=== PATIENT | female | born 1950 | race Caucasian/White ===

== ENCOUNTER 2018-07-10 16:07 | Inpatient (IN) | payer MEDICARE, OTHER ==
--- NOTE | 2018-07-10 16:41 | PDOC ---
History of Present Illness - General Chief Complaint: Respiratory Stated Complaint: SENT BY PCP // ADMIT UNDER DR. MCMULLEN Time Seen by Provider: 07/10/18 16:08 History Source: Patient - History of Present Illness Initial Comments: 07/10/18 16:36 67 year old female send by Dr. rollins for admission for symptomatic anemia , CHF, with recent stent placement at [facility]. patient reports worsening shortness of breath since the stent placement on 06/26/2018/ PE: patient alert ox3 b/l lower extremity edema, SOB A; CHF exacerbation? P: labs xray ekg Past History - Past Medical History Allergies/Adverse Reactions: Allergies Allergy/AdvReac Type Severity Reaction Status Date / Time azithromycin [From Zithromax] Allergy Verified 01/12/16 21:56 Home Medications: Ambulatory Orders Insulin (Novolog 70/30) [Novolog Mix 70/30 Flexpen -] 24 units SQ HS 12/31/14 Insulin (Novolog 70/30) [Novolog Mix 70/30 Flexpen -] 51 units SQ AM 12/31/14 Losartan Potassium 100 mg PO DAILY 12/31/14 Meclizine HCl 25 mg PO DAILY 01/12/16 Ondansetron [Zofran *Odt*] 8 mg SL BID 01/12/16 Diabetes: Yes HTN: Yes - Immunization History Immunization Up to Date: Yes - Suicide/Smoking/Psychosocial Hx Smoking History: Never smoked Have you smoked in the past 12 months: No Hx Alcohol Use: No Drug/Substance Use Hx: No Substance Use Type: None
--- NOTE | 2018-07-10 16:43 | PDOC ---
Rapid Medical Evaluation Chief Complaint: Respiratory Time Seen by Provider: 07/10/18 16:08 Medical Evaluation: Allergies Allergy/AdvReac Type Severity Reaction Status Date / Time azithromycin [From Zithromax] Allergy Verified 01/12/16 21:56 07/10/18 16:42 67 year old female send by Dr. rollins for admission for symptomatic anemia , CHF, with recent stent placement at [facility]. patient reports worsening shortness of breath since the stent placement on 06/26/2018/ PE: patient alert ox3 b/l lower extremity edema, SOB A; CHF exacerbation? P: labs xray ekg 07/10/18 16:42 Discharge Disposition - Diagnosis Shortness of breath at rest - Referrals - Patient Instructions - Post Discharge Activity
--- NOTE | 2018-07-10 17:12 | PDOC ---
History of Present Illness - General Chief Complaint: Respiratory Stated Complaint: SENT BY PCP // ADMIT UNDER DR. MCMULLEN Time Seen by Provider: 07/10/18 16:08 History Source: Patient Exam Limitations: No Limitations - History of Present Illness Initial Comments: Pt is a 67 yo F, with PMH of anemia, CHF, CAD (stent x1), IDDM, and HTN, who is presenting with complaints of worsening dyspnea and b/l LE swelling x2 weeks. Pt was sent from Dr. Owen's office (cardiology), when he discovered worsening anemia and dyspnea. Pt states she has also had some productive frothy sputum, which is unusual for her. Pt had a cardiac stent placed at [facility] (06/26/2018) and has had worsening SOB since that time. She can normally ambulate around her house, but has had difficulty even getting around in her room. She has also had intermittent loose stools about once per week, and has seen "drops of blood in the toilet". Pt denies any recent fevers/chills , headache, vision changes, syncope, chest pain, palpitations, nausea/vomiting, abdominal pain, urinary symptoms, or constipation. Social: Pt denies any cigarette, alcohol, or drug use. Pt denies any recent travel or sick contacts. Surgical: stent placement. Family: no relevant history. 07/10/18 20:33 Past History - Travel Traveled outside of the country in the last 30 days: No Close contact w/someone who was outside of country & ill: No - Past Medical History Allergies/Adverse Reactions: Allergies Allergy/AdvReac Type Severity Reaction Status Date / Time azithromycin [From Zithromax] Allergy Verified 07/10/18 16:45 Home Medications: Ambulatory Orders Atorvastatin Ca [Lipitor] 80 mg PO HS 07/10/18 Clopidogrel Bisulfate [Plavix] 75 mg PO DAILY 07/10/18 Insulin Glargine,Hum.rec.anlog [Lantus] 30 unit SQ HS 07/10/18 Losartan Potassium [Cozaar] 100 mg PO HS 07/10/18 Diabetes: Yes HTN: Yes - Immunization History Immunization Up to Date: Yes - Suicide/Smoking/Psychosocial Hx Smoking History: Never smoked Have you smoked in the past 12 months: No Hx Alcohol Use: No Drug/Substance Use Hx: No Substance Use Type: None Review of Systems - Review of Systems Able to Perform ROS?: Yes Is the patient limited Uzbek proficient: No Constitutional: Yes: Weight Stable. No: Chills, Diaphoresis, Fever, Loss of Appetite, Malaise, Weakness HEENTM: No: Recent change in vision, Nose Congestion, Throat Pain, Throat Swelling Respiratory: Yes: Shortness of Breath, SOB with Exertion, SOB at Rest, Productive cough (productive sputum, no consistent coughing). No: Cough, Orthopnea, Wheezing, Hemoptysis Cardiac (ROS): Yes: See HPI, Edema. No: Chest Pain, Irregular Heart Rate, Lightheadedness, Palpitations, Syncope, Chest Tightness ABD/GI: Yes: Diarrhea. No: Constipated, Nausea, Poor Appetite, Poor Fluid Intake, Vomiting, Abdominal cramping, Tarry Stools : No: Burning, Dysuria, Pain, Urgency Musculoskeletal: No: Back Pain, Joint Pain, Muscle Pain Integumentary: No: Rash Neurological: No: Headache, Numbness, Paresthesia, Dizziness Psychiatric: No: Sleep Pattern Change, Change in Appetite Endocrine: No: Increased Urine, Change in Weight Hematologic/Lymphatic: Yes: Anemia, Blood Clots (CAD, s/p stent). No: Easy Bleeding, Easy Bruising *Physical Exam - Vital Signs Last Vital Signs Temp Pulse Resp BP Pulse Ox 97.9 F 77 24 H 145/66 96 07/10/18 16:36 07/10/18 16:36 07/10/18 16:36 07/10/18 16:36 07/10/18 16:36 - Physical Exam Comments: RR 24, O2 96% on RA (improved to 100% on O2), pt afebrile. Obese body habitus. PE showed pt alert and oriented. pre press proofer generally intact, muscular strength and sensation intact. Eyes PERRLA, EOMI. Oropharynx without erythema or exudates, no LAD b/l. No nasal congestion, hearing intact. Clear heart sounds, S1/S2, no JVD, no heart murmur. B/l pedal edema with pitting to mid shins. Coarse breath sounds b/l, crackles worse at the bases, accessory muscle use in abdomen. No abdominal or CVA tenderness to palpation, no rebound, no guarding. Abdomen soft , non-distended, and with normoactive bowel sounds. Skin without jaundice or rash. 07/10/18 20:41 Moderate Sedation - Procedure Monitoring Vital Signs: Procedure Monitoring Vital Signs Temperature 97.9 F 07/10/18 16:36 Pulse Rate 77 07/10/18 16:36 Respiratory Rate 24 H 07/10/18 16:36 Blood Pressure 145/66 07/10/18 16:36 O2 Sat by Pulse Oximetry (%) 96 07/10/18 16:36 ED Treatment Course - LABORATORY CBC & Chemistry Diagram: 07/10/18 17:35 07/10/18 17:35 Medical Decision Making - Medical Decision Making Pt was seen at bedside, also will be seen by attending Dr. Bonilla. Pt presenting with complaints of worsening dyspnea and b/l LE swelling x2 weeks. Pt was sent from Dr. Owen's office (cardiology), when he discovered worsening anemia and dyspnea. Pt states she has also had some productive frothy sputum, which is unusual for her. Pt had a cardiac stent placed at [facility] (06/26/2018) and has had worsening SOB since that time. She can normally ambulate around her house, but has had difficulty even getting around in her room. She has also had intermittent loose stools about once per week, and has seen "drops of blood in the toilet". Pt denies any recent fevers/chills , headache, vision changes, syncope, chest pain, palpitations, nausea/vomiting, abdominal pain, urinary symptoms, or constipation. RR 24, O2 96% on RA (improved to 100% on O2), pt afebrile. Obese body habitus. PE showed pt alert and oriented. pre press proofer generally intact, muscular strength and sensation intact. Eyes PERRLA, EOMI. Oropharynx without erythema or exudates, no LAD b/l. No nasal congestion, hearing intact. Clear heart sounds, S1/S2, no JVD, no heart murmur. B/l pedal edema with pitting to mid shins. Coarse breath sounds b/l, crackles worse at the bases, accessory muscle use in abdomen. No abdominal or CVA tenderness to palpation, no rebound, no guarding. Abdomen soft , non-distended, and with normoactive bowel sounds. Skin without jaundice or rash. Considering worsening anemia vs CHF exacerbation vs pulm edema/effusion vs ACS vs URI/pneumonia. Ordered work-up including CBC, CMP, BNP, Mg, Phos, coags, cardiac profile, ECG. chest x-ray. Provided 0.4 mg SL NG and 20 mg IV lasix for improvement of edema and SOB. Will continue to reassess pt and monitor for symptomatic improvement. ECG: NSR, TN 162, incomplete RBBB, LAD. Slightly peaked T waves, only greater 1/ 2 R wave in V3. 07/10/18 17:14 CBC: WBC WNL, H/H 8.2/24.3 -- pt currently fluid overloaded. Will provide diuresis before any transfusion. Sent stool for occult blood. Pending CMP and chest x-ray. Pt states she is starting to feel better after medications. Pt saturating 99% on 2L O2 NC, will reduce as tolerated. 07/10/18 18:06 CMP: K 6.3, BUN/Cr 41/1.8, glucose 188 Ca 7.7, Mg 2.8 Coags WNL Trop .03, BNP 1554 Providing 30 mg PO kayexalate, bicarb, calcium gluc. [id number] RAD/CHEST X-RAY PORTABLE* Shortness of breath Portable chest x-ray, AP semiupright Compared to prior chest x-ray dated 06/29/2009 The cardiac silhouette is borderline in size. There are increased interstitial markings, bilaterally suggestive of pulmonary venous congestion plus or minus pneumonic infiltrates. Mediastinum and visualized osseous structures appear intact Impression: Borderline cardiomegaly and mild pulmonary venous congestion versus interstitial infiltrates. Correlate clinically and follow-up is needed. Spoke with Dr. Luciano who accepted pt for admission. Placed consult order for Dr. Owen (cardiology). Pt stable and pending bed upstairs. Feels less SOB after interventions, still dyspneic with exertion. 07/10/18 19:56 07/10/18 20:18 *DC/Admit/Observation/Transfer Diagnosis at time of Disposition: Shortness of breath at rest, IDDM (insulin dependent diabetes mellitus), H/O heart artery stent CHF exacerbation Qualifiers: Heart failure type: unspecified Qualified Code(s): I50.9 - Heart failure, unspecified - Discharge Dispostion Condition at time of disposition: Stable Decision to Admit order: Yes - Referrals - Patient Instructions - Post Discharge Activity
[2018-07-10] MEDS ORDERED: FUROSEMIDE 40 MG/4 ML INJECTABLE VIAL IVPUSH ONE (17:15)
[2018-07-10] MEDS ORDERED: NITROGLYCERIN SUBLINGUAL 1/150 0.4 MG TAB SL ONE (17:15)
[2018-07-10] MEDS ORDERED: FUROSEMIDE 40 MG/4 ML INJECTABLE VIAL ONE (17:32)
--- NOTE | 2018-07-10 17:43 | PDOC ---
Documentation entered by Andressa Banda SCRIBE, acting as scribe for Denise Bonilla MD. Attending Attestation - Resident Resident Name: Merry Up - ED Attending Attestation I have performed the following: I have examined & evaluated the patient, The case was reviewed & discussed with the resident, I agree w/resident's findings & plan, Exceptions are as noted - HPI HPI: 07/10/18 18:42 67 yo F h/o recent CAD HTN recent stent here from [employer] office with exertional dyspnea, edema for few weeks. and was found to be anemic today in office. no h/o dark stool no prior anemia. no f/c no cough. sob worse with exertion and lying flat. no current chest pain. no ho pe or dvt. pt follows with dr rollins. - Physicial Exam PE: 07/10/18 17:35 awake alert NAD. lungs with crackles at bases, mild tachypnea, decreased at bases. mild increased effort. heart rrr no mrg abd soft nt nd. ext bilat pitting edema. no calf tenderness. nuero alert oriented x 3. - Medical Decision Making 07/10/18 17:36 67 yo F with h/o recent stent, CAD, htn anemia here with exertional sob and leg edema. worsening anemia. differential angina, chf, anemia. plan labs ekg trop cxr eric require lasix. prior to transfusion for anemia. paged dr rollins for admission. told to admit to [facility]. 07/10/18 18:40 pt with elevatd potassium 6.3 given lasix and kaexylate. will give calcium chloride and bicarb also . note elevaeted magnesium in addition. ekg with no acute changes or peaked t waved. Heart Score/ECG Review #1 General ECG Interpretation: Sinus Rhythm, Normal Rate (66), Normal Intervals, No acute ischemic changes (TWI I, AVL) - [place] Saint David: Left [place] Deviation Denise Bonilla MD: This documentation has been prepared by the joséibeVeronika Amanda, SCRIBE, under my direction and personally reviewed by me in its entirety. I confirm that the documentation accurately reflects all work, treatment, procedures, and medical decision making performed by me.
[2018-07-10 17:48] LABS: BASO % 0.7 % (0-2.0); EOS % 4.9 % (0-4.5); HEMATOCRIT 24.3 % (32.4-45.2); HEMOGLOBIN 8.2 GM/dL (10.7-15.3); LYMPH % 17.6 % (8-40); MCH 28.6 pg (25.7-33.7); MCHC 33.9 g/dl (32.0-36.0); MEAN CELL VOLUME 84.4 fl (80-96); MEAN PLT VOLUME 7.8 fl (7.5-11.1); MONO % 5.8 % (3.8-10.2); PLATELET COUNT 268 K/MM3 (134-434); RBC 2.88 M/mm3 (3.60-5.2); RDW 16.4 % (11.6-15.6); WHITE BLOOD COUNT 8.3 K/mm3 (4.0-10.0)
[2018-07-10 18:13] LABS: ALBUMIN 2.1 g/dl (3.4-5.0); ALK PHOS 132 U/L (45-117); ANION GAP 7 MMOL/L (8-16); BILIRUBIN,TOTAL 0.2 mg/dL (0.2-1); BLOOD UREA NITROGEN 41 mg/dL (7-18); CALCIUM 7.7 mg/dL (8.5-10.1); CHLORIDE 107 mmol/L (98-107); CO2 21 mmol/L (21-32); CREATININE 1.8 mg/dL (0.55-1.3); GLUCOSE,RANDOM 188 mg/dL (74-106); MAGNESIUM 2.8 mg/dL (1.8-2.4); N-TERMINAL BNP 1554.2 pg/ml (5-125); SGOT/AST 21 U/L (15-37); SGPT/ALT 23 U/L (13-61); SODIUM 135 mmol/L (136-145); TOT PROT 5.6 g/dl (6.4-8.2)
[2018-07-10 18:20] LABS: POTASSIUM 6.3 mmol/L (3.5-5.1)
[2018-07-10] MEDS ORDERED: SODIUM POLYSTYRENE SULFONATE 15 GM/60 ML BOTTLE PO ONE (18:28)
[2018-07-10] MEDS ORDERED: SODIUM POLYSTYRENE SULFONATE 15 GM/60 ML BOTTLE ONE (18:31)
[2018-07-10 18:38] LABS: INR 0.92 (0.83-1.09); PROTHROMBIN TIME (PATIENT) 10.9 SEC (9.7-13.0)
[2018-07-10] MEDS ORDERED: CALCIUM GLUCONATE 10% - 1,000 MG/10 ML VIAL IVPUSH ONE (18:54)
[2018-07-10] MEDS ORDERED: SODIUM BICARBONATE 4.2% 5 MEQ/10 ML DISP.SYRIN IVPUSH ONE ×2 (18:55→19:10)
--- NOTE | 2018-07-10 18:57 | CON.CARD ---
Cardiology Consult (text) - Consultation Consultation Note: Ms. Mckeon was sent to ER for further evaluation of dyspnea on exertion, congestive heart failure and worsened anemia. She was seen in the office this afternoon. She has a pertinent PMH of CKD and CAD with recent RAQUEL to LAD several weeks ago (radial approach). Her baseline Hb of near 10 has now dropped to 8, she has b/l LE edema, rales and CXR c/w CHF. In ER, she was also found to be hyperkalemic and was given Kayexalate. IMP: 1. CAD s/p recent RAQUEL LAD (radial approach) 2. Chronic anemia, progressive 3. Acute on chronic diastolic CHF 4. CKD 5. Hyperk+ REC: 1. Admit for IV diuresis. 2. Daily weight and monitoring renal function, potassium 3.Echo 4. Renal evaluation 5. Stool guaiac and anemia w/u as per PMD
[2018-07-10] MEDS ORDERED: CALCIUM GLUCONATE 10% - 1,000 MG/10 ML VIAL ONE (19:01)
[2018-07-10] MEDS ORDERED: SODIUM BICARBONATE 8.4% 50 MEQ/50 ML VIAL ONE (19:02)
[2018-07-10] MEDS ORDERED: SODIUM BICARBONATE 8.4% 50 MEQ/50 ML DISP.SYRIN IVPUSH ONE (19:12)
[2018-07-10 21:26] LABS: URINE APPEARANCE SLCLOUDY; URINE BILIRUBIN NEGATIVE (<2.0 mg/dL); URINE COLOR YELLOW; URINE GLUCOSE (UA) 2+ (NEGATIVE); URINE KETONE NEGATIVE (NEGATIVE); URINE LEUK ESTERASE NEGATIVE (NEGATIVE); URINE NITRITE NEGATIVE (NEGATIVE); URINE PROTEIN 2+ (NEGATIVE); URINE UROBILINOGEN NEGATIVE mg/dL (0.2-1.0)
[2018-07-10 21:57] LABS: URINE HYALINE CAST 7 /lpf; URINE MUCUS RARE
[2018-07-10 22:05] VITALS: BMI 38.9
[2018-07-10] MEDS ORDERED: ASPIRIN 81 MG CHEWABLE TABLETS PO SCH (22:45)
[2018-07-10] MEDS ORDERED: CLOPIDOGREL BISULFATE 75 MG TABLET (FP) PO SCH (22:45)
[2018-07-10] MEDS ORDERED: CLOPIDOGREL BISULFATE 75 MG TABLET (FP) PO ONE (23:00)
[2018-07-10] MEDS ORDERED: ASPIRIN 81 MG CHEWABLE TABLETS PO ONE (23:00)
--- NOTE | 2018-07-10 23:08 | HP ---
Admitting History and Physical - Past Medical History ...: No - Smoking History Smoking history: Never smoked Have you smoked in the past 12 months: No - Alcohol/Substance Use Hx Alcohol Use: No Home Medications - Allergies Allergies/Adverse Reactions: Allergies Allergy/AdvReac Type Severity Reaction Status Date / Time azithromycin [From Zithromax] Allergy Verified 07/10/18 16:45 - Home Medications Home Medications: Ambulatory Orders Aspirin [ASA -] 81 mg PO HS 07/10/18 Atorvastatin Ca [Lipitor] 80 mg PO HS 07/10/18 Clopidogrel Bisulfate [Plavix] 75 mg PO HS 07/10/18 Doxazosin Mesylate 4 mg PO DAILY 07/10/18 Ezetimibe [Zetia] 10 mg PO HS 07/10/18 Ferrous Sulfate [Feosol] 325 mg PO DAILY 07/10/18 Insulin Glargine,Hum.rec.anlog [Lantus] 30 unit SQ HS 07/10/18 Losartan Potassium [Cozaar] 100 mg PO HS 07/10/18 Meclizine HCl 12.5 mg PO BID 07/10/18 Metoprolol Succinate 25 mg PO HS 07/10/18 Physical Examination Vital Signs: Vital Signs Temperature 97.9 F 07/10/18 16:36 Pulse Rate 57 L 07/10/18 18:16 Respiratory Rate 22 H 07/10/18 18:16 Blood Pressure 137/56 L 07/10/18 18:16 O2 Sat by Pulse Oximetry (%) 100 07/10/18 18:16 Labs: CBC, BMP 07/10/18 17:35 07/10/18 17:35
[2018-07-10] MEDS: ASPIRIN COATED 81 MG TABLET.EC PO SCH (23:53)
[2018-07-10] MEDS: CLOPIDOGREL BISULFATE 75 MG TABLET (FP) PO SCH (23:53)
[2018-07-10] MEDS: INSULIN (LEVEMIR) 100 UNITS/ML UNITS SQ SCH (23:53)
[2018-07-10] MEDS: metoPROLOL SUCCINATE 25 MG TAB.SR.24H (FP) PO SCH (23:53)
[2018-07-10] MEDS: EZETIMIBE 10 MG TABLET (FP) PO SCH (23:54)
[2018-07-11] MEDS: INSULIN SLIDING SCALE (NOVOLOG) 1 VIAL SQ SCH ×4 (06:27→21:55)
[2018-07-11 07:08] LABS: BASO % 0.5 % (0-2.0); EOS % 5.8 % (0-4.5); LYMPH % 21.5 % (8-40); MCH 27.6 pg (25.7-33.7); MCHC 33.2 g/dl (32.0-36.0); MEAN CELL VOLUME 83.1 fl (80-96); MEAN PLT VOLUME 7.7 fl (7.5-11.1); NEUT % 64.2 % (42.8-82.8); PLATELET COUNT 222 K/MM3 (134-434); RBC 2.53 M/mm3 (3.60-5.2); WHITE BLOOD COUNT 6.8 K/mm3 (4.0-10.0)
[2018-07-11 07:39] LABS: ALBUMIN 1.9 g/dl (3.4-5.0); ALK PHOS 123 U/L (45-117); ANION GAP 4 MMOL/L (8-16); BILIRUBIN,TOTAL 0.6 mg/dL (0.2-1); BLOOD UREA NITROGEN 41 mg/dL (7-18); CALCIUM 7.7 mg/dL (8.5-10.1); CHLORIDE 110 mmol/L (98-107); CO2 26 mmol/L (21-32); CREATININE 1.6 mg/dL (0.55-1.3); GLUCOSE,RANDOM 186 mg/dL (74-106); POTASSIUM 5.5 mmol/L (3.5-5.1); SGOT/AST 13 U/L (15-37); SGPT/ALT 17 U/L (13-61); SODIUM 141 mmol/L (136-145); TOT PROT 5.2 g/dl (6.4-8.2)
--- NOTE | 2018-07-11 09:04 | PN ---
Progress Note, Physician Chief Complaint: Seen and examined on telemetry TELE: NSR She denies CP. Chronic SOB History of Present Illness: has not diuresed much - Current Medication List Current Medications: Active Medications Aspirin (Ecotrin -) 81 mg PO HS [facility] Last Admin: 07/10/18 23:53 Dose: Not Given Atorvastatin Calcium (Lipitor -) 80 mg PO HS [facility] Clopidogrel Bisulfate (Plavix -) 75 mg PO HS [facility] Last Admin: 07/10/18 23:53 Dose: Not Given Doxazosin Mesylate (Cardura -) 4 mg PO DAILY [facility] Ezetimibe (Zetia -) 10 mg PO HS [facility] Last Admin: 07/10/18 23:54 Dose: 10 mg Ferrous Sulfate (Feosol -) 325 mg PO DAILY [facility] Furosemide (Lasix Injection -) 40 mg IVPUSH DAILY [facility] Heparin Sodium (Porcine) (Heparin -) 5,000 unit SQ BID [facility] Insulin Aspart (Novolog Vial Sliding Scale -) 1 vial SQ [facility]; Protocol Last Admin: 07/11/18 06:27 Dose: 2 units Insulin Detemir (Levemir Vial) 30 units SQ [facility] Last Admin: 07/10/18 23:53 Dose: Not Given Losartan Potassium (Cozaar -) 100 mg PO HS [facility] Meclizine HCl (Antivert -) 12.5 mg PO BID [facility] Metoprolol Succinate (Toprol Xl -) 25 mg PO [facility] Last Admin: 07/10/18 23:53 Dose: 25 mg - Objective Vital Signs: Vital Signs Temperature 99.1 F 07/11/18 08:58 Pulse Rate 52 L 07/11/18 08:58 Respiratory Rate 18 07/11/18 08:58 Blood Pressure 148/68 07/11/18 08:58 O2 Sat by Pulse Oximetry (%) 100 07/11/18 00:16 Constitutional: Yes: No Distress Cardiovascular: Yes: Regular Rate and Rhythm Respiratory: Yes: Other (decreased breath sounds at bases. No wheezing.) Gastrointestinal: Yes: Soft (NT) Edema: Yes Edema: LLE: 2+, RLE: 2+ Neurological: Yes: Alert, Oriented ...Motor Strength: WNL Labs: CBC, BMP 07/11/18 05:30 07/11/18 05:30 INR, PTT INR 0.92 (0.83-1.09) 07/10/18 17:35 Selected Entries 07/11/18 06:00 Weight 184 lb 3.2 oz Laboratory Tests 07/11/18 07/11/18 07/11/18 01:30 05:30 05:30 WBC 6.8 Hgb 7.0 L Hct 21.0 L Plt Count 222 Sodium 141 Potassium 5.5 H BUN 41 H Creatinine 1.6 H Calcium 7.7 L Alkaline Phosphatase 123 H Creatine Kinase 133 Troponin I 0.03 - ....Imaging EKG: Image Reviewed Assessment/Plan IMP: 1. CAD s/p recent RAQUEL LAD (radial approach) 2. Chronic anemia, progressive 3. Acute on chronic diastolic CHF 4. CKD 5. Hyperk+ REC: 1. To continue ASA/Plavix; statin therapy for LDL goal 70mg/dl 2. IV Lasix with daily weights and daily BMP 3. Repeat CBC and transfuse if Hb < 8 4. Echo 5. Renal consult
[2018-07-11] MEDS ORDERED: PT OWN MED DRAWER 7, Y5N ONE (09:22)
[2018-07-11] MEDS: MECLIZINE HCL 12.5 MG TABLET PO SCH ×2 (09:52→21:50)
[2018-07-11] MEDS: DOXAZOSIN MESYLATE 4 MG TABLET PO SCH (09:52)
[2018-07-11] MEDS: FERROUS SO4 325 MG TABLET (FP) PO SCH (09:53)
[2018-07-11] MEDS: HEPARIN NA (PORCINE) 5,000 UNITS/ML 1ML VIAL SQ SCH ×2 (09:54→21:50)
[2018-07-11 09:57] LABS: BASO % 0.5 % (0-2.0); EOS % 5.6 % (0-4.5); HEMATOCRIT 23.1 % (32.4-45.2); HEMOGLOBIN 7.6 GM/dL (10.7-15.3); LYMPH % 23.1 % (8-40); MCH 27.5 pg (25.7-33.7); MCHC 32.8 g/dl (32.0-36.0); MEAN CELL VOLUME 83.8 fl (80-96); MEAN PLT VOLUME 7.4 fl (7.5-11.1); MONO % 7.4 % (3.8-10.2); NEUT % 63.4 % (42.8-82.8); PLATELET COUNT 242 K/MM3 (134-434); RBC 2.75 M/mm3 (3.60-5.2); RDW 16.4 % (11.6-15.6); WHITE BLOOD COUNT 7.5 K/mm3 (4.0-10.0)
[2018-07-11] MEDS ORDERED: ASPIRIN 81 MG CHEWABLE TABLETS PO SCH (10:00)
[2018-07-11] MEDS ORDERED: FUROSEMIDE 40 MG/4 ML INJECTABLE VIAL IVPUSH SCH (10:00)
[2018-07-11] MEDS ORDERED: CLOPIDOGREL BISULFATE 75 MG TABLET (FP) PO SCH (10:00)
--- NOTE | 2018-07-11 12:45 | ECHO ---
Name: MACK MORENO Exam:Adult Echocardiogram Study Date: 07/11/2018 08:26 AM Age: 67 yrs Reason For Study: chf Height: 60 in Weight: 179 lb BSA: 1.8 m2 MMode/2D Measurements & Calculations IVSd: 1.1 cm Ao root diam: 3.1 cm LVIDd: 5.0 cm LA dimension: 4.0 cm LVIDs: 3.4 cm ACS: 1.7 cm LVPWd: 0.97 cm IVSs: 1.5 cm LVPWs: 1.3 cm EDV(Teich): 118.5 ml ESV(Teich): 47.9 ml Doppler Measurements & Calculations MV E max costa: 113.8 cm/sec Ao V2 max: 141.2 cm/sec MV A max costa: 81.7 cm/sec Ao max P.0 mmHg MV E/A: 1.4 MR max costa: 396.4 cm/sec TR max costa: 243.0 cm/sec MR max P.8 mmHg TR max P.6 mmHg Med Peak E' Costa: 5.8 cm/sec Med E/e': 19.5 Lat Peak E' Costa: 5.8 cm/sec Lat E/e': 19.8 Procedure A complete two-dimensional transthoracic echocardiogram was performed (2D, M-mode, Doppler and color flow Doppler). Left Ventricle The left ventricular size, thickness and function are normal. The left ventricular ejection fraction is normal. Ejection Fraction = 60-65%. The left ventricular wall motion is normal. Right Ventricle The right ventricle is normal in size and function. Atria Normal left and right atrial size and function. Mitral Valve There is trace mitral regurgitation. Tricuspid Valve No tricuspid regurgitation. There was insufficient TR detected to calculate RV systolic pressure. Aortic Valve The aortic valve is trileaflet. No hemodynamically significant valvular aortic stenosis. No aortic regurgitation is present. Pulmonic Valve There is no pulmonic valvular regurgitation. Great Vessels The aortic root is normal size. Pericardium/Pleura There is no pericardial effusion. Interpretation Summary The left ventricular size, thickness and function are normal The right ventricle is normal in size and function. There is trace mitral regurgitation. MD Teddy Hernadez 07/11/2018 12:45 PM
[2018-07-11] MEDS: FUROSEMIDE 40 MG/4 ML INJECTABLE VIAL IVPUSH SCH ×2 (14:00→20:32)
--- NOTE | 2018-07-11 14:03 | EKG ---
Test Reason : Blood Pressure : / mmHG Vent. Rate : 066 BPM Atrial Rate : 066 BPM P-R Int : 162 ms QRS Dur : 104 ms QT Int : 436 ms P-R-T Axes : 028 -26 085 degrees QTc Int : 457 ms NORMAL SINUS RHYTHM INCOMPLETE RIGHT BUNDLE BRANCH BLOCK MODERATE VOLTAGE CRITERIA FOR LVH, MAY BE NORMAL VARIANT BORDERLINE ECG WHEN COMPARED WITH ECG OF 14-JAN-2008 12:55, INCOMPLETE RIGHT BUNDLE BRANCH BLOCK IS NOW PRESENT NONSPECIFIC T WAVE ABNORMALITY NO LONGER EVIDENT IN ANTERIOR LEADS T WAVE INVERSION NOW EVIDENT IN LATERAL LEADS Confirmed by JAVON LOMBARDI MD ([id number]) on 07/11/2018 2:03:13 PM Referred By: Confirmed By:JAVON LOMBARDI MD
--- NOTE | 2018-07-11 15:13 | CONSULT ---
Consult - text type - Consultation Consultation Note: Renal Consult for ANG and fluid overload This is a 67 year old woman with history of CKD (baseline Cr 0.9-1) with mild proteinuira, CAD s/p recent cardiac stent, hypertension, DM, hyperlipidemia who presented with complaints of worsening dyspnea and LE swelling and admitted for CHF exacerbation with ANG with Cr 1.6. Pt was found to have + IRENE and + DS DNA in the office but had not seem Rheum as an outpatient yet due to insurance issues. Pt had recent cardiac cath that was done via the radial approach. Denies any NSAID tyron. No flank pain, dysuira, N/V/ D. No KAMARA, confusion, fever, chills. PMhx: as above Allergies: azithromycin Family hx: NC Social hx: No T/A/D ROS: as per HPI, all other pertinent ros negative. Home Medications Medication Instructions Recorded Aspirin [ASA -] 81 mg PO HS 07/10/18 Atorvastatin Ca [Lipitor] 80 mg PO HS 07/10/18 Clopidogrel Bisulfate [Plavix] 75 mg PO HS 07/10/18 Doxazosin Mesylate 4 mg PO DAILY 07/10/18 Ezetimibe [Zetia] 10 mg PO HS 07/10/18 Ferrous Sulfate [Feosol] 325 mg PO DAILY 07/10/18 Insulin Glargine,Hum.rec.anlog 40 unit SQ AM 07/10/18 [Lantus] Losartan Potassium [Cozaar] 100 mg PO HS 07/10/18 Meclizine HCl 12.5 mg PO BID 07/10/18 Metoprolol Succinate 25 mg PO HS 07/10/18 Vital Signs Temperature 99.1 F 07/11/18 08:58 Pulse Rate 52 L 07/11/18 08:58 Respiratory Rate 18 07/11/18 08:58 Blood Pressure 148/68 07/11/18 08:58 O2 Sat by Pulse Oximetry (%) 100 07/11/18 00:16 Intake & Output 07/08/18 07/09/18 07/10/18 07/11/18 23:59 23:59 23:59 23:59 Intake Total 640 Balance 640 Weight 83.28 kg 83.552 kg NAD awake and alert neck supple, mild JVD RRR, no M/R CTA, dec BS obese, NT/ND, no rebound or guarding ++ edema in LE, no calf tenderness no bladder distension no CVA tenderness CBC, BMP 07/11/18 09:45 07/11/18 05:30 Current Medications Aspirin (Ecotrin -) 81 mg PO [facility] Last Admin: 07/10/18 23:53 Dose: Not Given Atorvastatin Calcium (Lipitor -) 80 mg PO [facility] Clopidogrel Bisulfate (Plavix -) 75 mg PO [facility] Last Admin: 07/10/18 23:53 Dose: Not Given Doxazosin Mesylate (Cardura -) 4 mg PO DAILY [facility] Last Admin: 07/11/18 09:52 Dose: 4 mg Ezetimibe (Zetia -) 10 mg PO [facility] Last Admin: 07/10/18 23:54 Dose: 10 mg Ferrous Sulfate (Feosol -) 325 mg PO DAILY [facility] Last Admin: 07/11/18 09:53 Dose: 325 mg Furosemide (Lasix Injection -) 40 mg IVPUSH BID@0600,1400 REPLACED BY [facility] Heparin Sodium (Porcine) (Heparin -) 5,000 unit SQ BID [facility] Last Admin: 07/11/18 09:54 Dose: 5,000 unit Insulin Aspart (Novolog Vial Sliding Scale -) 1 vial SQ [facility]; Protocol Last Admin: 07/11/18 12:05 Dose: 4 units Insulin Detemir (Levemir Vial) 30 units SQ [facility] Last Admin: 07/10/18 23:53 Dose: Not Given Meclizine HCl (Antivert -) 12.5 mg PO BID [facility] Last Admin: 07/11/18 09:52 Dose: 12.5 mg Metoprolol Succinate (Toprol Xl -) 25 mg PO [facility] Last Admin: 07/10/18 23:53 Dose: 25 mg 67 year old woman with history of CKD (baseline Cr 0.9-1) with mild proteinuira, CAD s/p recent cardiac stent, hypertension, DM, hyperlipidemia who presented with complaints of worsening dyspnea and LE swelling and admitted for CHF exacerbation with ANG with Cr 1.6. #ANG on CKD #CKD #Proteinuria #+ IRENE r/o SLe #CAD s/p cardiac stent #Diastolic HF #Acute on chronic anemia #Hyperkalemia Etiology of renal function unclear but could be due to contrast injury from cardiac cath vs. cardio-renal syndrome vs. normotensive ATN vs. AIN vs. GN Check UPCR, FeUrea, Renal Us, Renal vein doppler to r/o thrombosis Continue Lasix IV BID, Low salt diet Trend daily weights Repeat IRENE, Anti-DS DNA, CH50 if IRENE positive consider rheum evaluation unfortunately cannot get renal biopsy on ASA and Plavix Low K diet, hold Losartan for now Trend K Q12h for now Thank you Will follow Clinton Manjarrez DO
[2018-07-11 15:57] LABS: BASO % 0.4 % (0-2.0); EOS % 5.2 % (0-4.5); HEMATOCRIT 24.7 % (32.4-45.2); HEMOGLOBIN 8.1 GM/dL (10.7-15.3); LYMPH % 19.8 % (8-40); MCH 27.8 pg (25.7-33.7); MCHC 32.8 g/dl (32.0-36.0); MEAN CELL VOLUME 84.7 fl (80-96); MONO % 6.8 % (3.8-10.2); NEUT % 67.8 % (42.8-82.8); PLATELET COUNT 252 K/MM3 (134-434); RBC 2.91 M/mm3 (3.60-5.2); RDW 16.3 % (11.6-15.6)
[2018-07-11 16:26] LABS: ANION GAP 4 MMOL/L (8-16); BLOOD UREA NITROGEN 41 mg/dL (7-18); CALCIUM 7.7 mg/dL (8.5-10.1); CHLORIDE 107 mmol/L (98-107); CO2 27 mmol/L (21-32); CREATININE 1.7 mg/dL (0.55-1.3); GLUCOSE,RANDOM 234 mg/dL (74-106); POTASSIUM 5.8 mmol/L (3.5-5.1); SODIUM 138 mmol/L (136-145)
[2018-07-11] MEDS ORDERED: INSULIN (NOVOLOG) ASPART 100 UNITS/ML 10ML VIAL ONE (21:44)
[2018-07-11] MEDS: CLOPIDOGREL BISULFATE 75 MG TABLET (FP) PO SCH (21:50)
[2018-07-11] MEDS: ATORVASTATIN CA 80 MG TABLET (FP) PO SCH (21:50)
[2018-07-11] MEDS: ASPIRIN COATED 81 MG TABLET.EC PO SCH (21:50)
[2018-07-11] MEDS: metoPROLOL SUCCINATE 25 MG TAB.SR.24H (FP) PO SCH (21:51)
[2018-07-11] MEDS: EZETIMIBE 10 MG TABLET (FP) PO SCH (21:51)
[2018-07-11] MEDS: INSULIN (LEVEMIR) 100 UNITS/ML UNITS SQ SCH (21:55)
[2018-07-11] MEDS ORDERED: LOSARTAN POTASSIUM 50 MG TABLET (FP) PO SCH (22:00)
--- NOTE | 2018-07-11 23:53 | PN ---
Progress Note, Physician History of Present Illness: No new complaints - Current Medication List Current Medications: Active Medications Aspirin (Ecotrin -) 81 mg PO [facility] Last Admin: 07/11/18 21:50 Dose: 81 mg Atorvastatin Calcium (Lipitor -) 80 mg PO [facility] Last Admin: 07/11/18 21:50 Dose: 80 mg Clopidogrel Bisulfate (Plavix -) 75 mg PO [facility] Last Admin: 07/11/18 21:50 Dose: 75 mg Doxazosin Mesylate (Cardura -) 4 mg PO DAILY [facility] Last Admin: 07/11/18 09:52 Dose: 4 mg Ezetimibe (Zetia -) 10 mg PO [facility] Last Admin: 07/11/18 21:51 Dose: 10 mg Ferrous Sulfate (Feosol -) 325 mg PO DAILY [facility] Last Admin: 07/11/18 09:53 Dose: 325 mg Furosemide (Lasix Injection -) 40 mg IVPUSH BID@0600,1400 [facility] Last Admin: 07/11/18 20:32 Dose: 40 mg Heparin Sodium (Porcine) (Heparin -) 5,000 unit SQ BID [facility] Last Admin: 07/11/18 21:50 Dose: 5,000 unit Insulin Aspart (Novolog Vial Sliding Scale -) 1 vial SQ [facility]; Protocol Last Admin: 07/11/18 21:55 Dose: 4 units Insulin Detemir (Levemir Vial) 30 units SQ [facility] Last Admin: 07/11/18 21:55 Dose: 30 units Meclizine HCl (Antivert -) 12.5 mg PO BID [facility] Last Admin: 07/11/18 21:50 Dose: 12.5 mg Metoprolol Succinate (Toprol Xl -) 25 mg PO [facility] Last Admin: 07/11/18 21:51 Dose: 25 mg - Objective Vital Signs: Vital Signs Temperature 99.0 F 07/11/18 17:00 Pulse Rate 60 07/11/18 17:00 Respiratory Rate 20 07/11/18 17:00 Blood Pressure 166/95 07/11/18 17:00 O2 Sat by Pulse Oximetry (%) 98 07/11/18 09:00 HENT: Yes: WNL Neck: Yes: WNL, Supple Cardiovascular: Yes: WNL, Regular Rate and Rhythm Respiratory: Yes: Diminished Gastrointestinal: Yes: WNL, Normal Bowel Sounds, Soft Edema: LLE: Trace, RLE: Trace Labs: CBC, BMP 07/11/18 15:40 07/11/18 15:40 INR, PTT INR 0.92 (0.83-1.09) 07/10/18 17:35 Problem List - Problems (1) Acute on chronic diastolic heart failure Assessment/Plan: Cont IV lasix Monitor electrolytes Code(s): I50.33 - ACUTE ON CHRONIC DIASTOLIC (CONGESTIVE) HEART FAILURE (2) Anemia Assessment/Plan: Follow H/H Transfuse as needed Code(s): D64.9 - ANEMIA, UNSPECIFIED (3) HTN (hypertension) Assessment/Plan: BP stable Cont antihypertensives Code(s): I10 - ESSENTIAL (PRIMARY) HYPERTENSION (4) HLD (hyperlipidemia) Assessment/Plan: Cont lipitor Code(s): E78.5 - HYPERLIPIDEMIA, UNSPECIFIED (5) CAD (coronary artery disease) Assessment/Plan: Cont asa/plavix Code(s): I25.10 - ATHSCL HEART DISEASE OF [place] CORONARY ARTERY W/O ANG PCTRS (6) Diabetes Assessment/Plan: Cont levemir Cont sliding scale w/ coverage Code(s): E11.9 - TYPE 2 DIABETES MELLITUS WITHOUT COMPLICATIONS (7) ARF (acute renal failure) Assessment/Plan: As per renal Code(s): N17.9 - ACUTE KIDNEY FAILURE, UNSPECIFIED
[2018-07-12] MEDS: INSULIN SLIDING SCALE (NOVOLOG) 1 VIAL SQ SCH ×3 (06:14→23:00)
[2018-07-12] MEDS: FUROSEMIDE 40 MG/4 ML INJECTABLE VIAL IVPUSH SCH ×2 (06:19→16:12)
[2018-07-12 08:09] LABS: ANION GAP 4 MMOL/L (8-16); BLOOD UREA NITROGEN 43 mg/dL (7-18); CALCIUM 7.7 mg/dL (8.5-10.1); CHLORIDE 110 mmol/L (98-107); CO2 27 mmol/L (21-32); CREATININE 1.4 mg/dL (0.55-1.3); GLUCOSE,RANDOM 55 mg/dL (74-106); POTASSIUM 4.4 mmol/L (3.5-5.1); SODIUM 141 mmol/L (136-145)
--- NOTE | 2018-07-12 09:32 | PN ---
Progress Note, Physician Chief Complaint: feeling better TELE: Sinus alistair - Current Medication List Current Medications: Active Medications Aspirin (Ecotrin -) 81 mg PO [facility] Last Admin: 07/11/18 21:50 Dose: 81 mg Atorvastatin Calcium (Lipitor -) 80 mg PO [facility] Last Admin: 07/11/18 21:50 Dose: 80 mg Clopidogrel Bisulfate (Plavix -) 75 mg PO [facility] Last Admin: 07/11/18 21:50 Dose: 75 mg Doxazosin Mesylate (Cardura -) 4 mg PO DAILY [facility] Last Admin: 07/11/18 09:52 Dose: 4 mg Ezetimibe (Zetia -) 10 mg PO [facility] Last Admin: 07/11/18 21:51 Dose: 10 mg Ferrous Sulfate (Feosol -) 325 mg PO DAILY [facility] Last Admin: 07/11/18 09:53 Dose: 325 mg Furosemide (Lasix Injection -) 40 mg IVPUSH BID@0600,1400 [facility] Last Admin: 07/12/18 06:19 Dose: 40 mg Heparin Sodium (Porcine) (Heparin -) 5,000 unit SQ BID [facility] Last Admin: 07/11/18 21:50 Dose: 5,000 unit Insulin Aspart (Novolog Vial Sliding Scale -) 1 vial SQ [facility]; Protocol Last Admin: 07/12/18 06:14 Dose: Not Given Insulin Detemir (Levemir Vial) 30 units SQ [facility] Last Admin: 07/11/18 21:55 Dose: 30 units Meclizine HCl (Antivert -) 12.5 mg PO BID [facility] Last Admin: 07/11/18 21:50 Dose: 12.5 mg Metoprolol Succinate (Toprol Xl -) 25 mg PO [facility] Last Admin: 07/11/18 21:51 Dose: 25 mg - Objective Vital Signs: Vital Signs Temperature 98.1 F 07/12/18 06:00 Pulse Rate 50 L 07/12/18 06:00 Respiratory Rate 20 07/12/18 06:00 Blood Pressure 142/60 07/12/18 06:00 O2 Sat by Pulse Oximetry (%) 98 07/11/18 21:00 Constitutional: Yes: No Distress, Calm Eyes: Yes: Conjunctiva Clear Cardiovascular: Yes: Regular Rate and Rhythm Respiratory: Yes: Other (decreased) Gastrointestinal: Yes: Soft Edema: Yes Edema: LLE: 1+, RLE: 1+ Neurological: Yes: Alert, Oriented Labs: CBC, BMP 07/11/18 15:40 07/12/18 05:30 INR, PTT INR 0.92 (0.83-1.09) 07/10/18 17:35 Laboratory Tests 07/11/18 07/11/18 07/12/18 15:40 15:40 05:30 WBC 8.0 Hgb 8.1 L Plt Count 252 Sodium 141 Potassium 4.4 BUN 43 H Creatinine 1.4 H Calcium 7.7 L IRENE Screen Pending Double Strand DNA Ab Pending Tot Complement (CH50) Pending - ....Imaging EKG: Image Reviewed Assessment/Plan IMP: 1. CAD s/p recent RAQUEL LAD (radial approach) 2. Chronic anemia, progressive 3. Acute on chronic diastolic CHF 4. CKD 5. Hyperk+, resolved REC: 1. To continue ASA/Plavix; statin therapy for LDL goal 70mg/dl 2. IV Lasix with daily weights and daily BMP: renal function improved. Component of edema likely also from hypoalbuminemia. 3. Follow H/H; rheum work up 4. Echo done, normal. 5. Renal consult appreciated. 6. Telemetry plan: would continue telemetry while on IV Lasix and until K+ stable and volume status is optimized.
[2018-07-12] MEDS ORDERED: PT OWN MED DRAWER 7, Y5N ONE (11:15)
--- NOTE | 2018-07-12 12:38 | PN ---
Progress Note (short form) - Note Progress Note: Renal follow up for ANG Pt seen and examined at the bedside feels a little better s/p PRBC transfusion yesterday no cough, abd pain, N/V/D Vital Signs Temperature 98.1 F 07/12/18 06:00 Pulse Rate 50 L 07/12/18 06:00 Respiratory Rate 20 07/12/18 06:00 Blood Pressure 142/60 07/12/18 06:00 O2 Sat by Pulse Oximetry (%) 98 07/11/18 21:00 Intake & Output 07/09/18 07/10/18 07/11/18 07/12/18 23:59 23:59 23:59 23:59 Intake Total 1540 150 Output Total 900 Balance 640 150 Weight 83.28 kg 83.552 kg 82.917 kg NAD awake and alert neck supple, mild JVD RRR, no M/R CTA, dec BS obese, NT/ND, no rebound or guarding ++ edema in LE, no calf tenderness no bladder distension no CVA tenderness CBC, BMP 07/11/18 09:45 07/11/18 05:30 Current Medications Aspirin (Ecotrin -) 81 mg PO HS [facility] Last Admin: 07/10/18 23:53 Dose: Not Given Atorvastatin Calcium (Lipitor -) 80 mg PO [facility] Clopidogrel Bisulfate (Plavix -) 75 mg PO [facility] Last Admin: 07/10/18 23:53 Dose: Not Given Doxazosin Mesylate (Cardura -) 4 mg PO DAILY [facility] Last Admin: 07/11/18 09:52 Dose: 4 mg Ezetimibe (Zetia -) 10 mg PO [facility] Last Admin: 07/10/18 23:54 Dose: 10 mg Ferrous Sulfate (Feosol -) 325 mg PO DAILY [facility] Last Admin: 07/11/18 09:53 Dose: 325 mg Furosemide (Lasix Injection -) 40 mg IVPUSH BID@0600,1400 [facility] Heparin Sodium (Porcine) (Heparin -) 5,000 unit SQ BID [facility] Last Admin: 07/11/18 09:54 Dose: 5,000 unit Insulin Aspart (Novolog Vial Sliding Scale -) 1 vial SQ [facility]; Protocol Last Admin: 07/11/18 12:05 Dose: 4 units Insulin Detemir (Levemir Vial) 30 units SQ [facility] Last Admin: 07/10/18 23:53 Dose: Not Given Meclizine HCl (Antivert -) 12.5 mg PO BID [facility] Last Admin: 07/11/18 09:52 Dose: 12.5 mg Metoprolol Succinate (Toprol Xl -) 25 mg PO HS [facility] Last Admin: 07/10/18 23:53 Dose: 25 mg 67 year old woman with history of CKD (baseline Cr 0.9-1) with mild proteinuira, CAD s/p recent cardiac stent, hypertension, DM, hyperlipidemia who presented with complaints of worsening dyspnea and LE swelling and admitted for CHF exacerbation with ANG with Cr 1.6. #ANG on CKD #CKD #Proteinuria #+ IRENE r/o SLe #CAD s/p cardiac stent #Diastolic HF #Acute on chronic anemia #Hyperkalemia Etiology of renal function unclear but could be due to contrast injury from cardiac cath vs. cardio-renal syndrome vs. normotensive ATN vs. AIN vs. GN Urine studies show nephrotic range proteinuria, will need biopsy but will have to wait 3 months for asa/plavix to be held f/u serologic studies continue IV lasix imaging studies of kidney pending Thank you Will follow Clinton Manjarrez DO
[2018-07-12] MEDS: HEPARIN NA (PORCINE) 5,000 UNITS/ML 1ML VIAL SQ SCH ×2 (12:48→22:55)
[2018-07-12] MEDS: MECLIZINE HCL 12.5 MG TABLET PO SCH ×2 (12:48→22:55)
[2018-07-12] MEDS: FERROUS SO4 325 MG TABLET (FP) PO SCH (12:48)
[2018-07-12] MEDS: DOXAZOSIN MESYLATE 4 MG TABLET PO SCH (12:48)
[2018-07-12] MEDS: metoPROLOL SUCCINATE 25 MG TAB.SR.24H (FP) PO SCH (22:55)
[2018-07-12] MEDS: ASPIRIN COATED 81 MG TABLET.EC PO SCH (22:55)
[2018-07-12] MEDS: ATORVASTATIN CA 80 MG TABLET (FP) PO SCH (22:55)
[2018-07-12] MEDS: CLOPIDOGREL BISULFATE 75 MG TABLET (FP) PO SCH (22:55)
[2018-07-12] MEDS: EZETIMIBE 10 MG TABLET (FP) PO SCH (22:56)
[2018-07-12] MEDS: INSULIN (LEVEMIR) 100 UNITS/ML UNITS SQ SCH (23:00)
--- NOTE | 2018-07-12 23:14 | PN ---
Progress Note, Physician - Current Medication List Current Medications: Active Medications Aspirin (Ecotrin -) 81 mg PO [facility] Last Admin: 07/12/18 22:55 Dose: 81 mg Atorvastatin Calcium (Lipitor -) 80 mg PO [facility] Last Admin: 07/12/18 22:55 Dose: 80 mg Clopidogrel Bisulfate (Plavix -) 75 mg PO [facility] Last Admin: 07/12/18 22:55 Dose: 75 mg Doxazosin Mesylate (Cardura -) 4 mg PO DAILY [facility] Last Admin: 07/12/18 12:48 Dose: 4 mg Ezetimibe (Zetia -) 10 mg PO [facility] Last Admin: 07/12/18 22:56 Dose: 10 mg Ferrous Sulfate (Feosol -) 325 mg PO DAILY [facility] Last Admin: 07/12/18 12:48 Dose: 325 mg Furosemide (Lasix Injection -) 40 mg IVPUSH BID@0600,1400 [facility] Last Admin: 07/12/18 16:12 Dose: 40 mg Heparin Sodium (Porcine) (Heparin -) 5,000 unit SQ BID [facility] Last Admin: 07/12/18 22:55 Dose: 5,000 unit Insulin Aspart (Novolog Vial Sliding Scale -) 1 vial SQ [facility]; Protocol Last Admin: 07/12/18 23:00 Dose: 6 units Insulin Detemir (Levemir Vial) 30 units SQ [facility] Last Admin: 07/12/18 23:00 Dose: 30 units Meclizine HCl (Antivert -) 12.5 mg PO BID [facility] Last Admin: 07/12/18 22:55 Dose: 12.5 mg Metoprolol Succinate (Toprol Xl -) 25 mg PO [facility] Last Admin: 07/12/18 22:55 Dose: 25 mg - Objective Vital Signs: Vital Signs Temperature 98.5 F 07/12/18 17:00 Pulse Rate 68 07/12/18 17:00 Respiratory Rate 20 07/12/18 17:00 Blood Pressure 177/73 H 07/12/18 17:00 O2 Sat by Pulse Oximetry (%) 98 07/11/18 21:00 Labs: CBC, BMP 07/11/18 15:40 07/12/18 05:30 INR, PTT INR 0.92 (0.83-1.09) 07/10/18 17:35 Problem List - Problems (1) Acute on chronic diastolic heart failure Code(s): I50.33 - ACUTE ON CHRONIC DIASTOLIC (CONGESTIVE) HEART FAILURE (2) Anemia Code(s): D64.9 - ANEMIA, UNSPECIFIED (3) HTN (hypertension) Code(s): I10 - ESSENTIAL (PRIMARY) HYPERTENSION (4) HLD (hyperlipidemia) Code(s): E78.5 - HYPERLIPIDEMIA, UNSPECIFIED (5) CAD (coronary artery disease) Code(s): I25.10 - ATHSCL HEART DISEASE OF [place] CORONARY ARTERY W/O ANG PCTRS (6) Diabetes Code(s): E11.9 - TYPE 2 DIABETES MELLITUS WITHOUT COMPLICATIONS (7) ARF (acute renal failure) Code(s): N17.9 - ACUTE KIDNEY FAILURE, UNSPECIFIED
[2018-07-13] MEDS: INSULIN SLIDING SCALE (NOVOLOG) 1 VIAL SQ SCH ×4 (06:46→22:03)
[2018-07-13] MEDS: FUROSEMIDE 40 MG/4 ML INJECTABLE VIAL IVPUSH SCH ×2 (06:46→13:33)
[2018-07-13] MEDS ORDERED: PT OWN MED DRAWER 7, Y5N ONE (09:01)
--- NOTE | 2018-07-13 09:12 | PN ---
Progress Note, Physician History of Present Illness: Ms. Mckeon was sent to ER for further evaluation of dyspnea on exertion, congestive heart failure and worsened anemia. She was seen in the office this afternoon. She has a pertinent PMH of CKD and CAD with recent RAQUEL to LAD several weeks ago (radial approach). Her baseline Hb of near 10 has now dropped to 8, she has b/l LE edema, rales and CXR c/w CHF. In ER, she was also found to be hyperkalemic and was given Kayexalate. - Current Medication List Current Medications: Active Medications Aspirin (Ecotrin -) 81 mg PO [facility] Last Admin: 07/12/18 22:55 Dose: 81 mg Atorvastatin Calcium (Lipitor -) 80 mg PO [facility] Last Admin: 07/12/18 22:55 Dose: 80 mg Clopidogrel Bisulfate (Plavix -) 75 mg PO [facility] Last Admin: 07/12/18 22:55 Dose: 75 mg Doxazosin Mesylate (Cardura -) 4 mg PO DAILY [facility] Last Admin: 07/12/18 12:48 Dose: 4 mg Ezetimibe (Zetia -) 10 mg PO [facility] Last Admin: 07/12/18 22:56 Dose: 10 mg Ferrous Sulfate (Feosol -) 325 mg PO DAILY [facility] Last Admin: 07/12/18 12:48 Dose: 325 mg Furosemide (Lasix Injection -) 40 mg IVPUSH BID@0600,1400 [facility] Last Admin: 07/13/18 06:46 Dose: 40 mg Heparin Sodium (Porcine) (Heparin -) 5,000 unit SQ BID [facility] Last Admin: 07/12/18 22:55 Dose: 5,000 unit Insulin Aspart (Novolog Vial Sliding Scale -) 1 vial SQ [facility]; Protocol Last Admin: 07/13/18 06:46 Dose: Not Given Insulin Detemir (Levemir Vial) 30 units SQ [facility] Last Admin: 07/12/18 23:00 Dose: 30 units Meclizine HCl (Antivert -) 12.5 mg PO BID [facility] Last Admin: 07/12/18 22:55 Dose: 12.5 mg Metoprolol Succinate (Toprol Xl -) 25 mg PO [facility] Last Admin: 07/12/18 22:55 Dose: 25 mg - Objective Vital Signs: Vital Signs Temperature 98.3 F 07/13/18 06:00 Pulse Rate 58 L 07/13/18 06:00 Respiratory Rate 20 07/13/18 06:00 Blood Pressure 152/70 07/13/18 06:00 O2 Sat by Pulse Oximetry (%) 98 07/12/18 21:00 Eyes: Yes: WNL, Conjunctiva Clear, EOM Intact HENT: Yes: WNL, Atraumatic, Normocephalic Neck: Yes: WNL, Supple, Trachea Midline Cardiovascular: Yes: WNL, Regular Rate and Rhythm Respiratory: Yes: WNL, Regular, CTA Bilaterally Gastrointestinal: Yes: WNL, Normal Bowel Sounds Genitourinary: Yes: WNL Musculoskeletal: Yes: WNL Extremities: Yes: WNL Edema: No Integumentary: Yes: WNL Neurological: Yes: WNL, Alert, Oriented ...Motor Strength: WNL Psychiatric: Yes: WNL Labs: CBC, BMP 07/11/18 15:40 07/12/18 05:30 INR, PTT INR 0.92 (0.83-1.09) 07/10/18 17:35 Assessment/Plan IMP: 1. CAD s/p recent RAQUEL LAD (radial approach) 2. Chronic anemia, progressive 3. Acute on chronic diastolic CHF 4. CKD 5. Hyperk+, resolved REC: 1. To continue ASA/Plavix; statin therapy for LDL goal 70mg/dl 2. IV Lasix with daily weights and daily BMP: renal function improved. Component of edema likely also from hypoalbuminemia. 3. Follow H/H; rheum work up 4. Echo done, normal. 5. Renal consult appreciated. 6. Telemetry plan: would continue telemetry while on IV Lasix and until K+ stable and volume status is optimized. Coverage for dr. Owen
[2018-07-13] MEDS: FERROUS SO4 325 MG TABLET (FP) PO SCH (09:22)
[2018-07-13] MEDS: MECLIZINE HCL 12.5 MG TABLET PO SCH ×2 (09:22→22:03)
[2018-07-13] MEDS: DOXAZOSIN MESYLATE 4 MG TABLET PO SCH (09:23)
[2018-07-13] MEDS: HEPARIN NA (PORCINE) 5,000 UNITS/ML 1ML VIAL SQ SCH ×2 (09:23→22:02)
--- NOTE | 2018-07-13 11:41 | PN ---
Progress Note (short form) - Note Progress Note: Renal follow up for ANG Pt seen and examined at the bedside feels a lot better, near baseline no cough, chest pain, fever, chills, N/V/D making urine Vital Signs Temperature 97.9 F 07/13/18 10:00 Pulse Rate 50 L 07/13/18 10:00 Respiratory Rate 20 07/13/18 10:00 Blood Pressure 137/65 07/13/18 10:00 O2 Sat by Pulse Oximetry (%) 98 07/13/18 09:00 Intake & Output 07/10/18 07/11/18 07/12/18 07/13/18 23:59 23:59 23:59 23:59 Intake Total 1540 610 210 Output Total 900 700 600 Balance 640 -90 -390 Weight 83.28 kg 83.552 kg 82.917 kg 81.284 kg NAD + edema in LE, no calf tenderness CBC, BMP 07/11/18 15:40 07/12/18 05:30 Current Medications Aspirin (Ecotrin -) 81 mg PO [facility] Last Admin: 07/12/18 22:55 Dose: 81 mg Atorvastatin Calcium (Lipitor -) 80 mg PO [facility] Last Admin: 07/12/18 22:55 Dose: 80 mg Clopidogrel Bisulfate (Plavix -) 75 mg PO [facility] Last Admin: 07/12/18 22:55 Dose: 75 mg Doxazosin Mesylate (Cardura -) 4 mg PO DAILY [facility] Last Admin: 07/13/18 09:23 Dose: 4 mg Ezetimibe (Zetia -) 10 mg PO [facility] Last Admin: 07/12/18 22:56 Dose: 10 mg Ferrous Sulfate (Feosol -) 325 mg PO DAILY [facility] Last Admin: 07/13/18 09:22 Dose: 325 mg Furosemide (Lasix Injection -) 40 mg IVPUSH BID@0600,1400 [facility] Last Admin: 07/13/18 06:46 Dose: 40 mg Heparin Sodium (Porcine) (Heparin -) 5,000 unit SQ BID [facility] Last Admin: 07/13/18 09:23 Dose: 5,000 unit Insulin Aspart (Novolog Vial Sliding Scale -) 1 vial SQ [facility]; Protocol Last Admin: 07/13/18 11:22 Dose: 8 units Insulin Detemir (Levemir Vial) 30 units SQ [facility] Last Admin: 07/12/18 23:00 Dose: 30 units Meclizine HCl (Antivert -) 12.5 mg PO BID [facility] Last Admin: 07/13/18 09:22 Dose: 12.5 mg Metoprolol Succinate (Toprol Xl -) 25 mg PO HS [facility] Last Admin: 07/12/18 22:55 Dose: 25 mg 67 year old woman with history of CKD (baseline Cr 0.9-1) with mild proteinuira, CAD s/p recent cardiac stent, hypertension, DM, hyperlipidemia who presented with complaints of worsening dyspnea and LE swelling and admitted for CHF exacerbation with ANG with Cr 1.6. #ANG on CKD #CKD #Proteinuria #+ IRENE r/o SLe #CAD s/p cardiac stent #Diastolic HF #Acute on chronic anemia #Hyperkalemia Renal function with modest improvement but not yet at baseline continue IV lasix until pt evolemic f/u serologic studies will need renal biopsy down the line Trend renal function and electrolytes Thank you Will follow Clinton Manjarrez DO
[2018-07-13 14:48] LABS: HEMATOCRIT 28.7 % (32.4-45.2); HEMOGLOBIN 9.8 GM/dL (10.7-15.3); MCH 29.3 pg (25.7-33.7); MCHC 34.3 g/dl (32.0-36.0); MEAN CELL VOLUME 85.5 fl (80-96); MEAN PLT VOLUME 7.8 fl (7.5-11.1); PLATELET COUNT 276 K/MM3 (134-434); RBC 3.36 M/mm3 (3.60-5.2); WHITE BLOOD COUNT 8.6 K/mm3 (4.0-10.0)
[2018-07-13 15:43] LABS: ANION GAP 5 MMOL/L (8-16); BLOOD UREA NITROGEN 45 mg/dL (7-18); CALCIUM 7.9 mg/dL (8.5-10.1); CHLORIDE 106 mmol/L (98-107); CO2 28 mmol/L (21-32); CREATININE 1.7 mg/dL (0.55-1.3); GLUCOSE,RANDOM 239 mg/dL (74-106); POTASSIUM 4.6 mmol/L (3.5-5.1); SODIUM 139 mmol/L (136-145)
[2018-07-13] MEDS ORDERED: LOSARTAN POTASSIUM 50 MG TABLET (FP) PO ONE (18:00)
--- NOTE | 2018-07-13 19:17 | PN ---
Progress Note, Physician - Current Medication List Current Medications: Active Medications Aspirin (Ecotrin -) 81 mg PO [facility] Last Admin: 07/12/18 22:55 Dose: 81 mg Atorvastatin Calcium (Lipitor -) 80 mg PO [facility] Last Admin: 07/12/18 22:55 Dose: 80 mg Clopidogrel Bisulfate (Plavix -) 75 mg PO [facility] Last Admin: 07/12/18 22:55 Dose: 75 mg Doxazosin Mesylate (Cardura -) 4 mg PO DAILY [facility] Last Admin: 07/13/18 09:23 Dose: 4 mg Ezetimibe (Zetia -) 10 mg PO [facility] Last Admin: 07/12/18 22:56 Dose: 10 mg Ferrous Sulfate (Feosol -) 325 mg PO DAILY [facility] Last Admin: 07/13/18 09:22 Dose: 325 mg Furosemide (Lasix Injection -) 40 mg IVPUSH BID@0600,1400 [facility] Last Admin: 07/13/18 13:33 Dose: 40 mg Heparin Sodium (Porcine) (Heparin -) 5,000 unit SQ BID [facility] Last Admin: 07/13/18 09:23 Dose: 5,000 unit Insulin Aspart (Novolog Vial Sliding Scale -) 1 vial SQ [facility]; Protocol Last Admin: 07/13/18 16:57 Dose: 6 units Insulin Detemir (Levemir Vial) 30 units SQ [facility] Last Admin: 07/12/18 23:00 Dose: 30 units Meclizine HCl (Antivert -) 12.5 mg PO BID [facility] Last Admin: 07/13/18 09:22 Dose: 12.5 mg Metoprolol Succinate (Toprol Xl -) 25 mg PO [facility] Last Admin: 07/12/18 22:55 Dose: 25 mg - Objective Vital Signs: Vital Signs Temperature 98.2 F 07/13/18 14:00 Pulse Rate 68 07/13/18 14:00 Respiratory Rate 20 07/13/18 14:00 Blood Pressure 174/73 H 07/13/18 14:00 O2 Sat by Pulse Oximetry (%) 98 07/13/18 09:00 Labs: CBC, BMP 07/13/18 13:58 07/13/18 13:58 INR, PTT INR 0.92 (0.83-1.09) 07/10/18 17:35 Problem List - Problems (1) Acute on chronic diastolic heart failure Code(s): I50.33 - ACUTE ON CHRONIC DIASTOLIC (CONGESTIVE) HEART FAILURE (2) Anemia Code(s): D64.9 - ANEMIA, UNSPECIFIED (3) HTN (hypertension) Code(s): I10 - ESSENTIAL (PRIMARY) HYPERTENSION (4) HLD (hyperlipidemia) Code(s): E78.5 - HYPERLIPIDEMIA, UNSPECIFIED (5) CAD (coronary artery disease) Code(s): I25.10 - ATHSCL HEART DISEASE OF [place] CORONARY ARTERY W/O ANG PCTRS (6) Diabetes Code(s): E11.9 - TYPE 2 DIABETES MELLITUS WITHOUT COMPLICATIONS (7) ARF (acute renal failure) Code(s): N17.9 - ACUTE KIDNEY FAILURE, UNSPECIFIED
[2018-07-13] MEDS: metoPROLOL SUCCINATE 25 MG TAB.SR.24H (FP) PO SCH (22:03)
[2018-07-13] MEDS: ATORVASTATIN CA 80 MG TABLET (FP) PO SCH (22:03)
[2018-07-13] MEDS: EZETIMIBE 10 MG TABLET (FP) PO SCH (22:03)
[2018-07-13] MEDS: CLOPIDOGREL BISULFATE 75 MG TABLET (FP) PO SCH (22:03)
[2018-07-13] MEDS: ASPIRIN COATED 81 MG TABLET.EC PO SCH (22:03)
[2018-07-13] MEDS: INSULIN (LEVEMIR) 100 UNITS/ML UNITS SQ SCH (22:04)
[2018-07-14] MEDS: FUROSEMIDE 40 MG/4 ML INJECTABLE VIAL IVPUSH SCH ×2 (06:25→13:20)
[2018-07-14] MEDS: INSULIN SLIDING SCALE (NOVOLOG) 1 VIAL SQ SCH ×4 (06:25→21:47)
[2018-07-14 07:31] LABS: ANION GAP 4 MMOL/L (8-16); BLOOD UREA NITROGEN 41 mg/dL (7-18); CHLORIDE 108 mmol/L (98-107); CO2 28 mmol/L (21-32); CREATININE 1.4 mg/dL (0.55-1.3); GLUCOSE,RANDOM 117 mg/dL (74-106); MAGNESIUM 2.5 mg/dL (1.8-2.4); POTASSIUM 3.9 mmol/L (3.5-5.1); SODIUM 140 mmol/L (136-145)
[2018-07-14 07:33] LABS: BASO % 0.2 % (0-2.0); EOS % 5.9 % (0-4.5); HEMATOCRIT 25.2 % (32.4-45.2); HEMOGLOBIN 8.7 GM/dL (10.7-15.3); LYMPH % 23.1 % (8-40); MCH 28.9 pg (25.7-33.7); MCHC 34.7 g/dl (32.0-36.0); MEAN CELL VOLUME 83.4 fl (80-96); MEAN PLT VOLUME 7.6 fl (7.5-11.1); MONO % 6.9 % (3.8-10.2); NEUT % 63.9 % (42.8-82.8); PLATELET COUNT 261 K/MM3 (134-434); RBC 3.03 M/mm3 (3.60-5.2); RDW 15.8 % (11.6-15.6); WHITE BLOOD COUNT 7.6 K/mm3 (4.0-10.0)
[2018-07-14] MEDS ORDERED: PT OWN MED DRAWER 7, Y5N ONE (09:12)
[2018-07-14] MEDS: MECLIZINE HCL 12.5 MG TABLET PO SCH ×2 (09:17→21:44)
[2018-07-14] MEDS: DOXAZOSIN MESYLATE 4 MG TABLET PO SCH (09:17)
[2018-07-14] MEDS: FERROUS SO4 325 MG TABLET (FP) PO SCH (09:17)
[2018-07-14] MEDS: HEPARIN NA (PORCINE) 5,000 UNITS/ML 1ML VIAL SQ SCH ×2 (09:17→21:46)
--- NOTE | 2018-07-14 09:47 | PN ---
Progress Note, Physician History of Present Illness: Ms. Mckeon was sent to ER for further evaluation of dyspnea on exertion, congestive heart failure and worsened anemia. She was seen in the office this afternoon. She has a pertinent PMH of CKD and CAD with recent RAQUEL to LAD several weeks ago (radial approach). Her baseline Hb of near 10 has now dropped to 8, she has b/l LE edema, rales and CXR c/w CHF. In ER, she was also found to be hyperkalemic and was given Kayexalate. - Current Medication List Current Medications: Active Medications Aspirin (Ecotrin -) 81 mg PO [facility] Last Admin: 07/13/18 22:03 Dose: 81 mg Atorvastatin Calcium (Lipitor -) 80 mg PO [facility] Last Admin: 07/13/18 22:03 Dose: 80 mg Clopidogrel Bisulfate (Plavix -) 75 mg PO [facility] Last Admin: 07/13/18 22:03 Dose: 75 mg Doxazosin Mesylate (Cardura -) 4 mg PO DAILY [facility] Last Admin: 07/14/18 09:17 Dose: 4 mg Ezetimibe (Zetia -) 10 mg PO [facility] Last Admin: 07/13/18 22:03 Dose: 10 mg Ferrous Sulfate (Feosol -) 325 mg PO DAILY [facility] Last Admin: 07/14/18 09:17 Dose: 325 mg Furosemide (Lasix Injection -) 40 mg IVPUSH BID@0600,1400 [facility] Last Admin: 07/14/18 06:25 Dose: 40 mg Heparin Sodium (Porcine) (Heparin -) 5,000 unit SQ BID [facility] Last Admin: 07/14/18 09:17 Dose: 5,000 unit Insulin Aspart (Novolog Vial Sliding Scale -) 1 vial SQ [facility]; Protocol Last Admin: 07/14/18 06:25 Dose: Not Given Insulin Detemir (Levemir Vial) 30 units SQ [facility] Last Admin: 07/13/18 22:04 Dose: 30 units Meclizine HCl (Antivert -) 12.5 mg PO BID [facility] Last Admin: 07/14/18 09:17 Dose: 12.5 mg Metoprolol Succinate (Toprol Xl -) 25 mg PO [facility] Last Admin: 07/13/18 22:03 Dose: 25 mg - Objective Vital Signs: Vital Signs Temperature 98.0 F 07/14/18 05:53 Pulse Rate 53 L 07/14/18 05:53 Respiratory Rate 18 07/14/18 05:53 Blood Pressure 149/57 L 07/14/18 05:53 O2 Sat by Pulse Oximetry (%) 95 07/13/18 21:00 Eyes: Yes: WNL, Conjunctiva Clear, EOM Intact HENT: Yes: WNL, Atraumatic, Normocephalic Neck: Yes: WNL, Supple, Trachea Midline Cardiovascular: Yes: WNL, Regular Rate and Rhythm Respiratory: Yes: WNL, Regular, CTA Bilaterally Gastrointestinal: Yes: WNL, Normal Bowel Sounds Genitourinary: Yes: WNL Musculoskeletal: Yes: WNL Extremities: Yes: WNL Edema: No Integumentary: Yes: WNL Neurological: Yes: WNL, Alert, Oriented ...Motor Strength: WNL Psychiatric: Yes: WNL Labs: CBC, BMP 07/14/18 05:30 07/14/18 05:30 INR, PTT INR 0.92 (0.83-1.09) 07/10/18 17:35 Assessment/Plan IMP: 1. CAD s/p recent RAQUEL LAD (radial approach) 2. Chronic anemia, progressive 3. Acute on chronic diastolic CHF 4. CKD 5. Hyperk+, resolved REC: 1. To continue ASA/Plavix; statin therapy for LDL goal 70mg/dl 2. IV Lasix with daily weights and daily BMP: renal function improved. Component of edema likely also from hypoalbuminemia. 3. Follow H/H; rheum work up 4. Echo done, normal. 5. Renal consult appreciated. 6. Telemetry plan: would continue telemetry while on IV Lasix and until K+ stable and volume status is optimized. Coverage for dr. Owen
--- NOTE | 2018-07-14 10:16 | PN ---
Progress Note (short form) - Note Progress Note: Renal follow up for ANG Pt seen and examined at the bedside feels back to baseline no sob, cough, cp, abd pain, fever, chills on NC O2, has not walked much leg swelling better Vital Signs Temperature 98.0 F 07/14/18 05:53 Pulse Rate 53 L 07/14/18 05:53 Respiratory Rate 18 07/14/18 05:53 Blood Pressure 149/57 L 07/14/18 05:53 O2 Sat by Pulse Oximetry (%) 95 07/13/18 21:00 Intake & Output 07/11/18 07/12/18 07/13/18 07/15/18 23:59 23:59 23:59 00:59 Intake Total 1540 610 510 10 Output Total 900 700 600 Balance 640 -90 -90 10 Weight 83.552 kg 82.917 kg 81.284 kg 79.832 kg NAD + edema in LE CBC, BMP 07/14/18 05:30 07/14/18 05:30 Current Medications Aspirin (Ecotrin -) 81 mg PO [facility] Last Admin: 07/13/18 22:03 Dose: 81 mg Atorvastatin Calcium (Lipitor -) 80 mg PO [facility] Last Admin: 07/13/18 22:03 Dose: 80 mg Clopidogrel Bisulfate (Plavix -) 75 mg PO [facility] Last Admin: 07/13/18 22:03 Dose: 75 mg Doxazosin Mesylate (Cardura -) 4 mg PO DAILY [facility] Last Admin: 07/14/18 09:17 Dose: 4 mg Ezetimibe (Zetia -) 10 mg PO [facility] Last Admin: 07/13/18 22:03 Dose: 10 mg Ferrous Sulfate (Feosol -) 325 mg PO DAILY [facility] Last Admin: 07/14/18 09:17 Dose: 325 mg Furosemide (Lasix Injection -) 40 mg IVPUSH BID@0600,1400 [facility] Last Admin: 07/14/18 06:25 Dose: 40 mg Heparin Sodium (Porcine) (Heparin -) 5,000 unit SQ BID [facility] Last Admin: 07/14/18 09:17 Dose: 5,000 unit Insulin Aspart (Novolog Vial Sliding Scale -) 1 vial SQ [facility]; Protocol Last Admin: 07/14/18 06:25 Dose: Not Given Insulin Detemir (Levemir Vial) 30 units SQ [facility] Last Admin: 07/13/18 22:04 Dose: 30 units Meclizine HCl (Antivert -) 12.5 mg PO BID [facility] Last Admin: 07/14/18 09:17 Dose: 12.5 mg Metoprolol Succinate (Toprol Xl -) 25 mg PO HS [facility] Last Admin: 07/13/18 22:03 Dose: 25 mg 67 year old woman with history of CKD (baseline Cr 0.9-1) with mild proteinuira, CAD s/p recent cardiac stent, hypertension, DM, hyperlipidemia who presented with complaints of worsening dyspnea and LE swelling and admitted for CHF exacerbation with ANG with Cr 1.6. #ANG on CKD #CKD #Proteinuria #+ IRENE r/o SLe #CAD s/p cardiac stent #Diastolic HF #Acute on chronic anemia #Hyperkalemia Renal function stable and volume status improved continue IV Lasix today, can consider transition to oral diuretics tomorrow trend renal function and electrolytes IRENE positive, Anti-DS DNA positive would consider Rheumatology consult will need renal biopsy as an outpatient but will have to wait until aspirin and plavix can be held Cardiology following Thank you Will follow Clinton Manjarrez DO
--- NOTE | 2018-07-14 19:32 | PN ---
Progress Note, Physician History of Present Illness: stable - Current Medication List Current Medications: Active Medications Aspirin (Ecotrin -) 81 mg PO [facility] Last Admin: 07/13/18 22:03 Dose: 81 mg Atorvastatin Calcium (Lipitor -) 80 mg PO [facility] Last Admin: 07/13/18 22:03 Dose: 80 mg Clopidogrel Bisulfate (Plavix -) 75 mg PO [facility] Last Admin: 07/13/18 22:03 Dose: 75 mg Doxazosin Mesylate (Cardura -) 4 mg PO DAILY [facility] Last Admin: 07/14/18 09:17 Dose: 4 mg Ezetimibe (Zetia -) 10 mg PO [facility] Last Admin: 07/13/18 22:03 Dose: 10 mg Ferrous Sulfate (Feosol -) 325 mg PO DAILY [facility] Last Admin: 07/14/18 09:17 Dose: 325 mg Furosemide (Lasix Injection -) 40 mg IVPUSH BID@0600,1400 [facility] Last Admin: 07/14/18 13:20 Dose: 40 mg Heparin Sodium (Porcine) (Heparin -) 5,000 unit SQ BID [facility] Last Admin: 07/14/18 09:17 Dose: 5,000 unit Insulin Aspart (Novolog Vial Sliding Scale -) 1 vial SQ [facility]; Protocol Last Admin: 07/14/18 17:05 Dose: 2 units Insulin Detemir (Levemir Vial) 30 units SQ [facility] Last Admin: 07/13/18 22:04 Dose: 30 units Meclizine HCl (Antivert -) 12.5 mg PO BID [facility] Last Admin: 07/14/18 09:17 Dose: 12.5 mg Metoprolol Succinate (Toprol Xl -) 25 mg PO [facility] Last Admin: 07/13/18 22:03 Dose: 25 mg - Objective Vital Signs: Vital Signs Temperature 98.2 F 07/14/18 17:28 Pulse Rate 64 07/14/18 17:28 Respiratory Rate 20 07/14/18 17:28 Blood Pressure 173/80 H 07/14/18 17:28 O2 Sat by Pulse Oximetry (%) 92 L 07/14/18 09:00 Constitutional: Yes: No Distress HENT: Yes: Atraumatic Neck: Yes: Supple Cardiovascular: Yes: Regular Rate and Rhythm Respiratory: Yes: Rhonchi Gastrointestinal: Yes: Normal Bowel Sounds Extremities: Yes: WNL Neurological: Yes: Alert, Oriented Labs: CBC, BMP 07/14/18 05:30 07/14/18 05:30 INR, PTT INR 0.92 (0.83-1.09) 07/10/18 17:35 Problem List - Problems (1) ARF (acute renal failure) Assessment/Plan: cr improving Code(s): N17.9 - ACUTE KIDNEY FAILURE, UNSPECIFIED (2) CAD (coronary artery disease) Assessment/Plan: continue home meds Code(s): I25.10 - ATHSCL HEART DISEASE OF [place] CORONARY ARTERY W/O ANG PCTRS (3) CHF exacerbation Assessment/Plan: on diuretic Code(s): I50.9 - HEART FAILURE, UNSPECIFIED Qualifiers: Heart failure type: unspecified Qualified Code(s): I50.9 - Heart failure, unspecified (4) Diabetes Assessment/Plan: on insulin and bgms Code(s): E11.9 - TYPE 2 DIABETES MELLITUS WITHOUT COMPLICATIONS (5) HLD (hyperlipidemia) Assessment/Plan: on meds Code(s): E78.5 - HYPERLIPIDEMIA, UNSPECIFIED (6) HTN (hypertension) Code(s): I10 - ESSENTIAL (PRIMARY) HYPERTENSION Assessment/Plan COVERING FOR DR FERREIRA TODAY
[2018-07-14] MEDS: metoPROLOL SUCCINATE 25 MG TAB.SR.24H (FP) PO SCH (21:43)
[2018-07-14] MEDS: ASPIRIN COATED 81 MG TABLET.EC PO SCH (21:44)
[2018-07-14] MEDS: ATORVASTATIN CA 80 MG TABLET (FP) PO SCH (21:44)
[2018-07-14] MEDS: CLOPIDOGREL BISULFATE 75 MG TABLET (FP) PO SCH (21:44)
[2018-07-14] MEDS: EZETIMIBE 10 MG TABLET (FP) PO SCH (21:44)
[2018-07-14] MEDS: INSULIN (LEVEMIR) 100 UNITS/ML UNITS SQ SCH (21:49)
[2018-07-15] MEDS: FUROSEMIDE 40 MG/4 ML INJECTABLE VIAL IVPUSH SCH (06:57)
[2018-07-15] MEDS: INSULIN SLIDING SCALE (NOVOLOG) 1 VIAL SQ SCH ×3 (06:57→21:47)
--- NOTE | 2018-07-15 09:13 | PN ---
Progress Note, Physician Chief Complaint: Feeling better Creatinine down Proteinuria + IRENE noted History of Present Illness: TELE: NSR, no significant edema BP at times remains above goal - Current Medication List Current Medications: Active Medications Aspirin (Ecotrin -) 81 mg PO [facility] Last Admin: 07/14/18 21:44 Dose: 81 mg Atorvastatin Calcium (Lipitor -) 80 mg PO [facility] Last Admin: 07/14/18 21:44 Dose: 80 mg Clopidogrel Bisulfate (Plavix -) 75 mg PO [facility] Last Admin: 07/14/18 21:44 Dose: 75 mg Doxazosin Mesylate (Cardura -) 4 mg PO DAILY [facility] Last Admin: 07/14/18 09:17 Dose: 4 mg Ezetimibe (Zetia -) 10 mg PO [facility] Last Admin: 07/14/18 21:44 Dose: 10 mg Ferrous Sulfate (Feosol -) 325 mg PO DAILY [facility] Last Admin: 07/14/18 09:17 Dose: 325 mg Furosemide (Lasix Injection -) 40 mg IVPUSH BID@0600,1400 [facility] Last Admin: 07/15/18 06:57 Dose: 40 mg Heparin Sodium (Porcine) (Heparin -) 5,000 unit SQ BID [facility] Last Admin: 07/14/18 21:46 Dose: 5,000 unit Insulin Aspart (Novolog Vial Sliding Scale -) 1 vial SQ [facility]; Protocol Last Admin: 07/15/18 06:57 Dose: Not Given Insulin Detemir (Levemir Vial) 30 units SQ [facility] Last Admin: 07/14/18 21:49 Dose: 30 units Meclizine HCl (Antivert -) 12.5 mg PO BID [facility] Last Admin: 07/14/18 21:44 Dose: 12.5 mg Metoprolol Succinate (Toprol Xl -) 25 mg PO [facility] Last Admin: 07/14/18 21:43 Dose: 25 mg - Objective Vital Signs: Vital Signs Temperature 98 F 07/15/18 06:00 Pulse Rate 51 L 07/15/18 06:00 Respiratory Rate 19 07/15/18 06:00 Blood Pressure 157/57 L 07/15/18 06:00 O2 Sat by Pulse Oximetry (%) 96 07/14/18 21:00 Constitutional: Yes: No Distress, Calm Eyes: Yes: Conjunctiva Clear Cardiovascular: Yes: Regular Rate and Rhythm Respiratory: Yes: CTA Bilaterally Gastrointestinal: Yes: Soft Edema: No Neurological: Yes: Alert, Oriented Labs: CBC, BMP 07/14/18 05:30 07/14/18 05:30 INR, PTT INR 0.92 (0.83-1.09) 07/10/18 17:35 Laboratory Tests 07/10/18 07/11/18 07/12/18 18:00 15:40 00:00 WBC Hgb Plt Count Sodium Potassium BUN Creatinine Magnesium U Random Total Protein 189.1 H Ur Random Urea Nitrogn Stool Occult Blood Negative IRENE Screen Positive H IRENE Nucleolar Pattern 1:160 H 07/12/18 07/14/18 07/14/18 00:00 05:30 05:30 WBC 7.6 Hgb 8.7 L Plt Count 261 Sodium 140 Potassium 3.9 BUN 41 H Creatinine 1.4 H Magnesium 2.5 H U Random Total Protein Ur Random Urea Nitrogn 240 L Stool Occult Blood IRENE Screen IRENE Nucleolar Pattern - ....Imaging EKG: Image Reviewed Assessment/Plan IMP: 1. CAD s/p recent RAQUEL LAD (radial approach) 2. Chronic anemia, progressive 3. Acute on chronic diastolic CHF 4. CKD with proteinuria 5. + IRENE REC: 1. To continue ASA/Plavix; statin therapy for LDL goal 70mg/dl 2. Transition to PO Lasix today 3. Follow H/H; rheum work up 4. Echo done, normal. 5. Renal consult appreciated- outpatient bx in 3- 6 months when Plavix can be discontinued. 6. As BP is above goal at times and patient has proteinuria, would start Losartan 25 mg daily if ok with renal. Will need renal function followed closely.
[2018-07-15] MEDS: MECLIZINE HCL 12.5 MG TABLET PO SCH ×2 (09:17→21:48)
[2018-07-15] MEDS: FERROUS SO4 325 MG TABLET (FP) PO SCH (09:17)
[2018-07-15] MEDS: HEPARIN NA (PORCINE) 5,000 UNITS/ML 1ML VIAL SQ SCH ×2 (09:17→21:48)
[2018-07-15] MEDS: DOXAZOSIN MESYLATE 4 MG TABLET PO SCH (09:18)
--- NOTE | 2018-07-15 09:18 | CONSULT ---
Consult Consult Specialty:: Rheumatology - History of Present Illness History of Present Illness: 67 year old female with PMH of diabetes (20 year history), HTN, mild proteinuira , CAD s/p recent cardiac stent and hyperlipidemia admitted with progression of dyspnea and LE swelling, CHF exacerbation with ANG with Cr 1.6. Pt was found to have + IRENE. The patient reports a 4 month history of edema in lower limbs. Three weeks ago she had a cardiac cath and since then she has had further progression of edema and shortness of breath. She has a 1 year history of weakness in legs, she spends most of the day in bed. She denies arthralgia, skin rash, oral ulcers, Raynaud's phenomenon, Sicca syndrome, photosensitivity, hair loss or fever. Laboratory, on admission creatinine was 1.8 and today 1.4. Urinalysis with proteinueia 2+, glucose 2+ and no blood. IRENE 1:160 with nucleolar pattern and anti-DNA ds equivcal (7) - History Source History Provided By: Patient, Medical Record Limitations to Obtaining History: No Limitations - Past Medical History Cardio/Vascular: Yes: CHF ...: No - Alcohol/Substance Use Hx Alcohol Use: No - Smoking History Smoking history: Never smoked Have you smoked in the past 12 months: No Home Medications - Allergies Allergies/Adverse Reactions: Allergies Allergy/AdvReac Type Severity Reaction Status Date / Time azithromycin [From Zithromax] Allergy Verified 07/10/18 16:45 - Home Medications Home Medications: Ambulatory Orders Aspirin [ASA -] 81 mg PO HS 07/10/18 Atorvastatin Ca [Lipitor] 80 mg PO HS 07/10/18 Clopidogrel Bisulfate [Plavix] 75 mg PO HS 07/10/18 Doxazosin Mesylate 4 mg PO DAILY 07/10/18 Ezetimibe [Zetia] 10 mg PO HS 07/10/18 Ferrous Sulfate [Feosol] 325 mg PO DAILY 07/10/18 Insulin Glargine,Hum.rec.anlog [Lantus] 40 unit SQ AM 07/10/18 Losartan Potassium [Cozaar] 100 mg PO HS 07/10/18 Meclizine HCl 12.5 mg PO BID 07/10/18 Metoprolol Succinate 25 mg PO HS 07/10/18 Review of Systems - Review of Systems Constitutional: reports: Weakness Eyes: reports: No Symptoms HENT: reports: No Symptoms Neck: reports: No Symptoms Cardiovascular: reports: Shortness of Breath Respiratory: reports: No Symptoms Musculoskeletal: reports: Other (Weakness in lower limbs, no active joints.) Physical Exam Vital Signs: Vital Signs Temperature 98 F 07/15/18 06:00 Pulse Rate 51 L 07/15/18 06:00 Respiratory Rate 07/15/18 06:00 Blood Pressure 157/57 L 07/15/18 06:00 O2 Sat by Pulse Oximetry (%) 96 07/14/18 21:00 Constitutional: Yes: No Distress Eyes: Yes: WNL HENT: Yes: WNL Neck: Yes: WNL Cardiovascular: Yes: WNL Respiratory: Yes: WNL Gastrointestinal: Yes: WNL Musculoskeletal: Yes: Other (No active joints.) Integumentary: Yes: WNL Labs: CBC, BMP 07/14/18 05:30 07/14/18 05:30 Laboratory Tests 07/10/18 07/11/18 07/11/18 17:28 01:30 05:30 Total Bilirubin 0.6 AST 13 L ALT 17 Alkaline Phosphatase 123 H Creatine Kinase 133 Troponin I 0.03 Total Protein 5.2 L Albumin 1.9 L Urine Color Yellow Urine Appearance Slcloudy Urine pH 6.0 Ur Specific [place] 1.010 Urine Protein 2+ H Urine Glucose (UA) 2+ H Urine Ketones Negative Urine Blood Negative Urine Nitrite Negative Urine Bilirubin Negative Urine Urobilinogen Negative Ur Leukocyte Esterase Negative Urine WBC (Auto) 1 Urine RBC (Auto) 1 Hyaline Casts 7 IRENE Nucleolar Pattern Double Strand DNA Ab 07/11/18 15:40 Total Bilirubin AST ALT Alkaline Phosphatase Creatine Kinase Troponin I Total Protein Albumin Urine Color Urine Appearance Urine pH Ur Specific [place] Urine Protein Urine Glucose (UA) Urine Ketones Urine Blood Urine Nitrite Urine Bilirubin Urine Urobilinogen Ur Leukocyte Esterase Urine WBC (Auto) Urine RBC (Auto) Hyaline Casts IRENE Nucleolar Pattern 1:160 H Double Strand DNA Ab 7 Problem List - Problems (1) ARF (acute renal failure) Assessment/Plan: Patient with history of 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 CH50 is pending. Probably she does not have connective tissue disease. Plan: I requested ANCA, C3 and C4. Continue same medications Code(s): N17.9 - ACUTE KIDNEY FAILURE, UNSPECIFIED Qualifiers: Qualified Code(s): N17.9 - Acute kidney failure, unspecified
--- NOTE | 2018-07-15 10:14 | PN ---
Progress Note (short form) - Note Progress Note: Renal follow up for ANG Pt seen and examined at the bedside no acute complaints feels much better no sob, cp, abd pain, fever, chill s Vital Signs Temperature 98 F 07/15/18 06:00 Pulse Rate 51 L 07/15/18 06:00 Respiratory Rate 19 07/15/18 06:00 Blood Pressure 157/57 L 07/15/18 06:00 O2 Sat by Pulse Oximetry (%) 96 07/14/18 21:00 NAD + edema in LE CBC, BMP 07/14/18 05:30 07/14/18 05:30 Current Medications Aspirin (Ecotrin -) 81 mg PO [facility] Last Admin: 07/14/18 21:44 Dose: 81 mg Atorvastatin Calcium (Lipitor -) 80 mg PO [facility] Last Admin: 07/14/18 21:44 Dose: 80 mg Clopidogrel Bisulfate (Plavix -) 75 mg PO [facility] Last Admin: 07/14/18 21:44 Dose: 75 mg Doxazosin Mesylate (Cardura -) 4 mg PO DAILY [facility] Last Admin: 07/15/18 09:18 Dose: 4 mg Ezetimibe (Zetia -) 10 mg PO [facility] Last Admin: 07/14/18 21:44 Dose: 10 mg Ferrous Sulfate (Feosol -) 325 mg PO DAILY [facility] Last Admin: 07/15/18 09:17 Dose: 325 mg Furosemide (Lasix Injection -) 40 mg IVPUSH BID@0600,1400 [facility] Last Admin: 07/15/18 06:57 Dose: 40 mg Heparin Sodium (Porcine) (Heparin -) 5,000 unit SQ BID [facility] Last Admin: 07/15/18 09:17 Dose: 5,000 unit Insulin Aspart (Novolog Vial Sliding Scale -) 1 vial SQ [facility]; Protocol Last Admin: 07/15/18 06:57 Dose: Not Given Insulin Detemir (Levemir Vial) 30 units SQ [facility] Last Admin: 07/14/18 21:49 Dose: 30 units Meclizine HCl (Antivert -) 12.5 mg PO BID [facility] Last Admin: 07/15/18 09:17 Dose: 12.5 mg Metoprolol Succinate (Toprol Xl -) 25 mg PO [facility] Last Admin: 07/14/18 21:43 Dose: 25 mg 67 year old woman with history of CKD (baseline Cr 0.9-1) with mild proteinuira, CAD s/p recent cardiac stent, hypertension, DM, hyperlipidemia who presented with complaints of worsening dyspnea and LE swelling and admitted for CHF exacerbation with ANG with Cr 1.6. #ANG on CKD #CKD #Proteinuria #+ IRENE r/o SLe #CAD s/p cardiac stent #Diastolic HF #Acute on chronic anemia #Hyperkalemia Renal function stable as of yesterday todays labs remain pending Rheum Consult appericated, f/u anca, C3, C4 If Cr remains stable agree with starting ARB can consider discharge planning on oral diuretics with outpatient follow up Thank you Will follow Clinton Manjarrez DO
[2018-07-15 10:51] LABS: ANION GAP 8 MMOL/L (8-16); BLOOD UREA NITROGEN 43 mg/dL (7-18); CALCIUM 8.2 mg/dL (8.5-10.1); CHLORIDE 107 mmol/L (98-107); CO2 25 mmol/L (21-32); CREATININE 1.5 mg/dL (0.55-1.3); GLUCOSE,RANDOM 269 mg/dL (74-106); POTASSIUM 4.3 mmol/L (3.5-5.1); SODIUM 140 mmol/L (136-145)
[2018-07-15] MEDS ORDERED: LOSARTAN POTASSIUM 25 MG TABLET PO ONE (21:00)
[2018-07-15] MEDS: INSULIN (LEVEMIR) 100 UNITS/ML UNITS SQ SCH (21:46)
[2018-07-15] MEDS: ASPIRIN COATED 81 MG TABLET.EC PO SCH (21:48)
[2018-07-15] MEDS: ATORVASTATIN CA 80 MG TABLET (FP) PO SCH (21:48)
[2018-07-15] MEDS: EZETIMIBE 10 MG TABLET (FP) PO SCH (21:49)
[2018-07-15] MEDS: CLOPIDOGREL BISULFATE 75 MG TABLET (FP) PO SCH (21:49)
[2018-07-15] MEDS: metoPROLOL SUCCINATE 25 MG TAB.SR.24H (FP) PO SCH (21:50)
--- NOTE | 2018-07-15 22:53 | PN ---
Progress Note, Physician - Current Medication List Current Medications: Active Medications Aspirin (Ecotrin -) 81 mg PO [facility] Last Admin: 07/15/18 21:48 Dose: 81 mg Atorvastatin Calcium (Lipitor -) 80 mg PO [facility] Last Admin: 07/15/18 21:48 Dose: 80 mg Clopidogrel Bisulfate (Plavix -) 75 mg PO [facility] Last Admin: 07/15/18 21:49 Dose: 75 mg Doxazosin Mesylate (Cardura -) 4 mg PO DAILY [facility] Last Admin: 07/15/18 09:18 Dose: 4 mg Ezetimibe (Zetia -) 10 mg PO [facility] Last Admin: 07/15/18 21:49 Dose: 10 mg Ferrous Sulfate (Feosol -) 325 mg PO DAILY [facility] Last Admin: 07/15/18 09:17 Dose: 325 mg Furosemide (Lasix Oral Solution -) 80 mg PO DAILY [facility] Heparin Sodium (Porcine) (Heparin -) 5,000 unit SQ BID [facility] Last Admin: 07/15/18 21:48 Dose: 5,000 unit Insulin Aspart (Novolog Vial Sliding Scale -) 1 vial SQ [facility]; Protocol Last Admin: 07/15/18 21:47 Dose: 8 units Insulin Detemir (Levemir Vial) 30 units SQ [facility] Last Admin: 07/15/18 21:46 Dose: 30 units Losartan Potassium (Cozaar -) 25 mg PO DAILY [facility] Meclizine HCl (Antivert -) 12.5 mg PO BID [facility] Last Admin: 07/15/18 21:48 Dose: 12.5 mg Metoprolol Succinate (Toprol Xl -) 25 mg PO [facility] Last Admin: 07/15/18 21:50 Dose: 25 mg - Objective Vital Signs: Vital Signs Temperature 98.2 F 07/15/18 18:00 Pulse Rate 72 07/15/18 18:00 Respiratory Rate 18 07/15/18 18:00 Blood Pressure 194/114 H 07/15/18 18:00 O2 Sat by Pulse Oximetry (%) 96 07/15/18 09:00 Labs: CBC, BMP 07/14/18 05:30 07/15/18 09:40 INR, PTT INR 0.92 (0.83-1.09) 07/10/18 17:35 Problem List - Problems (1) Acute on chronic diastolic heart failure Code(s): I50.33 - ACUTE ON CHRONIC DIASTOLIC (CONGESTIVE) HEART FAILURE (2) Anemia Code(s): D64.9 - ANEMIA, UNSPECIFIED (3) HTN (hypertension) Code(s): I10 - ESSENTIAL (PRIMARY) HYPERTENSION (4) HLD (hyperlipidemia) Code(s): E78.5 - HYPERLIPIDEMIA, UNSPECIFIED (5) CAD (coronary artery disease) Code(s): I25.10 - ATHSCL HEART DISEASE OF [place] CORONARY ARTERY W/O ANG PCTRS (6) Diabetes Code(s): E11.9 - TYPE 2 DIABETES MELLITUS WITHOUT COMPLICATIONS (7) ARF (acute renal failure) Code(s): N17.9 - ACUTE KIDNEY FAILURE, UNSPECIFIED Qualifiers: Qualified Code(s): N17.9 - Acute kidney failure, unspecified
[2018-07-15 23:52] LABS: URINE APPEARANCE CLOUDY; URINE BILIRUBIN NEGATIVE (<2.0 mg/dL); URINE GLUCOSE (UA) 3+ (NEGATIVE); URINE KETONE NEGATIVE (NEGATIVE); URINE LEUK ESTERASE TRACE (NEGATIVE); URINE NITRITE NEGATIVE (NEGATIVE); URINE PROTEIN 3+ (NEGATIVE); URINE UROBILINOGEN NEGATIVE mg/dL (0.2-1.0)
[2018-07-15 23:57] LABS: URINE COLOR YELLOW
[2018-07-15 23:58] LABS: EPI CELLS RARE /HPF (FEW); URINE BACTERIA RARE /hpf (NONE SEEN); URINE MUCUS RARE
[2018-07-16 00:06] LABS: COMPLEMENT TOTAL(CH50) 58 U/mL (>41)
[2018-07-16] MEDS: INSULIN SLIDING SCALE (NOVOLOG) 1 VIAL SQ SCH ×4 (00:11→16:50)
[2018-07-16] MEDS ORDERED: PT OWN MED DRAWER 7, Y5N ONE (08:11)
[2018-07-16 08:15] LABS: ANION GAP 5 MMOL/L (8-16); BLOOD UREA NITROGEN 43 mg/dL (7-18); CALCIUM 7.9 mg/dL (8.5-10.1); CHLORIDE 111 mmol/L (98-107); CO2 27 mmol/L (21-32); CREATININE 1.4 mg/dL (0.55-1.3); GLUCOSE,RANDOM 90 mg/dL (74-106); POTASSIUM 4.4 mmol/L (3.5-5.1); SODIUM 143 mmol/L (136-145)
--- NOTE | 2018-07-16 09:03 | PN ---
Progress Note, Physician Chief Complaint: Feeling better No chest pain or SOB. Denies palpitations TELE: NSR, rare mild sinus alistair- no pauses History of Present Illness: BP was elevated last evening, required a dose of Losartan/ to be started as a standing dose today. - Current Medication List Current Medications: Active Medications Aspirin (Ecotrin -) 81 mg PO [facility] Last Admin: 07/15/18 21:48 Dose: 81 mg Atorvastatin Calcium (Lipitor -) 80 mg PO [facility] Last Admin: 07/15/18 21:48 Dose: 80 mg Clopidogrel Bisulfate (Plavix -) 75 mg PO [facility] Last Admin: 07/15/18 21:49 Dose: 75 mg Doxazosin Mesylate (Cardura -) 4 mg PO DAILY [facility] Last Admin: 07/15/18 09:18 Dose: 4 mg Ezetimibe (Zetia -) 10 mg PO [facility] Last Admin: 07/15/18 21:49 Dose: 10 mg Ferrous Sulfate (Feosol -) 325 mg PO DAILY [facility] Last Admin: 07/15/18 09:17 Dose: 325 mg Furosemide (Lasix Oral Solution -) 80 mg PO DAILY [facility] Heparin Sodium (Porcine) (Heparin -) 5,000 unit SQ BID [facility] Last Admin: 07/15/18 21:48 Dose: 5,000 unit Insulin Aspart (Novolog Vial Sliding Scale -) 1 vial SQ [facility]; Protocol Last Admin: 07/16/18 06:03 Dose: Not Given Insulin Detemir (Levemir Vial) 30 units SQ [facility] Last Admin: 07/15/18 21:46 Dose: 30 units Losartan Potassium (Cozaar -) 25 mg PO DAILY [facility] Meclizine HCl (Antivert -) 12.5 mg PO BID [facility] Last Admin: 07/15/18 21:48 Dose: 12.5 mg Metoprolol Succinate (Toprol Xl -) 25 mg PO [facility] Last Admin: 07/15/18 21:50 Dose: 25 mg - Objective Vital Signs: Vital Signs Temperature 97.8 F 07/16/18 08:27 Pulse Rate 68 07/16/18 08:27 Respiratory Rate 18 07/16/18 08:30 Blood Pressure 159/74 07/16/18 08:27 O2 Sat by Pulse Oximetry (%) 99 07/16/18 08:30 Constitutional: Yes: No Distress Eyes: Yes: Conjunctiva Clear Cardiovascular: Yes: Regular Rate and Rhythm Respiratory: Yes: CTA Bilaterally Gastrointestinal: Yes: Soft (NT) Edema: No Neurological: Yes: Alert, Oriented ...Motor Strength: WNL Labs: CBC, BMP 07/14/18 05:30 07/16/18 05:50 INR, PTT INR 0.92 (0.83-1.09) 07/10/18 17:35 Laboratory Tests 07/10/18 07/11/18 07/14/18 18:00 15:40 05:30 WBC 7.6 Hgb 8.7 L Hct 25.2 L Plt Count 261 Sodium Potassium BUN Creatinine Random Glucose Calcium Urine Color Urine Appearance Urine Protein Urine Glucose (UA) Urine Ketones Urine Blood Urine Nitrite Urine Bilirubin Urine Urobilinogen Ur Leukocyte Esterase Urine WBC (Auto) Stool Occult Blood Negative IRENE Screen Positive H IRENE Nucleolar Pattern 1:160 H 07/15/18 07/16/18 23:17 05:50 WBC Hgb Hct Plt Count Sodium 143 Potassium 4.4 BUN 43 H Creatinine 1.4 H Random Glucose 90 Calcium 7.9 L Urine Color Yellow Urine Appearance Cloudy Urine Protein 3+ H Urine Glucose (UA) 3+ H Urine Ketones Negative Urine Blood Negative Urine Nitrite Negative Urine Bilirubin Negative Urine Urobilinogen Negative Ur Leukocyte Esterase Trace Urine WBC (Auto) 39 Stool Occult Blood IRENE Screen IRENE Nucleolar Pattern - ....Imaging EKG: Image Reviewed Assessment/Plan IMP: 1. CAD s/p recent RAQUEL LAD (radial approach) 2. Chronic anemia, progressive 3. Acute on chronic diastolic CHF 4. CKD with proteinuria 5. + IRENE REC: 1. To continue ASA/Plavix; statin therapy for LDL goal 70mg/dl 2. Transitioned to PO Lasix 3. Follow H/H; rheum work up 4. Echo done, normal. 5. Renal consult appreciated- outpatient bx in 3- 6 months when Plavix can be discontinued. 6. Started on ARB, to be titrated to goal BP < 140/90; can be done as outpatient with monitoring of K+ and renal fxn 7. D/C telemetry.
[2018-07-16] MEDS: MECLIZINE HCL 12.5 MG TABLET PO SCH ×2 (09:28→19:59)
[2018-07-16] MEDS: FERROUS SO4 325 MG TABLET (FP) PO SCH (09:29)
[2018-07-16] MEDS: DOXAZOSIN MESYLATE 4 MG TABLET PO SCH (09:29)
[2018-07-16] MEDS: HEPARIN NA (PORCINE) 5,000 UNITS/ML 1ML VIAL SQ SCH ×2 (09:29→20:00)
[2018-07-16] MEDS ORDERED: FUROSEMIDE 40 MG/5 ML UNIT-DOSE CUP PO SCH (10:00)
[2018-07-16] MEDS ORDERED: LOSARTAN POTASSIUM 25 MG TABLET PO SCH (10:00)
[2018-07-16 10:08] LABS: HEMATOCRIT 27.2 % (32.4-45.2); HEMOGLOBIN 9.3 GM/dL (10.7-15.3); MCH 28.6 pg (25.7-33.7); MCHC 34.4 g/dl (32.0-36.0); MEAN CELL VOLUME 83.2 fl (80-96); MEAN PLT VOLUME 7.8 fl (7.5-11.1); PLATELET COUNT 265 K/MM3 (134-434); RBC 3.27 M/mm3 (3.60-5.2); RDW 15.8 % (11.6-15.6); WHITE BLOOD COUNT 7.4 K/mm3 (4.0-10.0)
--- NOTE | 2018-07-16 11:48 | PN ---
Progress Note (short form) - Note Progress Note: Renal follow up for ANG Pt seen and examined at the bedside no acute complaints no sob, cough making urine feels much better Vital Signs Temperature 97.8 F 07/16/18 08:27 Pulse Rate 68 07/16/18 08:27 Respiratory Rate 18 07/16/18 08:30 Blood Pressure 159/74 07/16/18 08:27 O2 Sat by Pulse Oximetry (%) 99 07/16/18 08:30 NAD trace edema in legs CBC, BMP 07/16/18 05:50 07/16/18 05:50 Current Medications Aspirin (Ecotrin -) 81 mg PO [facility] Last Admin: 07/15/18 21:48 Dose: 81 mg Atorvastatin Calcium (Lipitor -) 80 mg PO [facility] Last Admin: 07/15/18 21:48 Dose: 80 mg Clopidogrel Bisulfate (Plavix -) 75 mg PO [facility] Last Admin: 07/15/18 21:49 Dose: 75 mg Doxazosin Mesylate (Cardura -) 4 mg PO DAILY [facility] Last Admin: 07/16/18 09:29 Dose: 4 mg Ezetimibe (Zetia -) 10 mg PO [facility] Last Admin: 07/15/18 21:49 Dose: 10 mg Ferrous Sulfate (Feosol -) 325 mg PO DAILY [facility] Last Admin: 07/16/18 09:29 Dose: 325 mg Furosemide (Lasix Oral Solution -) 80 mg PO DAILY [facility] Last Admin: 07/16/18 09:29 Dose: 80 mg Heparin Sodium (Porcine) (Heparin -) 5,000 unit SQ BID [facility] Last Admin: 07/16/18 09:29 Dose: 5,000 unit Insulin Aspart (Novolog Vial Sliding Scale -) 1 vial SQ [facility]; Protocol Last Admin: 07/16/18 11:22 Dose: 4 units Insulin Detemir (Levemir Vial) 30 units SQ [facility] Last Admin: 07/15/18 21:46 Dose: 30 units Losartan Potassium (Cozaar -) 25 mg PO DAILY [facility] Last Admin: 07/16/18 09:28 Dose: 25 mg Meclizine HCl (Antivert -) 12.5 mg PO BID [facility] Last Admin: 07/16/18 09:28 Dose: 12.5 mg Metoprolol Succinate (Toprol Xl -) 25 mg PO [facility] Last Admin: 07/15/18 21:50 Dose: 25 mg 67 year old woman with history of CKD (baseline Cr 0.9-1) with mild proteinuira, CAD s/p recent cardiac stent, hypertension, DM, hyperlipidemia who presented with complaints of worsening dyspnea and LE swelling and admitted for CHF exacerbation with ANG with Cr 1.6. #ANG on CKD #CKD #Proteinuria #+ IRENE r/o SLe #CAD s/p cardiac stent #Diastolic HF #Acute on chronic anemia #Hyperkalemia Renal function stable Continue Lasix 80mg daily Started on Losartan yesterday discharge planning as per primary Clinton Manjarrez DO
[2018-07-16] MEDS: ASPIRIN COATED 81 MG TABLET.EC PO SCH (19:59)
[2018-07-16] MEDS: ATORVASTATIN CA 80 MG TABLET (FP) PO SCH (20:00)
[2018-07-16] MEDS: CLOPIDOGREL BISULFATE 75 MG TABLET (FP) PO SCH (20:00)
[2018-07-16] MEDS: metoPROLOL SUCCINATE 25 MG TAB.SR.24H (FP) PO SCH (20:00)
[2018-07-16] MEDS: EZETIMIBE 10 MG TABLET (FP) PO SCH (20:01)
[2018-07-16 20:09] VITALS: BP 182/79; PULSE 62; TEMP 98
[2018-07-18 17:21] LABS: ATYPICAL pANCA <1:20 titer (Neg:<1:20); C-ANCA <1:20 titer (Neg:<1:20); P-ANCA <1:20 titer (Neg:<1:20)
== END 2018-07-16 20:13 | disposition home or self-care (01) | DRG 682 ==
LOC: JER 16:07 → JERBED 18:44 → J4W 21:38
PROVIDERS: ADMIT Internal Medicine; ATTEND Internal Medicine
PROC: 30233N1 Transfusion of Nonautologous Red Blood Cells into Peripheral Vein, Percutaneous Approach (ICD-10-PCS; principal; 2018-07-11)
DX: N17.9 Acute kidney failure, unspecified (principal); I50.33 Acute on chronic diastolic (congestive) heart failure; I13.0 Hypertensive heart and chronic kidney disease with heart failure and stage 1 through stage 4 chronic kidney disease, or unspecified chronic kidney disease; D64.9 Anemia, unspecified; N18.9 Chronic kidney disease, unspecified; E87.5 Hyperkalemia; E11.21 Type 2 diabetes mellitus with diabetic nephropathy; I25.10 Atherosclerotic heart disease of native coronary artery without angina pectoris; Z98.61 Coronary angioplasty status; E87.70 Fluid overload, unspecified
CPT/HCPCS: 36415; 36430; 71045-TC-FY; 76775-TC; 80048; 80053; 81003; 81015; 82272; 82550; 82553; 82570; 82962; 83520; 83735; 83880; 84156; 84300; 84484; 84540; 85025; 85027; 85610; 85651; 86038; 86160; 86162; 86225; 86256; 86850; 86900; 86901; 86922; 87205; 93005; 93010; 93306-TC; 93975; 99284-25; J1644; P9038; P9058

== ENCOUNTER 2018-10-25 21:44 | Inpatient (IN) | payer MEDICARE, OTHER ==
[2018-10-25 21:51] VITALS: BMI 34.3
--- NOTE | 2018-10-25 21:53 | PDOC ---
Rapid Medical Evaluation Time Seen by Provider: 10/25/18 21:47 Medical Evaluation: Allergies Allergy/AdvReac Type Severity Reaction Status Date / Time azithromycin [From Zithromax] Allergy Verified 07/10/18 16:45 10/25/18 21:47 I have performed a brief in-person evaluation of this patient. The patient presents with a chief complaint of: n/v x several days ago. Has been c/o vague abd pain w/ NB, diarrhea x 1 month, being w/u for Jose Enrique. No f/ c. Also reports fall after feeling dizzy 3 days ago (caught on home video per son), was on the floor for ~6 hrs until family found her. Reports mild weakness now. No CP or SOB. H/o HTN, DM, vertigo, CAD w/ stents, uses cane to walk Pertinent physical exam findings:Stable and in NAD I have ordered the following:ekg/cxr/labs The patient will proceed to the ED for further evaluation. Discharge Disposition - Diagnosis Weakness Nausea & vomiting Qualifiers: Vomiting type: unspecified Vomiting Intractability: non-intractable Qualified Code(s): R11.2 - Nausea with vomiting, unspecified - Referrals - Patient Instructions - Post Discharge Activity
--- NOTE | 2018-10-25 22:09 | PDOC ---
History of Present Illness - General History Source: Patient Exam Limitations: Clinical Condition - History of Present Illness Initial Comments: 68 yo F w a hx of anemia, CHF, CKD (baseline Cr 0.9-1) with mild proteinuira, CAD s/p recent cardiac stent, IDDM, HTN, and vertigo presents to the [facility] ER via private auto with the chief complaint of dizziness/room spinning and vomiting. Most of the history is provided by the patient's son and daughter at bedside. The son states he brought his mother here because he is concerned that she has been experiencing multiple falls at home. The son has a video where the patient was standing in her home, lost her balance, experienced a bout of dizziness/room and head spinning and then tumbled to the ground smashing her head and neck. The patient experienced LOC and was stuck on the ground for close to 6 hours. This is all on the patient's video at home. The patient has been experiencing a significant amount of nausea and vomiting for the past month which is being worked up by Dr. Quispe as an outpatient. - patient endorses right elbow pain from her most recent fall. - The patient has been experiencing many bouts of NBNB vomiting and NB diarrhea for the past month. - Patient has fallen and hit her head multiple times and takes aspirin and plavix The patient denies having a headache, neck pain or blurry vision. The patient denies having experienced recent chest pain, SOB, or difficulty breathing. The patient denies dysuria, frequency, or urgency. PCP: Arnoldo Quispe PSH: Stent Social Hx: Denies current cigarette, alcohol, or illicit drug usage. Allergies: Azithromycin <Hermilo Borden - Last Filed: 10/26/18 01:49> <Viola Tran - Last Filed: 10/26/18 03:14> - General Chief Complaint: Weakness Stated Complaint: DIZZINESS/VOMITING Time Seen by Provider: 10/25/18 21:47 Past History - Past Medical History Anemia: Yes Cardiac Disorders: Yes (STENTS) COPD: No Diabetes: Yes HTN: Yes - Surgical History Cardiac Surgery: Yes (STENTS) - Immunization History Immunization Up to Date: Yes - Suicide/Smoking/Psychosocial Hx Smoking History: Never smoked Have you smoked in the past 12 months: No Hx Alcohol Use: No Drug/Substance Use Hx: No Substance Use Type: None Hx Substance Use Treatment: No <Hermilo Borden - Last Filed: 10/26/18 01:49> <Viola Tran - Last Filed: 10/26/18 03:14> - Past Medical History Allergies/Adverse Reactions: Allergies Allergy/AdvReac Type Severity Reaction Status Date / Time azithromycin [From Zithromax] Allergy Verified 10/25/18 21:51 Home Medications: Ambulatory Orders Aspirin [ASA -] 81 mg PO HS 07/10/18 Atorvastatin Ca [Lipitor] 80 mg PO HS 07/10/18 Doxazosin Mesylate 2 mg PO DAILY 07/10/18 Ezetimibe [Zetia] 10 mg PO HS 07/10/18 Ferrous Sulfate [Feosol] 325 mg PO DAILY 07/10/18 Meclizine HCl 12.5 mg PO DAILY 07/10/18 Metoprolol Succinate 25 mg PO HS 07/10/18 Aspirin Coated [Ecotrin -] 81 mg PO HS #30 tablet.ec 07/16/18 Clopidogrel Bisulfate [Plavix -] 75 mg PO HS tablet 07/16/18 Furosemide Oral Solution [Lasix Oral Solution -] 80 mg PO DAILY #30 udc Losartan Potassium [Cozaar -] 25 mg PO DAILY #30 tablet 07/16/18 Duloxetine HCl 20 mg PO DAILY 10/26/18 Insulin Lispro [Humalog] 20 unit SQ DAILY 10/26/18 Review of Systems - Review of Systems Able to Perform ROS?: Yes Comments:: CONSTITUTIONAL: Absent: fever, no chills, no fatigue EYES: Absent: visual changes ENT: Absent: ear pain, no sore throat CARDIOVASCULAR: Absent: chest pain, no palpitations RESPIRATORY: Absent: cough, no SOB GI: Present: Abdominal pain, nausea, vomiting, diarrhea Absent: no constipation GENITOURINARY: Absent: dysuria, no frequency, no hematuria MUSKULOSKELETAL: Present: Back pain, arthralgia Absent: no myalgia SKIN: Absent: rash NEURO: Absent: headache <Hermilo Borden - Last Filed: 10/26/18 01:49> *Physical Exam - Vital Signs Last Vital Signs Temp Pulse Resp BP Pulse Ox 98.2 F 88 18 158/50 L 98 10/25/18 21:48 10/25/18 21:48 10/25/18 21:48 10/25/18 21:48 10/25/18 21:48 - Physical Exam Comments: GENERAL: Patient appears to have a depressed affect. Well-nourished. No apparent distress. HEENT: Normocephalic, atraumatic. PERRL, EOM intact. CARDIOVASCULAR: Normal S1, S2. Regular rate and rhythm. PULMONARY: No evidence of respiratory distress. Lungs clear to auscultation bilaterally. No wheezing, rales or rhonchi. ABDOMEN: Soft, non-distended, non-tender. EXTREMITIES: Mild TTP in the right elbow and right upper arm. Normal ROM in all four extremities. No gross deformities. SKIN: Warm, dry. No rash NEUROLOGICAL: Alert, awake, appropriate. Cranial nerves 2-12 intact. No deficits to light touch in face, upper extremities and lower extremities. No motor deficits in the in face, upper extremities and lower extremities. No pronator drift. Normal speech. Gait is normal without ataxia. No dysmetria. No dysdiadochokinesis. No skew deviation. No abnormal nystagmus. Head impulse test is negative. <Hermilo Borden - Last Filed: 10/26/18 01:49> - Vital Signs Last Vital Signs Temp Pulse Resp BP Pulse Ox 98.2 F 88 18 158/50 L 98 10/25/18 21:48 10/25/18 21:48 10/25/18 21:48 10/25/18 21:48 10/25/18 21:48 <Viola Tran - Last Filed: 10/26/18 03:14> ED Treatment Course - LABORATORY CBC & Chemistry Diagram: 10/25/18 23:05 10/25/18 23:05 <Hermilo Borden - Last Filed: 10/26/18 01:49> - LABORATORY CBC & Chemistry Diagram: 10/25/18 23:05 10/25/18 23:05 - ADDITIONAL ORDERS Additional order review: Laboratory Results 10/26/18 10/25/18 10/25/18 00:40 23:05 23:05 PT with INR 11.30 INR 0.96 Sodium Potassium Chloride Carbon Dioxide Anion Gap BUN Creatinine Est GFR (CKD-EPI)AfAm Est GFR (CKD-EPI)NonAf Random Glucose Calcium Total Bilirubin AST ALT Alkaline Phosphatase Creatine Kinase Creatine Kinase Index CK-MB (CK-2) Troponin I Total Protein Albumin Lipase Urine Color Yellow Urine Appearance Cloudy Urine pH 6.0 Ur Specific [place] 1.025 Urine Protein 4+ H Urine Glucose (UA) 3+ H Urine Ketones Trace H Urine Blood 1+ H Urine Nitrite Negative Urine Bilirubin Negative Urine Urobilinogen 0.2 Ur Leukocyte Esterase Trace Urine WBC (Auto) 116 Urine RBC (Auto) 5 Urine Casts (Auto) 20 U Epithel Cells (Auto) 0.8 Urine Bacteria (Auto) >9000 Blood Type A POSITIVE Antibody Screen Negative 10/25/18 10/25/18 23:05 23:05 PT with INR INR Sodium 136 Potassium 4.5 Chloride 106 Carbon Dioxide 23 Anion Gap 7 L BUN 30.9 H Creatinine 1.9 H Est GFR (CKD-EPI)AfAm 30.64 Est GFR (CKD-EPI)NonAf 26.43 Random Glucose 331 H* Calcium 7.8 L Total Bilirubin 0.4 AST 21 ALT 25 Alkaline Phosphatase 154 H Creatine Kinase 152 155 Creatine Kinase Index 1.1 1.1 CK-MB (CK-2) 1.8 1.8 Troponin I 0.34 H Total Protein 5.8 L Albumin 2.2 L Lipase 76 Urine Color Urine Appearance Urine pH Ur Specific [place] Urine Protein Urine Glucose (UA) Urine Ketones Urine Blood Urine Nitrite Urine Bilirubin Urine Urobilinogen Ur Leukocyte Esterase Urine WBC (Auto) Urine RBC (Auto) Urine Casts (Auto) U Epithel Cells (Auto) Urine Bacteria (Auto) Blood Type Antibody Screen 10/25/18 23:05 RBC 2.92 L MCV 87.9 MCHC 33.1 RDW 15.8 H MPV 7.2 L Neutrophils % 82.0 D Lymphocytes % 9.5 D Monocytes % 6.1 Eosinophils % 2.1 Basophils % 0.3 - Medications Given in the ED: ED Medications Discontinued Medications Generic Name Dose Route Start Last Admin Trade Name Freq PRN Reason Stop Dose Admin Aspirin 162 mg 10/26/18 00:25 10/26/18 00:48 Asa - PO 10/26/18 00:26 162 mg ONCE ONE Administration Sodium Chloride 500 mls @ 500 mls/hr 10/25/18 22:27 10/25/18 23:14 Normal Saline - IV 10/25/18 23:26 500 mls/hr ASDIR STA Administration Ceftriaxone Sodium 1,000 mg/ 50 mls @ 100 mls/hr 10/26/18 01:49 10/26/18 02: 01 Dextrose IVPB 10/26/18 02:18 100 mls/hr ONCE ONE Administration Sodium Chloride 500 ml 10/26/18 00:24 10/26/18 00:48 Normal Saline - IV 10/26/18 00:25 500 ml ONCE ONE Administration <Viola Tran - Last Filed: 10/26/18 03:14> Medical Decision Making - Medical Decision Making 68 yo F w a hx of anemia, CHF, CKD (baseline Cr 0.9-1) with mild proteinuira, CAD s/p recent cardiac stent, IDDM, HTN, and vertigo presents to the [facility] ER via private auto with the chief complaint of dizziness/room spinning and vomiting. Most of the history is provided by the patient's son and daughter at bedside. The son states he brought his mother here because he is concerned that she has been experiencing multiple falls at home. The son has a video where the patient was standing in her home, lost her balance, experienced a bout of dizziness/room and head spinning and then tumbled to the ground smashing her head and neck. The patient experienced LOC and was stuck on the ground for close to 6 hours. This is all on the patient's video at home. The patient has been experiencing a significant amount of nausea and vomiting for the past month which is being worked up by Dr. Quispe as an outpatient. - patient endorses right elbow pain from her most recent fall. - The patient has been experiencing many bouts of NBNB vomiting and NB diarrhea for the past month. Vital Signs Temp Pulse Resp BP Pulse Ox 98.2 F 88 18 158/50 L 98 10/25/18 21:48 10/25/18 21:48 10/25/18 21:48 10/25/18 21:48 10/25/18 21:48 DDx IBNLT: Brain bleed, CVA/TIA, ACS/ID, electrolyte/metabolic disturbance, arrhythmia, dehydration, rhabdomyolysis, UTI, PNA, Gastroenteritis, vertigo, kidney failure Plan: Labs, Urine, EKG, CXR, CT, IV hydration, Admit telemetry. Trop elevated at 0.34 - EKG unchanged from 3 months prior - Patient has no chest pain - Patient given aspirin BUN/Cr elevated - Patient is experiencing an ANG Patient belongs to Dr. Quispe - Calling Dr. Luciano for admission. - Patient accepted to Dr. Luciano's service. Head and Neck CT show no acute brain bleed or cervical fx's Urine shows UTI - treating with ceftriaxone <Hermilo Borden - Last Filed: 10/26/18 01:49> *DC/Admit/Observation/Transfer <Hermilo Borden - Last Filed: 10/26/18 01:49> - Discharge Dispostion Decision to Admit order: Yes Decision to Admit order Date/Time: 10/26/18 03:14 <Viola Tran - Last Filed: 10/26/18 03:14> Diagnosis at time of Disposition: Weakness, Repeated falls, Elevated troponin, Syncope and collapse, ANG (acute kidney injury), UTI (urinary tract infection) Nausea & vomiting Qualifiers: Vomiting type: unspecified Vomiting Intractability: non-intractable Qualified Code(s): R11.2 - Nausea with vomiting, unspecified - Discharge Dispostion Condition at time of disposition: Guarded
[2018-10-25] MEDS ORDERED: SODIUM CHLORIDE 500 ML IV STA (22:27)
[2018-10-25 23:15] LABS: BASO % 0.3 % (0-2.0); EOS % 2.1 % (0-4.5); HEMATOCRIT 25.7 % (32.4-45.2); HEMOGLOBIN 8.5 GM/dL (10.7-15.3); LYMPH % 9.5 % (8-40); MCH 29.1 pg (25.7-33.7); MCHC 33.1 g/dl (32.0-36.0); MEAN CELL VOLUME 87.9 fl (80-96); MEAN PLT VOLUME 7.2 fl (7.5-11.1); MONO % 6.1 % (3.8-10.2); PLATELET COUNT 287 K/MM3 (134-434); RBC 2.92 M/mm3 (3.60-5.2); RDW 15.8 % (11.6-15.6); WHITE BLOOD COUNT 9.7 K/mm3 (4.0-10.0)
[2018-10-25 23:30] LABS: INR 0.96 (0.83-1.09); PROTHROMBIN TIME (PATIENT) 11.3 SEC (9.7-13.0)
[2018-10-25 23:47] LABS: ALBUMIN 2.2 g/dl (3.4-5.0); BILIRUBIN,TOTAL 0.4 mg/dL (0.2-1); BLOOD UREA NITROGEN 30.9 mg/dL (7-18); CALCIUM 7.8 mg/dL (8.5-10.1); CREATININE 1.9 mg/dL (0.55-1.3); POTASSIUM 4.5 mmol/L (3.5-5.1); TOT PROT 5.8 g/dl (6.4-8.2)
--- NOTE | 2018-10-25 23:58 | PDOC ---
Documentation entered by Joey Machado SCRIBE, acting as scribe for Viola Tran MD. Viola Tran MD: This documentation has been prepared by the Carter cardona Elijah, SCRIBE, under my direction and personally reviewed by me in its entirety. I confirm that the documentation accurately reflects all work, treatment, procedures, and medical decision making performed by me. Attending Attestation - Resident Resident Name: Hermilo Borden - ED Attending Attestation I have performed the following: I have examined & evaluated the patient, The case was reviewed & discussed with the resident, I agree w/resident's findings & plan - HPI HPI: 10/25/18 23:24 Patient is a 68 year old female with a significant past medical history of anemia, CHF, CKD (baseline Cr 0.9-1) with mild proteinuria, CAD s/p recent cardiac stent, IDDM, HTN, and vertigo who presents to the ED with dizziness and vomiting. As per patient's son and daughter at bedside the patient has been experiencing multiple episodes of falling down for the last couple of weeks which begin after the dizziness occurs. The son presented a video in which the patient loses her balance after feeling dizzy, falls (hitting head and shoulder) , loses consciousness and remains so for 6 hours. The pain in the arm today from a fall prompted her visit to the ED. The patient also notes that she has had NBNB vomiting for the last month. The patient also reports NB diarrhea as well which has been chronic x months and getting active workup by PCP, no clear etiology. Denies fever, chills, chest pain, SOB, palpitation, abdominal pain, leg swelling , No sick contacts or travel. No new changes in medications. No suspicious food intake Allergies: Azithromycin Past Medical History: as documented in EMR/HPI Social history: Lives with family. No tobacco, ETOH or drug use. Surgical history: Stents Meds: as documented in EMR PMD: Dr. Quispe 10/26/18 01:02 - Physicial Exam PE: 10/25/18 23:57 Agree with the resident's HPI and PE as documented in the electronic medical record. NAD, well appearing, EOMI, PERRL, MMM, nl conjunctiva, anicteric; neck supple. lungs clear, RRR, abdomen soft nontender, obese. Back nontender. [place] x4, no focal neuro deficits. No peripheral edema. normal color for ethnicity, WWP. +healing bruises to right upper and elbow of arm small healing bruise to left upper posterior back, mildly tender FROM in all extrem. 10/26/18 01:02 - Medical Decision Making 10/25/18 23:58 hpi as documented VS reviewed, wnll DDx. syncope: considered interval abnormalities including short QTC or long QT syndrome, WPW, conduction abnormality, [place], ACS, NSTEMI, STEMI, coronary vasospasm, PE, electrolyte disturbances, metabolic derangement. seizure, DESIGN ENGINEER lesion, CVA, ICH. ED course: labs and lytes with baseline anemia. hyperglycemia noted 330s, given IVF (EF 60 -65%), recheck FS +trop to 0.34, no acute EKG changes with baseline nonspecific T wave abnormalities. EKG normal sinus rhythm 86 bpm, left axis deviation, no interval abnormalities, narrow QRS, ST and T wave segments and morphology normal. Nonspecific T wave abnormalities in lateral leads I, AVL similar to prior treat as NST ACS with ASA, medical management, serial trop/EKGs, tele monitor Prior notes reviewed, including admissions, discharges and consultations. last echo in 07/2018 with normal EF of 60-65%, normal ventricular function and size, some MR can tolerate fluids UA with UTI, give ceftriaxone CT head and C spine neg for bleed/ microvascular changes, degenerative c spine changes, no acute fx or dislocation. FROM in all extrem, affected RUE, superficial and muscular pains, doubt fx, given ROM intact and minimal limitations and no neuro sx or suggestion of acute dislocation/fx. defer imaging at this time. dispo: admit tele for NSTEMI, medical management, serial trops/ekg. syncope workup, ?cardiogenic UTI with abx. admit to Dr Luciano service 10/26/18 00:48 10/26/18 01:01 10/26/18 03:14 10/26/18 03:15 Heart Score/ECG Review #1 ECG reviewed & interpreted by me at: 00:00 General ECG Interpretation: Sinus Rhythm, Normal Rate, Normal Intervals Compared to previous ECG there are: No significant change 10/26/18 00:49 EKG normal sinus rhythm 86 bpm, left axis deviation, no interval abnormalities, narrow QRS, ST and T wave segments and morphology normal. Nonspecific T wave abnormalities in lateral leads I, AVL similar to prior
[2018-10-26] MEDS ORDERED: SODIUM CHLORIDE 0.9% 500 ML INFUS.BAG IV ONE (00:24)
[2018-10-26] MEDS ORDERED: ASPIRIN 81 MG CHEWABLE TABLETS PO ONE (00:25)
[2018-10-26] MEDS ORDERED: ASPIRIN 81 MG CHEWABLE TABLETS ONE (00:39)
[2018-10-26 01:19] LABS: EPI CELLS 0.8 /HPF (0-5/HPF); HYALINE CASTS 20 /lpf (0-8); URINE APPEARANCE CLOUDY; URINE BACTERIA >9000 /hpf (NEGATIVE); URINE BILIRUBIN NEGATIVE (NEGATIVE); URINE COLOR YELLOW; URINE GLUCOSE (UA) 3+ (NEGATIVE); URINE KETONE TRACE (NEGATIVE); URINE LEUK ESTERASE TRACE (NEGATIVE); URINE NITRITE NEGATIVE (NEGATIVE); URINE PROTEIN 4+ (NEGATIVE); URINE RBC 5 /hpf (0-4); URINE UROBILINOGEN 0.2 mg/dL (0.2-1.0); URINE WBC 116 /hpf (0-5)
[2018-10-26] MEDS ORDERED: CEFTRIAXONE 1,000 MG in DEXTROSE 5%-WATER - 50 ML IVPB ONE (01:49)
[2018-10-26] MEDS ORDERED: CEFTRIAXONE 1 GM/50 ML BAG ONE (01:56)
[2018-10-26] MEDS ORDERED: ONDANSETRON 4 MG/2 ML VIAL IVPUSH PRN (03:00)
[2018-10-26] MEDS ORDERED: LOSARTAN POTASSIUM 50 MG TABLET (FP) ONE (05:46)
[2018-10-26] MEDS: LOSARTAN POTASSIUM 25 MG TABLET PO SCH ×2 (05:55→09:10)
[2018-10-26] MEDS ORDERED: amLODIPine BESYLATE 2.5 MG TABLET (FP) PO ONE (06:00)
[2018-10-26 06:11] LABS: BASO % 0.5 % (0-2.0); EOS % 3.3 % (0-4.5); HEMOGLOBIN 7.9 GM/dL (10.7-15.3); LYMPH % 19.6 % (8-40); MCH 29.6 pg (25.7-33.7); MCHC 34.2 g/dl (32.0-36.0); MEAN CELL VOLUME 86.3 fl (80-96); MEAN PLT VOLUME 7.4 fl (7.5-11.1); MONO % 7.4 % (3.8-10.2); NEUT % 69.2 % (42.8-82.8); PLATELET COUNT 263 K/MM3 (134-434); RBC 2.66 M/mm3 (3.60-5.2); RDW 14.9 % (11.6-15.6); WHITE BLOOD COUNT 8.3 K/mm3 (4.0-10.0)
[2018-10-26 06:14] LABS: ALBUMIN 1.9 g/dl (3.4-5.0); BILIRUBIN,TOTAL 0.3 mg/dL (0.2-1); BLOOD UREA NITROGEN 27.1 mg/dL (7-18); CALCIUM 7.6 mg/dL (8.5-10.1); CREATININE 1.5 mg/dL (0.55-1.3); TOT PROT 5.1 g/dl (6.4-8.2)
[2018-10-26] MEDS ORDERED: amLODIPine BESYLATE 5 MG TABLET (FP) ONE (06:35)
--- NOTE | 2018-10-26 08:09 | CON.CARD ---
Consult Consult Specialty:: Cardiology Referred by:: Dr. Luciano Reason for Consultation:: Dizziness - History of Present Illness Chief Complaint: Dizziness History of Present Illness: PMH: 1. CAD s/p recent RAQUEL LAD (radial approach) 2. Chronic anemia 3. chronic diastolic CHF 4. CKD with proteinuria 5. + IRENE ER HPI reviewed: "68 yo F w a hx of anemia, CHF, CKD (baseline Cr 0.9-1) with mild proteinuira, CAD s/p recent cardiac stent, IDDM, HTN, and vertigo presents to the [facility] via private auto with the chief complaint of dizziness/room spinning and vomiting. Most of the history is provided by the patient's son and daughter at bedside. The son states he brought his mother here because he is concerned that she has been experiencing multiple falls at home. The son has a video where the patient was standing in her home, lost her balance, experienced a bout of dizziness/room and head spinning and then tumbled to the ground smashing her head and neck. The patient experienced LOC and was stuck on the ground for close to 6 hours. This is all on the patient's video at home. The patient has been experiencing a significant amount of nausea and vomiting for the past month which is being worked up by Dr. Quispe as an outpatient. - patient endorses right elbow pain from her most recent fall. - The patient has been experiencing many bouts of NBNB vomiting and NB diarrhea for the past month. - Patient has fallen and hit her head multiple times and takes aspirin and plavix The patient denies having a headache, neck pain or blurry vision. The patient denies having experienced recent chest pain, SOB, or difficulty breathing. The patient denies dysuria, frequency, or urgency. " She denies CP, palpitations, PND, orthopnea. She states she was started on Lasix every other day a few months ago for peripheral edema. Initial BP in ER markedly elevated. - History Source History Provided By: Patient, Medical Record - Past Medical History Cardio/Vascular: Yes: CAD, CHF Pulmonary: No: Asthma, Bronchitis, Cancer, COPD, O2 Dependent, Pneumonia, Previously Intubated, Pulmonary Embolus, Pulmonary Fibrosis, Sleep Apnea, Other Gastrointestinal: No: Ascites, Cancer, Constipation, Crohn's Disease, Diverticulitis, Diverticulosis, Esophageal Varices, Gastritis, GERD, GI Bleed, Hemorrhoids, Hiatal Hernia, Inflamatory Bowel Disease, Irritable Bowel Disease, Pancreatitis, Peptic Ulcer Disease, Ulcerative Colitis, Other Hepatobiliary: No: Cirrhosis, Cholelithiasis, Cholecystitis, Choledocholithiasis , Hepatitis A, Hepatitis B, Hepatitis C, Other Renal/: Yes: Renal Inusuff Heme/Onc: No: Anemia, B12 Deficiency, Bleeding Disorder, Cancer, Current Chemotherapy, Current Radiation Therapy, Hemochromatosis, Hypercoaguable State, Myeloproliferative Synd, Sickle Cell Disease, Sickle Cell Trait, Thrombocytopenia, Other Infectious Disease: No: AIDS, C-Diff, Herpes Zoster, HIV, MRSA, STD's, Tuberculosis, VREF, Other Psych: No: Addictions, Anxiety, Bipolar, Depression, Panic, Psychosis, Schizophrenia, Other Musculoskeletal: No: Bursitis, Chronic low back pain, Hemiparesis, Hemiplegia, Osteoarthritis, Paraplegia, Other Rheumatology: No: Fibromyalgia, Gout, Lupus, Rheumatoid Arthritis, Sarcoidosis, Vasculitis, Other ENT: No: Allergic Rhinitis, Sinusitis, Other Endocrine: Yes: Diabetes Mellitus Dermatology: No: Basal Cell, Cellulitis, Eczema, Melanoma, Psoriasis, Squamous Cell, Other - Alcohol/Substance Use Hx Alcohol Use: No - Smoking History Smoking history: Never smoked Have you smoked in the past 12 months: No - Social History Usual Living Arrangement: With Child History of Recent Travel: No Home Medications - Allergies Allergies/Adverse Reactions: Allergies Allergy/AdvReac Type Severity Reaction Status Date / Time azithromycin [From Zithromax] Allergy Verified 10/25/18 21:51 - Home Medications Home Medications: Ambulatory Orders Aspirin [ASA -] 81 mg PO HS 07/10/18 Atorvastatin Ca [Lipitor] 80 mg PO HS 07/10/18 Doxazosin Mesylate 2 mg PO DAILY 07/10/18 Ezetimibe [Zetia] 10 mg PO HS 07/10/18 Ferrous Sulfate [Feosol] 325 mg PO DAILY 07/10/18 Meclizine HCl 12.5 mg PO DAILY 07/10/18 Metoprolol Succinate 25 mg PO HS 07/10/18 Aspirin Coated [Ecotrin -] 81 mg PO HS #30 tablet.ec 07/16/18 Clopidogrel Bisulfate [Plavix -] 75 mg PO HS tablet 07/16/18 Furosemide Oral Solution [Lasix Oral Solution -] 80 mg PO DAILY #30 udc Losartan Potassium [Cozaar -] 25 mg PO DAILY #30 tablet 07/16/18 Duloxetine HCl 20 mg PO DAILY 10/26/18 Insulin Lispro [Humalog] 20 unit SQ DAILY 10/26/18 Family Disease History - Family Disease History Family History: Unremarkable Review of Systems - Review of Systems Constitutional: reports: No Symptoms Eyes: reports: No Symptoms HENT: reports: No Symptoms Neck: reports: No Symptoms Respiratory: reports: No Symptoms Genitourinary: reports: No Symptoms Neurological: reports: Dizziness Endocrine: reports: No Symptoms Hematology/Lymphatic: reports: No Symptoms Psychiatric: reports: No Symptoms - Risk Factors Known Risk Factors: Yes: Hypertension, Other (Known CAD) Vital Signs: Vital Signs Temperature 98.2 F 10/25/18 21:48 Pulse Rate 87 10/26/18 05:41 Respiratory Rate 20 10/26/18 05:41 Blood Pressure 159/81 10/26/18 06:43 O2 Sat by Pulse Oximetry (%) 98 10/26/18 07:48 Constitutional: Yes: No Distress, Calm Eyes: Yes: Conjunctiva Clear Respiratory: Yes: CTA Bilaterally Gastrointestinal: Yes: Soft, Abdomen, Obese Cardiovascular: Yes: Regular Rate and Rhythm JVD: No Carotid Bruit: No Heart Sounds: Yes: S1, S2 Edema: No Peripheral Pulses WNL: Yes Neurological: Yes: Alert, Oriented - Other Data Labs, Other Data: CBC, BMP 10/26/18 05:30 10/26/18 05:30 INR, PTT INR 0.96 (0.83-1.09) 10/25/18 23:05 Troponin, BNP 10/25/18 10/26/18 23:05 04:45 Troponin I 0.34 H 0.24 H Troponin, BNP 10/25/18 10/26/18 23:05 04:45 Troponin I 0.34 H 0.24 H Laboratory Tests 10/25/18 10/25/18 10/26/18 23:05 23:05 04:45 Sodium Potassium BUN 30.9 H Creatinine 1.9 H Creatine Kinase 155 152 142 Troponin I 0.34 H 0.24 H 10/26/18 05:30 Sodium 137 Potassium 4.0 BUN 27.1 H Creatinine 1.5 H Creatine Kinase Troponin I Echo: Pending Prior Cardiac Procedures: PTCA with Stent Imaging - Results Chest X-ray: Image Reviewed (Increased PVC.) EKG: Other (NSR 86, LVH, LAD, NSST changes) Assessment/Plan IMP: 1. CAD s/p RAQUEL LAD 2018 2. Chronic anemia 3. Chronic diastolic CHF (normal LVEF on echo 07/2018) 4. CKD with proteinuria 5. + IRENE 6. Dizziness, lightheadedness of unclear etiology, possibly vertigo 7. Elevated TnI REC: 1. Telemetry to r/o arrhythmia 2. F/u CTs (after fall) 3. Continue home meds for CAD including statin and Plavix. 4. Will resume PO Lasix, CXR appear congested. Daily SMA to follow renal fx 5. Check orthostatics 6. Anemia w/u as per PMD, stool guaiac.
[2018-10-26] MEDS: MECLIZINE HCL 12.5 MG TABLET PO SCH (09:09)
[2018-10-26] MEDS: DOXAZOSIN MESYLATE 2 MG TABLET (FP) PO SCH (09:09)
[2018-10-26] MEDS: CLOPIDOGREL BISULFATE 75 MG TABLET (FP) PO SCH (09:10)
[2018-10-26] MEDS: FERROUS SO4 325 MG TABLET (FP) PO SCH (09:10)
[2018-10-26] MEDS: FUROSEMIDE 40 MG TABLET (FP) PO SCH (09:10)
[2018-10-26] MEDS: DULoxetine HCL 20 MG CAPSULE.DR PO SCH (09:10)
[2018-10-26] MEDS ORDERED: INSULIN LISPRO 20 UNIT SQ SCH (10:00)
[2018-10-26] MEDS ORDERED: cefTRIAXone SODIUM 1 GM VIAL ONE (10:08)
[2018-10-26] MEDS: CEFTRIAXONE 1 GM in DEXTROSE 5%-WATER - 50 ML IVPB SCH (10:20)
--- NOTE | 2018-10-26 12:41 | EKG ---
Test Reason : Blood Pressure : / mmHG Vent. Rate : 086 BPM Atrial Rate : 086 BPM P-R Int : 162 ms QRS Dur : 098 ms QT Int : 380 ms P-R-T Axes : 057 -33 088 degrees QTc Int : 454 ms NORMAL SINUS RHYTHM LEFT AXIS DEVIATION VOLTAGE CRITERIA FOR LEFT VENTRICULAR HYPERTROPHY NONSPECIFIC T WAVE ABNORMALITY WHEN COMPARED WITH ECG OF 10-JUL-2018 16:53, NO SIGNIFICANT CHANGE WAS FOUND Confirmed by MELCHOR MAI MD ([id number]) on 10/26/2018 12:41:28 PM Referred By: Confirmed By:MELCHOR MAI MD
[2018-10-26] MEDS: ATORVASTATIN CA 80 MG TABLET (FP) PO SCH (21:55)
[2018-10-26] MEDS: EZETIMIBE 10 MG TABLET (FP) PO SCH (21:56)
[2018-10-26] MEDS ORDERED: metoPROLOL SUCCINATE 25 MG TAB.SR.24H (FP) PO SCH (22:00)
--- NOTE | 2018-10-26 22:15 | HP ---
Admitting History and Physical - Admission History of Present Illness: Pt is a 68 yo female w/ PMH significant for anemia, CHF, CKD, CAD s/p recent cardiac stent, IDDM, HTN, and vertigo. Pt presents to the [facility] ER w/ complaint of dizziness/room spinning and vomiting. The son stated he brought his mother because he is concerned that she has been experiencing multiple falls at home. The son has a video where the patient was standing in her home, lost her balance , experienced a bout of dizziness/room and head spinning and then tumbled to the ground smashing her head and neck. The patient experienced LOC and was stuck on the ground for close to 6 hours. This is all on the patient's video at home. The patient has been experiencing a significant amount of nausea and vomiting for the past month which is being worked up by Dr. Quispe as an outpatient. Pt also complains of right elbow pain from her most recent fall. - Past Medical History Cardiovascular: Yes: CAD, CHF, HTN Renal/: Yes: Renal Inusuff Heme/Onc: Yes: Anemia Endocrine: Yes: Diabetes Mellitus - Smoking History Smoking history: Never smoked Have you smoked in the past 12 months: No - Alcohol/Substance Use Hx Alcohol Use: No - Social History History of Recent Travel: No Home Medications - Allergies Allergies/Adverse Reactions: Allergies Allergy/AdvReac Type Severity Reaction Status Date / Time azithromycin [From Zithromax] Allergy Verified 10/25/18 21:51 - Home Medications Home Medications: Ambulatory Orders Aspirin [ASA -] 81 mg PO HS 07/10/18 Atorvastatin Ca [Lipitor] 80 mg PO HS 07/10/18 Doxazosin Mesylate 2 mg PO DAILY 07/10/18 Ezetimibe [Zetia] 10 mg PO HS 07/10/18 Ferrous Sulfate [Feosol] 325 mg PO DAILY 07/10/18 Meclizine HCl 12.5 mg PO DAILY 07/10/18 Metoprolol Succinate 25 mg PO HS 07/10/18 Aspirin Coated [Ecotrin -] 81 mg PO HS #30 tablet.ec 07/16/18 Clopidogrel Bisulfate [Plavix -] 75 mg PO HS tablet 07/16/18 Furosemide Oral Solution [Lasix Oral Solution -] 80 mg PO DAILY #30 udc Losartan Potassium [Cozaar -] 25 mg PO DAILY #30 tablet 07/16/18 Duloxetine HCl 20 mg PO DAILY 10/26/18 Insulin Lispro [Humalog] 20 unit SQ DAILY 10/26/18 Family Disease History - Family Disease History Family History: Unremarkable Review of Systems - Review of Systems Constitutional: reports: Weakness Eyes: reports: No Symptoms HENT: reports: No Symptoms Neck: reports: No Symptoms Cardiovascular: reports: No Symptoms Respiratory: reports: No Symptoms Gastrointestinal: reports: Nausea, Vomiting Physical Examination Vital Signs: Vital Signs Temperature 98.0 F 10/26/18 19:52 Pulse Rate 103 H 10/26/18 20:00 Respiratory Rate 10/26/18 19:52 Blood Pressure 119/62 10/26/18 20:00 O2 Sat by Pulse Oximetry (%) 98 10/26/18 19:52 Eyes: Yes: WNL HENT: Yes: WNL Neck: Yes: WNL Cardiovascular: Yes: WNL, Regular Rate and Rhythm Respiratory: Yes: WNL, Regular, CTA Bilaterally Gastrointestinal: Yes: WNL, Normal Bowel Sounds, Soft Musculoskeletal: Yes: WNL Extremities: Yes: WNL Edema: No Neurological: Yes: WNL, Alert, Oriented ...Motor Strength: WNL Labs: CBC, BMP 10/26/18 05:30 10/26/18 05:30 Problem List - Problems (1) Syncope and collapse Assessment/Plan: Admitted to tele Cardio/neuro consults Check echo/carotid doppler Will need PT eval Code(s): R55 - SYNCOPE AND COLLAPSE (2) Elevated troponin Assessment/Plan: Cont to trend raestart plavix/asa once CT scan head is resulted As per cardio Code(s): R74.8 - ABNORMAL LEVELS OF OTHER SERUM ENZYMES (3) Anemia Assessment/Plan: Repeat H/H in am If Hgb still low will transfuse PRBC's GI consult Cont to monitor Code(s): D64.9 - ANEMIA, UNSPECIFIED (4) CAD (coronary artery disease) Assessment/Plan: Restart plavix/asa once ct scan head resulted Code(s): I25.10 - ATHSCL HEART DISEASE OF [place] CORONARY ARTERY W/O ANG PCTRS (5) Diabetes Assessment/Plan: Cont sliding scale w/ coverage Check HgA1c Code(s): E11.9 - TYPE 2 DIABETES MELLITUS WITHOUT COMPLICATIONS (6) HTN (hypertension) Assessment/Plan: BP slightly elevated Cont metoprolol/losartan Code(s): I10 - ESSENTIAL (PRIMARY) HYPERTENSION (7) HLD (hyperlipidemia) Assessment/Plan: Cont lipitor Code(s): E78.5 - HYPERLIPIDEMIA, UNSPECIFIED (8) Chronic diastolic heart failure Assessment/Plan: Cont lasix Monitor electrolytes Code(s): I50.32 - CHRONIC DIASTOLIC (CONGESTIVE) HEART FAILURE (9) CKD (chronic kidney disease) Assessment/Plan: Cont gentle IV hyddration renal consult Check renal US Code(s): N18.9 - CHRONIC KIDNEY DISEASE, UNSPECIFIED (10) Repeated falls Assessment/Plan: Multifactorial PT eval Code(s): R29.6 - REPEATED FALLS
[2018-10-26] MEDS ORDERED: SODIUM CHLORIDE 0.45% 1,000 ML IV SCH (23:30)
[2018-10-27] MEDS: INSULIN SLIDING SCALE (NOVOLOG) 1 VIAL SQ SCH ×4 (07:00→21:16)
[2018-10-27 08:38] LABS: BLOOD UREA NITROGEN 22.3 mg/dL (7-18); CREATININE 1.5 mg/dL (0.55-1.3); POTASSIUM 4.2 mmol/L (3.5-5.1)
[2018-10-27 09:02] LABS: BASO % 0.5 % (0-2.0); EOS % 5.2 % (0-4.5); HEMATOCRIT 22.5 % (32.4-45.2); HEMOGLOBIN 7.7 GM/dL (10.7-15.3); LYMPH % 19.6 % (8-40); MCH 29.3 pg (25.7-33.7); MCHC 34.1 g/dl (32.0-36.0); MEAN PLT VOLUME 7.2 fl (7.5-11.1); MONO % 8.1 % (3.8-10.2); NEUT % 66.6 % (42.8-82.8); PLATELET COUNT 271 K/MM3 (134-434); RBC 2.61 M/mm3 (3.60-5.2); RDW 15.3 % (11.6-15.6); WHITE BLOOD COUNT 6.5 K/mm3 (4.0-10.0)
[2018-10-27] MEDS ORDERED: DEXTROSE 5%-WATER - 50 ML IVPB ONE (09:08)
[2018-10-27] MEDS ORDERED: cefTRIAXone SODIUM 1 GM VIAL ONE (09:08)
[2018-10-27] MEDS ORDERED: PT OWN MED DRAWER 7, Y5N ONE ×2 (09:08→18:51)
--- NOTE | 2018-10-27 09:29 | RAPID ---
Physical Examination Vital Signs: Vital Signs Temperature 98.4 F 10/27/18 06:55 Pulse Rate 79 10/27/18 06:55 Respiratory Rate 20 10/27/18 06:55 Blood Pressure 184/79 H 10/27/18 06:55 O2 Sat by Pulse Oximetry (%) 98 10/26/18 19:52 Findings/Remarks: Rapid response called as patient found sitting on the floor next to her bed s/p fall. Patient A&Ox3, states that she attempted to transfer from chair to bed. She denies LOC or head trauma. on arrival, bp 123/57, HR 68 saturating 96% on room air. Constitutional: Yes: No Distress, Calm Eyes: Yes: Conjunctiva Clear, EOM Intact, PERRL HENT: Yes: Atraumatic, Normocephalic Neck: Yes: Supple, Trachea Midline Cardiovascular: Yes: Regular Rate and Rhythm, S1, S2. No: Gallop, Murmur, Rub Respiratory: Yes: Regular, CTA Bilaterally Gastrointestinal: Yes: Normal Bowel Sounds, Soft Labs: CBC, BMP 10/27/18 07:05 10/27/18 07:05 Rapid Response - Rapid Response Assessment: Patient seems to have fallen 2/2 LE weakness. Patient is not on AC Patient is A&Ox3 and denies head trauma No evidence of head trauma seen on physical exam. Head CT is not indicated in this circumstance Patient c/o Rt knee pain s/p fall, will order head CT Suggest PT eval in AM Nursing staff to notify primary team.
[2018-10-27] MEDS: CLOPIDOGREL BISULFATE 75 MG TABLET (FP) PO SCH (10:16)
[2018-10-27] MEDS: FERROUS SO4 325 MG TABLET (FP) PO SCH (10:16)
[2018-10-27] MEDS: FUROSEMIDE 40 MG TABLET (FP) PO SCH (10:16)
[2018-10-27] MEDS: LOSARTAN POTASSIUM 25 MG TABLET PO SCH (10:16)
[2018-10-27] MEDS: DULoxetine HCL 20 MG CAPSULE.DR PO SCH (10:17)
[2018-10-27] MEDS: CEFTRIAXONE 1 GM in DEXTROSE 5%-WATER - 50 ML IVPB SCH (10:17)
[2018-10-27] MEDS: MECLIZINE HCL 12.5 MG TABLET PO SCH (10:18)
[2018-10-27] MEDS: DOXAZOSIN MESYLATE 2 MG TABLET (FP) PO SCH (10:18)
--- NOTE | 2018-10-27 10:23 | CONSULT ---
Consult - text type - Consultation Consultation Note: Renal consult for ANG vs. CKD This is a 68 year old woman with hx of CKD with nephrotic range proteinuria, + IRENE, (normal DS-DNA, Negative ANCA), CAD s/p PCI, DM, hypertension presented with dizziness. Pt reports that she has been dizzy for several week. Had a fall at home and was on the floor for several hours. Reports a room spinning sensation. Had a unwitnessed fall in the hospital this morning. No CP, SOB, abd pain, fever, chills, N/V/D. Reprots having a good appetite. No dysuria, fever or chills. PMHx: as above Allergies: Azithromycin Family hx: NC Social Hx: No T/A/D ROS: as per HPI Home Medications Medication Instructions Recorded Aspirin [ASA -] 81 mg PO HS 07/10/18 Atorvastatin Ca [Lipitor] 80 mg PO HS 07/10/18 Doxazosin Mesylate 2 mg PO DAILY 07/10/18 Ezetimibe [Zetia] 10 mg PO HS 07/10/18 Ferrous Sulfate [Feosol] 325 mg PO DAILY 07/10/18 Meclizine HCl 12.5 mg PO DAILY 07/10/18 Metoprolol Succinate 25 mg PO HS 07/10/18 Aspirin Coated [Ecotrin -] 81 mg PO HS #30 tablet.ec 07/16/18 Clopidogrel Bisulfate [Plavix -] 75 mg PO HS tablet 07/16/18 Furosemide Oral Solution [Lasix 80 mg PO DAILY #30 udc 07/16/18 Oral Solution -] Losartan Potassium [Cozaar -] 25 mg PO DAILY #30 tablet 07/16/18 Duloxetine HCl 20 mg PO DAILY 10/26/18 Insulin Lispro [Humalog] 20 unit SQ DAILY 10/26/18 Vital Signs Temperature 98.4 F 10/27/18 06:55 Pulse Rate 79 10/27/18 06:55 Respiratory Rate 20 10/27/18 06:55 Blood Pressure 184/79 H 10/27/18 06:55 O2 Sat by Pulse Oximetry (%) 98 10/26/18 19:52 Intake & Output 10/24/18 10/25/18 10/26/18 10/27/18 23:59 23:59 23:59 23:59 Intake Total 975 525 Balance 975 525 Weight 77.111 kg 77.111 kg NAD awake and alert neck supple RRR CTA soft NT/ND trace LE edema no bladder distension involentary spastic movements of left LE CBC, BMP 10/27/18 07:05 10/27/18 07:05 Current Medications Atorvastatin Calcium (Lipitor -) 80 mg PO HS [facility] Last Admin: 10/26/18 21:55 Dose: 80 mg Clopidogrel Bisulfate (Plavix -) 75 mg PO DAILY [facility] Last Admin: 10/26/18 09:10 Dose: 75 mg Doxazosin Mesylate (Cardura -) 2 mg PO DAILY [facility] Last Admin: 10/26/18 09:09 Dose: 2 mg Duloxetine HCl (Cymbalta -) 20 mg PO DAILY [facility] Last Admin: 10/26/18 09:10 Dose: 20 mg Ezetimibe (Zetia -) 10 mg PO HS [facility] Last Admin: 10/26/18 21:56 Dose: 10 mg Ferrous Sulfate (Feosol -) 325 mg PO DAILY [facility] Last Admin: 10/26/18 09:10 Dose: 325 mg Furosemide (Lasix -) 80 mg PO DAILY [facility] Last Admin: 10/26/18 09:10 Dose: 80 mg Ceftriaxone Sodium 1 gm/ (Dextrose) 50 mls @ 100 mls/hr IVPB DAILY [facility]; Protocol Last Admin: 10/26/18 10:20 Dose: 100 mls/hr Sodium Chloride (1/2 Normal Saline) 1,000 mls @ 75 mls/hr IV ASDIR [facility] Last Admin: 10/27/18 00:27 Dose: 75 mls/hr Insulin Aspart (Novolog Vial Sliding Scale -) 1 vial SQ ACHS [facility]; Protocol Last Admin: 10/27/18 07:00 Dose: 8 units Losartan Potassium (Cozaar -) 25 mg PO DAILY [facility] Last Admin: 10/26/18 09:10 Dose: 25 mg Meclizine HCl (Antivert -) 12.5 mg PO DAILY [facility] Last Admin: 10/26/18 09:09 Dose: 12.5 mg Metoprolol Succinate (Toprol Xl -) 25 mg PO HS [facility] Last Admin: 10/26/18 21:55 Dose: 25 mg Ondansetron HCl (Zofran Injection) 4 mg IVPUSH Q8H PRN PRN Reason: NAUSEA Last Admin: 10/26/18 21:56 Dose: 4 mg 68 year old woman with hx of CKD with nephrotic range proteinuria, + IRENE, ( normal DS-DNA, Negative ANCA), CAD s/p PCI, DM, hypertension presented with dizziness with elevated BUN/Cr #ANG vs. CKD #Proteinuria #Dizziness #Hypertension #Hx of Edema #CAD Renal function near baseline at this time Last cr from office was 1.3 form 07/2018. no overt electrolyte or acid base disturbance noted agree with restarting oral lasix for edema management orthostatiscs negative Neurology consult check iron studies for anemia, may benefit form IV iron cardiology follow up Tele monitoring Thank you Will follow Clinton Manjarrez DO
--- NOTE | 2018-10-27 10:23 | PN ---
Progress Note, Physician Chief Complaint: TELE: NSR No new complaints Tried to get out of chair, fell landing on buttocks. No head trauma. vitals stable. History of Present Illness: BP elevated this AM supine + Orthostatic changes noted Positive UCx - Current Medication List Current Medications: Active Medications Atorvastatin Calcium (Lipitor -) 80 mg PO HS REPLACED BY [facility] Last Admin: 10/26/18 21:55 Dose: 80 mg Clopidogrel Bisulfate (Plavix -) 75 mg PO DAILY REPLACED BY [facility] Last Admin: 10/27/18 10:16 Dose: 75 mg Doxazosin Mesylate (Cardura -) 2 mg PO DAILY REPLACED BY [facility] Last Admin: 10/27/18 10:18 Dose: 2 mg Duloxetine HCl (Cymbalta -) 20 mg PO DAILY REPLACED BY [facility] Last Admin: 10/27/18 10:17 Dose: 20 mg Ezetimibe (Zetia -) 10 mg PO HS REPLACED BY [facility] Last Admin: 10/26/18 21:56 Dose: 10 mg Ferrous Sulfate (Feosol -) 325 mg PO DAILY REPLACED BY [facility] Last Admin: 10/27/18 10:16 Dose: 325 mg Furosemide (Lasix -) 80 mg PO DAILY REPLACED BY [facility] Last Admin: 10/27/18 10:16 Dose: 80 mg Ceftriaxone Sodium 1 gm/ (Dextrose) 50 mls @ 100 mls/hr IVPB DAILY REPLACED BY [facility]; Protocol Last Admin: 10/27/18 10:17 Dose: 100 mls/hr Sodium Chloride (1/2 Normal Saline) 1,000 mls @ 75 mls/hr IV ASDIR REPLACED BY [facility] Last Admin: 10/27/18 00:27 Dose: 75 mls/hr Insulin Aspart (Novolog Vial Sliding Scale -) 1 vial SQ ACHS REPLACED BY [facility]; Protocol Last Admin: 10/27/18 07:00 Dose: 8 units Losartan Potassium (Cozaar -) 25 mg PO DAILY REPLACED BY [facility] Last Admin: 10/27/18 10:16 Dose: 25 mg Meclizine HCl (Antivert -) 12.5 mg PO DAILY REPLACED BY [facility] Last Admin: 10/27/18 10:18 Dose: 12.5 mg Metoprolol Succinate (Toprol Xl -) 25 mg PO HS REPLACED BY [facility] Last Admin: 10/26/18 21:55 Dose: 25 mg Ondansetron HCl (Zofran Injection) 4 mg IVPUSH Q8H PRN PRN Reason: NAUSEA Last Admin: 10/26/18 21:56 Dose: 4 mg - Objective Vital Signs: Vital Signs Temperature 98.4 F 10/27/18 09:29 Pulse Rate 68 10/27/18 09:29 Respiratory Rate 16 10/27/18 09:29 Blood Pressure 123/57 L 10/27/18 09:29 O2 Sat by Pulse Oximetry (%) 98 10/26/18 19:52 Constitutional: Yes: No Distress Cardiovascular: Yes: Regular Rate and Rhythm Respiratory: Yes: Other (rales at right base this AM) Gastrointestinal: Yes: Soft, Abdomen, Obese Edema: Yes Edema: LLE: 1+, RLE: 1+ Neurological: Yes: Alert, Oriented Labs: CBC, BMP 10/27/18 07:05 10/27/18 07:05 INR, PTT INR 0.96 (0.83-1.09) 10/25/18 23:05 - ....Imaging EKG: Image Reviewed Assessment/Plan Assessment/Plan IMP: 1. CAD s/p RAQUEL LAD 2018 2. Chronic anemia 3. Chronic diastolic CHF (normal LVEF on echo 07/2018) 4. CKD with proteinuria 5. + IRENE 6. Dizziness, lightheadedness of unclear etiology, possibly vertigo 7. Elevated TnI 8. Orthostatic hypotension 9. UTI REC: 1. Telemetry to r/o arrhythmia thus far negative. 2. Rx UTI per PMD 3. Continue home meds for CAD including statin and Plavix. 4. D/C IV fluids: some rales and edema on exam. 5. Patient is orthostatic: consider d/c alpha steven 6. Anemia w/u as per PMD, stool guaiac. 7. TnI is flat and normal CK. No cardiac sx, no acute ECG changes. Likely elevated due to chronic CHF/CKD, possible demand ischemia from anemia. Does not represent type I MD. -Will repeat echo in AM.
--- NOTE | 2018-10-27 11:12 | CONSULT ---
Consult - text type - Consultation Consultation Note: Neurology - History of Present Illness 68 yo F w a hx of anemia, CHF, CKD (baseline Cr 0.9-1) with mild proteinuira, CAD s/p recent cardiac stent, IDDM, HTN, and vertigo presents to the [facility] ER via private auto with the chief complaint of dizziness/room spinning and vomiting. Most of the history was provided by the patient's son and daughter at bedside. The son stated he brought his mother here because he is concerned that she has been experiencing multiple falls at home. The son has a video where the patient was standing in her home, lost her balance, experienced a bout of dizziness/room and head spinning and then tumbled to the ground smashing her head and neck. The patient experienced LOC and was stuck on the ground for close to 6 hours. This is all on the patient's video at home. The patient has been experiencing a significant amount of nausea and vomiting for the past month which is being worked up by Dr. Quispe as an outpatient. Patient endorsed right elbow pain from her most recent fall.The patient has been experiencing many bouts of NBNB vomiting and NB diarrhea for the past month. Patient has fallen and hit her head multiple times and takes aspirin and plavix. The patient denied having a headache, neck pain or blurry vision. The patient denies having experienced recent chest pain, SOB, or difficulty breathing. The patient denied dysuria, frequency, or urgency. Head and Cervical CT completed, mild degenerative changes, no acute intracranial changes . Patient reports doing well this AM, nurse indicated fall overnight but no head trauma. Patient at baseline and without new deficits. Discussed fall precautions and patient aware. Past History - Past Medical History Anemia: Yes Cardiac Disorders: Yes (STENTS) COPD: No Diabetes: Yes HTN: Yes - Surgical History Cardiac Surgery: Yes (STENTS) - Immunization History Immunization Up to Date: Yes - Suicide/Smoking/Psychosocial Hx Smoking History: Never smoked Have you smoked in the past 12 months: No Hx Alcohol Use: No Drug/Substance Use Hx: No Substance Use Type: None Hx Substance Use Treatment: No - Past Medical History Allergies/Adverse Reactions: FAMILY: HTN Allergies Allergy/AdvReac Type Severity Reaction Status Date / Time azithromycin [From Zithromax] Allergy Verified 10/25/18 21:51 Home Medications: Ambulatory Orders Aspirin [ASA -] 81 mg PO HS 07/10/18 Atorvastatin Ca [Lipitor] 80 mg PO HS 07/10/18 Doxazosin Mesylate 2 mg PO DAILY 07/10/18 Ezetimibe [Zetia] 10 mg PO HS 07/10/18 Ferrous Sulfate [Feosol] 325 mg PO DAILY 07/10/18 Meclizine HCl 12.5 mg PO DAILY 07/10/18 Metoprolol Succinate 25 mg PO HS 07/10/18 Aspirin Coated [Ecotrin -] 81 mg PO HS #30 tablet.ec 07/16/18 Clopidogrel Bisulfate [Plavix -] 75 mg PO HS tablet 07/16/18 Furosemide Oral Solution [Lasix Oral Solution -] 80 mg PO DAILY #30 udc Losartan Potassium [Cozaar -] 25 mg PO DAILY #30 tablet 07/16/18 Duloxetine HCl 20 mg PO DAILY 10/26/18 Insulin Lispro [Humalog] 20 unit SQ DAILY 10/26/18 Active Medications Atorvastatin Calcium (Lipitor -) 80 mg PO HS [facility] Last Admin: 10/26/18 21:55 Dose: 80 mg Clopidogrel Bisulfate (Plavix -) 75 mg PO DAILY [facility] Last Admin: 10/27/18 10:16 Dose: 75 mg Doxazosin Mesylate (Cardura -) 2 mg PO DAILY [facility] Last Admin: 10/27/18 10:18 Dose: 2 mg Duloxetine HCl (Cymbalta -) 20 mg PO DAILY [facility] Last Admin: 10/27/18 10:17 Dose: 20 mg Ezetimibe (Zetia -) 10 mg PO HS [facility] Last Admin: 10/26/18 21:56 Dose: 10 mg Ferrous Sulfate (Feosol -) 325 mg PO DAILY [facility] Last Admin: 10/27/18 10:16 Dose: 325 mg Furosemide (Lasix -) 80 mg PO DAILY [facility] Last Admin: 10/27/18 10:16 Dose: 80 mg Ceftriaxone Sodium 1 gm/ (Dextrose) 50 mls @ 100 mls/hr IVPB DAILY [facility]; Protocol Last Admin: 10/27/18 10:17 Dose: 100 mls/hr Insulin Aspart (Novolog Vial Sliding Scale -) 1 vial SQ ACHS [facility]; Protocol Last Admin: 10/27/18 07:00 Dose: 8 units Losartan Potassium (Cozaar -) 25 mg PO DAILY [facility] Last Admin: 10/27/18 10:16 Dose: 25 mg Meclizine HCl (Antivert -) 12.5 mg PO DAILY [facility] Last Admin: 10/27/18 10:18 Dose: 12.5 mg Metoprolol Succinate (Toprol Xl -) 25 mg PO HS [facility] Last Admin: 10/26/18 21:55 Dose: 25 mg Ondansetron HCl (Zofran Injection) 4 mg IVPUSH Q8H PRN PRN Reason: NAUSEA Last Admin: 10/26/18 21:56 Dose: 4 mg Review of Systems CONSTITUTIONAL: Absent: fever, no chills, no fatigue EYES: Absent: visual changes ENT: Absent: ear pain, no sore throat CARDIOVASCULAR: Absent: chest pain, no palpitations RESPIRATORY: Absent: cough, no SOB GI: Present: Abdominal pain, nausea, vomiting, diarrhea Absent: no constipation GENITOURINARY: Absent: dysuria, no frequency, no hematuria MUSKULOSKELETAL: Present: Back pain, arthralgia Absent: no myalgia SKIN: Absent: rash NEURO: Absent: headache *Physical Exam Vital Signs Period Temp Pulse Resp BP Sys/Juarez Pulse Ox Last 24 Hr 98.0 F-98.8 F 68-103 16-20 119-184/57-93 98-98 GENERAL: Patient appears to have a depressed affect. Well-nourished. No apparent distress. HEENT: Normocephalic, atraumatic. PERRL, EOM intact. CARDIOVASCULAR: Normal S1, S2. Regular rate and rhythm. PULMONARY: No evidence of respiratory distress. Lungs clear to auscultation bilaterally. No wheezing, rales or rhonchi. ABDOMEN: Soft, non-distended, non-tender. EXTREMITIES: Mild TTP in the right elbow and right upper arm. Normal ROM in all four extremities. No gross deformities. SKIN: Warm, dry. No rash NEUROLOGICAL: Alert, awake, appropriate. Cranial nerves 2-12 intact. No deficits to light touch in face, upper extremities and lower extremities. No motor deficits in the in face, upper extremities and lower extremities. No pronator drift. Normal speech. Gait is normal without ataxia. No dysmetria. CBCD WBC 6.5 K/mm3 (4.0-10.0) 10/27/18 07:05 RBC 2.61 M/mm3 (3.60-5.2) L 10/27/18 07:05 Hgb 7.7 GM/dL (10.7-15.3) L 10/27/18 07:05 Hct 22.5 % (32.4-45.2) L 10/27/18 07:05 MCV 86.0 fl (80-96) 10/27/18 07:05 MCHC 34.1 g/dl (32.0-36.0) 10/27/18 07:05 RDW 15.3 % (11.6-15.6) 10/27/18 07:05 Plt Count 271 K/MM3 (134-434) 10/27/18 07:05 MPV 7.2 fl (7.5-11.1) L 10/27/18 07:05 CMP Sodium 137 mmol/L (136-145) 10/27/18 07:05 Potassium 4.2 mmol/L (3.5-5.1) 10/27/18 07:05 Chloride 106 mmol/L (98-107) 10/27/18 07:05 Carbon Dioxide 24 mmol/L (21-32) 10/27/18 07:05 Anion Gap 8 MMOL/L (8-16) 10/27/18 07:05 BUN 22.3 mg/dL (7-18) H 10/27/18 07:05 Creatinine 1.5 mg/dL (0.55-1.3) H 10/27/18 07:05 Random Glucose 338 mg/dL (74-106) H* 10/27/18 07:05 Calcium 8.0 mg/dL (8.5-10.1) L 10/27/18 07:05 Total Bilirubin 0.3 mg/dL (0.2-1) 10/26/18 05:30 AST 18 U/L (15-37) 10/26/18 05:30 ALT 21 U/L (13-61) 10/26/18 05:30 Alkaline Phosphatase 141 U/L (45-117) H 10/26/18 05:30 Total Protein 5.1 g/dl (6.4-8.2) L 10/26/18 05:30 Albumin 1.9 g/dl (3.4-5.0) L 10/26/18 05:30 CARDIAC ENZYMES Creatine Kinase 72 U/L (26-192) 10/27/18 07:05 Troponin I 0.24 ng/ml (0.00-0.05) H 10/27/18 07:05 Assessment/Plan 68 yo F w a hx of anemia, CHF, CKD (baseline Cr 0.9-1) with mild proteinuira, CAD s/p recent cardiac stent, IDDM, HTN, and vertigo presents to the [facility] ER via private auto with the chief complaint of dizziness/room spinning and vomiting. Most of the history was provided by the patient's son and daughter at bedside. The son stated he brought his mother here because he is concerned that she has been experiencing multiple falls at home. The son has a video where the patient was standing in her home, lost her balance, experienced a bout of dizziness/room and head spinning and then tumbled to the ground smashing her head and neck. The patient experienced LOC and was stuck on the ground for close to 6 hours. This is all on the patient's video at home. The patient has been experiencing a significant amount of nausea and vomiting for the past month which is being worked up by Dr. Quispe as an outpatient. Patient endorsed right elbow pain from her most recent fall.The patient has been experiencing many bouts of NBNB vomiting and NB diarrhea for the past month. Patient has fallen and hit her head multiple times and takes aspirin and plavix. The patient denied having a headache, neck pain or blurry vision. The patient denies having experienced recent chest pain, SOB, or difficulty breathing. The patient denied dysuria, frequency, or urgency. Head and Cervical CT completed, mild degenerative changes, no acute intracranial changes. Patient reports doing well this AM, nurse indicated fall overnight but no head trauma. Patient at baseline and without new deficits. Discussed fall precautions and patient aware. Physical therapy needed, patient posses a fall risk for bleeding. No bleeding at this time but if contiues to have falls, bleed risk may outweigh benefits. Optimize gait. Follow up carotid doppler, cardiology work up. Maintain hydration. Continue wheelchair use at bedside.
--- NOTE | 2018-10-27 12:18 | CON.GI ---
Consult Consult Specialty:: GI Referred by:: Dr Wisam Luciano Reason for Consultation:: anemia - History of Present Illness Chief Complaint: anemia History of Present Illness: 68 y.o. F with CAD, s/p stent 3 months ago by her report, on dual antiplatelet therapy, Hgb in the 7 to 9 range over the past 3 months. Was transfused when last here in July. Reports colonoscopy 3 years ago at [facility], does not know results. Never had EGD to her knowledge. Denies visible bleeding. - History Source History Provided By: Patient, Medical Record Limitations to Obtaining History: No Limitations - Past Medical History Cardio/Vascular: Yes: CAD, CHF, HTN, Other (cardiac stenting ) Pulmonary: No: Asthma, Bronchitis, Cancer, COPD, O2 Dependent, Pneumonia, Previously Intubated, Pulmonary Embolus, Pulmonary Fibrosis, Sleep Apnea, Other Gastrointestinal: No: Ascites, Cancer, Constipation, Crohn's Disease, Diverticulitis, Diverticulosis, Esophageal Varices, Gastritis, GERD, GI Bleed, Hemorrhoids, Hiatal Hernia, Inflamatory Bowel Disease, Irritable Bowel Disease, Pancreatitis, Peptic Ulcer Disease, Ulcerative Colitis, Other Hepatobiliary: No: Cirrhosis, Cholelithiasis, Cholecystitis, Choledocholithiasis , Hepatitis A, Hepatitis B, Hepatitis C, Other Renal/: Yes: Renal Inusuff Heme/Onc: Yes: Anemia Infectious Disease: No: AIDS, C-Diff, Herpes Zoster, HIV, MRSA, STD's, Tuberculosis, VREF, Other Psych: No: Addictions, Anxiety, Bipolar, Depression, Panic, Psychosis, Schizophrenia, Other Musculoskeletal: No: Bursitis, Chronic low back pain, Hemiparesis, Hemiplegia, Osteoarthritis, Paraplegia, Other Rheumatology: No: Fibromyalgia, Gout, Lupus, Rheumatoid Arthritis, Sarcoidosis, Vasculitis, Other ENT: No: Allergic Rhinitis, Sinusitis, Other Endocrine: Yes: Diabetes Mellitus Dermatology: No: Basal Cell, Cellulitis, Eczema, Melanoma, Psoriasis, Squamous Cell, Other - Past Surgical History Past Surgical History: Yes: Colonoscopy - Alcohol/Substance Use Hx Alcohol Use: No - Smoking History Smoking history: Never smoked Have you smoked in the past 12 months: No - Social History Usual Living Arrangement: With Child History of Recent Travel: No Home Medications - Allergies Allergies/Adverse Reactions: Allergies Allergy/AdvReac Type Severity Reaction Status Date / Time azithromycin [From Zithromax] Allergy Verified 06/21/19 21:51 - Home Medications Home Medications: Ambulatory Orders Atorvastatin Ca [Lipitor] 80 mg PO HS 07/10/18 Doxazosin Mesylate 2 mg PO DAILY 07/10/18 Ezetimibe [Zetia] 10 mg PO HS 07/10/18 Ferrous Sulfate [Feosol] 325 mg PO DAILY 07/10/18 Meclizine HCl 12.5 mg PO DAILY 07/10/18 Metoprolol Succinate 25 mg PO HS 07/10/18 Aspirin Coated [Ecotrin -] 81 mg PO HS #30 tablet.ec 07/16/18 Clopidogrel Bisulfate [Plavix -] 75 mg PO HS tablet 07/16/18 Furosemide Oral Solution [Lasix Oral Solution -] 80 mg PO DAILY #30 udc Losartan Potassium [Cozaar -] 25 mg PO DAILY #30 tablet 07/16/18 Duloxetine HCl 20 mg PO DAILY 10/26/18 Insulin Lispro [Humalog] 20 unit SQ DAILY 10/26/18 Physical Exam-GI Vital Signs: Vital Signs Temperature 98.0 F 10/27/18 11:29 Pulse Rate 81 10/27/18 11:29 Respiratory Rate 16 10/27/18 11:29 Blood Pressure 156/80 10/27/18 11:29 O2 Sat by Pulse Oximetry (%) 98 10/26/18 19:52 Constitutional: Yes: Obese Respiratory: Yes: Rales Gastrointestinal Inspection: Yes: WNL ...Rectal Exam: Yes: Deferred Labs: CBC, BMP 10/27/18 07:05 10/27/18 07:05 INR, PTT INR 0.96 (0.83-1.09) 10/25/18 23:05 Imaging - Results Cat Scan: Report Reviewed Problem List - Problems (1) Anemia Code(s): D64.9 - ANEMIA, UNSPECIFIED Assessment/Plan Anemia, possible slow GI bleed. Note she was not anemic in 2014 but she was anemic when hospitalized here in July. Her anemia was normocytic. Sugest: 1) iron studies 2) Protein electrophoresis, serum and urine immunofixation. Note patient has 4+ proteinuria; in combination with the anemia this could be a sign of myeloma. She is not pancytopenic, however. Would recommend hematology evaluation. 3) Stool for occult blood pending, although the options for investigation are limited as she cannot be taken off her antiplatelet therapy now. Dr Richardson will be back tomorrow.
[2018-10-27] MEDS ORDERED: amLODIPine BESYLATE 2.5 MG TABLET (FP) PO ONE (16:08)
[2018-10-27] MEDS ORDERED: FUROSEMIDE 40 MG/4 ML INJECTABLE VIAL IVPUSH ONE ×2 (17:19→22:15)
[2018-10-27] MEDS: metoPROLOL SUCCINATE 25 MG TAB.SR.24H (FP) PO SCH ×2 (17:45→21:16)
--- NOTE | 2018-10-27 18:58 | PN ---
Progress Note, Physician History of Present Illness: Pt fell today Pt told her son she was having chest pain but denies any now - Current Medication List Current Medications: Active Medications Atorvastatin Calcium (Lipitor -) [address] [facility] Last Admin: 10/26/18 21:55 Dose: 80 mg Clopidogrel Bisulfate (Plavix -) 75 mg PO DAILY [facility] Last Admin: 10/27/18 10:16 Dose: 75 mg Duloxetine HCl (Cymbalta -) 20 mg PO DAILY [facility] Last Admin: 10/27/18 10:17 Dose: 20 mg Ezetimibe (Zetia -) 10 mg PO HS [facility] Last Admin: 10/26/18 21:56 Dose: 10 mg Ferrous Sulfate (Feosol -) 325 mg PO DAILY [facility] Last Admin: 10/27/18 10:16 Dose: 325 mg Furosemide (Lasix -) 80 mg PO DAILY [facility] Last Admin: 10/27/18 10:16 Dose: 80 mg Ceftriaxone Sodium 1 gm/ (Dextrose) 50 mls @ 100 mls/hr IVPB DAILY [facility]; Protocol Last Admin: 10/27/18 10:17 Dose: 100 mls/hr Insulin Aspart (Novolog Vial Sliding Scale -) 1 vial SQ ACHS [facility]; Protocol Last Admin: 10/27/18 16:40 Dose: 8 units Insulin Detemir (Levemir Vial) [address] [facility] Losartan Potassium (Cozaar -) 25 mg PO DAILY [facility] Last Admin: 10/27/18 10:16 Dose: 25 mg Meclizine HCl (Antivert -) 12.5 mg PO DAILY [facility] Last Admin: 10/27/18 10:18 Dose: 12.5 mg Metoprolol Succinate (Toprol Xl -) 25 mg PO BID [facility] Last Admin: 10/27/18 17:45 Dose: 25 mg Ondansetron HCl (Zofran Injection) 4 mg IVPUSH Q8H PRN PRN Reason: NAUSEA Last Admin: 10/26/18 21:56 Dose: 4 mg - Objective Vital Signs: Vital Signs Temperature 98.2 F 10/27/18 18:00 Pulse Rate 78 10/27/18 18:00 Respiratory Rate 18 10/27/18 18:00 Blood Pressure 133/51 L 10/27/18 18:00 O2 Sat by Pulse Oximetry (%) 97 10/27/18 10:00 Neck: Yes: WNL, Supple Cardiovascular: Yes: WNL, Regular Rate and Rhythm Respiratory: Yes: WNL, Regular, CTA Bilaterally Gastrointestinal: Yes: WNL, Normal Bowel Sounds, Soft Edema: No Labs: CBC, BMP 10/27/18 07:05 10/27/18 07:05 INR, PTT INR 0.96 (0.83-1.09) 10/25/18 23:05 Problem List - Problems (1) Syncope and collapse Assessment/Plan: Check echo/carotid doppler Will need PT eval Check MRI brain Code(s): R55 - SYNCOPE AND COLLAPSE (2) Elevated troponin Assessment/Plan: Cont to trend As per cardio Code(s): R74.8 - ABNORMAL LEVELS OF OTHER SERUM ENZYMES (3) Anemia Assessment/Plan: Will transfuse 1 unit PRBC's and give lasix post transfusion Will check ct scan abd/pelvis Code(s): D64.9 - ANEMIA, UNSPECIFIED (4) CAD (coronary artery disease) Assessment/Plan: Cont plavix/asa Code(s): I25.10 - ATHSCL HEART DISEASE OF [place] CORONARY ARTERY W/O ANG PCTRS (5) Diabetes Assessment/Plan: Cont sliding scale w/ coverage HgA1c elevated at 8.6 Add levemir Code(s): E11.9 - TYPE 2 DIABETES MELLITUS WITHOUT COMPLICATIONS (6) HTN (hypertension) Assessment/Plan: BP elevated Cont metoprolol/losartan Code(s): I10 - ESSENTIAL (PRIMARY) HYPERTENSION (7) HLD (hyperlipidemia) Assessment/Plan: Cont lipitor Code(s): E78.5 - HYPERLIPIDEMIA, UNSPECIFIED (8) Chronic diastolic heart failure Assessment/Plan: Cont lasix Monitor electrolytes Code(s): I50.32 - CHRONIC DIASTOLIC (CONGESTIVE) HEART FAILURE (9) CKD (chronic kidney disease) Assessment/Plan: Cont gentle IV hyddration renal consult Check renal US Code(s): N18.9 - CHRONIC KIDNEY DISEASE, UNSPECIFIED (10) Repeated falls Assessment/Plan: Multifactorial PT eval Code(s): R29.6 - REPEATED FALLS
[2018-10-27] MEDS: HEPARIN NA (PORCINE) 5,000 UNITS/ML 1ML VIAL SQ SCH (21:15)
[2018-10-27] MEDS: INSULIN (LEVEMIR) 100 UNITS/ML UNITS SQ SCH (21:15)
[2018-10-27] MEDS: EZETIMIBE 10 MG TABLET (FP) PO SCH (21:16)
[2018-10-27] MEDS: ATORVASTATIN CA 80 MG TABLET (FP) PO SCH (21:16)
[2018-10-28] MEDS: INSULIN SLIDING SCALE (NOVOLOG) 1 VIAL SQ SCH ×4 (06:08→22:04)
[2018-10-28 07:18] LABS: BASO % 0.4 % (0-2.0); EOS % 5.1 % (0-4.5); HEMATOCRIT 24.8 % (32.4-45.2); HEMOGLOBIN 8.7 GM/dL (10.7-15.3); LYMPH % 21.6 % (8-40); MCH 29.6 pg (25.7-33.7); MCHC 35.2 g/dl (32.0-36.0); MEAN CELL VOLUME 84.1 fl (80-96); MEAN PLT VOLUME 7.3 fl (7.5-11.1); MONO % 8.8 % (3.8-10.2); NEUT % 64.1 % (42.8-82.8); PLATELET COUNT 282 K/MM3 (134-434); RBC 2.96 M/mm3 (3.60-5.2); WHITE BLOOD COUNT 6.6 K/mm3 (4.0-10.0)
--- NOTE | 2018-10-28 08:02 | PN ---
Progress Note, Physician Chief Complaint: Received PRBCs Confused this AM TELE: NSR w/ NSST changes. Orthostatic, alpha steven stopped. BP remains elevated at times - Current Medication List Current Medications: Active Medications Atorvastatin Calcium (Lipitor -) 80 mg PO HS [facility] Last Admin: 10/27/18 21:16 Dose: 80 mg Clopidogrel Bisulfate (Plavix -) 75 mg PO DAILY [facility] Last Admin: 10/27/18 10:16 Dose: 75 mg Duloxetine HCl (Cymbalta -) 20 mg PO DAILY [facility] Last Admin: 10/27/18 10:17 Dose: 20 mg Ezetimibe (Zetia -) 10 mg PO HS [facility] Last Admin: 10/27/18 21:16 Dose: 10 mg Ferrous Sulfate (Feosol -) 325 mg PO DAILY [facility] Last Admin: 10/27/18 10:16 Dose: 325 mg Furosemide (Lasix -) 80 mg PO DAILY [facility] Last Admin: 10/27/18 10:16 Dose: 80 mg Heparin Sodium (Porcine) (Heparin -) 5,000 unit SQ BID [facility] Last Admin: 10/27/18 21:15 Dose: 5,000 unit Ceftriaxone Sodium 1 gm/ (Dextrose) 50 mls @ 100 mls/hr IVPB DAILY [facility]; Protocol Last Admin: 10/27/18 10:17 Dose: 100 mls/hr Insulin Aspart (Novolog Vial Sliding Scale -) 1 vial SQ ACHS [facility]; Protocol Last Admin: 10/28/18 06:08 Dose: 4 units Insulin Detemir (Levemir Vial) 20 units SQ HS [facility] Last Admin: 10/27/18 21:15 Dose: 20 units Losartan Potassium (Cozaar -) 25 mg PO DAILY [facility] Last Admin: 10/27/18 10:16 Dose: 25 mg Meclizine HCl (Antivert -) 12.5 mg PO DAILY [facility] Last Admin: 10/27/18 10:18 Dose: 12.5 mg Metoprolol Succinate (Toprol Xl -) 25 mg PO BID [facility] Last Admin: 10/27/18 21:16 Dose: 25 mg Ondansetron HCl (Zofran Injection) 4 mg IVPUSH Q8H PRN PRN Reason: NAUSEA Last Admin: 10/26/18 21:56 Dose: 4 mg - Objective Vital Signs: Vital Signs Temperature 98.4 F 10/28/18 05:29 Pulse Rate 64 10/28/18 06:05 Respiratory Rate 20 10/28/18 05:29 Blood Pressure 190/82 H 10/28/18 06:05 O2 Sat by Pulse Oximetry (%) 97 10/27/18 21:00 Constitutional: Yes: No Distress Cardiovascular: Yes: Regular Rate and Rhythm Respiratory: Yes: CTA Bilaterally Gastrointestinal: Yes: Soft, Abdomen, Obese Edema: Yes Edema: LLE: 1+, RLE: 1+ Labs: INR, PTT INR 0.96 (0.83-1.09) 10/25/18 23:05 Laboratory Tests 10/25/18 10/26/18 10/26/18 23:05 04:45 05:30 WBC Hgb Hct Plt Count Sodium Potassium Creatinine 1.9 H 1.5 H Creatine Kinase Troponin I 0.34 H 0.24 H 10/27/18 10/27/18 10/27/18 07:05 07:05 07:05 WBC 6.5 Hgb 7.7 L Hct Plt Count 271 Sodium 137 Potassium 4.2 Creatinine 1.5 H Creatine Kinase 72 Troponin I 0.24 H 10/28/18 10/28/18 06:15 06:15 WBC Pending Hgb Pending Hct Pending Plt Count Pending Sodium Pending Potassium Pending Creatinine Pending Creatine Kinase Troponin I - ....Imaging EKG: Image Reviewed Assessment/Plan IMP: 1. CAD s/p RAQUEL LAD 2018 2. Chronic anemia 3. Chronic diastolic CHF (normal LVEF on echo 07/2018) 4. CKD with proteinuria 5. + IRENE 6. Dizziness, lightheadedness of unclear etiology, possibly vertigo 7. Elevated TnI 8. Orthostatic hypotension 9. UTI, altered MS REC: 1. Telemetry to r/o arrhythmia thus far negative. 2. Rx UTI per PMD 3. Continue home meds for CAD including statin and Plavix. 4. F/u H/H s/p transfusion. 5. Patient is orthostatic: discontinued alpha steven 6. Anemia w/u as per PMD, stool guaiac. 7. TnI is flat and normal CK. No cardiac sx, no acute ECG changes. Likely elevated due to chronic CHF/CKD, possible demand ischemia from anemia. Does not represent type I HI. -Will repeat echo today 8. BP remains elevated at times, particularly late evening and early AM- add amlodipine for evening time. 9. Brain MRI pending- confusion, altered MS.
[2018-10-28 08:17] LABS: ALBUMIN 1.9 g/dl (3.4-5.0); BILIRUBIN,TOTAL 0.4 mg/dL (0.2-1); BLOOD UREA NITROGEN 28.3 mg/dL (7-18); CALCIUM 7.7 mg/dL (8.5-10.1); CREATININE 1.7 mg/dL (0.55-1.3); PHOSPHOROUS 4.1 mg/dL (2.5-4.9); POTASSIUM 3.9 mmol/L (3.5-5.1); TOT PROT 5.1 g/dl (6.4-8.2)
--- NOTE | 2018-10-28 08:28 | PN ---
Progress Note (short form) - Note Progress Note: Neurology - History of Present Illness 68 yo F w a hx of anemia, CHF, CKD (baseline Cr 0.9-1) with mild proteinuira, CAD s/p recent cardiac stent, IDDM, HTN, and vertigo presents to the [facility] ER via private auto with the chief complaint of dizziness/room spinning and vomiting. Most of the history was provided by the patient's son and daughter at bedside. The son stated he brought his mother here because he is concerned that she has been experiencing multiple falls at home. The son has a video where the patient was standing in her home, lost her balance, experienced a bout of dizziness/room and head spinning and then tumbled to the ground smashing her head and neck. The patient experienced LOC and was stuck on the ground for close to 6 hours. This is all on the patient's video at home. The patient has been experiencing a significant amount of nausea and vomiting for the past month which is being worked up by Dr. Quispe as an outpatient. Patient endorsed right elbow pain from her most recent fall.The patient has been experiencing many bouts of NBNB vomiting and NB diarrhea for the past month. Patient has fallen and hit her head multiple times and takes aspirin and plavix. The patient denied having a headache, neck pain or blurry vision. The patient denies having experienced recent chest pain, SOB, or difficulty breathing. The patient denied dysuria, frequency, or urgency. Head and Cervical CT completed, mild degenerative changes, no acute intracranial changes . She denies new symptoms, states she had some difficulty with day vs night. Otherwise she feels at her baseline. Carotid dopplers read, showed possibly L vertebral stenosis, suggested CTA head and neck for further eval. Allergies Allergy/AdvReac Type Severity Reaction Status Date / Time azithromycin [From Zithromax] Allergy Verified 10/25/18 21:51 Home Medications: Ambulatory Orders Aspirin [ASA -] 81 mg PO HS 07/10/18 Atorvastatin Ca [Lipitor] 80 mg PO HS 07/10/18 Doxazosin Mesylate 2 mg PO DAILY 07/10/18 Ezetimibe [Zetia] 10 mg PO HS 07/10/18 Ferrous Sulfate [Feosol] 325 mg PO DAILY 07/10/18 Meclizine HCl 12.5 mg PO DAILY 07/10/18 Metoprolol Succinate 25 mg PO HS 07/10/18 Aspirin Coated [Ecotrin -] 81 mg PO HS #30 tablet.ec 07/16/18 Clopidogrel Bisulfate [Plavix -] 75 mg PO HS tablet 07/16/18 Furosemide Oral Solution [Lasix Oral Solution -] 80 mg PO DAILY #30 udc Losartan Potassium [Cozaar -] 25 mg PO DAILY #30 tablet 07/16/18 Duloxetine HCl 20 mg PO DAILY 10/26/18 Insulin Lispro [Humalog] 20 unit SQ DAILY 10/26/18 Active Medications Amlodipine Besylate (Norvasc -) 5 mg PO DAILY [facility] Atorvastatin Calcium (Lipitor -) 80 mg PO HS [facility] Last Admin: 10/27/18 21:16 Dose: 80 mg Clopidogrel Bisulfate (Plavix -) 75 mg PO DAILY [facility] Last Admin: 10/27/18 10:16 Dose: 75 mg Duloxetine HCl (Cymbalta -) 20 mg PO DAILY [facility] Last Admin: 10/27/18 10:17 Dose: 20 mg Ezetimibe (Zetia -) 10 mg PO HS [facility] Last Admin: 10/27/18 21:16 Dose: 10 mg Ferrous Sulfate (Feosol -) 325 mg PO DAILY [facility] Last Admin: 10/27/18 10:16 Dose: 325 mg Furosemide (Lasix -) 80 mg PO DAILY [facility] Last Admin: 10/27/18 10:16 Dose: 80 mg Heparin Sodium (Porcine) (Heparin -) 5,000 unit SQ BID [facility] Last Admin: 10/27/18 21:15 Dose: 5,000 unit Ceftriaxone Sodium 1 gm/ (Dextrose) 50 mls @ 100 mls/hr IVPB DAILY [facility]; Protocol Last Admin: 10/27/18 10:17 Dose: 100 mls/hr Insulin Aspart (Novolog Vial Sliding Scale -) 1 vial SQ ACHS [facility]; Protocol Last Admin: 10/28/18 06:08 Dose: 4 units Insulin Detemir (Levemir Vial) 20 units SQ HS [facility] Last Admin: 10/27/18 21:15 Dose: 20 units Losartan Potassium (Cozaar -) 25 mg PO DAILY [facility] Last Admin: 10/27/18 10:16 Dose: 25 mg Meclizine HCl (Antivert -) 12.5 mg PO DAILY [facility] Last Admin: 10/27/18 10:18 Dose: 12.5 mg Metoprolol Succinate (Toprol Xl -) 25 mg PO BID [facility] Last Admin: 10/27/18 21:16 Dose: 25 mg Ondansetron HCl (Zofran Injection) 4 mg IVPUSH Q8H PRN PRN Reason: NAUSEA Last Admin: 10/26/18 21:56 Dose: 4 mg *Physical Exam Vital Signs Period Temp Pulse Resp BP Sys/Juarez Pulse Ox Last 24 Hr 98.0 F-98.7 F 62-86 16-20 123-190/51-97 97-97 GENERAL: Patient appears to have a depressed affect. Well-nourished. No apparent distress. HEENT: Normocephalic, atraumatic. PERRL, EOM intact. CARDIOVASCULAR: Normal S1, S2. Regular rate and rhythm. PULMONARY: No evidence of respiratory distress. Lungs clear to auscultation bilaterally. No wheezing, rales or rhonchi. ABDOMEN: Soft, non-distended, non-tender. EXTREMITIES: Mild TTP in the right elbow and right upper arm. Normal ROM in all four extremities. No gross deformities. SKIN: Warm, dry. No rash NEUROLOGICAL: Alert, awake, appropriate. Cranial nerves 2-12 intact. No deficits to light touch in face, upper extremities and lower extremities. No motor deficits in the in face, upper extremities and lower extremities. No pronator drift. Normal speech. Gait is normal without ataxia. No dysmetria. CBCD WBC 6.6 K/mm3 (4.0-10.0) 10/28/18 06:15 RBC 2.96 M/mm3 (3.60-5.2) L 10/28/18 06:15 Hgb 8.7 GM/dL (10.7-15.3) L 10/28/18 06:15 Hct 24.8 % (32.4-45.2) L 10/28/18 06:15 MCV 84.1 fl (80-96) 10/28/18 06:15 MCHC 35.2 g/dl (32.0-36.0) 10/28/18 06:15 RDW 15.0 % (11.6-15.6) 10/28/18 06:15 Plt Count 282 K/MM3 (134-434) 10/28/18 06:15 MPV 7.3 fl (7.5-11.1) L 10/28/18 06:15 CMP Sodium 140 mmol/L (136-145) 10/28/18 06:15 Potassium 3.9 mmol/L (3.5-5.1) 10/28/18 06:15 Chloride 107 mmol/L (98-107) 10/28/18 06:15 Carbon Dioxide 24 mmol/L (21-32) 10/28/18 06:15 Anion Gap 9 MMOL/L (8-16) 10/28/18 06:15 BUN 28.3 mg/dL (7-18) H 10/28/18 06:15 Creatinine 1.7 mg/dL (0.55-1.3) H 10/28/18 06:15 Random Glucose 204 mg/dL (74-106) H 10/28/18 06:15 Calcium 7.7 mg/dL (8.5-10.1) L 10/28/18 06:15 Total Bilirubin 0.4 mg/dL (0.2-1) 10/28/18 06:15 AST 15 U/L (15-37) 10/28/18 06:15 ALT 20 U/L (13-61) 10/28/18 06:15 Alkaline Phosphatase 127 U/L (45-117) H 10/28/18 06:15 Total Protein 5.1 g/dl (6.4-8.2) L 10/28/18 06:15 Albumin 1.9 g/dl (3.4-5.0) L 10/28/18 06:15 CARDIAC ENZYMES Creatine Kinase 72 U/L (26-192) 10/27/18 07:05 Troponin I 0.24 ng/ml (0.00-0.05) H 10/27/18 07:05 Assessment/Plan 68 yo F w a hx of anemia, CHF, CKD (baseline Cr 0.9-1) with mild proteinuira, CAD s/p recent cardiac stent, IDDM, HTN, and vertigo presents to the [facility] ER via private auto with the chief complaint of dizziness/room spinning and vomiting. Most of the history was provided by the patient's son and daughter at bedside. The son stated he brought his mother here because he is concerned that she has been experiencing multiple falls at home. The son has a video where the patient was standing in her home, lost her balance, experienced a bout of dizziness/room and head spinning and then tumbled to the ground smashing her head and neck. The patient experienced LOC and was stuck on the ground for close to 6 hours. This is all on the patient's video at home. The patient has been experiencing a significant amount of nausea and vomiting for the past month which is being worked up by Dr. Quispe as an outpatient. Patient endorsed right elbow pain from her most recent fall.The patient has been experiencing many bouts of NBNB vomiting and NB diarrhea for the past month. Patient has fallen and hit her head multiple times and takes aspirin and plavix. The patient denied having a headache, neck pain or blurry vision. The patient denies having experienced recent chest pain, SOB, or difficulty breathing. The patient denied dysuria, frequency, or urgency. Head and Cervical CT completed, mild degenerative changes, no acute intracranial changes. Head and Cervical CT completed, mild degenerative changes, no acute intracranial changes . She denies new symptoms, states she had some difficulty with day vs night. Otherwise she feels at her baseline. Carotid dopplers read, showed possibly L vertebral stenosis, suggested CTA head and neck for further eval. No bleeding at this time but if contiues to have falls, bleed risk may outweigh benefits. Optimize gait. Consider vacular cosult regarding L vertebral. cardiology work up. Maintain hydration. Continue wheelchair use at bedside.
[2018-10-28] MEDS ORDERED: cefTRIAXone SODIUM 1 GM VIAL ONE (10:03)
[2018-10-28] MEDS ORDERED: DEXTROSE 5%-WATER - 50 ML IVPB ONE (10:03)
[2018-10-28] MEDS: MECLIZINE HCL 12.5 MG TABLET PO SCH (10:04)
[2018-10-28] MEDS: CLOPIDOGREL BISULFATE 75 MG TABLET (FP) PO SCH (10:05)
[2018-10-28] MEDS: DULoxetine HCL 20 MG CAPSULE.DR PO SCH (10:05)
[2018-10-28] MEDS: POLYETHYLENE GLYCOL 3350 119 GM BTL PO SCH (10:05)
[2018-10-28] MEDS: FUROSEMIDE 40 MG TABLET (FP) PO SCH (10:05)
[2018-10-28] MEDS: metoPROLOL SUCCINATE 25 MG TAB.SR.24H (FP) PO SCH ×2 (10:05→22:03)
[2018-10-28] MEDS: HEPARIN NA (PORCINE) 5,000 UNITS/ML 1ML VIAL SQ SCH ×2 (10:06→22:04)
[2018-10-28] MEDS: LOSARTAN POTASSIUM 25 MG TABLET PO SCH (10:06)
[2018-10-28] MEDS: CEFTRIAXONE 1 GM in DEXTROSE 5%-WATER - 50 ML IVPB SCH (10:06)
[2018-10-28] MEDS: FERROUS SO4 325 MG TABLET (FP) PO SCH (10:06)
--- NOTE | 2018-10-28 11:15 | PN.GI ---
GI Progress Note Subjective: s/p stent 3 mos ago, s/p blood transfusion July 2018, last colonoscopy 3 years ago at [facility], no reports avaiolable for review - Objective Vital Signs: Vital Signs Temperature 98.1 F 10/28/18 08:23 Pulse Rate 59 L 10/28/18 08:23 Respiratory Rate 18 10/28/18 08:23 Blood Pressure 158/64 10/28/18 08:23 O2 Sat by Pulse Oximetry (%) 97 10/27/18 21:00 Labs: CBC, BMP 10/28/18 06:15 10/28/18 06:15 INR, PTT INR 0.96 (0.83-1.09) 10/25/18 23:05 Problem List - Problems (1) GI bleed Assessment/Plan: occult gi bleeding R> will need EGD if negative will need ct enterography and possibly video capsule made aware to follow up as an outpatient Code(s): K92.2 - GASTROINTESTINAL HEMORRHAGE, UNSPECIFIED
--- NOTE | 2018-10-28 11:16 | ECHO ---
Name: MACK MORENO Exam:Adult Echocardiogram Study Date: 10/28/2018 09:34 AM Age: 68 yrs Reason For Study: SYNCOPE Height: 59 in Weight: 170 lb BSA: 1.7 m2 MMode/2D Measurements & Calculations IVSd: 0.94 cm Ao root diam: 3.0 cm LVIDd: 4.8 cm LA dimension: 4.0 cm LVIDs: 3.3 cm LVPWd: 1.2 cm EDV(Teich): 109.2 ml LVOT diam: 2.1 cm ESV(Teich): 44.0 ml TAPSE: 2.4 cm RV S Costa: 10.7 cm/sec Doppler Measurements & Calculations Ao V2 max: 165.9 cm/sec Med Peak E' Costa: 4.2 cm/sec Ao max P.0 mmHg Lat Peak E' Costa: 6.3 cm/sec Ao V2 mean: 126.0 cm/sec Ao mean P.9 mmHg Ao V2 VTI: 39.5 cm Procedure A complete two-dimensional transthoracic echocardiogram was performed (2D, M-mode, Doppler and color flow Doppler). Left Ventricle The left ventricle is normal in size. Left ventricular systolic function is normal. Ejection Fraction = 55- 60%. Diastolic dysfunction, Grade II, consistent with elevated left atrial pressure. No regional wall motion abnormalities noted. Right Ventricle The right ventricle is normal size. The right ventricular systolic function is normal. RV systolic TD I is 11 cm/s. Atria The left atrial size is normal. Right atrial size is normal. Mitral Valve There is mild mitral annular calcification. There is no mitral regurgitation noted. Tricuspid Valve The tricuspid valve is normal in structure and function. There is mild tricuspid regurgitation. Aortic Valve There is mild aortic sclerosis.;. No aortic regurgitation is present. Pulmonic Valve The pulmonic valve is not well visualized. Great Vessels The aortic root is normal size. Pericardium/Pleura There is no pericardial effusion. Interpretation Summary The left ventricle is normal in size. Left ventricular systolic function is normal. No regional wall motion abnormalities noted. Ejection Fraction = 55-60%. Diastolic dysfunction, Grade II, consistent with elevated left atrial pressure. The right ventricular systolic function is normal. The left atrial size is normal. Right atrial size is normal. There is mild mitral annular calcification. There is mild tricuspid regurgitation. There is mild aortic sclerosis. There is no pericardial effusion. Teddy Miller MD 10/28/2018 11:15 AM
--- NOTE | 2018-10-28 13:48 | EKG ---
Test Reason : Blood Pressure : / mmHG Vent. Rate : 078 BPM Atrial Rate : 078 BPM P-R Int : 164 ms QRS Dur : 098 ms QT Int : 400 ms P-R-T Axes : 046 -35 103 degrees QTc Int : 456 ms NORMAL SINUS RHYTHM LEFT AXIS DEVIATION VOLTAGE CRITERIA FOR LEFT VENTRICULAR HYPERTROPHY T WAVE ABNORMALITY, CONSIDER LATERAL ISCHEMIA ABNORMAL ECG WHEN COMPARED WITH ECG OF 25-OCT-2018 22:58, NO SIGNIFICANT CHANGE WAS FOUND Confirmed by OSCAR OLIVEROS, NAHED ([id number]) on 10/28/2018 1:47:33 PM Referred By: HANNA Confirmed By:NAHED MOORE MD
--- NOTE | 2018-10-28 14:00 | PN ---
Progress Note (short form) - Note Progress Note: Renal follow up for ANG Pt seen and examined at the bedside awake and alert no sob, cp, abd pain making urine Vital Signs Temperature 98.1 F 10/28/18 08:23 Pulse Rate 66 10/28/18 10:30 Respiratory Rate 18 10/28/18 08:23 Blood Pressure 124/48 L 10/28/18 10:30 O2 Sat by Pulse Oximetry (%) 97 10/28/18 09:00 Intake & Output 10/25/18 10/26/18 10/27/18 10/28/18 23:59 23:59 23:59 23:59 Intake Total 975 1525 Balance 975 1525 Weight 77.111 kg 77.111 kg NAD RRR CTA soft NT/ND trace LE edema CBC, BMP 10/28/18 06:15 10/28/18 06:15 Current Medications Amlodipine Besylate (Norvasc -) 5 mg PO DAILY [facility] Atorvastatin Calcium (Lipitor -) 80 mg PO HS [facility] Last Admin: 10/27/18 21:16 Dose: 80 mg Clopidogrel Bisulfate (Plavix -) 75 mg PO DAILY [facility] Last Admin: 10/28/18 10:05 Dose: 75 mg Duloxetine HCl (Cymbalta -) 20 mg PO DAILY [facility] Last Admin: 10/28/18 10:05 Dose: 20 mg Ezetimibe (Zetia -) 10 mg PO HS [facility] Last Admin: 10/27/18 21:16 Dose: 10 mg Ferrous Sulfate (Feosol -) 325 mg PO DAILY [facility] Last Admin: 10/28/18 10:06 Dose: 325 mg Furosemide (Lasix -) 80 mg PO DAILY [facility] Last Admin: 10/28/18 10:05 Dose: 80 mg Heparin Sodium (Porcine) (Heparin -) 5,000 unit SQ BID [facility] Last Admin: 10/28/18 10:06 Dose: 5,000 unit Ceftriaxone Sodium 1 gm/ (Dextrose) 50 mls @ 100 mls/hr IVPB DAILY [facility]; Protocol Last Admin: 10/28/18 10:06 Dose: 100 mls/hr Insulin Aspart (Novolog Vial Sliding Scale -) 1 vial SQ ACHS [facility]; Protocol Last Admin: 10/28/18 11:07 Dose: 6 units Insulin Detemir (Levemir Vial) 20 units SQ HS [facility] Last Admin: 10/27/18 21:15 Dose: 20 units Losartan Potassium (Cozaar -) 25 mg PO DAILY [facility] Last Admin: 10/28/18 10:06 Dose: 25 mg Meclizine HCl (Antivert -) 12.5 mg PO DAILY [facility] Last Admin: 10/28/18 10:04 Dose: 12.5 mg Metoprolol Succinate (Toprol Xl -) 25 mg PO BID [facility] Last Admin: 10/28/18 10:05 Dose: 25 mg Ondansetron HCl (Zofran Injection) 4 mg IVPUSH Q8H PRN PRN Reason: NAUSEA Last Admin: 10/26/18 21:56 Dose: 4 mg Polyethylene Glycol (Miralax (For Daily Use) -) 17 gm PO DAILY [facility] Last Admin: 10/28/18 10:05 Dose: 17 mg 68 year old woman with hx of CKD with nephrotic range proteinuria, + IRENE, ( normal DS-DNA, Negative ANCA), CAD s/p PCI, DM, hypertension presented with dizziness with elevated BUN/Cr #ANG vs. CKD #Proteinuria #Dizziness #Hypertension #Hx of Edema #CAD Renal function essentially stable Noted to have IRENE in the past but normal Anti-DS DNA. Was seen by rheum and was not thought to have SLE. May benefit from a renal biopsy at some point but not while pt has to be maintained on plavixx on Lasix and Losartan Anemia work up as per GI Check SPEP f/u iron studies cardiology follow up, off alpha steven Tele monitoring Thank you Will follow Clinton Manjarrez DO
--- NOTE | 2018-10-28 14:26 | CON.ID ---
Consult Consult Specialty:: infectious diseases - Past Medical History Cardio/Vascular: Yes: CAD, CHF, HTN, Other (cardiac stenting ) Pulmonary: No: Asthma, Bronchitis, Cancer, COPD, O2 Dependent, Pneumonia, Previously Intubated, Pulmonary Embolus, Pulmonary Fibrosis, Sleep Apnea, Other Gastrointestinal: No: Ascites, Cancer, Constipation, Crohn's Disease, Diverticulitis, Diverticulosis, Esophageal Varices, Gastritis, GERD, GI Bleed, Hemorrhoids, Hiatal Hernia, Inflamatory Bowel Disease, Irritable Bowel Disease, Pancreatitis, Peptic Ulcer Disease, Ulcerative Colitis, Other Hepatobiliary: No: Cirrhosis, Cholelithiasis, Cholecystitis, Choledocholithiasis , Hepatitis A, Hepatitis B, Hepatitis C, Other Renal/: Yes: Renal Inusuff Infectious Disease: No: AIDS, C-Diff, Herpes Zoster, HIV, MRSA, STD's, Tuberculosis, VREF, Other Psych: No: Addictions, Anxiety, Bipolar, Depression, Panic, Psychosis, Schizophrenia, Other Musculoskeletal: No: Bursitis, Chronic low back pain, Hemiparesis, Hemiplegia, Osteoarthritis, Paraplegia, Other Rheumatology: No: Fibromyalgia, Gout, Lupus, Rheumatoid Arthritis, Sarcoidosis, Vasculitis, Other ENT: No: Allergic Rhinitis, Sinusitis, Other Endocrine: Yes: Diabetes Mellitus Dermatology: No: Basal Cell, Cellulitis, Eczema, Melanoma, Psoriasis, Squamous Cell, Other - Past Surgical History Past Surgical History: Yes: Colonoscopy - Alcohol/Substance Use Hx Alcohol Use: No - Smoking History Smoking history: Never smoked Have you smoked in the past 12 months: No - Social History Usual Living Arrangement: With Child History of Recent Travel: No Home Medications - Allergies Allergies/Adverse Reactions: Allergies Allergy/AdvReac Type Severity Reaction Status Date / Time azithromycin [From Zithromax] Allergy Verified 10/25/18 21:51 - Home Medications Home Medications: Ambulatory Orders Atorvastatin Ca [Lipitor] 80 mg PO HS 07/10/18 Doxazosin Mesylate 2 mg PO DAILY 07/10/18 Ezetimibe [Zetia] 10 mg PO HS 07/10/18 Ferrous Sulfate [Feosol] 325 mg PO DAILY 07/10/18 Meclizine HCl 12.5 mg PO DAILY 07/10/18 Metoprolol Succinate 25 mg PO HS 07/10/18 Aspirin Coated [Ecotrin -] 81 mg PO HS #30 tablet.ec 07/16/18 Clopidogrel Bisulfate [Plavix -] 75 mg PO HS tablet 07/16/18 Furosemide Oral Solution [Lasix Oral Solution -] 80 mg PO DAILY #30 udc Losartan Potassium [Cozaar -] 25 mg PO DAILY #30 tablet 07/16/18 Duloxetine HCl 20 mg PO DAILY 10/26/18 Insulin Lispro [Humalog] 20 unit SQ DAILY 10/26/18 Physical Exam Vital Signs: Vital Signs Temperature 98.1 F 10/28/18 08:23 Pulse Rate 66 10/28/18 10:30 Respiratory Rate 18 10/28/18 08:23 Blood Pressure 124/48 L 10/28/18 10:30 O2 Sat by Pulse Oximetry (%) 97 10/28/18 09:00 Labs: CBC, BMP 10/28/18 06:15 10/28/18 06:15
[2018-10-28] MEDS: amLODIPine BESYLATE 5 MG TABLET (FP) PO SCH (17:34)
[2018-10-28] MEDS ORDERED: PT OWN MED DRAWER 7, Y5N ONE (19:02)
--- NOTE | 2018-10-28 21:30 | CONSULT ---
Consult - text type - Consultation Consultation Note: his is a 68 year old woman with hx of CKD with nephrotic range proteinuria, + IRENE, (normal DS-DNA, Negative ANCA), CAD s/p PCI, DM, hypertension presented with dizziness. Pt reports that she has been dizzy for several week. Had a fall at home and was on the floor for several hours. Reports a room spinning sensation. Had a unwitnessed fall in the hospital this morning. No CP, SOB, abd pain, fever, chills, N/V/D. Reprots having a good appetite. No dysuria, fever or chills. No overt bleeding PMHx: as above Allergies: Azithromycin Family hx: NC Social Hx: No T/A/D ROS: as per HPI Home Medications Medication Instructions Recorded Aspirin [ASA -] 81 mg PO HS 07/10/18 Atorvastatin Ca [Lipitor] 80 mg PO HS 07/10/18 Doxazosin Mesylate 2 mg PO DAILY 07/10/18 Ezetimibe [Zetia] 10 mg PO HS 07/10/18 Ferrous Sulfate [Feosol] 325 mg PO DAILY 07/10/18 Meclizine HCl 12.5 mg PO DAILY 07/10/18 Metoprolol Succinate 25 mg PO HS 07/10/18 Aspirin Coated [Ecotrin -] 81 mg PO HS #30 tablet.ec 07/16/18 Clopidogrel Bisulfate [Plavix -] 75 mg PO HS tablet 07/16/18 Furosemide Oral Solution [Lasix 80 mg PO DAILY #30 udc 07/16/18 Oral Solution -] Losartan Potassium [Cozaar -] 25 mg PO DAILY #30 tablet 07/16/18 Duloxetine HCl 20 mg PO DAILY 10/26/18 Insulin Lispro [Humalog] 20 unit SQ DAILY 10/26/18 Vital Signs Temperature 98.4 F 10/27/18 06:55 Pulse Rate 79 10/27/18 06:55 Respiratory Rate 20 10/27/18 06:55 Blood Pressure 184/79 H 10/27/18 06:55 O2 Sat by Pulse Oximetry (%) 98 10/26/18 19:52 Intake & Output 10/24/18 10/25/18 10/26/18 10/27/18 23:59 23:59 23:59 23:59 Intake Total 975 525 Balance 975 525 Weight 77.111 kg 77.111 kg NAD awake and alert neck supple RRR CTA soft NT/ND trace LE edema involentary spastic movements of left LE Abnormal Lab Results 10/28/18 10/28/18 06:15 06:15 RBC 2.96 L Hgb 8.7 L Hct 24.8 L MPV 7.3 L Eosinophils % 5.1 H BUN 28.3 H Creatinine 1.7 H Random Glucose 204 H Calcium 7.7 L Alkaline Phosphatase 127 H Troponin I 0.23 H Total Protein 5.1 L Albumin 1.9 L Active Medications Generic Name Dose Route Start Last Admin Trade Name Freq PRN Reason Stop Dose Admin Amlodipine Besylate 5 mg 10/28/18 18:00 10/28/18 17:34 Norvasc - PO 5 mg DAILY [facility] Administration Atorvastatin Calcium 80 mg 10/26/18 22:00 10/28/18 22:03 Lipitor - PO 80 mg HS [facility] Administration Clopidogrel Bisulfate 75 mg 10/26/18 10:00 10/28/18 10:05 Plavix - PO 75 mg DAILY [facility] Administration Duloxetine HCl 20 mg 10/26/18 10:00 10/28/18 10:05 Cymbalta - PO 20 mg DAILY [facility] Administration Ezetimibe 10 mg 10/26/18 22:00 10/28/18 22:03 Zetia - PO 10 mg HS [facility] Administration Ferrous Sulfate 325 mg 10/26/18 10:00 10/28/18 10:06 Feosol - PO 325 mg DAILY [facility] Administration Furosemide 80 mg 10/26/18 10:00 10/28/18 10:05 Lasix - PO 80 mg DAILY [facility] Administration Heparin Sodium (Porcine) 5,000 unit 10/27/18 22:00 10/28/18 22:04 Heparin - SQ 5,000 unit BID [facility] Administration Ceftriaxone Sodium 1 gm/ 50 mls @ 100 mls/hr 10/26/18 10:00 10/28/18 10:06 Dextrose IVPB 100 mls/hr DAILY [facility] Administration Protocol Insulin Aspart 1 vial 10/27/18 07:00 10/28/18 22:04 Novolog Vial Sliding Scale - SQ 8 units ACHS [facility] Administration Protocol Insulin Detemir 20 units 10/27/18 22:00 10/28/18 22:03 Levemir Vial SQ 20 units HS [facility] Administration Losartan Potassium 25 mg 10/26/18 10:00 10/28/18 10:06 Cozaar - PO 25 mg DAILY [facility] Administration Meclizine HCl 12.5 mg 10/26/18 10:00 10/28/18 10:04 Antivert - PO 12.5 mg DAILY [facility] Administration Metoprolol Succinate 25 mg 10/27/18 17:45 10/28/18 22:03 Toprol Xl - PO 25 mg BID [facility] Administration Ondansetron HCl 4 mg 10/26/18 03:00 10/26/18 21:56 Zofran Injection IVPUSH 4 mg Q8H PRN Administration NAUSEA Polyethylene Glycol 17 gm 10/28/18 10:00 10/28/18 10:05 Miralax (For Daily Use) - PO 17 mg DAILY [facility] Administration Thiamine HCl 200 mg 10/28/18 21:15 10/28/18 22:03 Vitamin B1 Injection - IVPB 200 mg Q8H [facility] Administration A/P 68 year old woman with hx of CKD with nephrotic range proteinuria, + IRENE, ( normal DS-DNA, Negative ANCA), CAD s/p PCI, DM, hypertension presented with dizziness with elevated BUN/Cr #ANG vs. CKD #Proteinuria---? etiology #Dizziness #Hypertension #Hx of Edema #CAD Anemia --- normocyic. Nl plateltes/EBC LAst colonoscopy --2014 Suspect anemia of chronic disease due to CKD Check iron studies/ferritin/B12/folae/TSH/fT4/Protein studies/stool occult Consult GI Sister had breast cancer inher 50s--discussed imporance of screening colonoscopy will follow
[2018-10-28] MEDS: EZETIMIBE 10 MG TABLET (FP) PO SCH (22:03)
[2018-10-28] MEDS: ATORVASTATIN CA 80 MG TABLET (FP) PO SCH (22:03)
[2018-10-28] MEDS: INSULIN (LEVEMIR) 100 UNITS/ML UNITS SQ SCH (22:03)
[2018-10-28] MEDS: THIAMINE HCL 200 MG/2 ML VIAL IVPB SCH (22:03)
--- NOTE | 2018-10-28 23:13 | PN ---
Progress Note, Physician History of Present Illness: Pt w/ strange affect - Current Medication List Current Medications: Active Medications Amlodipine Besylate (Norvasc -) 5 mg PO DAILY [facility] Last Admin: 10/28/18 17:34 Dose: 5 mg Atorvastatin Calcium (Lipitor -) 80 mg PO HS [facility] Last Admin: 10/28/18 22:03 Dose: 80 mg Clopidogrel Bisulfate (Plavix -) 75 mg PO DAILY [facility] Last Admin: 10/28/18 10:05 Dose: 75 mg Duloxetine HCl (Cymbalta -) 20 mg PO DAILY [facility] Last Admin: 10/28/18 10:05 Dose: 20 mg Ezetimibe (Zetia -) 10 mg PO HS [facility] Last Admin: 10/28/18 22:03 Dose: 10 mg Ferrous Sulfate (Feosol -) 325 mg PO DAILY [facility] Last Admin: 10/28/18 10:06 Dose: 325 mg Furosemide (Lasix -) 80 mg PO DAILY [facility] Last Admin: 10/28/18 10:05 Dose: 80 mg Heparin Sodium (Porcine) (Heparin -) 5,000 unit SQ BID [facility] Last Admin: 10/28/18 22:04 Dose: 5,000 unit Ceftriaxone Sodium 1 gm/ (Dextrose) 50 mls @ 100 mls/hr IVPB DAILY [facility]; Protocol Last Admin: 10/28/18 10:06 Dose: 100 mls/hr Insulin Aspart (Novolog Vial Sliding Scale -) 1 vial SQ ACHS [facility]; Protocol Last Admin: 10/28/18 22:04 Dose: 8 units Insulin Detemir (Levemir Vial) 20 units SQ HS [facility] Last Admin: 10/28/18 22:03 Dose: 20 units Losartan Potassium (Cozaar -) 25 mg PO DAILY [facility] Last Admin: 10/28/18 10:06 Dose: 25 mg Meclizine HCl (Antivert -) 12.5 mg PO DAILY [facility] Last Admin: 10/28/18 10:04 Dose: 12.5 mg Metoprolol Succinate (Toprol Xl -) 25 mg PO BID [facility] Last Admin: 10/28/18 22:03 Dose: 25 mg Ondansetron HCl (Zofran Injection) 4 mg IVPUSH Q8H PRN PRN Reason: NAUSEA Last Admin: 10/26/18 21:56 Dose: 4 mg Polyethylene Glycol (Miralax (For Daily Use) -) 17 gm PO DAILY [facility] Last Admin: 10/28/18 10:05 Dose: 17 mg Thiamine HCl (Vitamin B1 Injection -) 200 mg IVPB Q8H [facility] Last Admin: 10/28/18 22:03 Dose: 200 mg - Objective Vital Signs: Vital Signs Temperature 98.2 F 10/28/18 18:00 Pulse Rate 68 10/28/18 18:00 Respiratory Rate 18 10/28/18 20:45 Blood Pressure 154/76 10/28/18 18:00 O2 Sat by Pulse Oximetry (%) 97 10/28/18 20:45 HENT: Yes: WNL Neck: Yes: WNL, Supple Cardiovascular: Yes: WNL, Regular Rate and Rhythm Respiratory: Yes: WNL, Regular, CTA Bilaterally Gastrointestinal: Yes: WNL, Normal Bowel Sounds, Soft Extremities: Yes: Other (Multiple ecchymosis on extremities) Edema: No Labs: CBC, BMP 10/28/18 06:15 10/28/18 06:15 INR, PTT INR 0.96 (0.83-1.09) 10/25/18 23:05 Problem List - Problems (1) Syncope and collapse Assessment/Plan: Carotid doppler shows lt vertebral stenosis Will hold on cta neck due to AGN Vascular surgery consult Code(s): R55 - SYNCOPE AND COLLAPSE (2) Elevated troponin Assessment/Plan: Cont to trend Due to demand ischemia Code(s): R74.8 - ABNORMAL LEVELS OF OTHER SERUM ENZYMES (3) Anemia Assessment/Plan: S/P transfusion 1 unit PRBC's Heme consult GI consult possible EGD Follow H/H Code(s): D64.9 - ANEMIA, UNSPECIFIED (4) CAD (coronary artery disease) Assessment/Plan: Cont plavix/asa Code(s): I25.10 - ATHSCL HEART DISEASE OF [place] CORONARY ARTERY W/O ANG PCTRS (5) Diabetes Assessment/Plan: Cont sliding scale w/ coverage HgA1c elevated at 8.6 Add levemir Code(s): E11.9 - TYPE 2 DIABETES MELLITUS WITHOUT COMPLICATIONS (6) HTN (hypertension) Assessment/Plan: BP elevated Cont metoprolol/losartan Code(s): I10 - ESSENTIAL (PRIMARY) HYPERTENSION (7) HLD (hyperlipidemia) Assessment/Plan: Cont lipitor Code(s): E78.5 - HYPERLIPIDEMIA, UNSPECIFIED (8) Chronic diastolic heart failure Assessment/Plan: Cont lasix Monitor electrolytes Code(s): I50.32 - CHRONIC DIASTOLIC (CONGESTIVE) HEART FAILURE (9) CKD (chronic kidney disease) Assessment/Plan: Cont gentle IV hyddration renal consult Check renal US Code(s): N18.9 - CHRONIC KIDNEY DISEASE, UNSPECIFIED (10) Repeated falls Assessment/Plan: Multifactorial PT eval Rheum eval Code(s): R29.6 - REPEATED FALLS (11) Depression Assessment/Plan: Will start pt on lexapro Code(s): F32.9 - MAJOR DEPRESSIVE DISORDER, SINGLE EPISODE, UNSPECIFIED
[2018-10-29 04:10] LABS: SERUM IRON SATURATION 15 % (15-55); TOTAL IRON BINDING CAPACITY 202 ug/dL (250-450)
[2018-10-29 04:10] LABS: SERUM IRON SATURATION 30 % (15-55); TOTAL IRON BINDING CAPACITY 211 ug/dL (250-450)
[2018-10-29] MEDS: THIAMINE HCL 200 MG/2 ML VIAL IVPB SCH ×3 (05:58→22:03)
[2018-10-29] MEDS: INSULIN SLIDING SCALE (NOVOLOG) 1 VIAL SQ SCH ×4 (06:09→22:04)
[2018-10-29 07:30] LABS: BASO % 0.6 % (0-2.0); EOS % 5.7 % (0-4.5); HEMATOCRIT 27.7 % (32.4-45.2); HEMOGLOBIN 9.5 GM/dL (10.7-15.3); LYMPH % 20.1 % (8-40); MCHC 34.2 g/dl (32.0-36.0); MEAN CELL VOLUME 84.8 fl (80-96); MEAN PLT VOLUME 7.3 fl (7.5-11.1); MONO % 8.9 % (3.8-10.2); NEUT % 64.7 % (42.8-82.8); PLATELET COUNT 308 K/MM3 (134-434); RBC 3.27 M/mm3 (3.60-5.2); RDW 15.3 % (11.6-15.6); WHITE BLOOD COUNT 6.9 K/mm3 (4.0-10.0)
[2018-10-29 07:53] LABS: BILIRUBIN,TOTAL 0.4 mg/dL (0.2-1); BLOOD UREA NITROGEN 30.5 mg/dL (7-18); CALCIUM 8.1 mg/dL (8.5-10.1); CREATININE 1.5 mg/dL (0.55-1.3); MAGNESIUM 2.4 mg/dL (1.8-2.4); PHOSPHOROUS 4.1 mg/dL (2.5-4.9); POTASSIUM 4.2 mmol/L (3.5-5.1); TOT PROT 5.4 g/dl (6.4-8.2)
--- NOTE | 2018-10-29 08:56 | PN ---
Progress Note (short form) - Note Progress Note: Neurology - History of Present Illness 68 yo F w a hx of anemia, CHF, CKD (baseline Cr 0.9-1) with mild proteinuira, CAD s/p recent cardiac stent, IDDM, HTN, and vertigo presents to the [facility] ER via private auto with the chief complaint of dizziness/room spinning and vomiting. Most of the history was provided by the patient's son and daughter at bedside. The son stated he brought his mother here because he is concerned that she has been experiencing multiple falls at home. The son has a video where the patient was standing in her home, lost her balance, experienced a bout of dizziness/room and head spinning and then tumbled to the ground smashing her head and neck. The patient experienced LOC and was stuck on the ground for close to 6 hours. This is all on the patient's video at home. The patient has been experiencing a significant amount of nausea and vomiting for the past month which is being worked up by Dr. Quispe as an outpatient. Patient endorsed right elbow pain from her most recent fall.The patient has been experiencing many bouts of NBNB vomiting and NB diarrhea for the past month. Patient has fallen and hit her head multiple times and takes aspirin and plavix. The patient denied having a headache, neck pain or blurry vision. The patient denies having experienced recent chest pain, SOB, or difficulty breathing. The patient denied dysuria, frequency, or urgency. Head and Cervical CT completed, mild degenerative changes, no acute intracranial changes . She denies new symptoms, states she had some difficulty with day vs night. Otherwise she feels at her baseline. Carotid dopplers read, showed possibly L vertebral stenosis, suggested CTA head and neck for further eval. MRI brain reviewed and discussed with patient, moderate volume loss but otherwise no acute changes. She reports continued dizziness, will increase meclezine. Allergies Allergy/AdvReac Type Severity Reaction Status Date / Time azithromycin [From Zithromax] Allergy Verified 10/25/18 21:51 Home Medications: Ambulatory Orders Aspirin [ASA -] 81 mg PO HS 07/10/18 Atorvastatin Ca [Lipitor] 80 mg PO HS 07/10/18 Doxazosin Mesylate 2 mg PO DAILY 07/10/18 Ezetimibe [Zetia] 10 mg PO HS 07/10/18 Ferrous Sulfate [Feosol] 325 mg PO DAILY 07/10/18 Meclizine HCl 12.5 mg PO DAILY 07/10/18 Metoprolol Succinate 25 mg PO HS 07/10/18 Aspirin Coated [Ecotrin -] 81 mg PO HS #30 tablet.ec 07/16/18 Clopidogrel Bisulfate [Plavix -] 75 mg PO HS tablet 07/16/18 Furosemide Oral Solution [Lasix Oral Solution -] 80 mg PO DAILY #30 udc Losartan Potassium [Cozaar -] 25 mg PO DAILY #30 tablet 07/16/18 Duloxetine HCl 20 mg PO DAILY 10/26/18 Insulin Lispro [Humalog] 20 unit SQ DAILY 10/26/18 Active Medications Amlodipine Besylate (Norvasc -) 5 mg PO DAILY [facility] Last Admin: 10/28/18 17:34 Dose: 5 mg Atorvastatin Calcium (Lipitor -) 80 mg PO HS [facility] Last Admin: 10/28/18 22:03 Dose: 80 mg Clopidogrel Bisulfate (Plavix -) 75 mg PO DAILY [facility] Last Admin: 10/28/18 10:05 Dose: 75 mg Duloxetine HCl (Cymbalta -) 20 mg PO DAILY [facility] Last Admin: 10/28/18 10:05 Dose: 20 mg Ezetimibe (Zetia -) 10 mg PO HS [facility] Last Admin: 10/28/18 22:03 Dose: 10 mg Ferrous Sulfate (Feosol -) 325 mg PO DAILY [facility] Last Admin: 10/28/18 10:06 Dose: 325 mg Furosemide (Lasix -) 80 mg PO DAILY [facility] Last Admin: 10/28/18 10:05 Dose: 80 mg Heparin Sodium (Porcine) (Heparin -) 5,000 unit SQ BID [facility] Last Admin: 10/28/18 22:04 Dose: 5,000 unit Ceftriaxone Sodium 1 gm/ (Dextrose) 50 mls @ 100 mls/hr IVPB DAILY [facility]; Protocol Last Admin: 10/28/18 10:06 Dose: 100 mls/hr Insulin Aspart (Novolog Vial Sliding Scale -) 1 vial SQ ACHS [facility]; Protocol Last Admin: 10/29/18 06:09 Dose: 2 units Insulin Detemir (Levemir Vial) 20 units SQ HS [facility] Last Admin: 10/28/18 22:03 Dose: 20 units Losartan Potassium (Cozaar -) 25 mg PO DAILY [facility] Last Admin: 10/28/18 10:06 Dose: 25 mg Meclizine HCl (Antivert -) 12.5 mg PO DAILY [facility] Last Admin: 10/28/18 10:04 Dose: 12.5 mg Metoprolol Succinate (Toprol Xl -) 25 mg PO BID [facility] Last Admin: 10/28/18 22:03 Dose: 25 mg Ondansetron HCl (Zofran Injection) 4 mg IVPUSH Q8H PRN PRN Reason: NAUSEA Last Admin: 10/26/18 21:56 Dose: 4 mg Polyethylene Glycol (Miralax (For Daily Use) -) 17 gm PO DAILY [facility] Last Admin: 10/28/18 10:05 Dose: 17 mg Thiamine HCl (Vitamin B1 Injection -) 200 mg IVPB Q8H [facility] Last Admin: 10/29/18 05:58 Dose: 200 mg *Physical Exam Vital Signs Period Temp Pulse Resp BP Sys/Juarez Pulse Ox Last 24 Hr 97.9 F-98.5 F 54-72 17-20 101-180/34-99 97-97 GENERAL: Patient appears to have a depressed affect. Well-nourished. No apparent distress. HEENT: Normocephalic, atraumatic. PERRL, EOM intact. CARDIOVASCULAR: Normal S1, S2. Regular rate and rhythm. PULMONARY: No evidence of respiratory distress. Lungs clear to auscultation bilaterally. No wheezing, rales or rhonchi. ABDOMEN: Soft, non-distended, non-tender. EXTREMITIES: Mild TTP in the right elbow and right upper arm. Normal ROM in all four extremities. No gross deformities. SKIN: Warm, dry. No rash NEUROLOGICAL: Alert, awake, appropriate. Cranial nerves 2-12 intact. No deficits to light touch in face, upper extremities and lower extremities. No motor deficits in the in face, upper extremities and lower extremities. No pronator drift. Normal speech. Gait is normal without ataxia. No dysmetria. CBCD WBC 6.9 K/mm3 (4.0-10.0) 10/29/18 06:45 RBC 3.27 M/mm3 (3.60-5.2) L 10/29/18 06:45 Hgb 9.5 GM/dL (10.7-15.3) L 10/29/18 06:45 Hct 27.7 % (32.4-45.2) L 10/29/18 06:45 MCV 84.8 fl (80-96) 10/29/18 06:45 MCHC 34.2 g/dl (32.0-36.0) 10/29/18 06:45 RDW 15.3 % (11.6-15.6) 10/29/18 06:45 Plt Count 308 K/MM3 (134-434) 10/29/18 06:45 MPV 7.3 fl (7.5-11.1) L 10/29/18 06:45 CMP Sodium 139 mmol/L (136-145) 10/29/18 06:45 Potassium 4.2 mmol/L (3.5-5.1) 10/29/18 06:45 Chloride 106 mmol/L (98-107) 10/29/18 06:45 Carbon Dioxide 27 mmol/L (21-32) 10/29/18 06:45 Anion Gap 5 MMOL/L (8-16) L 10/29/18 06:45 BUN 30.5 mg/dL (7-18) H 10/29/18 06:45 Creatinine 1.5 mg/dL (0.55-1.3) H 10/29/18 06:45 Calcium 8.1 mg/dL (8.5-10.1) L 10/29/18 06:45 Total Bilirubin 0.4 mg/dL (0.2-1) 10/29/18 06:45 AST 27 U/L (15-37) 10/29/18 06:45 ALT 32 U/L (13-61) 10/29/18 06:45 Alkaline Phosphatase 143 U/L (45-117) H 10/29/18 06:45 Total Protein 5.4 g/dl (6.4-8.2) L 10/29/18 06:45 Albumin 2.0 g/dl (3.4-5.0) L 10/29/18 06:45 Assessment/Plan 68 yo F w a hx of anemia, CHF, CKD (baseline Cr 0.9-1) with mild proteinuira, CAD s/p recent cardiac stent, IDDM, HTN, and vertigo presents to the [facility] ER via private auto with the chief complaint of dizziness/room spinning and vomiting. Most of the history was provided by the patient's son and daughter at bedside. The son stated he brought his mother here because he is concerned that she has been experiencing multiple falls at home. The son has a video where the patient was standing in her home, lost her balance, experienced a bout of dizziness/room and head spinning and then tumbled to the ground smashing her head and neck. The patient experienced LOC and was stuck on the ground for close to 6 hours. This is all on the patient's video at home. The patient has been experiencing a significant amount of nausea and vomiting for the past month which is being worked up by Dr. Quispe as an outpatient. Patient endorsed right elbow pain from her most recent fall.The patient has been experiencing many bouts of NBNB vomiting and NB diarrhea for the past month. Patient has fallen and hit her head multiple times and takes aspirin and plavix. The patient denied having a headache, neck pain or blurry vision. The patient denies having experienced recent chest pain, SOB, or difficulty breathing. The patient denied dysuria, frequency, or urgency. Head and Cervical CT completed, mild degenerative changes, no acute intracranial changes. Head and Cervical CT completed, mild degenerative changes, no acute intracranial changes . She denies new symptoms, states she had some difficulty with day vs night. Otherwise she feels at her baseline. Carotid dopplers read, showed possibly L vertebral stenosis, suggested CTA head and neck for further eval. No bleeding at this time but if contiues to have falls, bleed risk may outweigh benefits. Optimize gait. Consider vacular cosult regarding L vertebral. cardiology work up. Maintain hydration. Continue wheelchair use at bedside. MRI brain reviewed and discussed with patient, moderate volume loss but otherwise no acute changes. She reports continued dizziness, will increase meclezine.
[2018-10-29] MEDS ORDERED: cefTRIAXone SODIUM 1 GM VIAL ONE (09:51)
[2018-10-29] MEDS ORDERED: DEXTROSE 5%-WATER - 50 ML IVPB ONE (09:52)
[2018-10-29] MEDS: amLODIPine BESYLATE 5 MG TABLET (FP) PO SCH (09:59)
[2018-10-29] MEDS: metoPROLOL SUCCINATE 25 MG TAB.SR.24H (FP) PO SCH ×2 (09:59→22:02)
[2018-10-29] MEDS: CLOPIDOGREL BISULFATE 75 MG TABLET (FP) PO SCH (09:59)
[2018-10-29] MEDS: FERROUS SO4 325 MG TABLET (FP) PO SCH (10:00)
[2018-10-29] MEDS: FUROSEMIDE 40 MG TABLET (FP) PO SCH (10:00)
[2018-10-29] MEDS: DULoxetine HCL 20 MG CAPSULE.DR PO SCH (10:00)
[2018-10-29] MEDS: LOSARTAN POTASSIUM 25 MG TABLET PO SCH (10:01)
[2018-10-29] MEDS: POLYETHYLENE GLYCOL 3350 119 GM BTL PO SCH (10:01)
[2018-10-29] MEDS: HEPARIN NA (PORCINE) 5,000 UNITS/ML 1ML VIAL SQ SCH ×2 (10:03→22:03)
[2018-10-29] MEDS: CEFTRIAXONE 1 GM in DEXTROSE 5%-WATER - 50 ML IVPB SCH (10:04)
[2018-10-29 10:30] LABS: UIBC 148
[2018-10-29 10:31] LABS: UIBC 172
[2018-10-29] MEDS: MECLIZINE HCL 25 MG TABLET (FP) PO SCH ×2 (13:09→22:03)
--- NOTE | 2018-10-29 15:14 | PN ---
Progress Note (short form) - Note Progress Note: Vascular Surgery Carotid doppler reveiwed. No carotid disease found. Left vertebral artery was found to have a peak systolic velocity of 98. Bl vertebral arteries are patent. A peak systolic velocity of 140 signifies a 50% stenosis. Pt is well below that. No need for any surgical intervention. Medical management. Jamar Rosas DO
--- NOTE | 2018-10-29 15:34 | PN ---
Progress Note (short form) - Note Progress Note: Renal follow up for ANG Pt seen and examined at the bedside still has some dizziness no sob, cp, abd pain no fever or chills making urine Vital Signs Temperature 98.3 F 10/29/18 10:00 Pulse Rate 65 10/29/18 14:00 Respiratory Rate 20 10/29/18 10:00 Blood Pressure 92/42 L 10/29/18 14:00 O2 Sat by Pulse Oximetry (%) 96 10/29/18 09:00 Intake & Output 10/26/18 10/27/18 10/28/18 10/29/18 23:59 23:59 23:59 23:59 Intake Total 975 1525 550 650 Balance 975 1525 550 650 Weight 77.111 kg 76.385 kg NAD RRR CTA soft NT/ND trace LE edema CBC, BMP 10/29/18 06:45 10/29/18 06:45 Current Medications Amlodipine Besylate (Norvasc -) 5 mg PO DAILY [facility] Last Admin: 10/29/18 09:59 Dose: 5 mg Atorvastatin Calcium (Lipitor -) 80 mg PO HS [facility] Last Admin: 10/28/18 22:03 Dose: 80 mg Clopidogrel Bisulfate (Plavix -) 75 mg PO DAILY [facility] Last Admin: 10/29/18 09:59 Dose: 75 mg Duloxetine HCl (Cymbalta -) 20 mg PO DAILY [facility] Last Admin: 10/29/18 10:00 Dose: 20 mg Ezetimibe (Zetia -) 10 mg PO HS [facility] Last Admin: 10/28/18 22:03 Dose: 10 mg Ferrous Sulfate (Feosol -) 325 mg PO DAILY [facility] Last Admin: 10/29/18 10:00 Dose: 325 mg Furosemide (Lasix -) 80 mg PO DAILY [facility] Last Admin: 10/29/18 10:00 Dose: 80 mg Heparin Sodium (Porcine) (Heparin -) 5,000 unit SQ BID [facility] Last Admin: 10/29/18 10:03 Dose: 5,000 unit Ceftriaxone Sodium 1 gm/ (Dextrose) 50 mls @ 100 mls/hr IVPB DAILY [facility]; Protocol Last Admin: 10/29/18 10:04 Dose: 100 mls/hr Insulin Aspart (Novolog Vial Sliding Scale -) 1 vial SQ ACHS [facility]; Protocol Last Admin: 10/29/18 11:04 Dose: 6 units Insulin Detemir (Levemir Vial) 20 units SQ HS [facility] Last Admin: 10/28/18 22:03 Dose: 20 units Losartan Potassium (Cozaar -) 25 mg PO DAILY [facility] Last Admin: 10/29/18 10:01 Dose: 25 mg Meclizine HCl (Antivert -) 12.5 mg PO TID [facility] Last Admin: 10/29/18 13:09 Dose: 12.5 mg Metoprolol Succinate (Toprol Xl -) 25 mg PO BID [facility] Last Admin: 10/29/18 09:59 Dose: 25 mg Ondansetron HCl (Zofran Injection) 4 mg IVPUSH Q8H PRN PRN Reason: NAUSEA Last Admin: 10/26/18 21:56 Dose: 4 mg Polyethylene Glycol (Miralax (For Daily Use) -) 17 gm PO DAILY [facility] Last Admin: 10/29/18 10:01 Dose: 17 gm Thiamine HCl (Vitamin B1 Injection -) 200 mg IVPB Q8H [facility] Last Admin: 10/29/18 13:05 Dose: 200 mg 68 year old woman with hx of CKD with nephrotic range proteinuria, + IRENE, ( normal DS-DNA, Negative ANCA), CAD s/p PCI, DM, hypertension presented with dizziness with elevated BUN/Cr #ANG vs. CKD #Proteinuria #Dizziness #Hypertension #Hx of Edema #CAD Renal function essentially stable Noted to have IRENE in the past but normal Anti-DS DNA. Was seen by rheum and was not thought to have SLE. May benefit from a renal biopsy at some point but not while pt has to be maintained on plavixx on Lasix and Losartan if pt remains orthostatic may benifit form midodrine (would have to monitor for supine hypertension) Anemia work up as per GI Check SPEP f/u iron studies cardiology follow up, off alpha steven Tele monitoring Thank you Will follow Clinton Manjarrez DO
--- NOTE | 2018-10-29 15:52 | PN ---
Progress Note (short form) - Note Progress Note: s: no cp sob palps dizzy - Current Medication List Current Medications Generic Name Dose Route Start Last Admin Trade Name Demarq PRN Reason Stop Dose Admin Amlodipine Besylate 5 mg 10/28/18 18:00 10/29/18 09:59 Norvasc - PO 5 mg DAILY [facility] Administration Atorvastatin Calcium 80 mg 10/26/18 22:00 10/28/18 22:03 Lipitor - PO 80 mg HS [facility] Administration Clopidogrel Bisulfate 75 mg 10/26/18 10:00 10/29/18 09:59 Plavix - PO 75 mg DAILY [facility] Administration Duloxetine HCl 20 mg 10/26/18 10:00 10/29/18 10:00 Cymbalta - PO 20 mg DAILY [facility] Administration Ezetimibe 10 mg 10/26/18 22:00 10/28/18 22:03 Zetia - PO 10 mg HS [facility] Administration Ferrous Sulfate 325 mg 10/26/18 10:00 10/29/18 10:00 Feosol - PO 325 mg DAILY [facility] Administration Furosemide 80 mg 10/26/18 10:00 10/29/18 10:00 Lasix - PO 80 mg DAILY [facility] Administration Heparin Sodium (Porcine) 5,000 unit 10/27/18 22:00 10/29/18 10:03 Heparin - SQ 5,000 unit BID [facility] Administration Ceftriaxone Sodium 1 gm/ 50 mls @ 100 mls/hr 10/26/18 10:00 10/29/18 10:04 Dextrose IVPB 100 mls/hr DAILY [facility] Administration Protocol Insulin Aspart 1 vial 10/27/18 07:00 10/29/18 11:04 Novolog Vial Sliding Scale - SQ 6 units ACHS [facility] Administration Protocol Insulin Detemir 20 units 10/27/18 22:00 10/28/18 22:03 Levemir Vial SQ 20 units HS [facility] Administration Losartan Potassium 25 mg 10/26/18 10:00 10/29/18 10:01 Cozaar - PO 25 mg DAILY [facility] Administration Meclizine HCl 12.5 mg 10/29/18 14:00 10/29/18 13:09 Antivert - PO 12.5 mg TID [facility] Administration Metoprolol Succinate 25 mg 10/27/18 17:45 10/29/18 09:59 Toprol Xl - PO 25 mg BID [facility] Administration Ondansetron HCl 4 mg 10/26/18 03:00 10/26/18 21:56 Zofran Injection IVPUSH 4 mg Q8H PRN Administration NAUSEA Polyethylene Glycol 17 gm 10/28/18 10:00 10/29/18 10:01 Miralax (For Daily Use) - PO 17 gm DAILY [facility] Administration Thiamine HCl 200 mg 10/28/18 21:15 10/29/18 13:05 Vitamin B1 Injection - IVPB 200 mg Q8H [facility] Administration - Objective Vital Signs: Vital Signs Period Temp Pulse Resp BP Sys/Juarez Pulse Ox Last 24 Hr 98.1 F-98.5 F 54-72 18-20 92-180/34-99 96-97 Constitutional: Yes: No Distress Cardiovascular: Yes: Regular Rate and Rhythm Respiratory: Yes: CTA Bilaterally, nl eff Gastrointestinal: Yes: Soft, Abdomen, Obese Edema: trace le edema bl no jaundice diaphoresis CBC, BMP 10/29/18 06:45 10/29/18 06:45 echo 10/2018: nl lv/rv, mild tr, g2dd tele: sr, artifact Assessment/Plan IMP: 1. CAD s/p RAQUEL LAD 2018 2. Chronic anemia 3. Chronic diastolic CHF (normal LVEF on echo 07/2018) 4. CKD with proteinuria 5. + IRENE 6. Dizziness, lightheadedness of unclear etiology, possibly vertigo 7. Elevated TnI 8. Orthostatic hypotension 9. UTI, altered MS REC: 1. Telemetry to r/o arrhythmia thus far negative. 2. Rx UTI per PMD 3. Continue home meds for CAD including statin and Plavix. 5. Patient was orthostatic: discontinued alpha steven 6. Anemia w/u as per PMD, heme 7. TnI is flat and normal CK. No cardiac sx, no acute ECG changes. Likely elevated due to chronic CHF/CKD, possible demand ischemia from anemia. Does not represent type I NH. Echo here unremarkable. 8. Continue current bp meds.
--- NOTE | 2018-10-29 21:02 | PN ---
Progress Note, Physician History of Present Illness: No new complaints - Current Medication List Current Medications: Active Medications Amlodipine Besylate (Norvasc -) 5 mg PO DAILY [facility] Last Admin: 10/29/18 09:59 Dose: 5 mg Atorvastatin Calcium (Lipitor -) 80 mg PO HS [facility] Last Admin: 10/28/18 22:03 Dose: 80 mg Clopidogrel Bisulfate (Plavix -) 75 mg PO DAILY [facility] Last Admin: 10/29/18 09:59 Dose: 75 mg Duloxetine HCl (Cymbalta -) 20 mg PO DAILY [facility] Last Admin: 10/29/18 10:00 Dose: 20 mg Ezetimibe (Zetia -) 10 mg PO HS [facility] Last Admin: 10/28/18 22:03 Dose: 10 mg Ferrous Sulfate (Feosol -) 325 mg PO DAILY [facility] Last Admin: 10/29/18 10:00 Dose: 325 mg Furosemide (Lasix -) 80 mg PO DAILY [facility] Last Admin: 10/29/18 10:00 Dose: 80 mg Heparin Sodium (Porcine) (Heparin -) 5,000 unit SQ BID [facility] Last Admin: 10/29/18 10:03 Dose: 5,000 unit Ceftriaxone Sodium 1 gm/ (Dextrose) 50 mls @ 100 mls/hr IVPB DAILY [facility]; Protocol Last Admin: 10/29/18 10:04 Dose: 100 mls/hr Insulin Aspart (Novolog Vial Sliding Scale -) 1 vial SQ ACHS [facility]; Protocol Last Admin: 10/29/18 16:47 Dose: 8 units Insulin Detemir (Levemir Vial) 20 units SQ HS [facility] Last Admin: 10/28/18 22:03 Dose: 20 units Losartan Potassium (Cozaar -) 25 mg PO DAILY [facility] Last Admin: 10/29/18 10:01 Dose: 25 mg Meclizine HCl (Antivert -) 12.5 mg PO TID [facility] Last Admin: 10/29/18 13:09 Dose: 12.5 mg Metoprolol Succinate (Toprol Xl -) 25 mg PO BID [facility] Last Admin: 10/29/18 09:59 Dose: 25 mg Ondansetron HCl (Zofran Injection) 4 mg IVPUSH Q8H PRN PRN Reason: NAUSEA Last Admin: 10/26/18 21:56 Dose: 4 mg Polyethylene Glycol (Miralax (For Daily Use) -) 17 gm PO DAILY [facility] Last Admin: 10/29/18 10:01 Dose: 17 gm Thiamine HCl (Vitamin B1 Injection -) 200 mg IVPB Q8H [facility] Last Admin: 10/29/18 13:05 Dose: 200 mg - Objective Vital Signs: Vital Signs Temperature 98.2 F 10/29/18 18:00 Pulse Rate 66 10/29/18 18:00 Respiratory Rate 20 10/29/18 20:46 Blood Pressure 151/74 10/29/18 18:00 O2 Sat by Pulse Oximetry (%) 95 10/29/18 20:46 Neck: Yes: WNL, Supple Cardiovascular: Yes: WNL, Regular Rate and Rhythm Respiratory: Yes: WNL, Regular, CTA Bilaterally Gastrointestinal: Yes: WNL, Normal Bowel Sounds, Soft Edema: No Labs: CBC, BMP 10/29/18 06:45 10/29/18 06:45 INR, PTT INR 0.96 (0.83-1.09) 10/25/18 23:05 Problem List - Problems (1) Nausea & vomiting Assessment/Plan: CT scan abd showed poartial gastric outlet Will reconsult w/ GI Code(s): R11.2 - NAUSEA WITH VOMITING, UNSPECIFIED Qualifiers: Vomiting type: unspecified Vomiting Intractability: non-intractable Qualified Code(s): R11.2 - Nausea with vomiting, unspecified (2) Syncope and collapse Assessment/Plan: Carotid doppler shows lt vertebral stenosis No surgical intervention as per vascular surgeon MRI of brain did not show any acute pathology Cont PT Code(s): R55 - SYNCOPE AND COLLAPSE (3) Elevated troponin Assessment/Plan: Due to demand ischemia Code(s): R74.8 - ABNORMAL LEVELS OF OTHER SERUM ENZYMES (4) Anemia Assessment/Plan: S/P transfusion 1 unit PRBC's Follow H/H Code(s): D64.9 - ANEMIA, UNSPECIFIED (5) CAD (coronary artery disease) Assessment/Plan: Cont plavix/asa Code(s): I25.10 - ATHSCL HEART DISEASE OF [place] CORONARY ARTERY W/O ANG PCTRS (6) Diabetes Assessment/Plan: Cont sliding scale w/ coverage HgA1c elevated at 8.6 Increse levemir Code(s): E11.9 - TYPE 2 DIABETES MELLITUS WITHOUT COMPLICATIONS (7) HTN (hypertension) Assessment/Plan: BP elevated Cont losartan Code(s): I10 - ESSENTIAL (PRIMARY) HYPERTENSION (8) HLD (hyperlipidemia) Assessment/Plan: Cont lipitor Code(s): E78.5 - HYPERLIPIDEMIA, UNSPECIFIED (9) Chronic diastolic heart failure Assessment/Plan: Cont lasix Monitor electrolytes Code(s): I50.32 - CHRONIC DIASTOLIC (CONGESTIVE) HEART FAILURE (10) CKD (chronic kidney disease) Assessment/Plan: Cont gentle IV hyddration renal consult Check renal US Code(s): N18.9 - CHRONIC KIDNEY DISEASE, UNSPECIFIED (11) Repeated falls Assessment/Plan: Multifactorial PT eval Rheum eval Code(s): R29.6 - REPEATED FALLS (12) Depression Assessment/Plan: Will start pt on lexapro Code(s): F32.9 - MAJOR DEPRESSIVE DISORDER, SINGLE EPISODE, UNSPECIFIED
[2018-10-29] MEDS: ATORVASTATIN CA 80 MG TABLET (FP) PO SCH (22:02)
[2018-10-29] MEDS: EZETIMIBE 10 MG TABLET (FP) PO SCH (22:03)
[2018-10-29] MEDS: INSULIN (LEVEMIR) 100 UNITS/ML UNITS SQ SCH (22:04)
[2018-10-30] MEDS: THIAMINE HCL 200 MG/2 ML VIAL IVPB SCH ×3 (06:14→22:02)
[2018-10-30] MEDS: MECLIZINE HCL 25 MG TABLET (FP) PO SCH ×3 (06:21→22:03)
[2018-10-30] MEDS: INSULIN SLIDING SCALE (NOVOLOG) 1 VIAL SQ SCH ×4 (06:24→21:47)
[2018-10-30 07:57] LABS: ALBUMIN 1.9 g/dl (3.4-5.0); BILIRUBIN,TOTAL 0.4 mg/dL (0.2-1); BLOOD UREA NITROGEN 25.1 mg/dL (7-18); CALCIUM 8.1 mg/dL (8.5-10.1); CREATININE 1.4 mg/dL (0.55-1.3); MAGNESIUM 2.4 mg/dL (1.8-2.4); PHOSPHOROUS 4.1 mg/dL (2.5-4.9); POTASSIUM 4.2 mmol/L (3.5-5.1); TOT PROT 5.2 g/dl (6.4-8.2)
[2018-10-30 08:18] LABS: BASO % 0.6 % (0-2.0); EOS % 5.1 % (0-4.5); HEMATOCRIT 27.6 % (32.4-45.2); HEMOGLOBIN 9.5 GM/dL (10.7-15.3); LYMPH % 19.8 % (8-40); MCHC 34.3 g/dl (32.0-36.0); MEAN CELL VOLUME 84.6 fl (80-96); MEAN PLT VOLUME 7.3 fl (7.5-11.1); MONO % 7.8 % (3.8-10.2); NEUT % 66.7 % (42.8-82.8); PLATELET COUNT 311 K/MM3 (134-434); RBC 3.26 M/mm3 (3.60-5.2); WHITE BLOOD COUNT 7.2 K/mm3 (4.0-10.0)
--- NOTE | 2018-10-30 08:44 | PN ---
Progress Note (short form) - Note Progress Note: Neurology - History of Present Illness 68 yo F w a hx of anemia, CHF, CKD (baseline Cr 0.9-1) with mild proteinuira, CAD s/p recent cardiac stent, IDDM, HTN, and vertigo presents to the [facility] ER via private auto with the chief complaint of dizziness/room spinning and vomiting. Most of the history was provided by the patient's son and daughter at bedside. The son stated he brought his mother here because he is concerned that she has been experiencing multiple falls at home. The son has a video where the patient was standing in her home, lost her balance, experienced a bout of dizziness/room and head spinning and then tumbled to the ground smashing her head and neck. The patient experienced LOC and was stuck on the ground for close to 6 hours. This is all on the patient's video at home. The patient has been experiencing a significant amount of nausea and vomiting for the past month which is being worked up by Dr. Quispe as an outpatient. Patient endorsed right elbow pain from her most recent fall.The patient has been experiencing many bouts of NBNB vomiting and NB diarrhea for the past month. Patient has fallen and hit her head multiple times and takes aspirin and plavix. The patient denied having a headache, neck pain or blurry vision. The patient denies having experienced recent chest pain, SOB, or difficulty breathing. The patient denied dysuria, frequency, or urgency. Head and Cervical CT completed, mild degenerative changes, no acute intracranial changes . Carotid dopplers read , showed possibly L vertebral stenosis, per notes, vascular did not recommend further intervention. Heme note reviewed, patient without new complaints. Allergies Allergy/AdvReac Type Severity Reaction Status Date / Time azithromycin [From Zithromax] Allergy Verified 10/25/18 21:51 Home Medications: Ambulatory Orders Aspirin [ASA -] 81 mg PO HS 07/10/18 Atorvastatin Ca [Lipitor] 80 mg PO HS 07/10/18 Doxazosin Mesylate 2 mg PO DAILY 07/10/18 Ezetimibe [Zetia] 10 mg PO HS 07/10/18 Ferrous Sulfate [Feosol] 325 mg PO DAILY 07/10/18 Meclizine HCl 12.5 mg PO DAILY 07/10/18 Metoprolol Succinate 25 mg PO HS 07/10/18 Aspirin Coated [Ecotrin -] 81 mg PO HS #30 tablet.ec 07/16/18 Clopidogrel Bisulfate [Plavix -] 75 mg PO HS tablet 07/16/18 Furosemide Oral Solution [Lasix Oral Solution -] 80 mg PO DAILY #30 udc Losartan Potassium [Cozaar -] 25 mg PO DAILY #30 tablet 07/16/18 Duloxetine HCl 20 mg PO DAILY 10/26/18 Insulin Lispro [Humalog] 20 unit SQ DAILY 10/26/18 Active Medications Amlodipine Besylate (Norvasc -) 5 mg PO DAILY [facility] Last Admin: 10/28/18 17:34 Dose: 5 mg Atorvastatin Calcium (Lipitor -) 80 mg PO HS [facility] Last Admin: 10/28/18 22:03 Dose: 80 mg Clopidogrel Bisulfate (Plavix -) 75 mg PO DAILY [facility] Last Admin: 10/28/18 10:05 Dose: 75 mg Duloxetine HCl (Cymbalta -) 20 mg PO DAILY [facility] Last Admin: 10/28/18 10:05 Dose: 20 mg Ezetimibe (Zetia -) 10 mg PO HS [facility] Last Admin: 10/28/18 22:03 Dose: 10 mg Ferrous Sulfate (Feosol -) 325 mg PO DAILY [facility] Last Admin: 10/28/18 10:06 Dose: 325 mg Furosemide (Lasix -) 80 mg PO DAILY [facility] Last Admin: 10/28/18 10:05 Dose: 80 mg Heparin Sodium (Porcine) (Heparin -) 5,000 unit SQ BID [facility] Last Admin: 10/28/18 22:04 Dose: 5,000 unit Ceftriaxone Sodium 1 gm/ (Dextrose) 50 mls @ 100 mls/hr IVPB DAILY [facility]; Protocol Last Admin: 10/28/18 10:06 Dose: 100 mls/hr Insulin Aspart (Novolog Vial Sliding Scale -) 1 vial SQ ACHS [facility]; Protocol Last Admin: 10/29/18 06:09 Dose: 2 units Insulin Detemir (Levemir Vial) 20 units SQ HS [facility] Last Admin: 10/28/18 22:03 Dose: 20 units Losartan Potassium (Cozaar -) 25 mg PO DAILY [facility] Last Admin: 10/28/18 10:06 Dose: 25 mg Meclizine HCl (Antivert -) 12.5 mg PO DAILY [facility] Last Admin: 10/28/18 10:04 Dose: 12.5 mg Metoprolol Succinate (Toprol Xl -) 25 mg PO BID [facility] Last Admin: 10/28/18 22:03 Dose: 25 mg Ondansetron HCl (Zofran Injection) 4 mg IVPUSH Q8H PRN PRN Reason: NAUSEA Last Admin: 10/26/18 21:56 Dose: 4 mg Polyethylene Glycol (Miralax (For Daily Use) -) 17 gm PO DAILY [facility] Last Admin: 10/28/18 10:05 Dose: 17 mg Thiamine HCl (Vitamin B1 Injection -) 200 mg IVPB Q8H [facility] Last Admin: 10/29/18 05:58 Dose: 200 mg *Physical Exam Vital Signs Period Temp Pulse Resp BP Sys/Juarez Pulse Ox Last 24 Hr 97.9 F-98.5 F 54-72 17-20 101-180/34-99 97-97 GENERAL: Patient appears to have a depressed affect. Well-nourished. No apparent distress. HEENT: Normocephalic, atraumatic. PERRL, EOM intact. CARDIOVASCULAR: Normal S1, S2. Regular rate and rhythm. PULMONARY: No evidence of respiratory distress. Lungs clear to auscultation bilaterally. No wheezing, rales or rhonchi. ABDOMEN: Soft, non-distended, non-tender. EXTREMITIES: Mild TTP in the right elbow and right upper arm. Normal ROM in all four extremities. No gross deformities. SKIN: Warm, dry. No rash NEUROLOGICAL: Alert, awake, appropriate. Cranial nerves 2-12 intact. No deficits to light touch in face, upper extremities and lower extremities. No motor deficits in the in face, upper extremities and lower extremities. No pronator drift. Normal speech. Gait is normal without ataxia. No dysmetria. CBCD WBC 6.9 K/mm3 (4.0-10.0) 10/29/18 06:45 RBC 3.27 M/mm3 (3.60-5.2) L 10/29/18 06:45 Hgb 9.5 GM/dL (10.7-15.3) L 10/29/18 06:45 Hct 27.7 % (32.4-45.2) L 10/29/18 06:45 MCV 84.8 fl (80-96) 10/29/18 06:45 MCHC 34.2 g/dl (32.0-36.0) 10/29/18 06:45 RDW 15.3 % (11.6-15.6) 10/29/18 06:45 Plt Count 308 K/MM3 (134-434) 10/29/18 06:45 MPV 7.3 fl (7.5-11.1) L 10/29/18 06:45 CMP Sodium 139 mmol/L (136-145) 10/29/18 06:45 Potassium 4.2 mmol/L (3.5-5.1) 10/29/18 06:45 Chloride 106 mmol/L (98-107) 10/29/18 06:45 Carbon Dioxide 27 mmol/L (21-32) 10/29/18 06:45 Anion Gap 5 MMOL/L (8-16) L 10/29/18 06:45 BUN 30.5 mg/dL (7-18) H 10/29/18 06:45 Creatinine 1.5 mg/dL (0.55-1.3) H 10/29/18 06:45 Calcium 8.1 mg/dL (8.5-10.1) L 10/29/18 06:45 Total Bilirubin 0.4 mg/dL (0.2-1) 10/29/18 06:45 AST 27 U/L (15-37) 10/29/18 06:45 ALT 32 U/L (13-61) 10/29/18 06:45 Alkaline Phosphatase 143 U/L (45-117) H 10/29/18 06:45 Total Protein 5.4 g/dl (6.4-8.2) L 10/29/18 06:45 Albumin 2.0 g/dl (3.4-5.0) L 10/29/18 06:45 Assessment/Plan 68 yo F w a hx of anemia, CHF, CKD (baseline Cr 0.9-1) with mild proteinuira, CAD s/p recent cardiac stent, IDDM, HTN, and vertigo presents to the [facility] ER via private auto with the chief complaint of dizziness/room spinning and vomiting. Most of the history was provided by the patient's son and daughter at bedside. The son stated he brought his mother here because he is concerned that she has been experiencing multiple falls at home. The son has a video where the patient was standing in her home, lost her balance, experienced a bout of dizziness/room and head spinning and then tumbled to the ground smashing her head and neck. The patient experienced LOC and was stuck on the ground for close to 6 hours. This is all on the patient's video at home. The patient has been experiencing a significant amount of nausea and vomiting for the past month which is being worked up by Dr. Quispe as an outpatient. Patient endorsed right elbow pain from her most recent fall.The patient has been experiencing many bouts of NBNB vomiting and NB diarrhea for the past month. Patient has fallen and hit her head multiple times and takes aspirin and plavix. The patient denied having a headache, neck pain or blurry vision. The patient denies having experienced recent chest pain, SOB, or difficulty breathing. The patient denied dysuria, frequency, or urgency. Head and Cervical CT completed, mild degenerative changes, no acute intracranial changes. Head and Cervical CT completed, mild degenerative changes, no acute intracranial changes . She denies new symptoms, states she had some difficulty with day vs night. Otherwise she feels at her baseline. Carotid dopplers read, showed possibly L vertebral stenosis, per notes, vascular did not recommend further intervention. Heme note reviewed, patient without new complaints. Maintain hydration. Continue wheelchair use at bedside. MRI brain reviewed and discussed with patient, moderate volume loss but otherwise no acute changes. Reports being well this AM without complaints. Defer to primary team regarding placement/ discharge planning.
[2018-10-30] MEDS ORDERED: DEXTROSE 5%-WATER - 50 ML IVPB ONE (09:01)
[2018-10-30] MEDS ORDERED: cefTRIAXone SODIUM 1 GM VIAL ONE (09:01)
[2018-10-30] MEDS: CEFTRIAXONE 1 GM in DEXTROSE 5%-WATER - 50 ML IVPB SCH (09:26)
[2018-10-30] MEDS: amLODIPine BESYLATE 5 MG TABLET (FP) PO SCH (11:33)
[2018-10-30] MEDS: FERROUS SO4 325 MG TABLET (FP) PO SCH (11:33)
[2018-10-30] MEDS: INSULIN (LEVEMIR) 100 UNITS/ML UNITS SQ SCH ×2 (11:34→22:01)
[2018-10-30] MEDS: LOSARTAN POTASSIUM 25 MG TABLET PO SCH (11:34)
[2018-10-30] MEDS: DULoxetine HCL 20 MG CAPSULE.DR PO SCH (11:34)
[2018-10-30] MEDS: metoPROLOL SUCCINATE 25 MG TAB.SR.24H (FP) PO SCH ×2 (11:34→22:03)
[2018-10-30] MEDS: FUROSEMIDE 40 MG TABLET (FP) PO SCH (11:34)
[2018-10-30] MEDS: CLOPIDOGREL BISULFATE 75 MG TABLET (FP) PO SCH (11:34)
[2018-10-30] MEDS: HEPARIN NA (PORCINE) 5,000 UNITS/ML 1ML VIAL SQ SCH ×2 (11:34→22:01)
[2018-10-30] MEDS: POLYETHYLENE GLYCOL 3350 119 GM BTL PO SCH (11:35)
[2018-10-30] MEDS ORDERED: PT OWN MED DRAWER 7, Y5N ONE (11:48)
[2018-10-30] MEDS ORDERED: INSULIN SLIDING SCALE (NOVOLOG) 1 VIAL SQ ONE (11:48)
--- NOTE | 2018-10-30 12:41 | PN ---
Progress Note (short form) - Note Progress Note: Renal follow up for ANG Pt seen and examined at the bedside has continued dizziness when she stands orthostatics remain positive making urine no sob, cp, abd pain Vital Signs Temperature 98.1 F 10/30/18 06:00 Pulse Rate 62 10/30/18 06:00 Respiratory Rate 20 10/30/18 10:00 Blood Pressure 165/75 10/30/18 06:00 O2 Sat by Pulse Oximetry (%) 97 10/30/18 10:00 Intake & Output 10/27/18 10/28/18 10/29/18 10/30/18 23:59 23:59 23:59 23:59 Intake Total 3730 405 6945 100 Balance 8273 167 2347 100 Weight 76.385 kg 74.571 kg NAD RRR CTA soft NT/ND trace LE edema CBC, BMP 10/30/18 06:05 10/30/18 06:05 Current Medications Amlodipine Besylate (Norvasc -) 5 mg PO DAILY [facility] Last Admin: 10/30/18 11:33 Dose: 5 mg Atorvastatin Calcium (Lipitor -) 80 mg PO HS [facility] Last Admin: 10/29/18 22:02 Dose: 80 mg Clopidogrel Bisulfate (Plavix -) 75 mg PO DAILY [facility] Last Admin: 10/30/18 11:34 Dose: 75 mg Duloxetine HCl (Cymbalta -) 20 mg PO DAILY [facility] Last Admin: 10/30/18 11:34 Dose: 20 mg Ezetimibe (Zetia -) 10 mg PO HS [facility] Last Admin: 10/29/18 22:03 Dose: 10 mg Ferrous Sulfate (Feosol -) 325 mg PO DAILY [facility] Last Admin: 10/30/18 11:33 Dose: 325 mg Furosemide (Lasix -) 80 mg PO DAILY [facility] Last Admin: 10/30/18 11:34 Dose: 80 mg Heparin Sodium (Porcine) (Heparin -) 5,000 unit SQ BID [facility] Last Admin: 10/30/18 11:34 Dose: 5,000 unit Ceftriaxone Sodium 1 gm/ (Dextrose) 50 mls @ 100 mls/hr IVPB DAILY [facility]; Protocol Last Admin: 10/30/18 09:26 Dose: 100 mls/hr Insulin Aspart (Novolog Vial Sliding Scale -) 1 vial SQ ACHS [facility]; Protocol Last Admin: 06/26/19 11:42 Dose: 2 units Insulin Detemir (Levemir Vial) 20 units SQ BID [facility] Last Admin: 10/30/18 11:34 Dose: 20 units Losartan Potassium (Cozaar -) 25 mg PO DAILY [facility] Last Admin: 10/30/18 11:34 Dose: 25 mg Meclizine HCl (Antivert -) 12.5 mg PO TID [facility] Last Admin: 10/30/18 06:21 Dose: Not Given Metoprolol Succinate (Toprol Xl -) 25 mg PO BID [facility] Last Admin: 10/30/18 11:34 Dose: 25 mg Midodrine (Proamatine -) 2.5 mg PO TID-MID [facility] Ondansetron HCl (Zofran Injection) 4 mg IVPUSH Q8H PRN PRN Reason: NAUSEA Last Admin: 10/26/18 21:56 Dose: 4 mg Polyethylene Glycol (Miralax (For Daily Use) -) 17 gm PO DAILY [facility] Last Admin: 10/30/18 11:35 Dose: 17 gm Thiamine HCl (Vitamin B1 Injection -) 200 mg IVPB Q8H [facility] Last Admin: 10/30/18 06:14 Dose: 200 mg 68 year old woman with hx of CKD with nephrotic range proteinuria, + IRENE, ( normal DS-DNA, Negative ANCA), CAD s/p PCI, DM, hypertension presented with dizziness with elevated BUN/Cr #ANG vs. CKD #Proteinuria #Dizziness #Hypertension #Hx of Edema #CAD Renal function essentially stable Noted to have IRENE in the past but normal Anti-DS DNA. Was seen by rheum and was not thought to have SLE. May benefit from a renal biopsy at some point but not while pt has to be maintained on plavixx on Lasix and Losartan Start Midodrine 2.5mg TID for orthostatic hypotension Anemia work up as per GI Check SPEP f/u iron studies cardiology follow up, off alpha steven Tele monitoring Thank you Will follow Clinton Manjarrez DO
--- NOTE | 2018-10-30 13:39 | PN ---
Progress Note, Physician History of Present Illness: stable confused sometimes comfortable - Current Medication List Current Medications: Active Medications Amlodipine Besylate (Norvasc -) 5 mg PO DAILY [facility] Last Admin: 10/30/18 11:33 Dose: 5 mg Atorvastatin Calcium (Lipitor -) 80 mg PO HS [facility] Last Admin: 10/29/18 22:02 Dose: 80 mg Clopidogrel Bisulfate (Plavix -) 75 mg PO DAILY [facility] Last Admin: 10/30/18 11:34 Dose: 75 mg Duloxetine HCl (Cymbalta -) 20 mg PO DAILY [facility] Last Admin: 10/30/18 11:34 Dose: 20 mg Ezetimibe (Zetia -) 10 mg PO HS [facility] Last Admin: 10/29/18 22:03 Dose: 10 mg Ferrous Sulfate (Feosol -) 325 mg PO DAILY [facility] Last Admin: 10/30/18 11:33 Dose: 325 mg Furosemide (Lasix -) 80 mg PO DAILY [facility] Last Admin: 10/30/18 11:34 Dose: 80 mg Heparin Sodium (Porcine) (Heparin -) 5,000 unit SQ BID [facility] Last Admin: 10/30/18 11:34 Dose: 5,000 unit Ceftriaxone Sodium 1 gm/ (Dextrose) 50 mls @ 100 mls/hr IVPB DAILY [facility]; Protocol Last Admin: 10/30/18 09:26 Dose: 100 mls/hr Insulin Aspart (Novolog Vial Sliding Scale -) 1 vial SQ ACHS [facility]; Protocol Last Admin: 10/30/18 11:42 Dose: 2 units Insulin Detemir (Levemir Vial) 20 units SQ BID [facility] Last Admin: 10/30/18 11:34 Dose: 20 units Losartan Potassium (Cozaar -) 25 mg PO DAILY [facility] Last Admin: 10/30/18 11:34 Dose: 25 mg Meclizine HCl (Antivert -) 12.5 mg PO TID [facility] Last Admin: 10/30/18 06:21 Dose: Not Given Metoprolol Succinate (Toprol Xl -) 25 mg PO BID [facility] Last Admin: 10/30/18 11:34 Dose: 25 mg Midodrine (Proamatine -) 2.5 mg PO TID-MID [facility] Ondansetron HCl (Zofran Injection) 4 mg IVPUSH Q8H PRN PRN Reason: NAUSEA Last Admin: 06/22/19 21:56 Dose: 4 mg Polyethylene Glycol (Miralax (For Daily Use) -) 17 gm PO DAILY [facility] Last Admin: 10/30/18 11:35 Dose: 17 gm Thiamine HCl (Vitamin B1 Injection -) 200 mg IVPB Q8H [facility] Last Admin: 10/30/18 06:14 Dose: 200 mg - Objective Vital Signs: Vital Signs Temperature 98.1 F 10/30/18 06:00 Pulse Rate 62 10/30/18 06:00 Respiratory Rate 20 10/30/18 10:00 Blood Pressure 165/75 10/30/18 06:00 O2 Sat by Pulse Oximetry (%) 97 10/30/18 10:00 Constitutional: Yes: No Distress, Calm Cardiovascular: Yes: Regular Rate and Rhythm Respiratory: Yes: Regular, CTA Bilaterally Gastrointestinal: Yes: Normal Bowel Sounds, Soft Musculoskeletal: Yes: WNL Extremities: Yes: WNL Neurological: Yes: Alert, Other Psychiatric: Yes: Other Labs: CBC, BMP 10/30/18 06:05 10/30/18 06:05 INR, PTT INR 0.96 (0.83-1.09) 10/25/18 23:05 Assessment/Plan Problem List - Problems (1) Syncope and collapse Code(s): R55 - SYNCOPE AND COLLAPSE (2) Elevated troponin Code(s): R74.8 - ABNORMAL LEVELS OF OTHER SERUM ENZYMES (3) Anemia Code(s): D64.9 - ANEMIA, UNSPECIFIED (4) CAD (coronary artery disease) Code(s): I25.10 - ATHSCL HEART DISEASE OF [place] CORONARY ARTERY W/O ANG PCTRS (5) Diabetes Code(s): E11.9 - TYPE 2 DIABETES MELLITUS WITHOUT COMPLICATIONS (6) HTN (hypertension) Code(s): I10 - ESSENTIAL (PRIMARY) HYPERTENSION (7) HLD (hyperlipidemia) Code(s): E78.5 - HYPERLIPIDEMIA, UNSPECIFIED (8) Chronic diastolic heart failure Code(s): I50.32 - CHRONIC DIASTOLIC (CONGESTIVE) HEART FAILURE (9) CKD (chronic kidney disease) Code(s): N18.9 - CHRONIC KIDNEY DISEASE, UNSPECIFIED (10) Repeated falls Code(s): R29.6 - REPEATED FALLS (11) Depression Code(s): F32.9 - MAJOR DEPRESSIVE DISORDER, SINGLE EPISODE, UNSPECIFIED uti plan continue current mgmt as per neuro continue abx clse watch rest as per the team
--- NOTE | 2018-10-30 13:42 | PN ---
Progress Note, Physician History of Present Illness: c/o of dizziness according to notes still orthostatic says she feels better though - Current Medication List Current Medications: Active Medications Amlodipine Besylate (Norvasc -) 5 mg PO DAILY [facility] Last Admin: 10/30/18 11:33 Dose: 5 mg Atorvastatin Calcium (Lipitor -) 80 mg PO HS [facility] Last Admin: 10/29/18 22:02 Dose: 80 mg Clopidogrel Bisulfate (Plavix -) 75 mg PO DAILY [facility] Last Admin: 10/30/18 11:34 Dose: 75 mg Duloxetine HCl (Cymbalta -) 20 mg PO DAILY [facility] Last Admin: 10/30/18 11:34 Dose: 20 mg Ezetimibe (Zetia -) 10 mg PO HS [facility] Last Admin: 10/29/18 22:03 Dose: 10 mg Ferrous Sulfate (Feosol -) 325 mg PO DAILY [facility] Last Admin: 10/30/18 11:33 Dose: 325 mg Furosemide (Lasix -) 80 mg PO DAILY [facility] Last Admin: 10/30/18 11:34 Dose: 80 mg Heparin Sodium (Porcine) (Heparin -) 5,000 unit SQ BID [facility] Last Admin: 10/30/18 11:34 Dose: 5,000 unit Ceftriaxone Sodium 1 gm/ (Dextrose) 50 mls @ 100 mls/hr IVPB DAILY [facility]; Protocol Last Admin: 10/30/18 09:26 Dose: 100 mls/hr Insulin Aspart (Novolog Vial Sliding Scale -) 1 vial SQ ACHS [facility]; Protocol Last Admin: 10/30/18 11:42 Dose: 2 units Insulin Detemir (Levemir Vial) 20 units SQ BID [facility] Last Admin: 10/30/18 11:34 Dose: 20 units Losartan Potassium (Cozaar -) 25 mg PO DAILY [facility] Last Admin: 10/30/18 11:34 Dose: 25 mg Meclizine HCl (Antivert -) 12.5 mg PO TID [facility] Last Admin: 10/30/18 06:21 Dose: Not Given Metoprolol Succinate (Toprol Xl -) 25 mg PO BID [facility] Last Admin: 10/30/18 11:34 Dose: 25 mg Midodrine (Proamatine -) 2.5 mg PO TID-MID [facility] Ondansetron HCl (Zofran Injection) 4 mg IVPUSH Q8H PRN PRN Reason: NAUSEA Last Admin: 10/26/18 21:56 Dose: 4 mg Polyethylene Glycol (Miralax (For Daily Use) -) 17 gm PO DAILY [facility] Last Admin: 10/30/18 11:35 Dose: 17 gm Thiamine HCl (Vitamin B1 Injection -) 200 mg IVPB Q8H [facility] Last Admin: 10/30/18 06:14 Dose: 200 mg - Objective Vital Signs: Vital Signs Temperature 98.1 F 10/30/18 06:00 Pulse Rate 62 10/30/18 06:00 Respiratory Rate 20 10/30/18 10:00 Blood Pressure 165/75 10/30/18 06:00 O2 Sat by Pulse Oximetry (%) 97 10/30/18 10:00 Constitutional: Yes: No Distress, Calm Cardiovascular: Yes: S1, S2 Respiratory: Yes: Regular, CTA Bilaterally Gastrointestinal: Yes: Normal Bowel Sounds, Soft Musculoskeletal: Yes: WNL Extremities: Yes: WNL Neurological: Yes: Alert Psychiatric: Yes: Alert Labs: CBC, BMP 10/30/18 06:05 10/30/18 06:05 INR, PTT INR 0.96 (0.83-1.09) 10/25/18 23:05 Assessment/Plan Problem List - Problems (1) Syncope and collapse Code(s): R55 - SYNCOPE AND COLLAPSE (2) Elevated troponin Code(s): R74.8 - ABNORMAL LEVELS OF OTHER SERUM ENZYMES (3) Anemia Code(s): D64.9 - ANEMIA, UNSPECIFIED (4) CAD (coronary artery disease) Code(s): I25.10 - ATHSCL HEART DISEASE OF [place] CORONARY ARTERY W/O ANG PCTRS (5) Diabetes Code(s): E11.9 - TYPE 2 DIABETES MELLITUS WITHOUT COMPLICATIONS (6) HTN (hypertension) Code(s): I10 - ESSENTIAL (PRIMARY) HYPERTENSION (7) HLD (hyperlipidemia) Code(s): E78.5 - HYPERLIPIDEMIA, UNSPECIFIED (8) Chronic diastolic heart failure Code(s): I50.32 - CHRONIC DIASTOLIC (CONGESTIVE) HEART FAILURE (9) CKD (chronic kidney disease) Code(s): N18.9 - CHRONIC KIDNEY DISEASE, UNSPECIFIED (10) Repeated falls Code(s): R29.6 - REPEATED FALLS (11) Depression Code(s): F32.9 - MAJOR DEPRESSIVE DISORDER, SINGLE EPISODE, UNSPECIFIED uti plan continue current mgmt as per neuro continue abx close watch rest as per the team orthostatics
[2018-10-30] MEDS: MIDODRINE HCL 2.5 MG TABLET PO SCH ×2 (14:14→17:17)
--- NOTE | 2018-10-30 15:27 | PN ---
Progress Note (short form) - Note Progress Note: s: no cp sob palp; mild dizzy when standing this AM - Current Medication List Current Medications Generic Name Dose Route Start Last Admin Trade Name Ariel PRN Reason Stop Dose Admin Amlodipine Besylate 5 mg 10/28/18 18:00 10/30/18 11:33 Norvasc - PO 5 mg DAILY [facility] Administration Atorvastatin Calcium 80 mg 10/26/18 22:00 10/29/18 22:02 Lipitor - PO 80 mg HS [facility] Administration Clopidogrel Bisulfate 75 mg 10/26/18 10:00 10/30/18 11:34 Plavix - PO 75 mg DAILY [facility] Administration Duloxetine HCl 20 mg 10/26/18 10:00 10/30/18 11:34 Cymbalta - PO 20 mg DAILY [facility] Administration Ezetimibe 10 mg 10/26/18 22:00 10/29/18 22:03 Zetia - PO 10 mg HS [facility] Administration Ferrous Sulfate 325 mg 10/26/18 10:00 10/30/18 11:33 Feosol - PO 325 mg DAILY [facility] Administration Furosemide 80 mg 10/26/18 10:00 10/30/18 11:34 Lasix - PO 80 mg DAILY [facility] Administration Heparin Sodium (Porcine) 5,000 unit 10/27/18 22:00 10/30/18 11:34 Heparin - SQ 5,000 unit BID [facility] Administration Ceftriaxone Sodium 1 gm/ 50 mls @ 100 mls/hr 10/26/18 10:00 10/30/18 09:26 Dextrose IVPB 100 mls/hr DAILY [facility] Administration Protocol Insulin Aspart 1 vial 10/27/18 07:00 10/30/18 11:42 Novolog Vial Sliding Scale - SQ 2 units ACHS [facility] Administration Protocol Insulin Detemir 20 units 10/30/18 10:00 10/30/18 11:34 Levemir Vial SQ 20 units BID [facility] Administration Losartan Potassium 25 mg 10/26/18 10:00 10/30/18 11:34 Cozaar - PO 25 mg DAILY [facility] Administration Meclizine HCl 12.5 mg 10/29/18 14:00 10/30/18 14:13 Antivert - PO 12.5 mg TID [facility] Administration Metoprolol Succinate 25 mg 10/27/18 17:45 10/30/18 11:34 Toprol Xl - PO 25 mg BID [facility] Administration Midodrine 2.5 mg 10/30/18 14:00 10/30/18 14:14 Proamatine - PO 2.5 mg TID-MID [facility] Administration Ondansetron HCl 4 mg 10/26/18 03:00 10/26/18 21:56 Zofran Injection IVPUSH 4 mg Q8H PRN Administration NAUSEA Polyethylene Glycol 17 gm 10/28/18 10:00 10/30/18 11:35 Miralax (For Daily Use) - PO 17 gm DAILY [facility] Administration Thiamine HCl 200 mg 10/28/18 21:15 10/30/18 14:13 Vitamin B1 Injection - IVPB 200 mg Q8H [facility] Administration - Objective Vital Signs: Vital Signs Period Temp Pulse Resp BP Sys/Juarez Pulse Ox Last 24 Hr 98.0 F-98.4 F 55-68 18-20 136-173/55-86 95-97 Constitutional: Yes: No Distress Cardiovascular: Yes: Regular Rate and Rhythm Respiratory: Yes: CTA Bilaterally, nl eff Gastrointestinal: Yes: Soft, Abdomen, Obese Edema: trace le edema bl no jaundice diaphoresis CBC, BMP 10/30/18 06:05 10/30/18 06:05 echo 10/2018: nl lv/rv, mild tr, g2dd tele: sr Assessment/Plan IMP: 1. CAD s/p RAQUEL LAD 2018 2. Chronic anemia 3. Chronic diastolic CHF (normal LVEF on echo 07/2018) 4. CKD with proteinuria 5. + IRENE 6. Dizziness, lightheadedness of unclear etiology, possibly vertigo 7. Elevated TnI 8. Orthostatic hypotension 9. UTI, altered MS REC: 1. Telemetry to r/o arrhythmia thus far negative-->can dc now 2. Rx UTI per ID 3. Continue home meds for CAD including statin and Plavix. 5. Patient orthostatic: discontinued alpha steven and now on midodrine as well. 6. Anemia w/u as per PMD, heme 7. TnI is flat and normal CK. No cardiac sx, no acute ECG changes. Likely elevated due to chronic CHF/CKD, possible demand ischemia from anemia. Does not represent type I CO. Echo here unremarkable. 8. Continue current bp meds. dc tele
--- NOTE | 2018-10-30 21:28 | PN ---
Progress Note, Physician - Current Medication List Current Medications: Active Medications Amlodipine Besylate (Norvasc -) 5 mg PO DAILY [facility] Last Admin: 10/30/18 11:33 Dose: 5 mg Atorvastatin Calcium (Lipitor -) 80 mg PO HS [facility] Last Admin: 10/29/18 22:02 Dose: 80 mg Clopidogrel Bisulfate (Plavix -) 75 mg PO DAILY [facility] Last Admin: 10/30/18 11:34 Dose: 75 mg Duloxetine HCl (Cymbalta -) 20 mg PO DAILY [facility] Last Admin: 10/30/18 11:34 Dose: 20 mg Ezetimibe (Zetia -) 10 mg PO HS [facility] Last Admin: 10/29/18 22:03 Dose: 10 mg Ferrous Sulfate (Feosol -) 325 mg PO DAILY [facility] Last Admin: 10/30/18 11:33 Dose: 325 mg Furosemide (Lasix -) 80 mg PO DAILY [facility] Last Admin: 10/30/18 11:34 Dose: 80 mg Heparin Sodium (Porcine) (Heparin -) 5,000 unit SQ BID [facility] Last Admin: 10/30/18 11:34 Dose: 5,000 unit Ceftriaxone Sodium 1 gm/ (Dextrose) 50 mls @ 100 mls/hr IVPB DAILY [facility]; Protocol Last Admin: 10/30/18 09:26 Dose: 100 mls/hr Insulin Aspart (Novolog Vial Sliding Scale -) 1 vial SQ ACHS [facility]; Protocol Last Admin: 10/30/18 17:16 Dose: 10 units Insulin Detemir (Levemir Vial) 20 units SQ BID [facility] Last Admin: 10/30/18 11:34 Dose: 20 units Losartan Potassium (Cozaar -) 25 mg PO DAILY [facility] Last Admin: 10/30/18 11:34 Dose: 25 mg Meclizine HCl (Antivert -) 12.5 mg PO TID [facility] Last Admin: 10/30/18 14:13 Dose: 12.5 mg Metoprolol Succinate (Toprol Xl -) 25 mg PO BID [facility] Last Admin: 10/30/18 11:34 Dose: 25 mg Midodrine (Proamatine -) 2.5 mg PO TID-MID [facility] Last Admin: 10/30/18 17:17 Dose: 2.5 mg Ondansetron HCl (Zofran Injection) 4 mg IVPUSH Q8H PRN PRN Reason: NAUSEA Last Admin: 10/26/18 21:56 Dose: 4 mg Polyethylene Glycol (Miralax (For Daily Use) -) 17 gm PO DAILY [facility] Last Admin: 10/30/18 11:35 Dose: 17 gm Thiamine HCl (Vitamin B1 Injection -) 200 mg IVPB Q8H [facility] Last Admin: 10/30/18 14:13 Dose: 200 mg - Objective Vital Signs: Vital Signs Temperature 98.8 F 10/30/18 18:00 Pulse Rate 55 L 10/30/18 18:00 Respiratory Rate 19 10/30/18 18:00 Blood Pressure 153/58 L 10/30/18 18:00 O2 Sat by Pulse Oximetry (%) 95 10/30/18 20:33 Labs: CBC, BMP 10/30/18 06:05 10/30/18 06:05 INR, PTT INR 0.96 (0.83-1.09) 10/25/18 23:05 Problem List - Problems (1) Nausea & vomiting Code(s): R11.2 - NAUSEA WITH VOMITING, UNSPECIFIED Qualifiers: Vomiting type: unspecified Vomiting Intractability: non-intractable Qualified Code(s): R11.2 - Nausea with vomiting, unspecified (2) Syncope and collapse Code(s): R55 - SYNCOPE AND COLLAPSE (3) Elevated troponin Code(s): R74.8 - ABNORMAL LEVELS OF OTHER SERUM ENZYMES (4) Anemia Code(s): D64.9 - ANEMIA, UNSPECIFIED (5) CAD (coronary artery disease) Code(s): I25.10 - ATHSCL HEART DISEASE OF [place] CORONARY ARTERY W/O ANG PCTRS (6) Diabetes Code(s): E11.9 - TYPE 2 DIABETES MELLITUS WITHOUT COMPLICATIONS (7) HTN (hypertension) Code(s): I10 - ESSENTIAL (PRIMARY) HYPERTENSION (8) HLD (hyperlipidemia) Code(s): E78.5 - HYPERLIPIDEMIA, UNSPECIFIED (9) Chronic diastolic heart failure Code(s): I50.32 - CHRONIC DIASTOLIC (CONGESTIVE) HEART FAILURE (10) CKD (chronic kidney disease) Code(s): N18.9 - CHRONIC KIDNEY DISEASE, UNSPECIFIED (11) Repeated falls Code(s): R29.6 - REPEATED FALLS (12) Depression Code(s): F32.9 - MAJOR DEPRESSIVE DISORDER, SINGLE EPISODE, UNSPECIFIED
[2018-10-30] MEDS: ATORVASTATIN CA 80 MG TABLET (FP) PO SCH (22:03)
[2018-10-30] MEDS: EZETIMIBE 10 MG TABLET (FP) PO SCH (22:03)
[2018-10-31] MEDS: MECLIZINE HCL 25 MG TABLET (FP) PO SCH ×3 (05:59→21:46)
[2018-10-31] MEDS: THIAMINE HCL 200 MG/2 ML VIAL IVPB SCH ×3 (05:59→21:45)
[2018-10-31] MEDS: INSULIN SLIDING SCALE (NOVOLOG) 1 VIAL SQ SCH ×4 (06:59→21:47)
[2018-10-31 07:45] LABS: BLOOD UREA NITROGEN 29.9 mg/dL (7-18); CALCIUM 7.8 mg/dL (8.5-10.1); CREATININE 1.5 mg/dL (0.55-1.3); MAGNESIUM 2.4 mg/dL (1.8-2.4); PHOSPHOROUS 3.6 mg/dL (2.5-4.9); POTASSIUM 4.2 mmol/L (3.5-5.1)
--- NOTE | 2018-10-31 08:50 | PN ---
Progress Note (short form) - Note Progress Note: Neurology - History of Present Illness 68 yo F w a hx of anemia, CHF, CKD (baseline Cr 0.9-1) with mild proteinuira, CAD s/p recent cardiac stent, IDDM, HTN, and vertigo presents to the [facility] ER via private auto with the chief complaint of dizziness/room spinning and vomiting. Most of the history was provided by the patient's son and daughter at bedside. The son stated he brought his mother here because he is concerned that she has been experiencing multiple falls at home. The son has a video where the patient was standing in her home, lost her balance, experienced a bout of dizziness/room and head spinning and then tumbled to the ground smashing her head and neck. The patient experienced LOC and was stuck on the ground for close to 6 hours. This is all on the patient's video at home. The patient has been experiencing a significant amount of nausea and vomiting for the past month which is being worked up by Dr. Quispe as an outpatient. Patient endorsed right elbow pain from her most recent fall.The patient has been experiencing many bouts of NBNB vomiting and NB diarrhea for the past month. Patient has fallen and hit her head multiple times and takes aspirin and plavix. The patient denied having a headache, neck pain or blurry vision. The patient denies having experienced recent chest pain, SOB, or difficulty breathing. The patient denied dysuria, frequency, or urgency. Head and Cervical CT completed, mild degenerative changes, no acute intracranial changes . Carotid dopplers read , showed possibly L vertebral stenosis, per notes, vascular did not recommend further intervention. Heme note reviewed, patient without new complaints. Out of bed to chair this AM but reported she needed assistance. May benefit from rehab, rolling walker at bedside. No falls. Allergies Allergy/AdvReac Type Severity Reaction Status Date / Time azithromycin [From Zithromax] Allergy Verified 10/25/18 21:51 Home Medications: Ambulatory Orders Aspirin [ASA -] 81 mg PO HS 07/10/18 Atorvastatin Ca [Lipitor] 80 mg PO HS 07/10/18 Doxazosin Mesylate 2 mg PO DAILY 07/10/18 Ezetimibe [Zetia] 10 mg PO HS 07/10/18 Ferrous Sulfate [Feosol] 325 mg PO DAILY 07/10/18 Meclizine HCl 12.5 mg PO DAILY 07/10/18 Metoprolol Succinate 25 mg PO HS 07/10/18 Aspirin Coated [Ecotrin -] 81 mg PO HS #30 tablet.ec 07/16/18 Clopidogrel Bisulfate [Plavix -] 75 mg PO HS tablet 07/16/18 Furosemide Oral Solution [Lasix Oral Solution -] 80 mg PO DAILY #30 udc Losartan Potassium [Cozaar -] 25 mg PO DAILY #30 tablet 07/16/18 Duloxetine HCl 20 mg PO DAILY 10/26/18 Insulin Lispro [Humalog] 20 unit SQ DAILY 10/26/18 Active Medications Amlodipine Besylate (Norvasc -) 5 mg PO DAILY [facility] Last Admin: 10/30/18 11:33 Dose: 5 mg Atorvastatin Calcium (Lipitor -) 80 mg PO HS [facility] Last Admin: 10/30/18 22:03 Dose: 80 mg Clopidogrel Bisulfate (Plavix -) 75 mg PO DAILY [facility] Last Admin: 10/30/18 11:34 Dose: 75 mg Duloxetine HCl (Cymbalta -) 20 mg PO DAILY [facility] Last Admin: 10/30/18 11:34 Dose: 20 mg Ezetimibe (Zetia -) 10 mg PO HS [facility] Last Admin: 10/30/18 22:03 Dose: 10 mg Ferrous Sulfate (Feosol -) 325 mg PO DAILY [facility] Last Admin: 10/30/18 11:33 Dose: 325 mg Furosemide (Lasix -) 80 mg PO DAILY [facility] Last Admin: 10/30/18 11:34 Dose: 80 mg Heparin Sodium (Porcine) (Heparin -) 5,000 unit SQ BID [facility] Last Admin: 10/30/18 22:01 Dose: 5,000 unit Ceftriaxone Sodium 1 gm/ (Dextrose) 50 mls @ 100 mls/hr IVPB DAILY [facility]; Protocol Last Admin: 10/30/18 09:26 Dose: 100 mls/hr Insulin Aspart (Novolog Vial Sliding Scale -) 1 vial SQ ACHS [facility]; Protocol Last Admin: 10/31/18 06:59 Dose: 2 units Insulin Detemir (Levemir Vial) 20 units SQ BID [facility] Last Admin: 10/30/18 22:01 Dose: 20 units Losartan Potassium (Cozaar -) 25 mg PO DAILY [facility] Last Admin: 10/30/18 11:34 Dose: 25 mg Meclizine HCl (Antivert -) 12.5 mg PO TID [facility] Last Admin: 10/31/18 05:59 Dose: 12.5 mg Metoprolol Succinate (Toprol Xl -) 25 mg PO BID [facility] Last Admin: 10/30/18 22:03 Dose: 25 mg Midodrine (Proamatine -) 2.5 mg PO TID-MID [facility] Last Admin: 10/30/18 17:17 Dose: 2.5 mg Ondansetron HCl (Zofran Injection) 4 mg IVPUSH Q8H PRN PRN Reason: NAUSEA Last Admin: 10/26/18 21:56 Dose: 4 mg Polyethylene Glycol (Miralax (For Daily Use) -) 17 gm PO DAILY [facility] Last Admin: 10/30/18 11:35 Dose: 17 gm Thiamine HCl (Vitamin B1 Injection -) 200 mg IVPB Q8H [facility] Last Admin: 10/31/18 05:59 Dose: 200 mg *Physical Exam Vital Signs Period Temp Pulse Resp BP Sys/Juarez Pulse Ox Last 24 Hr 98 F-98.8 F 53-69 18-20 126-176/48-78 95-97 GENERAL: Patient appears to have a depressed affect. Well-nourished. No apparent distress. HEENT: Normocephalic, atraumatic. PERRL, EOM intact. CARDIOVASCULAR: Normal S1, S2. Regular rate and rhythm. PULMONARY: No evidence of respiratory distress. Lungs clear to auscultation bilaterally. No wheezing, rales or rhonchi. ABDOMEN: Soft, non-distended, non-tender. EXTREMITIES: Mild TTP in the right elbow and right upper arm. Normal ROM in all four extremities. No gross deformities. SKIN: Warm, dry. No rash NEUROLOGICAL: Alert, awake, appropriate. Cranial nerves 2-12 intact. No deficits to light touch in face, upper extremities and lower extremities. No motor deficits in the in face, upper extremities and lower extremities. No pronator drift. Normal speech. Gait is normal without ataxia. No dysmetria. CBCD WBC 7.2 K/mm3 (4.0-10.0) 10/30/18 06:05 RBC 3.26 M/mm3 (3.60-5.2) L 10/30/18 06:05 Hgb 9.5 GM/dL (10.7-15.3) L 10/30/18 06:05 Hct 27.6 % (32.4-45.2) L 10/30/18 06:05 MCV 84.6 fl (80-96) 10/30/18 06:05 MCHC 34.3 g/dl (32.0-36.0) 10/30/18 06:05 RDW 15.0 % (11.6-15.6) 10/30/18 06:05 Plt Count 311 K/MM3 (134-434) 10/30/18 06:05 MPV 7.3 fl (7.5-11.1) L 10/30/18 06:05 CMP Sodium 139 mmol/L (136-145) 10/31/18 06:15 Potassium 4.2 mmol/L (3.5-5.1) 10/31/18 06:15 Chloride 108 mmol/L (98-107) H 10/31/18 06:15 Carbon Dioxide 25 mmol/L (21-32) 10/31/18 06:15 Anion Gap 6 MMOL/L (8-16) L 10/31/18 06:15 BUN 29.9 mg/dL (7-18) H 10/31/18 06:15 Creatinine 1.5 mg/dL (0.55-1.3) H 10/31/18 06:15 Random Glucose 151 mg/dL (74-106) H 10/31/18 06:15 Calcium 7.8 mg/dL (8.5-10.1) L 10/31/18 06:15 Total Bilirubin 0.4 mg/dL (0.2-1) 10/30/18 06:05 AST 16 U/L (15-37) 10/30/18 06:05 ALT 27 U/L (13-61) 10/30/18 06:05 Alkaline Phosphatase 141 U/L (45-117) H 10/30/18 06:05 Total Protein 5.2 g/dl (6.4-8.2) L 10/30/18 06:05 Albumin 1.9 g/dl (3.4-5.0) L 10/30/18 06:05 CARDIAC ENZYMES Creatine Kinase 51 U/L (26-192) 10/28/18 06:15 Troponin I 0.23 ng/ml (0.00-0.05) H 10/28/18 06:15 Assessment/Plan 68 yo F w a hx of anemia, CHF, CKD (baseline Cr 0.9-1) with mild proteinuira, CAD s/p recent cardiac stent, IDDM, HTN, and vertigo presents to the [facility] ER via private auto with the chief complaint of dizziness/room spinning and vomiting. Most of the history was provided by the patient's son and daughter at bedside. The son stated he brought his mother here because he is concerned that she has been experiencing multiple falls at home. The son has a video where the patient was standing in her home, lost her balance, experienced a bout of dizziness/room and head spinning and then tumbled to the ground smashing her head and neck. The patient experienced LOC and was stuck on the ground for close to 6 hours. This is all on the patient's video at home. The patient has been experiencing a significant amount of nausea and vomiting for the past month which is being worked up by Dr. Quispe as an outpatient. Patient endorsed right elbow pain from her most recent fall.The patient has been experiencing many bouts of NBNB vomiting and NB diarrhea for the past month. Patient has fallen and hit her head multiple times and takes aspirin and plavix. The patient denied having a headache, neck pain or blurry vision. The patient denies having experienced recent chest pain, SOB, or difficulty breathing. The patient denied dysuria, frequency, or urgency. Head and Cervical CT completed, mild degenerative changes, no acute intracranial changes. Head and Cervical CT completed, mild degenerative changes, no acute intracranial changes. MRI brain reviewed and discussed with patient, moderate volume loss but otherwise no acute changes. She denies new symptoms, states she had some difficulty with day vs night. Otherwise she feels at her baseline. Carotid dopplers read, showed possibly L vertebral stenosis, per notes, vascular did not recommend further intervention. Out of bed to chair this AM but reported she needed assistance. May benefit from rehab, rolling walker at bedside. No falls. Maintain hydration. Defer to primary team regarding placement/discharge planning.
[2018-10-31] MEDS ORDERED: DEXTROSE 5%-WATER - 50 ML IVPB ONE (09:14)
[2018-10-31] MEDS ORDERED: cefTRIAXone SODIUM 1 GM VIAL ONE (09:14)
[2018-10-31] MEDS ORDERED: PT OWN MED DRAWER 7, Y5N ONE ×2 (09:15→13:50)
[2018-10-31] MEDS: LOSARTAN POTASSIUM 25 MG TABLET PO SCH (09:24)
[2018-10-31] MEDS: FUROSEMIDE 40 MG TABLET (FP) PO SCH (09:24)
[2018-10-31] MEDS: MIDODRINE HCL 2.5 MG TABLET PO SCH ×3 (09:25→18:48)
[2018-10-31] MEDS: CLOPIDOGREL BISULFATE 75 MG TABLET (FP) PO SCH (09:25)
[2018-10-31] MEDS: metoPROLOL SUCCINATE 25 MG TAB.SR.24H (FP) PO SCH ×2 (09:25→21:46)
[2018-10-31] MEDS: amLODIPine BESYLATE 5 MG TABLET (FP) PO SCH (09:25)
[2018-10-31] MEDS: FERROUS SO4 325 MG TABLET (FP) PO SCH (09:25)
[2018-10-31] MEDS: DULoxetine HCL 20 MG CAPSULE.DR PO SCH (09:25)
[2018-10-31] MEDS: INSULIN (LEVEMIR) 100 UNITS/ML UNITS SQ SCH ×2 (09:26→21:47)
[2018-10-31] MEDS: POLYETHYLENE GLYCOL 3350 119 GM BTL PO SCH (09:26)
[2018-10-31] MEDS: HEPARIN NA (PORCINE) 5,000 UNITS/ML 1ML VIAL SQ SCH ×2 (09:26→21:46)
[2018-10-31] MEDS: CEFTRIAXONE 1 GM in DEXTROSE 5%-WATER - 50 ML IVPB SCH (09:27)
--- NOTE | 2018-10-31 10:44 | PN ---
Progress Note (short form) - Note Progress Note: s: no cp sob palp; dizzy better today - Current Medication List Current Medications Generic Name Dose Route Start Last Admin Trade Name Ariel PRN Reason Stop Dose Admin Amlodipine Besylate 5 mg 10/28/18 18:00 10/31/18 09:25 Norvasc - PO 5 mg DAILY [facility] Administration Atorvastatin Calcium 80 mg 10/26/18 22:00 10/30/18 22:03 Lipitor - PO 80 mg HS [facility] Administration Clopidogrel Bisulfate 75 mg 10/26/18 10:00 10/31/18 09:25 Plavix - PO 75 mg DAILY [facility] Administration Duloxetine HCl 20 mg 10/26/18 10:00 10/31/18 09:25 Cymbalta - PO 20 mg DAILY [facility] Administration Ezetimibe 10 mg 10/26/18 22:00 10/30/18 22:03 Zetia - PO 10 mg HS [facility] Administration Ferrous Sulfate 325 mg 10/26/18 10:00 10/31/18 09:25 Feosol - PO 325 mg DAILY [facility] Administration Furosemide 80 mg 10/26/18 10:00 10/31/18 09:24 Lasix - PO 80 mg DAILY [facility] Administration Heparin Sodium (Porcine) 5,000 unit 10/27/18 22:00 10/31/18 09:26 Heparin - SQ 5,000 unit BID [facility] Administration Ceftriaxone Sodium 1 gm/ 50 mls @ 100 mls/hr 10/26/18 10:00 10/31/18 09:27 Dextrose IVPB 100 mls/hr DAILY [facility] Administration Protocol Insulin Aspart 1 vial 10/27/18 07:00 10/31/18 06:59 Novolog Vial Sliding Scale - SQ 2 units ACHS [facility] Administration Protocol Insulin Detemir 20 units 10/30/18 10:00 10/31/18 09:26 Levemir Vial SQ 20 units BID [facility] Administration Losartan Potassium 25 mg 10/26/18 10:00 10/31/18 09:24 Cozaar - PO 25 mg DAILY [facility] Administration Meclizine HCl 12.5 mg 10/29/18 14:00 10/31/18 05:59 Antivert - PO 12.5 mg TID [facility] Administration Metoprolol Succinate 25 mg 10/27/18 17:45 10/31/18 09:25 Toprol Xl - PO 25 mg BID [facility] Administration Midodrine 2.5 mg 10/30/18 14:00 10/31/18 09:25 Proamatine - PO 2.5 mg TID-MID [facility] Administration Ondansetron HCl 4 mg 10/26/18 03:00 10/26/18 21:56 Zofran Injection IVPUSH 4 mg Q8H PRN Administration NAUSEA Polyethylene Glycol 17 gm 10/28/18 10:00 10/31/18 09:26 Miralax (For Daily Use) - PO 17 gm DAILY [facility] Administration Thiamine HCl 200 mg 10/28/18 21:15 10/31/18 05:59 Vitamin B1 Injection - IVPB 200 mg Q8H [facility] Administration Vital Signs Period Temp Pulse Resp BP Sys/Juarez Pulse Ox Last 24 Hr 98 F-98.8 F 53-69 18-20 126-176/46-78 95-95 Constitutional: Yes: No Distress Cardiovascular: Yes: Regular Rate and Rhythm Respiratory: Yes: CTA Bilaterally, nl eff Gastrointestinal: Yes: Soft, Abdomen, Obese Edema: trace le edema bl no jaundice diaphoresis CBC, BMP 10/30/18 06:05 10/31/18 06:15 echo 10/2018: nl lv/rv, mild tr, g2dd tele: sr Assessment/Plan IMP: 1. CAD s/p RAQUEL LAD 2018 2. Chronic anemia 3. Chronic diastolic CHF (normal LVEF on echo 07/2018) 4. CKD with proteinuria 5. + IRENE 6. Dizziness, lightheadedness of unclear etiology, possibly vertigo 7. Elevated TnI 8. Orthostatic hypotension 9. UTI, altered MS REC: 1. Telemetry to r/o arrhythmia thus far negative-->can dc now 2. Rx UTI per ID 3. Continue home meds for CAD including statin and Plavix. 5. Patient orthostatic: discontinued alpha steven and now on midodrine as well , sxs improved 6. Anemia w/u as per PMD, heme 7. TnI is flat and normal CK. No cardiac sx, no acute ECG changes. Likely elevated due to chronic CHF/CKD, possible demand ischemia from anemia. Does not represent type I CT. Echo here unremarkable. 8. Continue current bp meds. dc tele
--- NOTE | 2018-10-31 11:37 | PN ---
Progress Note, Physician History of Present Illness: davide no complaints c/o of leg pain and swelling - Current Medication List Current Medications: Active Medications Amlodipine Besylate (Norvasc -) 5 mg PO DAILY [facility] Last Admin: 10/31/18 09:25 Dose: 5 mg Atorvastatin Calcium (Lipitor -) 80 mg PO HS [facility] Last Admin: 10/30/18 22:03 Dose: 80 mg Clopidogrel Bisulfate (Plavix -) 75 mg PO DAILY [facility] Last Admin: 10/31/18 09:25 Dose: 75 mg Duloxetine HCl (Cymbalta -) 20 mg PO DAILY [facility] Last Admin: 10/31/18 09:25 Dose: 20 mg Ezetimibe (Zetia -) 10 mg PO HS [facility] Last Admin: 10/30/18 22:03 Dose: 10 mg Ferrous Sulfate (Feosol -) 325 mg PO DAILY [facility] Last Admin: 10/31/18 09:25 Dose: 325 mg Furosemide (Lasix -) 80 mg PO DAILY [facility] Last Admin: 10/31/18 09:24 Dose: 80 mg Heparin Sodium (Porcine) (Heparin -) 5,000 unit SQ BID [facility] Last Admin: 10/31/18 09:26 Dose: 5,000 unit Ceftriaxone Sodium 1 gm/ (Dextrose) 50 mls @ 100 mls/hr IVPB DAILY [facility]; Protocol Last Admin: 10/31/18 09:27 Dose: 100 mls/hr Insulin Aspart (Novolog Vial Sliding Scale -) 1 vial SQ ACHS [facility]; Protocol Last Admin: 10/31/18 06:59 Dose: 2 units Insulin Detemir (Levemir Vial) 20 units SQ BID [facility] Last Admin: 10/31/18 09:26 Dose: 20 units Losartan Potassium (Cozaar -) 25 mg PO DAILY [facility] Last Admin: 10/31/18 09:24 Dose: 25 mg Meclizine HCl (Antivert -) 12.5 mg PO TID [facility] Last Admin: 10/31/18 05:59 Dose: 12.5 mg Metoprolol Succinate (Toprol Xl -) 25 mg PO BID [facility] Last Admin: 10/31/18 09:25 Dose: 25 mg Midodrine (Proamatine -) 2.5 mg PO TID-MID [facility] Last Admin: 10/31/18 09:25 Dose: 2.5 mg Ondansetron HCl (Zofran Injection) 4 mg IVPUSH Q8H PRN PRN Reason: NAUSEA Last Admin: 10/26/18 21:56 Dose: 4 mg Polyethylene Glycol (Miralax (For Daily Use) -) 17 gm PO DAILY [facility] Last Admin: 10/31/18 09:26 Dose: 17 gm Thiamine HCl (Vitamin B1 Injection -) 200 mg IVPB Q8H [facility] Last Admin: 10/31/18 05:59 Dose: 200 mg - Objective Vital Signs: Vital Signs Temperature 98.5 F 10/31/18 09:00 Pulse Rate 60 10/31/18 09:00 Respiratory Rate 20 10/31/18 09:37 Blood Pressure 128/46 L 10/31/18 09:00 O2 Sat by Pulse Oximetry (%) 95 10/31/18 09:37 Constitutional: Yes: No Distress, Calm Cardiovascular: Yes: Regular Rate and Rhythm Respiratory: Yes: Regular, CTA Bilaterally Gastrointestinal: Yes: Normal Bowel Sounds, Soft Musculoskeletal: Yes: WNL Extremities: Yes: Other (swelling of the rt foot) Neurological: Yes: Alert, Oriented Psychiatric: Yes: Alert, Oriented Labs: CBC, BMP 10/30/18 06:05 10/31/18 06:15 INR, PTT INR 0.96 (0.83-1.09) 10/25/18 23:05 Assessment/Plan Problem List - Problems (1) Syncope and collapse Code(s): R55 - SYNCOPE AND COLLAPSE (2) Elevated troponin Code(s): R74.8 - ABNORMAL LEVELS OF OTHER SERUM ENZYMES (3) Anemia Code(s): D64.9 - ANEMIA, UNSPECIFIED (4) CAD (coronary artery disease) Code(s): I25.10 - ATHSCL HEART DISEASE OF [place] CORONARY ARTERY W/O ANG PCTRS (5) Diabetes Code(s): E11.9 - TYPE 2 DIABETES MELLITUS WITHOUT COMPLICATIONS (6) HTN (hypertension) Code(s): I10 - ESSENTIAL (PRIMARY) HYPERTENSION (7) HLD (hyperlipidemia) Code(s): E78.5 - HYPERLIPIDEMIA, UNSPECIFIED (8) Chronic diastolic heart failure Code(s): I50.32 - CHRONIC DIASTOLIC (CONGESTIVE) HEART FAILURE (9) CKD (chronic kidney disease) Code(s): N18.9 - CHRONIC KIDNEY DISEASE, UNSPECIFIED (10) Repeated falls Code(s): R29.6 - REPEATED FALLS (11) Depression Code(s): F32.9 - MAJOR DEPRESSIVE DISORDER, SINGLE EPISODE, UNSPECIFIED uti plan continue current mgmt as per neuro continue abx close watch rest as per the team
--- NOTE | 2018-10-31 12:40 | PN ---
Progress Note (short form) - Note Progress Note: Renal follow up for ANG Pt seen and examined at the bedside feels better no longer dizzy no sob, cp, abd pain tolerating oral diet Vital Signs Temperature 98.5 F 10/31/18 09:00 Pulse Rate 60 10/31/18 09:00 Respiratory Rate 20 10/31/18 09:37 Blood Pressure 128/46 L 10/31/18 09:00 O2 Sat by Pulse Oximetry (%) 95 10/31/18 09:37 Intake & Output 10/28/18 10/29/18 10/30/18 10/31/18 23:59 23:59 23:59 23:59 Intake Total 550 1440 870 340 Balance 550 1440 870 340 Weight 76.385 kg 74.571 kg 75.92 kg NAD RRR CTA soft NT/ND trace LE edema CBC, BMP 10/30/18 06:05 10/31/18 06:15 Current Medications Amlodipine Besylate (Norvasc -) 5 mg PO DAILY [facility] Last Admin: 10/31/18 09:25 Dose: 5 mg Atorvastatin Calcium (Lipitor -) 80 mg PO HS [facility] Last Admin: 10/30/18 22:03 Dose: 80 mg Clopidogrel Bisulfate (Plavix -) 75 mg PO DAILY [facility] Last Admin: 10/31/18 09:25 Dose: 75 mg Duloxetine HCl (Cymbalta -) 20 mg PO DAILY [facility] Last Admin: 10/31/18 09:25 Dose: 20 mg Ezetimibe (Zetia -) 10 mg PO HS [facility] Last Admin: 10/30/18 22:03 Dose: 10 mg Ferrous Sulfate (Feosol -) 325 mg PO DAILY [facility] Last Admin: 10/31/18 09:25 Dose: 325 mg Furosemide (Lasix -) 80 mg PO DAILY [facility] Last Admin: 10/31/18 09:24 Dose: 80 mg Heparin Sodium (Porcine) (Heparin -) 5,000 unit SQ BID [facility] Last Admin: 10/31/18 09:26 Dose: 5,000 unit Ceftriaxone Sodium 1 gm/ (Dextrose) 50 mls @ 100 mls/hr IVPB DAILY [facility]; Protocol Last Admin: 10/31/18 09:27 Dose: 100 mls/hr Insulin Aspart (Novolog Vial Sliding Scale -) 1 vial SQ ACHS [facility]; Protocol Last Admin: 10/31/18 06:59 Dose: 2 units Insulin Detemir (Levemir Vial) 20 units SQ BID [facility] Last Admin: 10/31/18 09:26 Dose: 20 units Losartan Potassium (Cozaar -) 25 mg PO DAILY [facility] Last Admin: 10/31/18 09:24 Dose: 25 mg Meclizine HCl (Antivert -) 12.5 mg PO TID [facility] Last Admin: 10/31/18 05:59 Dose: 12.5 mg Metoprolol Succinate (Toprol Xl -) 25 mg PO BID [facility] Last Admin: 10/31/18 09:25 Dose: 25 mg Midodrine (Proamatine -) 2.5 mg PO TID-MID [facility] Last Admin: 10/31/18 09:25 Dose: 2.5 mg Ondansetron HCl (Zofran Injection) 4 mg IVPUSH Q8H PRN PRN Reason: NAUSEA Last Admin: 10/26/18 21:56 Dose: 4 mg Polyethylene Glycol (Miralax (For Daily Use) -) 17 gm PO DAILY [facility] Last Admin: 10/31/18 09:26 Dose: 17 gm Thiamine HCl (Vitamin B1 Injection -) 200 mg IVPB Q8H [facility] Last Admin: 10/31/18 05:59 Dose: 200 mg 68 year old woman with hx of CKD with nephrotic range proteinuria, + IRENE, ( normal DS-DNA, Negative ANCA), CAD s/p PCI, DM, hypertension presented with dizziness with elevated BUN/Cr #ANG vs. CKD #Proteinuria #Dizziness #Hypertension #Hx of Edema #CAD Renal function stable Noted to have IRENE in the past but normal Anti-DS DNA. Was seen by rheum and was not thought to have SLE. May benefit from a renal biopsy at some point but not while pt has to be maintained on plavixx on Lasix and Losartan continue Midodrine 2.5mg TID for orthostatic hypotension, follow up orthostatic vitals Anemia work up as per GI Check SPEP f/u iron studies cardiology follow up, off alpha steven Tele monitoring Thank you Will follow Clinton Manjarrez DO
[2018-10-31 18:13] LABS: FREE KAPPA,SERUM 46.5 mg/L (3.3-19.4)
[2018-10-31] MEDS: ATORVASTATIN CA 80 MG TABLET (FP) PO SCH (21:46)
[2018-10-31] MEDS: EZETIMIBE 10 MG TABLET (FP) PO SCH (21:46)
--- NOTE | 2018-10-31 22:31 | PN ---
Progress Note, Physician - Current Medication List Current Medications: Active Medications Amlodipine Besylate (Norvasc -) 5 mg PO DAILY [facility] Last Admin: 10/31/18 09:25 Dose: 5 mg Atorvastatin Calcium (Lipitor -) 80 mg PO HS [facility] Last Admin: 10/31/18 21:46 Dose: 80 mg Clopidogrel Bisulfate (Plavix -) 75 mg PO DAILY [facility] Last Admin: 10/31/18 09:25 Dose: 75 mg Duloxetine HCl (Cymbalta -) 20 mg PO DAILY [facility] Last Admin: 10/31/18 09:25 Dose: 20 mg Ezetimibe (Zetia -) 10 mg PO HS [facility] Last Admin: 10/31/18 21:46 Dose: 10 mg Ferrous Sulfate (Feosol -) 325 mg PO DAILY [facility] Last Admin: 10/31/18 09:25 Dose: 325 mg Furosemide (Lasix -) 80 mg PO DAILY [facility] Last Admin: 10/31/18 09:24 Dose: 80 mg Heparin Sodium (Porcine) (Heparin -) 5,000 unit SQ BID [facility] Last Admin: 10/31/18 21:46 Dose: 5,000 unit Ceftriaxone Sodium 1 gm/ (Dextrose) 50 mls @ 100 mls/hr IVPB DAILY [facility]; Protocol Last Admin: 10/31/18 09:27 Dose: 100 mls/hr Insulin Aspart (Novolog Vial Sliding Scale -) 1 vial SQ ACHS [facility]; Protocol Last Admin: 10/31/18 21:47 Dose: 2 units Insulin Detemir (Levemir Vial) 20 units SQ BID [facility] Last Admin: 10/31/18 21:47 Dose: 20 units Losartan Potassium (Cozaar -) 25 mg PO DAILY [facility] Last Admin: 10/31/18 09:24 Dose: 25 mg Meclizine HCl (Antivert -) 12.5 mg PO TID [facility] Last Admin: 10/31/18 21:46 Dose: 12.5 mg Metoprolol Succinate (Toprol Xl -) 25 mg PO BID [facility] Last Admin: 10/31/18 21:46 Dose: 25 mg Midodrine (Proamatine -) 2.5 mg PO TID-MID [facility] Last Admin: 10/31/18 18:48 Dose: 2.5 mg Ondansetron HCl (Zofran Injection) 4 mg IVPUSH Q8H PRN PRN Reason: NAUSEA Last Admin: 10/26/18 21:56 Dose: 4 mg Polyethylene Glycol (Miralax (For Daily Use) -) 17 gm PO DAILY [facility] Last Admin: 10/31/18 09:26 Dose: 17 gm Thiamine HCl (Vitamin B1 Injection -) 200 mg IVPB Q8H [facility] Last Admin: 10/31/18 21:45 Dose: 200 mg - Objective Vital Signs: Vital Signs Temperature 98.5 F 10/31/18 21:00 Pulse Rate 69 10/31/18 21:00 Respiratory Rate 18 10/31/18 21:00 Blood Pressure 149/69 10/31/18 21:00 O2 Sat by Pulse Oximetry (%) 97 10/31/18 21:00 Labs: CBC, BMP 10/30/18 06:05 10/31/18 06:15 INR, PTT INR 0.96 (0.83-1.09) 10/25/18 23:05 Problem List - Problems (1) Nausea & vomiting Code(s): R11.2 - NAUSEA WITH VOMITING, UNSPECIFIED Qualifiers: Vomiting type: unspecified Vomiting Intractability: non-intractable Qualified Code(s): R11.2 - Nausea with vomiting, unspecified (2) Syncope and collapse Code(s): R55 - SYNCOPE AND COLLAPSE (3) Elevated troponin Code(s): R74.8 - ABNORMAL LEVELS OF OTHER SERUM ENZYMES (4) Anemia Code(s): D64.9 - ANEMIA, UNSPECIFIED (5) CAD (coronary artery disease) Code(s): I25.10 - ATHSCL HEART DISEASE OF [place] CORONARY ARTERY W/O ANG PCTRS (6) Diabetes Code(s): E11.9 - TYPE 2 DIABETES MELLITUS WITHOUT COMPLICATIONS (7) HTN (hypertension) Code(s): I10 - ESSENTIAL (PRIMARY) HYPERTENSION (8) HLD (hyperlipidemia) Code(s): E78.5 - HYPERLIPIDEMIA, UNSPECIFIED (9) Chronic diastolic heart failure Code(s): I50.32 - CHRONIC DIASTOLIC (CONGESTIVE) HEART FAILURE (10) CKD (chronic kidney disease) Code(s): N18.9 - CHRONIC KIDNEY DISEASE, UNSPECIFIED (11) Repeated falls Code(s): R29.6 - REPEATED FALLS (12) Depression Code(s): F32.9 - MAJOR DEPRESSIVE DISORDER, SINGLE EPISODE, UNSPECIFIED
[2018-11-01] MEDS: INSULIN SLIDING SCALE (NOVOLOG) 1 VIAL SQ SCH ×2 (06:16→12:25)
[2018-11-01] MEDS: THIAMINE HCL 200 MG/2 ML VIAL IVPB SCH ×2 (06:16→14:44)
[2018-11-01] MEDS: MECLIZINE HCL 25 MG TABLET (FP) PO SCH ×2 (06:16→14:45)
--- NOTE | 2018-11-01 08:51 | PN ---
Progress Note, Physician Chief Complaint: no new complaints TELE:Sinus alistair - Current Medication List Current Medications: Active Medications Amlodipine Besylate (Norvasc -) 5 mg PO DAILY [facility] Last Admin: 10/31/18 09:25 Dose: 5 mg Atorvastatin Calcium (Lipitor -) 80 mg PO HS [facility] Last Admin: 10/31/18 21:46 Dose: 80 mg Clopidogrel Bisulfate (Plavix -) 75 mg PO DAILY [facility] Last Admin: 10/31/18 09:25 Dose: 75 mg Duloxetine HCl (Cymbalta -) 20 mg PO DAILY [facility] Last Admin: 10/31/18 09:25 Dose: 20 mg Ezetimibe (Zetia -) 10 mg PO HS [facility] Last Admin: 10/31/18 21:46 Dose: 10 mg Ferrous Sulfate (Feosol -) 325 mg PO DAILY [facility] Last Admin: 10/31/18 09:25 Dose: 325 mg Furosemide (Lasix -) 80 mg PO DAILY [facility] Last Admin: 10/31/18 09:24 Dose: 80 mg Heparin Sodium (Porcine) (Heparin -) 5,000 unit SQ BID [facility] Last Admin: 10/31/18 21:46 Dose: 5,000 unit Ceftriaxone Sodium 1 gm/ (Dextrose) 50 mls @ 100 mls/hr IVPB DAILY [facility]; Protocol Last Admin: 10/31/18 09:27 Dose: 100 mls/hr Insulin Aspart (Novolog Vial Sliding Scale -) 1 vial SQ ACHS [facility]; Protocol Last Admin: 11/01/18 06:16 Dose: 4 units Insulin Detemir (Levemir Vial) 20 units SQ BID [facility] Last Admin: 10/31/18 21:47 Dose: 20 units Losartan Potassium (Cozaar -) 25 mg PO DAILY [facility] Last Admin: 10/31/18 09:24 Dose: 25 mg Meclizine HCl (Antivert -) 12.5 mg PO TID [facility] Last Admin: 11/01/18 06:16 Dose: 12.5 mg Metoprolol Succinate (Toprol Xl -) 25 mg PO BID [facility] Last Admin: 10/31/18 21:46 Dose: 25 mg Midodrine (Proamatine -) 2.5 mg PO TID-MID [facility] Last Admin: 10/31/18 18:48 Dose: 2.5 mg Ondansetron HCl (Zofran Injection) 4 mg IVPUSH Q8H PRN PRN Reason: NAUSEA Last Admin: 10/26/18 21:56 Dose: 4 mg Polyethylene Glycol (Miralax (For Daily Use) -) 17 gm PO DAILY [facility] Last Admin: 10/31/18 09:26 Dose: 17 gm Thiamine HCl (Vitamin B1 Injection -) 200 mg IVPB Q8H [facility] Last Admin: 11/01/18 06:16 Dose: 200 mg - Objective Vital Signs: Vital Signs Temperature 98.2 F 11/01/18 08:13 Pulse Rate 63 11/01/18 06:00 Respiratory Rate 20 11/01/18 08:18 Blood Pressure 162/58 L 11/01/18 08:13 O2 Sat by Pulse Oximetry (%) 97 11/01/18 08:18 Constitutional: Yes: No Distress Cardiovascular: Yes: Regular Rate and Rhythm Respiratory: Yes: CTA Bilaterally Gastrointestinal: Yes: Soft, Abdomen, Obese Edema: No Neurological: Yes: Alert, Oriented Labs: CBC, BMP 10/30/18 06:05 10/31/18 06:15 INR, PTT INR 0.96 (0.83-1.09) 10/25/18 23:05 Assessment/Plan Assessment/Plan IMP: 1. CAD s/p RAQUEL LAD 2018 2. Chronic anemia 3. Chronic diastolic CHF (normal LVEF on echo 07/2018) 4. CKD with proteinuria 5. + IRENE 6. Dizziness, lightheadedness of unclear etiology, possibly vertigo 7. Elevated TnI 8. Orthostatic hypotension 9. UTI, altered MS REC: 1. Telemetry to r/o arrhythmia thus far negative-->can dc now 2. Rx UTI per ID 3. Continue home meds for CAD including statin and Plavix. 5. Patient orthostatic: discontinued alpha steven and now on midodrine as well , sxs improved 6. Anemia w/u as per PMD, heme 7. TnI is flat and normal CK. No cardiac sx, no acute ECG changes. Likely elevated due to chronic CHF/CKD, possible demand ischemia from anemia. Does not represent type I NV. Echo here unremarkable. 8. Continue current bp meds. dc tele
--- NOTE | 2018-11-01 08:52 | PN ---
Progress Note (short form) - Note Progress Note: Neurology - History of Present Illness 68 yo F w a hx of anemia, CHF, CKD (baseline Cr 0.9-1) with mild proteinuira, CAD s/p recent cardiac stent, IDDM, HTN, and vertigo presents to the [facility] ER via private auto with the chief complaint of dizziness/room spinning and vomiting. Most of the history was provided by the patient's son and daughter at bedside. The son stated he brought his mother here because he is concerned that she has been experiencing multiple falls at home. The son has a video where the patient was standing in her home, lost her balance, experienced a bout of dizziness/room and head spinning and then tumbled to the ground smashing her head and neck. The patient experienced LOC and was stuck on the ground for close to 6 hours. This is all on the patient's video at home. The patient has been experiencing a significant amount of nausea and vomiting for the past month which is being worked up by Dr. Quispe as an outpatient. Patient endorsed right elbow pain from her most recent fall.The patient has been experiencing many bouts of NBNB vomiting and NB diarrhea for the past month. Patient has fallen and hit her head multiple times and takes aspirin and plavix. The patient denied having a headache, neck pain or blurry vision. The patient denies having experienced recent chest pain, SOB, or difficulty breathing. The patient denied dysuria, frequency, or urgency. Head and Cervical CT completed, mild degenerative changes, no acute intracranial changes . Carotid dopplers read , showed possibly L vertebral stenosis, per notes, vascular did not recommend further intervention. Heme note reviewed, patient without new complaints. Remains stable, notes reviewed, patient being planned for discharge but placement complications as patient able to ambulate 300 feet per notes. Allergies Allergy/AdvReac Type Severity Reaction Status Date / Time azithromycin [From Zithromax] Allergy Verified 10/25/18 21:51 Home Medications: Ambulatory Orders Aspirin [ASA -] 81 mg PO HS 07/10/18 Atorvastatin Ca [Lipitor] 80 mg PO HS 07/10/18 Doxazosin Mesylate 2 mg PO DAILY 07/10/18 Ezetimibe [Zetia] 10 mg PO HS 07/10/18 Ferrous Sulfate [Feosol] 325 mg PO DAILY 07/10/18 Meclizine HCl 12.5 mg PO DAILY 07/10/18 Metoprolol Succinate 25 mg PO HS 07/10/18 Aspirin Coated [Ecotrin -] 81 mg PO HS #30 tablet.ec 07/16/18 Clopidogrel Bisulfate [Plavix -] 75 mg PO HS tablet 07/16/18 Furosemide Oral Solution [Lasix Oral Solution -] 80 mg PO DAILY #30 udc Losartan Potassium [Cozaar -] 25 mg PO DAILY #30 tablet 07/16/18 Duloxetine HCl 20 mg PO DAILY 10/26/18 Insulin Lispro [Humalog] 20 unit SQ DAILY 10/26/18 Active Medications Amlodipine Besylate (Norvasc -) 5 mg PO DAILY [facility] Last Admin: 10/31/18 09:25 Dose: 5 mg Atorvastatin Calcium (Lipitor -) 80 mg PO HS [facility] Last Admin: 10/31/18 21:46 Dose: 80 mg Clopidogrel Bisulfate (Plavix -) 75 mg PO DAILY [facility] Last Admin: 10/31/18 09:25 Dose: 75 mg Duloxetine HCl (Cymbalta -) 20 mg PO DAILY [facility] Last Admin: 10/31/18 09:25 Dose: 20 mg Ezetimibe (Zetia -) 10 mg PO HS [facility] Last Admin: 10/31/18 21:46 Dose: 10 mg Ferrous Sulfate (Feosol -) 325 mg PO DAILY [facility] Last Admin: 10/31/18 09:25 Dose: 325 mg Furosemide (Lasix -) 80 mg PO DAILY [facility] Last Admin: 10/31/18 09:24 Dose: 80 mg Heparin Sodium (Porcine) (Heparin -) 5,000 unit SQ BID [facility] Last Admin: 10/31/18 21:46 Dose: 5,000 unit Ceftriaxone Sodium 1 gm/ (Dextrose) 50 mls @ 100 mls/hr IVPB DAILY [facility]; Protocol Last Admin: 10/31/18 09:27 Dose: 100 mls/hr Insulin Aspart (Novolog Vial Sliding Scale -) 1 vial SQ ACHS [facility]; Protocol Last Admin: 11/01/18 06:16 Dose: 4 units Insulin Detemir (Levemir Vial) 20 units SQ BID [facility] Last Admin: 10/31/18 21:47 Dose: 20 units Losartan Potassium (Cozaar -) 25 mg PO DAILY [facility] Last Admin: 10/31/18 09:24 Dose: 25 mg Meclizine HCl (Antivert -) 12.5 mg PO TID [facility] Last Admin: 11/01/18 06:16 Dose: 12.5 mg Metoprolol Succinate (Toprol Xl -) 25 mg PO BID [facility] Last Admin: 10/31/18 21:46 Dose: 25 mg Midodrine (Proamatine -) 2.5 mg PO TID-MID [facility] Last Admin: 10/31/18 18:48 Dose: 2.5 mg Ondansetron HCl (Zofran Injection) 4 mg IVPUSH Q8H PRN PRN Reason: NAUSEA Last Admin: 10/26/18 21:56 Dose: 4 mg Polyethylene Glycol (Miralax (For Daily Use) -) 17 gm PO DAILY [facility] Last Admin: 10/31/18 09:26 Dose: 17 gm Thiamine HCl (Vitamin B1 Injection -) 200 mg IVPB Q8H [facility] Last Admin: 11/01/18 06:16 Dose: 200 mg *Physical Exam Vital Signs Period Temp Pulse Resp BP Sys/Juarez Pulse Ox Last 24 Hr 98.2 F-98.5 F 54-69 18-20 128-162/46-78 95-97 GENERAL: Patient appears to have a depressed affect. Well-nourished. No apparent distress. HEENT: Normocephalic, atraumatic. PERRL, EOM intact. CARDIOVASCULAR: Normal S1, S2. Regular rate and rhythm. PULMONARY: No evidence of respiratory distress. Lungs clear to auscultation bilaterally. No wheezing, rales or rhonchi. ABDOMEN: Soft, non-distended, non-tender. EXTREMITIES: Mild TTP in the right elbow and right upper arm. Normal ROM in all four extremities. No gross deformities. SKIN: Warm, dry. No rash NEUROLOGICAL: Alert, awake, appropriate. Cranial nerves 2-12 intact. No deficits to light touch in face, upper extremities and lower extremities. No motor deficits in the in face, upper extremities and lower extremities. No pronator drift. Normal speech. Gait is normal without ataxia. No dysmetria. CBCD WBC 7.2 K/mm3 (4.0-10.0) 10/30/18 06:05 RBC 3.26 M/mm3 (3.60-5.2) L 10/30/18 06:05 Hgb 9.5 GM/dL (10.7-15.3) L 10/30/18 06:05 Hct 27.6 % (32.4-45.2) L 10/30/18 06:05 MCV 84.6 fl (80-96) 10/30/18 06:05 MCHC 34.3 g/dl (32.0-36.0) 10/30/18 06:05 RDW 15.0 % (11.6-15.6) 10/30/18 06:05 Plt Count 311 K/MM3 (134-434) 10/30/18 06:05 MPV 7.3 fl (7.5-11.1) L 10/30/18 06:05 CMP Sodium 139 mmol/L (136-145) 10/31/18 06:15 Potassium 4.2 mmol/L (3.5-5.1) 10/31/18 06:15 Chloride 108 mmol/L (98-107) H 10/31/18 06:15 Carbon Dioxide 25 mmol/L (21-32) 10/31/18 06:15 Anion Gap 6 MMOL/L (8-16) L 10/31/18 06:15 BUN 29.9 mg/dL (7-18) H 10/31/18 06:15 Creatinine 1.5 mg/dL (0.55-1.3) H 10/31/18 06:15 Random Glucose 151 mg/dL (74-106) H 10/31/18 06:15 Calcium 7.8 mg/dL (8.5-10.1) L 10/31/18 06:15 Total Bilirubin 0.4 mg/dL (0.2-1) 10/30/18 06:05 AST 16 U/L (15-37) 10/30/18 06:05 ALT 27 U/L (13-61) 10/30/18 06:05 Alkaline Phosphatase 141 U/L (45-117) H 10/30/18 06:05 Total Protein 5.2 g/dl (6.4-8.2) L 10/30/18 06:05 Albumin 1.9 g/dl (3.4-5.0) L 10/30/18 06:05 CARDIAC ENZYMES Creatine Kinase 51 U/L (26-192) 10/28/18 06:15 Troponin I 0.23 ng/ml (0.00-0.05) H 10/28/18 06:15 Assessment/Plan 68 yo F w a hx of anemia, CHF, CKD (baseline Cr 0.9-1) with mild proteinuira, CAD s/p recent cardiac stent, IDDM, HTN, and vertigo presents to the [facility] ER via private auto with the chief complaint of dizziness/room spinning and vomiting. Most of the history was provided by the patient's son and daughter at bedside. The son stated he brought his mother here because he is concerned that she has been experiencing multiple falls at home. The son has a video where the patient was standing in her home, lost her balance, experienced a bout of dizziness/room and head spinning and then tumbled to the ground smashing her head and neck. The patient experienced LOC and was stuck on the ground for close to 6 hours. This is all on the patient's video at home. The patient has been experiencing a significant amount of nausea and vomiting for the past month which is being worked up by Dr. Quispe as an outpatient. Patient endorsed right elbow pain from her most recent fall.The patient has been experiencing many bouts of NBNB vomiting and NB diarrhea for the past month. Patient has fallen and hit her head multiple times and takes aspirin and plavix. The patient denied having a headache, neck pain or blurry vision. The patient denies having experienced recent chest pain, SOB, or difficulty breathing. The patient denied dysuria, frequency, or urgency. Head and Cervical CT completed, mild degenerative changes, no acute intracranial changes. Head and Cervical CT completed, mild degenerative changes, no acute intracranial changes. MRI brain reviewed and discussed with patient, moderate volume loss but otherwise no acute changes. She denies new symptoms, states she had some difficulty with day vs night. Otherwise she feels at her baseline. Carotid dopplers read, showed possibly L vertebral stenosis, per notes, vascular did not recommend further intervention. Remains stable, notes reviewed, patient being planned for discharge but placement complications as patient able to ambulate 300 feet per notes. Maintain hydration. Defer to primary team regarding placement/discharge planning. Neurologically stable
[2018-11-01] MEDS ORDERED: cefTRIAXone SODIUM 1 GM VIAL ONE (09:32)
[2018-11-01] MEDS ORDERED: DEXTROSE 5%-WATER - 50 ML IVPB ONE (09:33)
--- NOTE | 2018-11-01 09:38 | PN ---
Progress Note, Physician History of Present Illness: stable say no issues except leg more swelling some tenderness - Current Medication List Current Medications: Active Medications Amlodipine Besylate (Norvasc -) 5 mg PO DAILY [facility] Last Admin: 10/31/18 09:25 Dose: 5 mg Atorvastatin Calcium (Lipitor -) 80 mg PO HS [facility] Last Admin: 10/31/18 21:46 Dose: 80 mg Clopidogrel Bisulfate (Plavix -) 75 mg PO DAILY [facility] Last Admin: 10/31/18 09:25 Dose: 75 mg Duloxetine HCl (Cymbalta -) 20 mg PO DAILY [facility] Last Admin: 10/31/18 09:25 Dose: 20 mg Ezetimibe (Zetia -) 10 mg PO HS [facility] Last Admin: 10/31/18 21:46 Dose: 10 mg Ferrous Sulfate (Feosol -) 325 mg PO DAILY [facility] Last Admin: 10/31/18 09:25 Dose: 325 mg Furosemide (Lasix -) 80 mg PO DAILY [facility] Last Admin: 10/31/18 09:24 Dose: 80 mg Heparin Sodium (Porcine) (Heparin -) 5,000 unit SQ BID [facility] Last Admin: 10/31/18 21:46 Dose: 5,000 unit Ceftriaxone Sodium 1 gm/ (Dextrose) 50 mls @ 100 mls/hr IVPB DAILY [facility]; Protocol Last Admin: 10/31/18 09:27 Dose: 100 mls/hr Insulin Aspart (Novolog Vial Sliding Scale -) 1 vial SQ ACHS [facility]; Protocol Last Admin: 11/01/18 06:16 Dose: 4 units Insulin Detemir (Levemir Vial) 20 units SQ BID [facility] Last Admin: 10/31/18 21:47 Dose: 20 units Losartan Potassium (Cozaar -) 25 mg PO DAILY [facility] Last Admin: 10/31/18 09:24 Dose: 25 mg Meclizine HCl (Antivert -) 12.5 mg PO TID [facility] Last Admin: 11/01/18 06:16 Dose: 12.5 mg Metoprolol Succinate (Toprol Xl -) 25 mg PO BID [facility] Last Admin: 10/31/18 21:46 Dose: 25 mg Midodrine (Proamatine -) 2.5 mg PO TID-MID [facility] Last Admin: 10/31/18 18:48 Dose: 2.5 mg Ondansetron HCl (Zofran Injection) 4 mg IVPUSH Q8H PRN PRN Reason: NAUSEA Last Admin: 10/26/18 21:56 Dose: 4 mg Polyethylene Glycol (Miralax (For Daily Use) -) 17 gm PO DAILY [facility] Last Admin: 10/31/18 09:26 Dose: 17 gm Thiamine HCl (Vitamin B1 Injection -) 200 mg IVPB Q8H [facility] Last Admin: 11/01/18 06:16 Dose: 200 mg - Objective Vital Signs: Vital Signs Temperature 98.2 F 11/01/18 08:13 Pulse Rate 63 11/01/18 06:00 Respiratory Rate 20 11/01/18 08:18 Blood Pressure 162/58 L 11/01/18 08:13 O2 Sat by Pulse Oximetry (%) 97 11/01/18 08:18 Constitutional: Yes: No Distress, Calm Cardiovascular: Yes: S1, S2 Respiratory: Yes: Regular, CTA Bilaterally Musculoskeletal: Yes: WNL Extremities: Yes: Other (rt ankle swelling/rt foot swelling) Neurological: Yes: Alert, Oriented Psychiatric: Yes: Alert, Oriented Labs: CBC, BMP 10/30/18 06:05 10/31/18 06:15 INR, PTT INR 0.96 (0.83-1.09) 10/25/18 23:05 Assessment/Plan Problem List - Problems (1) Syncope and collapse Code(s): R55 - SYNCOPE AND COLLAPSE (2) Elevated troponin Code(s): R74.8 - ABNORMAL LEVELS OF OTHER SERUM ENZYMES (3) Anemia Code(s): D64.9 - ANEMIA, UNSPECIFIED (4) CAD (coronary artery disease) Code(s): I25.10 - ATHSCL HEART DISEASE OF [place] CORONARY ARTERY W/O ANG PCTRS (5) Diabetes Code(s): E11.9 - TYPE 2 DIABETES MELLITUS WITHOUT COMPLICATIONS (6) HTN (hypertension) Code(s): I10 - ESSENTIAL (PRIMARY) HYPERTENSION (7) HLD (hyperlipidemia) Code(s): E78.5 - HYPERLIPIDEMIA, UNSPECIFIED (8) Chronic diastolic heart failure Code(s): I50.32 - CHRONIC DIASTOLIC (CONGESTIVE) HEART FAILURE (9) CKD (chronic kidney disease) Code(s): N18.9 - CHRONIC KIDNEY DISEASE, UNSPECIFIED (10) Repeated falls Code(s): R29.6 - REPEATED FALLS (11) Depression Code(s): F32.9 - MAJOR DEPRESSIVE DISORDER, SINGLE EPISODE, UNSPECIFIED uti plan can change to oral abx augmentin for another 3 days leg elevation rest as per the team
[2018-11-01] MEDS: INSULIN (LEVEMIR) 100 UNITS/ML UNITS SQ SCH (09:48)
[2018-11-01] MEDS: FUROSEMIDE 40 MG TABLET (FP) PO SCH (09:48)
[2018-11-01] MEDS: LOSARTAN POTASSIUM 25 MG TABLET PO SCH (09:49)
[2018-11-01] MEDS: DULoxetine HCL 20 MG CAPSULE.DR PO SCH (09:49)
[2018-11-01] MEDS: FERROUS SO4 325 MG TABLET (FP) PO SCH (09:49)
[2018-11-01] MEDS: HEPARIN NA (PORCINE) 5,000 UNITS/ML 1ML VIAL SQ SCH (09:49)
[2018-11-01] MEDS: amLODIPine BESYLATE 5 MG TABLET (FP) PO SCH (09:49)
[2018-11-01] MEDS: metoPROLOL SUCCINATE 25 MG TAB.SR.24H (FP) PO SCH (09:49)
[2018-11-01] MEDS: CLOPIDOGREL BISULFATE 75 MG TABLET (FP) PO SCH (09:49)
[2018-11-01] MEDS: MIDODRINE HCL 2.5 MG TABLET PO SCH ×2 (10:24→14:45)
[2018-11-01] MEDS: CEFTRIAXONE 1 GM in DEXTROSE 5%-WATER - 50 ML IVPB SCH (10:25)
--- NOTE | 2018-11-01 11:56 | PN ---
Progress Note, Physician Chief Complaint: The patient seen and examined in her room. Denies any chest pain. No shortness of breath. Maintains good urine output. Has long standing Diabetes mellitus, with proteinuria. The patient offers no new complaints History of Present Illness: this is a 68-year-old female with the history of long-standing diabetes mellitus , proteinuria and chronic kidney disease who presented to the hospital with history of dizziness and the finding of elevated BUN and creatinine from her baseline The patient has history of hypertension, history of lower extremity edema, coronary artery disease. She also has a positive IRENE but negative [id number] DNA. She had been followed by a president celebrity acquistion in the past - Current Medication List Current Medications: Active Medications Amlodipine Besylate (Norvasc -) 5 mg PO DAILY [facility] Last Admin: 11/01/18 09:49 Dose: 5 mg Atorvastatin Calcium (Lipitor -) 80 mg PO HS [facility] Last Admin: 10/31/18 21:46 Dose: 80 mg Clopidogrel Bisulfate (Plavix -) 75 mg PO DAILY [facility] Last Admin: 11/01/18 09:49 Dose: 75 mg Duloxetine HCl (Cymbalta -) 20 mg PO DAILY [facility] Last Admin: 11/01/18 09:49 Dose: 20 mg Ezetimibe (Zetia -) 10 mg PO HS [facility] Last Admin: 10/31/18 21:46 Dose: 10 mg Ferrous Sulfate (Feosol -) 325 mg PO DAILY [facility] Last Admin: 11/01/18 09:49 Dose: 325 mg Furosemide (Lasix -) 80 mg PO DAILY [facility] Last Admin: 11/01/18 09:48 Dose: 80 mg Heparin Sodium (Porcine) (Heparin -) 5,000 unit SQ BID [facility] Last Admin: 11/01/18 09:49 Dose: 5,000 unit Ceftriaxone Sodium 1 gm/ (Dextrose) 50 mls @ 100 mls/hr IVPB DAILY [facility]; Protocol Last Admin: 10/31/18 09:27 Dose: 100 mls/hr Insulin Aspart (Novolog Vial Sliding Scale -) 1 vial SQ ACHS [facility]; Protocol Last Admin: 11/01/18 06:16 Dose: 4 units Insulin Detemir (Levemir Vial) 20 units SQ BID [facility] Last Admin: 11/01/18 09:48 Dose: 20 units Losartan Potassium (Cozaar -) 25 mg PO DAILY [facility] Last Admin: 11/01/18 09:49 Dose: 25 mg Meclizine HCl (Antivert -) 12.5 mg PO TID [facility] Last Admin: 11/01/18 06:16 Dose: 12.5 mg Metoprolol Succinate (Toprol Xl -) 25 mg PO BID [facility] Last Admin: 11/01/18 09:49 Dose: 25 mg Midodrine (Proamatine -) 2.5 mg PO TID-MID [facility] Last Admin: 10/31/18 18:48 Dose: 2.5 mg Ondansetron HCl (Zofran Injection) 4 mg IVPUSH Q8H PRN PRN Reason: NAUSEA Last Admin: 10/26/18 21:56 Dose: 4 mg Polyethylene Glycol (Miralax (For Daily Use) -) 17 gm PO DAILY [facility] Last Admin: 10/31/18 09:26 Dose: 17 gm Thiamine HCl (Vitamin B1 Injection -) 200 mg IVPB Q8H [facility] Last Admin: 11/01/18 06:16 Dose: 200 mg - Objective Vital Signs: Vital Signs Temperature 98.2 F 11/01/18 08:13 Pulse Rate 63 11/01/18 06:00 Respiratory Rate 20 11/01/18 10:00 Blood Pressure 162/58 L 11/01/18 08:13 O2 Sat by Pulse Oximetry (%) 97 11/01/18 08:18 Constitutional: Yes: Well Nourished, Calm Eyes: Yes: Conjunctiva Clear HENT: Yes: Normocephalic Neck: Yes: Supple Respiratory: Yes: Regular Gastrointestinal: Yes: Normal Bowel Sounds, Soft, Abdomen, Obese Edema: LLE: Trace, RLE: Trace Neurological: Yes: Alert, Oriented Labs: CBC, BMP 10/30/18 06:05 10/31/18 06:15 INR, PTT INR 0.96 (0.83-1.09) 10/25/18 23:05 Problem List - Problems (1) ANG (acute kidney injury) Code(s): N17.9 - ACUTE KIDNEY FAILURE, UNSPECIFIED (2) CKD (chronic kidney disease) Code(s): N18.9 - CHRONIC KIDNEY DISEASE, UNSPECIFIED (3) Chronic diastolic heart failure Code(s): I50.32 - CHRONIC DIASTOLIC (CONGESTIVE) HEART FAILURE (4) Syncope and collapse Code(s): R55 - SYNCOPE AND COLLAPSE (5) Weakness Code(s): R53.1 - WEAKNESS (6) Anemia Code(s): D64.9 - ANEMIA, UNSPECIFIED (7) CAD (coronary artery disease) Code(s): I25.10 - ATHSCL HEART DISEASE OF [place] CORONARY ARTERY W/O ANG PCTRS (8) Diabetic neuropathy Code(s): E11.40 - TYPE 2 DIABETES MELLITUS WITH DIABETIC NEUROPATHY, UNSP (9) HTN (hypertension) Code(s): I10 - ESSENTIAL (PRIMARY) HYPERTENSION Assessment/Plan The patient is a 68-year-old female with the chronic kidney disease. She has been admitted with an episode of syncope at which time she was found to have BUN and creatinine elevated above her baseline. Chronic kidney disease with acute kidney injury superimposed. The AK on IV seems to be related to hemodynamic changes are and compromised renal perfusion during his syncopal episode. There is edema is improving towards her baseline and is expected to settle at her baseline. Hypertension seems to be fluctuating at this point.if the blood pressure remains elevated, the medications could be modified. Proteinuria, most likely from diabetic nephropathy. But with a history of positive IRENE for a long time and the uncertainty of a rheumatology diagnosis, it is prudent to consider a renal biopsy in the future. We will continue the current regimen at this point. We will monitor the renal functions with you. Liliana Falcon MD
--- NOTE | 2018-11-01 12:17 | PN ---
Progress Note (short form) - Note Progress Note: Patient seen and examined Denies chest pain, significant SOB, dyspnea Last Vital Signs Temp Pulse Resp BP Pulse Ox 98.2 F 63 20 162/58 L 97 11/01/18 08:13 11/01/18 06:00 11/01/18 10:00 11/01/18 08:13 11/01/18 08:18 HEENT: ANNE, EOM Intact Oropharynx: No thrush, No mucositis Cor: RSR, No murmurs, No gallops Lungs: Clear to P&A Abd: Soft, Normal bowel sounds, No organomegaly Ext:LE edema Skin: No rashes, Integument intact CBC, BMP 10/30/18 06:05 10/31/18 06:15 Current Medications Generic Name Dose Route Start Last Admin Trade Name Freq PRN Reason Stop Dose Admin Amlodipine Besylate 5 mg 10/28/18 18:00 11/01/18 09:49 Norvasc - PO 5 mg DAILY [facility] Administration Atorvastatin Calcium 80 mg 10/26/18 22:00 10/31/18 21:46 Lipitor - PO 80 mg HS [facility] Administration Clopidogrel Bisulfate 75 mg 10/26/18 10:00 11/01/18 09:49 Plavix - PO 75 mg DAILY [facility] Administration Duloxetine HCl 20 mg 10/26/18 10:00 11/01/18 09:49 Cymbalta - PO 20 mg DAILY [facility] Administration Ezetimibe 10 mg 10/26/18 22:00 10/31/18 21:46 Zetia - PO 10 mg HS [facility] Administration Ferrous Sulfate 325 mg 10/26/18 10:00 11/01/18 09:49 Feosol - PO 325 mg DAILY [facility] Administration Furosemide 80 mg 10/26/18 10:00 11/01/18 09:48 Lasix - PO 80 mg DAILY [facility] Administration Heparin Sodium (Porcine) 5,000 unit 10/27/18 22:00 11/01/18 09:49 Heparin - SQ 5,000 unit BID [facility] Administration Ceftriaxone Sodium 1 gm/ 50 mls @ 100 mls/hr 10/26/18 10:00 10/31/18 09:27 Dextrose IVPB 100 mls/hr DAILY [facility] Administration Protocol Insulin Aspart 1 vial 10/27/18 07:00 11/01/18 06:16 Novolog Vial Sliding Scale - SQ 4 units ACHS [facility] Administration Protocol Insulin Detemir 20 units 10/30/18 10:00 11/01/18 09:48 Levemir Vial SQ 20 units BID [facility] Administration Losartan Potassium 25 mg 10/26/18 10:00 11/01/18 09:49 Cozaar - PO 25 mg DAILY [facility] Administration Meclizine HCl 12.5 mg 10/29/18 14:00 11/01/18 06:16 Antivert - PO 12.5 mg TID [facility] Administration Metoprolol Succinate 25 mg 10/27/18 17:45 11/01/18 09:49 Toprol Xl - PO 25 mg BID [facility] Administration Midodrine 2.5 mg 10/30/18 14:00 10/31/18 18:48 Proamatine - PO 2.5 mg TID-MID [facility] Administration Ondansetron HCl 4 mg 10/26/18 03:00 10/26/18 21:56 Zofran Injection IVPUSH 4 mg Q8H PRN Administration NAUSEA Polyethylene Glycol 17 gm 10/28/18 10:00 10/31/18 09:26 Miralax (For Daily Use) - PO 17 gm DAILY [facility] Administration Thiamine HCl 200 mg 10/28/18 21:15 11/01/18 06:16 Vitamin B1 Injection - IVPB 200 mg Q8H [facility] Administration Impression: Anemia CAD CHF Orthostatic hypotension Dizziness CKD HBP DM Proteinuria IRENE+imost compatible with anemia of chronic disease Anemia - --serum Fe++ /TIBC---> 31/202 ; Ferritin--68 B-12-741 ; Folate---319 ; Tsh--1.34--> all normal ; O.B.---> negative x 1 No "M" component Free kappa/ free lambda light chains----> normal Picture most compatible with anemia of chronic disease. For urine light chain studies
[2018-11-01] MEDS: POLYETHYLENE GLYCOL 3350 119 GM BTL PO SCH (12:24)
[2018-11-01 14:13] LABS: TOTAL PROTEIN, URINE 381.8 mg/dL (Not Estab.)
[2018-11-01 18:15] VITALS: BP 148/70; PULSE 63; TEMP 98.1
--- NOTE | 2018-11-01 21:12 | DS ---
Physical Examination Vital Signs: Vital Signs Temperature 98.1 F 11/01/18 18:14 Pulse Rate 63 11/01/18 18:14 Respiratory Rate 18 11/01/18 18:14 Blood Pressure 148/70 11/01/18 18:14 O2 Sat by Pulse Oximetry (%) 97 11/01/18 08:18 Labs: CBC, BMP 10/30/18 06:05 10/31/18 06:15 Discharge Summary Reason For Visit: ACUTE KIDNEY INJURY/SYNCOPE AND COLLAPSE Current Active Problems ANG (acute kidney injury) (Acute) CKD (chronic kidney disease) (Acute) Chronic diastolic heart failure (Acute) Depression (Acute) Elevated troponin (Acute) GI bleed (Acute) Nausea & vomiting (Acute) Repeated falls (Acute) Syncope and collapse (Acute) UTI (urinary tract infection) (Acute) Weakness (Acute) Condition: Good - Instructions Diet, Activity, Other Instructions: 2 gram sodium and 2200 calorie diabetic diet See Dr Arnoldo Quispe in 1 week Disposition: VNS/HOME HEALTH CARE - Home Medications Comprehensive Discharge Medication List: Ambulatory Orders Atorvastatin Ca [Lipitor] 80 mg PO HS 07/10/18 Ezetimibe [Zetia] 10 mg PO HS 07/10/18 Ferrous Sulfate [Feosol] 325 mg PO DAILY 07/10/18 Meclizine HCl 12.5 mg PO DAILY 07/10/18 Aspirin Coated [Ecotrin -] 81 mg PO HS #30 tablet.ec 07/16/18 Clopidogrel Bisulfate [Plavix -] 75 mg PO HS tablet 07/16/18 Furosemide Oral Solution [Lasix Oral Solution -] 80 mg PO DAILY #30 udc Losartan Potassium [Cozaar -] 25 mg PO DAILY #30 tablet 07/16/18 Duloxetine HCl 20 mg PO DAILY 10/26/18 Insulin Lispro [Humalog] 20 unit SQ DAILY 10/26/18 Amlodipine Besylate [Norvasc -] 5 mg PO DAILY #30 tablet 11/01/18 Amoxicillin/Potassium Clav [Augmentin 875-125 Tablet] 1 each PO BID #14 tablet 11/01/18 Clopidogrel Bisulfate [Plavix -] 75 mg PO DAILY #30 tablet 11/01/18 Lactobacillus 3/Fos/Pantethine [Probiotic & Acidophilus Cap] 1 each PO DAILY # 30 capsule 11/01/18 Midodrine HCl [Proamatine -] 2.5 mg PO TID-MID #90 tablet 11/01/18 Polyethylene Glycol 3350 [Miralax 119 gm Btl -] 17 gm PO DAILY #1 bottle
== END 2018-11-01 19:30 | disposition home health service (06) | DRG 683 ==
LOC: JER 21:44 → JERBED 10-26 01:17 → J4S 10-26 15:25
PROVIDERS: ADMIT Internal Medicine; ATTEND Internal Medicine
PROC: 30233N1 Transfusion of Nonautologous Red Blood Cells into Peripheral Vein, Percutaneous Approach (ICD-10-PCS; principal; 2018-10-27)
DX: N17.9 Acute kidney failure, unspecified (principal); I24.8 Other forms of acute ischemic heart disease; K92.2 Gastrointestinal hemorrhage, unspecified; I13.0 Hypertensive heart and chronic kidney disease with heart failure and stage 1 through stage 4 chronic kidney disease, or unspecified chronic kidney disease; I50.32 Chronic diastolic (congestive) heart failure; I25.10 Atherosclerotic heart disease of native coronary artery without angina pectoris; D63.1 Anemia in chronic kidney disease; R55 Syncope and collapse; F32.9 Major depressive disorder, single episode, unspecified; E11.22 Type 2 diabetes mellitus with diabetic chronic kidney disease; N18.9 Chronic kidney disease, unspecified; R29.6 Repeated falls; E78.5 Hyperlipidemia, unspecified; R74.8 Abnormal levels of other serum enzymes; R41.82 Altered mental status, unspecified; E11.40 Type 2 diabetes mellitus with diabetic neuropathy, unspecified; R11.2 Nausea with vomiting, unspecified; Z95.5 Presence of coronary angioplasty implant and graft; Z79.4 Long term (current) use of insulin
CPT/HCPCS: 36415; 36430; 36511; 70450-TC; 70551-TC; 71045-TC-FY; 72125-TC; 73560-TC-RT-FY; 74176-TC; 74240-TC-FY; 76775-TC; 80048; 80053; 81003; 82272; 82550; 82553; 82565; 82607; 82728; 82747; 82784; 82947; 82962; 83036; 83540; 83550; 83605; 83615; 83690; 83735; 83883; 84100; 84155; 84156; 84157; 84165; 84425; 84443; 84484; 85014; 85025; 85044; 85610; 86334; 86850; 86900; 86901; 86922; 87086; 87186; 93005; 93010; 93306-TC; 93880-TC; 97116-GP; 97161-GP; 99284-25; J1644; P9038; P9058; Q9967

== ENCOUNTER 2018-11-27 14:50 | Inpatient (IN) | payer OTHER ==
--- NOTE | 2018-11-27 14:56 | PDOC ---
Rapid Medical Evaluation Time Seen by Provider: 11/27/18 14:52 Medical Evaluation: Allergies Allergy/AdvReac Type Severity Reaction Status Date / Time azithromycin [From Zithromax] Allergy Verified 10/25/18 21:51 11/27/18 14:52 This patient had a brief in-person evaluation in triage CC: unsteady gait, here for assistance to get patient into rehab she is prone to falls due to inability to maintain a steady gait. Sent from pmd for further evaluation PE:NAD unlabored breathing slightly edematous lower limbs +sensation in distal lower extremity orders: labs This patient will proceed to the ED for further evaluation Discharge Disposition - Diagnosis Unsteady gait - Referrals - Patient Instructions - Post Discharge Activity
[2018-11-27 17:08] LABS: BASO % 0.4 % (0-2.0); EOS % 2.3 % (0-4.5); HEMATOCRIT 29.8 % (32.4-45.2); LYMPH % 14.8 % (8-40); MCH 29.2 pg (25.7-33.7); MCHC 33.5 g/dl (32.0-36.0); MEAN CELL VOLUME 87.2 fl (80-96); MEAN PLT VOLUME 7.2 fl (7.5-11.1); MONO % 5.8 % (3.8-10.2); NEUT % 76.7 % (42.8-82.8); PLATELET COUNT 334 K/MM3 (134-434); RBC 3.42 M/mm3 (3.60-5.2); RDW 14.9 % (11.6-15.6); WHITE BLOOD COUNT 9.9 K/mm3 (4.0-10.0)
--- NOTE | 2018-11-27 17:17 | PDOC ---
History of Present Illness - General Chief Complaint: Weakness Stated Complaint: WEAKNESS/ HEADACHE Time Seen by Provider: 11/27/18 14:52 Past History - Past Medical History Allergies/Adverse Reactions: Allergies Allergy/AdvReac Type Severity Reaction Status Date / Time azithromycin [From Zithromax] Allergy Verified 11/27/18 14:56 Home Medications: Ambulatory Orders Atorvastatin Ca [Lipitor] 80 mg PO HS 07/10/18 Ezetimibe [Zetia] 10 mg PO HS 07/10/18 Ferrous Sulfate [Feosol] 325 mg PO DAILY 07/10/18 Meclizine HCl 12.5 mg PO DAILY 07/10/18 Aspirin Coated [Ecotrin -] 81 mg PO HS #30 tablet.ec 07/16/18 Furosemide Oral Solution [Lasix Oral Solution -] 80 mg PO DAILY #30 udc Losartan Potassium [Cozaar -] 25 mg PO DAILY #30 tablet 07/16/18 Duloxetine HCl 20 mg PO DAILY 10/26/18 Insulin Lispro [Humalog] 20 unit SQ DAILY 10/26/18 Amlodipine Besylate [Norvasc -] 5 mg PO DAILY #30 tablet 11/01/18 Clopidogrel Bisulfate [Plavix -] 75 mg PO DAILY #30 tablet 11/01/18 Lactobacillus 3/Fos/Pantethine [Probiotic & Acidophilus Cap] 1 each PO DAILY # 30 capsule 11/01/18 Midodrine HCl [Proamatine -] 2.5 mg PO TID-MID #90 tablet 11/01/18 Polyethylene Glycol 3350 [Miralax 119 gm Btl -] 17 gm PO DAILY #1 bottle Anemia: Yes Asthma: Yes Cardiac Disorders: Yes (CAD - s/p stent) COPD: No CHF: Yes (Diasolic CHF) Diabetes: Yes Disorders: Yes (Mild proteinuria) HTN: Yes Hypercholesterolemia: Yes - Surgical History Cardiac Surgery: Yes (Cardiac stent) - Immunization History Immunization Up to Date: Yes - Suicide/Smoking/Psychosocial Hx Smoking History: Never smoked Have you smoked in the past 12 months: No Information on smoking cessation initiated: No Hx Alcohol Use: No Drug/Substance Use Hx: No Substance Use Type: None Hx Substance Use Treatment: No *Physical Exam - Vital Signs Last Vital Signs Temp Pulse Resp BP Pulse Ox 98.3 F 87 19 124/63 100 11/27/18 14:54 11/27/18 14:54 11/27/18 14:54 11/27/18 14:54 11/27/18 14:54 ED Treatment Course - LABORATORY CBC & Chemistry Diagram: 11/27/18 16:49 11/27/18 16:49 - ADDITIONAL ORDERS Additional order review: 11/27/18 16:49 RBC 3.42 L MCV 87.2 MCHC 33.5 RDW 14.9 MPV 7.2 L Neutrophils % 76.7 Lymphocytes % 14.8 D Monocytes % 5.8 Eosinophils % 2.3 Basophils % 0.4 Medical Decision Making - Medical Decision Making 11/27/18 19:02 142/64 laying 95 hr 111/61 96 hr sitting 91/37 99 hr standing *DC/Admit/Observation/Transfer Diagnosis at time of Disposition: Unsteady gait - Referrals - Patient Instructions - Post Discharge Activity
[2018-11-27 17:37] LABS: ALBUMIN 2.4 g/dl (3.4-5.0); BILIRUBIN,TOTAL 0.2 mg/dL (0.2-1); BLOOD UREA NITROGEN 23.5 mg/dL (7-18); CALCIUM 8.9 mg/dL (8.5-10.1); POTASSIUM 5.8 mmol/L (3.5-5.1)
[2018-11-27] MEDS ORDERED: ALBUTEROL SO4 0.083% IH SOL 2.5 MG/3 ML VIAL.NEB. NEB ONE ×2 (18:03→18:17)
[2018-11-27] MEDS ORDERED: INSULIN REGULAR HUMAN 100 UNITS/ML *VIAL IVPUSH ONE (18:03)
[2018-11-27] MEDS ORDERED: CALCIUM GLUCONATE 10% - 1,000 MG/10 ML VIAL IVPB ONE (18:03)
[2018-11-27] MEDS ORDERED: SODIUM CHLORIDE 0.9% 500 ML INFUS.BAG IV ONE (18:03)
[2018-11-27] MEDS ORDERED: DEXTROSE 50%-WATER - 25 GM/50 ML VIAL IVPUSH ONE (18:03)
[2018-11-27] MEDS ORDERED: CALCIUM GLUCONATE 10% - 1,000 MG/10 ML VIAL ONE (18:17)
[2018-11-27] MEDS ORDERED: DEXTROSE 50%-WATER 25 GM/50 ML DISP.SYRIN ONE (18:17)
[2018-11-27] MEDS ORDERED: INSULIN REGULAR HUMAN 100 UNITS/ML *VIAL ONE (18:19)
--- NOTE | 2018-11-27 18:28 | PDOC ---
Documentation entered by Nayely Mtathew SCRIBE, acting as scribe for Qi Guevara DO. Qi Guevara DO: This documentation has been prepared by the Tiff cardona Adrianna, SCRIBE, under my direction and personally reviewed by me in its entirety. I confirm that the documentation accurately reflects all work, treatment, procedures, and medical decision making performed by me. Attending Attestation - Resident Resident Name: Guero Leung - ED Attending Attestation I have performed the following: I have examined & evaluated the patient, The case was reviewed & discussed with the resident, I agree w/resident's findings & plan, Exceptions are as noted - HPI HPI: The patient is a 68 year old female, with a significant PMH of anemia, CHF, CKD (baseline Cr 0.9-1) with mild proteinuria, CAD (s/p recent cardiac stent), IDDM , HTN, and vertigo who presents to the ED for evaluation s/p fall. Patient reports 2 falls in the last 48 hours. She reports feeling lightheaded and dizzy (not related to her vertigo), which causes her to fall. Denies LOC, but endorses right knee pain secondary to hitting her RLE during her falls. Patient was previously admitted last month for syncope and UTI. Denies fever, chills, chest pain, SOB, dysuria. Allergies: Azithromycin Surgical History: Cardiac stents, Social history: Lives with family. No tobacco, ETOH or drug use. PMD: Dr. Quispe - Physicial Exam PE: Constitutional: Awake, alert, oriented. No acute distress. Head: Normocephalic. Atraumatic Eyes: PERRL. EOMI. Conjunctivae are not pale. No nystagmus. ENT: Mucous membranes are moist and intact. Posterior pharynx without exudates or erythema. Uvula midline. Neck: Supple. Full ROM. No lymphadenopathy. Cardiovascular: Regular rate. Regular rhythm. S1, S2 regular. Distal pulses are 2+ and symmetric. Pulmonary/Chest: No evidence of respiratory distress. Clear to auscultation bilaterally No wheezing, rales or rhonchi. Abdominal: Soft and non-distended. There is no tenderness. No rebound, guarding or rigidity. No organomegaly. No palpable masses. Good bowel sounds. Back: No CVA tenderness. Musculoskeletal: No edema. No cyanosis. No clubbing. Full range of motion in all extremities. Nocalf tenderness. Radial/pedal pulses are intact and 2+ bilaterally Skin: Skin is warm and dry. No petechiae. No purpura. Neurological: Alert and oriented to person, place, and time. No focal deficits , but is lightheaded when sitting up. Normal speech. Strength is grossly symmetric, able to range all extremities. Psychiatric: Good eye contact. Normal interaction, affect and behavior. - Medical Decision Making 11/27/18 18:21 I, Dr. Qi Guevara, DO, attest that this document has been prepared under my direction and personally reviewed by me in its entirety. I further attest, that it accurately reflects all work, treatment, procedures and medical decision -making performed by me. 11/27/18 18:21 a/p: 68yo female with 2 falls recently -feels lightheaded - near syncope prior to falls -denies cp/sob/palpitations -pt denies abd pain, no dysuria -pt arrives neuro intact -no head injury with falls, has hit her knee -labs sent from [facility] show dario and hyperkalemia -meds ordered for hyperK, ivf hydration for dario -will send ua -resident discussed the case with Dr. ocasio who accepts pt to service 11/27/18 18:27 pt updated on lab results and agrees with staying for further treatment and eval Heart Score/ECG Review - ECG Intrepretation Comment:: 11/27/18 18:27 sinus at 80, l axis, t wave inversions i/avl, peaked t waves in anterior leads, abnl ekg 11/27/18 18:28 ekg findings unchanged from october 2018 ekg
[2018-11-28 00:26] LABS: BLOOD UREA NITROGEN 24.9 mg/dL (7-18); CALCIUM 8.5 mg/dL (8.5-10.1); POTASSIUM 5.2 mmol/L (3.5-5.1)
[2018-11-28 00:32] LABS: EPI CELLS 1.5 /HPF (0-5/HPF); HYALINE CASTS 26 /lpf (0-8); PH,URINE 5.5 (5.0-8.0); URINE APPEARANCE CLOUDY; URINE BACTERIA 5932.3 /hpf (NEGATIVE); URINE BILIRUBIN NEGATIVE (NEGATIVE); URINE COLOR YELLOW; URINE GLUCOSE (UA) 3+ (NEGATIVE); URINE KETONE TRACE (NEGATIVE); URINE LEUK ESTERASE NEGATIVE (NEGATIVE); URINE NITRITE NEGATIVE (NEGATIVE); URINE PROTEIN 4+ (NEGATIVE); URINE RBC 4 /hpf (0-4); URINE UROBILINOGEN 0.2 mg/dL (0.2-1.0)
[2018-11-28 00:37] VITALS: BMI 32.7
[2018-11-28 00:41] LABS: URINE WBC 57.5 /hpf (0-5)
[2018-11-28] MEDS: HEPARIN NA (PORCINE) 5,000 UNITS/ML 1ML VIAL SQ SCH ×3 (01:59→23:30)
[2018-11-28] MEDS: ATORVASTATIN CA 80 MG TABLET (FP) PO SCH ×2 (01:59→23:30)
[2018-11-28] MEDS: ASPIRIN COATED 81 MG TABLET.EC PO SCH ×2 (01:59→23:30)
[2018-11-28] MEDS: EZETIMIBE 10 MG TABLET (FP) PO SCH ×2 (01:59→23:30)
[2018-11-28] MEDS: INSULIN SLIDING SCALE (NOVOLOG) 1 VIAL SQ SCH ×4 (06:11→23:29)
[2018-11-28 07:08] LABS: BASO % 0.4 % (0-2.0); HEMATOCRIT 24.9 % (32.4-45.2); HEMOGLOBIN 8.7 GM/dL (10.7-15.3); LYMPH % 31.2 % (8-40); MCHC 34.7 g/dl (32.0-36.0); MEAN CELL VOLUME 86.3 fl (80-96); MEAN PLT VOLUME 7.3 fl (7.5-11.1); MONO % 6.8 % (3.8-10.2); NEUT % 57.6 % (42.8-82.8); PLATELET COUNT 262 K/MM3 (134-434); RBC 2.89 M/mm3 (3.60-5.2); RDW 14.6 % (11.6-15.6); WHITE BLOOD COUNT 7.7 K/mm3 (4.0-10.0)
[2018-11-28 07:38] LABS: BILIRUBIN,TOTAL 0.3 mg/dL (0.2-1); BLOOD UREA NITROGEN 24.1 mg/dL (7-18); CALCIUM 8.6 mg/dL (8.5-10.1); CREATININE 1.7 mg/dL (0.55-1.3); POTASSIUM 4.5 mmol/L (3.5-5.1); TOT PROT 4.9 g/dl (6.4-8.2)
[2018-11-28] MEDS ORDERED: MIDODRINE HCL 2.5 MG TABLET PO SCH (10:00)
[2018-11-28] MEDS ORDERED: LOSARTAN POTASSIUM 25 MG TABLET PO SCH (10:00)
[2018-11-28] MEDS ORDERED: FUROSEMIDE 40 MG TABLET (FP) PO SCH ×2 (10:00)
[2018-11-28] MEDS ORDERED: amLODIPine BESYLATE 5 MG TABLET (FP) PO SCH (10:00)
[2018-11-28] MEDS: POLYETHYLENE GLYCOL 3350 119 GM BTL PO SCH (10:28)
--- NOTE | 2018-11-28 10:34 | CONSULT ---
Consult - text type - Consultation Consultation Note: Neurology - General Chief Complaint: Weakness History of Present Illness The patient is a 68 year old female, with a significant PMH of anemia, CHF, CKD (baseline Cr 0.9-1) with mild proteinuria, CAD (s/p recent cardiac stent), IDDM , HTN, and vertigo who presents to the ED for evaluation s/p fall. Patient reported 2 falls in the last 48 hours. She reported feeling lightheaded and dizzy (not related to her vertigo), which caused her to fall. Denied LOC, but endorses right knee pain secondary to hitting her RLE during her falls. Patient was previously admitted last month for syncope and UTI. Noncontrast head CT was completed and reviewed and did not show any acute changes. No infarcts or space-occupying mass is noted.Cane at bedside and patient seems to have limited ambulation. requires physical therapy and may benefit from short-term rehabilitation. Past History - Past Medical History Allergies/Adverse Reactions: Allergies Allergy/AdvReac Type Severity Reaction Status Date / Time azithromycin [From Zithromax] Allergy Verified 11/27/18 14:56 Home Medications: Ambulatory Orders Atorvastatin Ca [Lipitor] 80 mg PO HS 07/10/18 Ezetimibe [Zetia] 10 mg PO HS 07/10/18 Ferrous Sulfate [Feosol] 325 mg PO DAILY 07/10/18 Meclizine HCl 12.5 mg PO DAILY 07/10/18 Aspirin Coated [Ecotrin -] 81 mg PO HS #30 tablet.ec 07/16/18 Furosemide Oral Solution [Lasix Oral Solution -] 80 mg PO DAILY #30 udc Losartan Potassium [Cozaar -] 25 mg PO DAILY #30 tablet 07/16/18 Duloxetine HCl 20 mg PO DAILY 10/26/18 Insulin Lispro [Humalog] 20 unit SQ DAILY 10/26/18 Amlodipine Besylate [Norvasc -] 5 mg PO DAILY #30 tablet 11/01/18 Clopidogrel Bisulfate [Plavix -] 75 mg PO DAILY #30 tablet 11/01/18 Lactobacillus 3/Fos/Pantethine [Probiotic & Acidophilus Cap] 1 each PO DAILY # 30 capsule 11/01/18 Midodrine HCl [Proamatine -] 2.5 mg PO TID-MID #90 tablet 11/01/18 Polyethylene Glycol 3350 [Miralax 119 gm Btl -] 17 gm PO DAILY #1 bottle Anemia: Yes Asthma: Yes Cardiac Disorders: Yes (CAD - s/p stent) COPD: No CHF: Yes ([place]ias[place] CHF) Diabetes: Yes Disorders: Yes (Mild proteinuria) HTN: Yes Hypercholesterolemia: Yes - Surgical History Cardiac Surgery: Yes (Cardiac stent) - Immunization History Immunization Up to Date: Yes - Suicide/Smoking/Psychosocial Hx Smoking History: Never smoked Have you smoked in the past 12 months: No Information on smoking cessation initiated: No Hx Alcohol Use: No Drug/Substance Use Hx: No Substance Use Type: None Hx Substance Use Treatment: No Family: HTN *Physical Exam Vital Signs Period Temp Pulse Resp BP Sys/Juarez Pulse Ox Last 24 Hr 98.2 F-98.8 F 83-99 18-20 91-188/37-89 97-100 Constitutional: Awake, alert, oriented. No acute distress. Head: Normocephalic. Atraumatic Eyes: PERRL. EOMI. Conjunctivae are not pale. No nystagmus. ENT: Mucous membranes are moist and intact. Posterior pharynx without exudates or erythema. Uvula midline. Neck: Supple. Full ROM. No lymphadenopathy. Cardiovascular: Regular rate. Regular rhythm. S1, S2 regular. Distal pulses are 2+ and symmetric. Pulmonary/Chest: No evidence of respiratory distress. Clear to auscultation bilaterally No wheezing, rales or rhonchi. Abdominal: Soft and non-distended. There is no tenderness. No rebound, guarding or rigidity. No organomegaly. No palpable masses. Good bowel sounds. Back: No CVA tenderness. Musculoskeletal: No edema. No cyanosis. No clubbing. Full range of motion in all extremities. Nocalf tenderness. Radial/pedal pulses are intact and 2+ bilaterally Skin: Skin is warm and dry. No petechiae. No purpura. Neurological: Alert and oriented to person, place, and time. Normal speech. Strength is grossly symmetric, Sensory intact, finger to nose normal. Psychiatric: Good eye contact. Normal interaction, affect and behavior. CBCD WBC 7.7 K/mm3 (4.0-10.0) 11/28/18 06:00 RBC 2.89 M/mm3 (3.60-5.2) L 11/28/18 06:00 Hgb 8.7 GM/dL (10.7-15.3) L 11/28/18 06:00 Hct 24.9 % (32.4-45.2) L D 11/28/18 06:00 MCV 86.3 fl (80-96) 11/28/18 06:00 MCHC 34.7 g/dl (32.0-36.0) 11/28/18 06:00 RDW 14.6 % (11.6-15.6) 11/28/18 06:00 Plt Count 262 K/MM3 (134-434) D 11/28/18 06:00 MPV 7.3 fl (7.5-11.1) L 11/28/18 06:00 CMP Sodium 141 mmol/L (136-145) 11/28/18 06:00 Potassium 4.5 mmol/L (3.5-5.1) 11/28/18 06:00 Chloride 111 mmol/L (98-107) H 11/28/18 06:00 Carbon Dioxide 25 mmol/L (21-32) 11/28/18 06:00 Anion Gap 5 MMOL/L (8-16) L 11/28/18 06:00 BUN 24.1 mg/dL (7-18) H 11/28/18 06:00 Creatinine 1.7 mg/dL (0.55-1.3) H 11/28/18 06:00 Random Glucose 57 mg/dL (74-106) L 11/28/18 06:00 Calcium 8.6 mg/dL (8.5-10.1) 11/28/18 06:00 Total Bilirubin 0.3 mg/dL (0.2-1) 11/28/18 06:00 AST 15 U/L (15-37) 11/28/18 06:00 ALT 18 U/L (13-61) 11/28/18 06:00 Alkaline Phosphatase 122 U/L (45-117) H 11/28/18 06:00 Total Protein 4.9 g/dl (6.4-8.2) L 11/28/18 06:00 Albumin 2.0 g/dl (3.4-5.0) L 11/28/18 06:00 CARDIAC ENZYMES Creatine Kinase 37 U/L (26-192) 11/28/18 06:00 Troponin I 0.03 ng/ml (0.00-0.05) 11/28/18 06:00 Medical Decision Making The patient is a 68 year old female, with a significant PMH of anemia, CHF, CKD (baseline Cr 0.9-1) with mild proteinuria, CAD (s/p recent cardiac stent), IDDM , HTN, and vertigo who presents to the ED for evaluation s/p fall. Patient reported 2 falls in the last 48 hours. She reported feeling lightheaded and dizzy (not related to her vertigo), which caused her to fall. Denied LOC, but endorses right knee pain secondary to hitting her RLE during her falls. Patient was previously admitted last month for syncope and UTI. Noncontrast head CT was completed and reviewed and did not show any acute changes. No infarcts or space-occupying mass is noted. Cane at bedside and patient seems to have limited ambulation. requires physical therapy and may benefit from short-term rehabilitation.
[2018-11-28] MEDS: DULoxetine HCL 20 MG CAPSULE.DR PO SCH (10:41)
[2018-11-28] MEDS: FERROUS SO4 325 MG TABLET (FP) PO SCH (10:42)
[2018-11-28] MEDS: MECLIZINE HCL 12.5 MG TABLET PO SCH (10:42)
[2018-11-28] MEDS: CLOPIDOGREL BISULFATE 75 MG TABLET (FP) PO SCH (10:42)
--- NOTE | 2018-11-28 11:40 | HP ---
Admitting History and Physical - Admission History of Present Illness: Pt is a 68 year old female, with a significant PMH of anemia, CHF, CKD, CAD (s/ p recent cardiac stent), IDDM, HTN, and vertigo who presented to the ED for evaluation s/p multiple falls and unsteady gait. Patient and son reported 2 falls in the last 48 hours. She reports feeling lightheaded and dizzy (not related to her vertigo), which causes her to fall. Denies LOC, but endorses right knee pain secondary to hitting her RLE during her falls. Patient was previously admitted last month for syncope and UTI. CT scan head did not show any acute pathology. - Past Medical History [employer]: Yes: Syncope Cardiovascular: Yes: CAD, CHF, HTN Renal/: Yes: Renal Inusuff ...: No Heme/Onc: Yes: Anemia Endocrine: Yes: Diabetes Mellitus - Past Surgical History Past Surgical History: Yes: Colonoscopy - Smoking History Smoking history: Never smoked Have you smoked in the past 12 months: No - Alcohol/Substance Use Hx Alcohol Use: No - Social History History of Recent Travel: No Home Medications - Allergies Allergies/Adverse Reactions: Allergies Allergy/AdvReac Type Severity Reaction Status Date / Time azithromycin [From Zithromax] Allergy Verified 11/27/18 14:56 - Home Medications Home Medications: Ambulatory Orders Atorvastatin Ca [Lipitor] 80 mg PO HS 07/10/18 Ezetimibe [Zetia] 10 mg PO HS 07/10/18 Ferrous Sulfate [Feosol] 325 mg PO DAILY 07/10/18 Meclizine HCl 12.5 mg PO DAILY 07/10/18 Aspirin Coated [Ecotrin -] 81 mg PO HS #30 tablet.ec 07/16/18 Losartan Potassium [Cozaar -] 25 mg PO DAILY #30 tablet 07/16/18 Duloxetine HCl 20 mg PO DAILY 10/26/18 Insulin Lispro [Humalog] 20 unit SQ DAILY 10/26/18 Amlodipine Besylate [Norvasc -] 5 mg PO DAILY #30 tablet 11/01/18 Clopidogrel Bisulfate [Plavix -] 75 mg PO DAILY #30 tablet 11/01/18 Lactobacillus 3/Fos/Pantethine [Probiotic & Acidophilus Cap] 1 each PO DAILY # 30 capsule 11/01/18 Midodrine HCl [Proamatine -] 2.5 mg PO TID-MID #90 tablet 11/01/18 Polyethylene Glycol 3350 [Miralax 119 gm Btl -] 17 gm PO DAILY #1 bottle Family Disease History - Family Disease History Family History: Unremarkable Review of Systems - Review of Systems Constitutional: reports: Weakness HENT: reports: No Symptoms Neck: reports: No Symptoms Cardiovascular: reports: No Symptoms Respiratory: reports: No Symptoms Gastrointestinal: reports: No Symptoms Genitourinary: reports: No Symptoms Physical Examination Vital Signs: Vital Signs Temperature 98.2 F 11/28/18 09:00 Pulse Rate 86 11/28/18 09:00 Respiratory Rate 20 11/28/18 09:00 Blood Pressure 172/70 H 11/28/18 09:00 O2 Sat by Pulse Oximetry (%) 99 11/28/18 09:00 Constitutional: Yes: No Distress Eyes: Yes: WNL HENT: Yes: WNL Neck: Yes: WNL, Supple Cardiovascular: Yes: WNL, Regular Rate and Rhythm Respiratory: Yes: WNL, Regular, CTA Bilaterally Gastrointestinal: Yes: WNL, Normal Bowel Sounds, Soft Musculoskeletal: Yes: WNL Extremities: Yes: WNL Edema: No Neurological: Yes: WNL, Alert, Oriented ...Motor Strength: WNL Labs: CBC, BMP 11/28/18 06:00 11/28/18 06:00 Problem List - Problems (1) Unsteady gait Assessment/Plan: ?Due to orthostatic hypotension Cont midodrine Cont to monitor Will need STR Code(s): R26.81 - UNSTEADINESS ON FEET (2) Repeated falls Assessment/Plan: Will need PT eval Will STR placement Code(s): R29.6 - REPEATED FALLS (3) Anemia Assessment/Plan: ?Dilutional Repeat H/H in am Cont to monitor and transfuse as indicated Code(s): D64.9 - ANEMIA, UNSPECIFIED (4) CKD (chronic kidney disease) Code(s): N18.9 - CHRONIC KIDNEY DISEASE, UNSPECIFIED (5) Chronic diastolic heart failure Assessment/Plan: Lasix dc'ed due to euvolumic state Code(s): I50.32 - CHRONIC DIASTOLIC (CONGESTIVE) HEART FAILURE (6) Diabetes Assessment/Plan: Cont sliding scale w/ coverage Code(s): E11.9 - TYPE 2 DIABETES MELLITUS WITHOUT COMPLICATIONS (7) HLD (hyperlipidemia) Assessment/Plan: Cont zetia/lipitor Code(s): E78.5 - HYPERLIPIDEMIA, UNSPECIFIED (8) HTN (hypertension) Assessment/Plan: Norvasc dose increased/asa Code(s): I10 - ESSENTIAL (PRIMARY) HYPERTENSION (9) CAD (coronary artery disease) Assessment/Plan: Cont asa/plavix Code(s): I25.10 - ATHSCL HEART DISEASE OF [place] CORONARY ARTERY W/O ANG PCTRS (10) Depression Assessment/Plan: Cont cymbalta Code(s): F32.9 - MAJOR DEPRESSIVE DISORDER, SINGLE EPISODE, UNSPECIFIED
--- NOTE | 2018-11-28 12:23 | CON.CARD ---
Cardiology Consult (text) - Consultation Consultation Note: cc: falls HPi: 68 yo F w a hx of anemia, CHF, CKD with mild proteinuira, CAD s/p cardiac stent, IDDM, HTN, and vertigo presents to the [facility] with dizziness and falls. One fall happened when in shower and felt lightheaded and fell, no loc. Other fall happened when she was standing up and walking to another room and felt dizzy and fell, no loc. No cp sob palps pnd orthopnea le edema. - History Source History Provided By: Patient, Medical Record - Past Medical History Cardio/Vascular: Yes: CAD, CHF Pulmonary: No: Asthma, Bronchitis, Cancer, COPD, O2 Dependent, Pneumonia, Previously Intubated, Pulmonary Embolus, Pulmonary Fibrosis, Sleep Apnea, Other Gastrointestinal: No: Ascites, Cancer, Constipation, Crohn's Disease, Diverticulitis, Diverticulosis, Esophageal Varices, Gastritis, GERD, GI Bleed, Hemorrhoids, Hiatal Hernia, Inflamatory Bowel Disease, Irritable Bowel Disease, Pancreatitis, Peptic Ulcer Disease, Ulcerative Colitis, Other Hepatobiliary: No: Cirrhosis, Cholelithiasis, Cholecystitis, Choledocholithiasis , Hepatitis A, Hepatitis B, Hepatitis C, Other Renal/: Yes: Renal Inusuff Heme/Onc: No: Anemia, B12 Deficiency, Bleeding Disorder, Cancer, Current Chemotherapy, Current Radiation Therapy, Hemochromatosis, Hypercoaguable State, Myeloproliferative Synd, Sickle Cell Disease, Sickle Cell Trait, Thrombocytopenia, Other Infectious Disease: No: AIDS, C-Diff, Herpes Zoster, HIV, MRSA, STD's, Tuberculosis, VREF, Other Psych: No: Addictions, Anxiety, Bipolar, Depression, Panic, Psychosis, Schizophrenia, Other Musculoskeletal: No: Bursitis, Chronic low back pain, Hemiparesis, Hemiplegia, Osteoarthritis, Paraplegia, Other Rheumatology: No: Fibromyalgia, Gout, Lupus, Rheumatoid Arthritis, Sarcoidosis, Vasculitis, Other ENT: No: Allergic Rhinitis, Sinusitis, Other Endocrine: Yes: Diabetes Mellitus Dermatology: No: Basal Cell, Cellulitis, Eczema, Melanoma, Psoriasis, Squamous Cell, Other - Alcohol/Substance Use Hx Alcohol Use: No - Smoking History Smoking history: Never smoked Have you smoked in the past 12 months: No - Social History Usual Living Arrangement: With Child History of Recent Travel: No Home Medications - Allergies Allergies/Adverse Reactions: Allergies Allergy/AdvReac Type Severity Reaction Status Date / Time azithromycin [From Zithromax] Allergy Verified 11/27/18 14:56 Home Medications Medication Instructions Recorded Atorvastatin Ca [Lipitor] 80 mg PO HS 07/10/18 Ezetimibe [Zetia] 10 mg PO HS 07/10/18 Ferrous Sulfate [Feosol] 325 mg PO DAILY 07/10/18 Meclizine HCl 12.5 mg PO DAILY 07/10/18 Aspirin Coated [Ecotrin -] 81 mg PO HS #30 tablet.ec 07/16/18 Losartan Potassium [Cozaar -] 25 mg PO DAILY #30 tablet 07/16/18 Duloxetine HCl 20 mg PO DAILY 10/26/18 Insulin Lispro [Humalog] 20 unit SQ DAILY 10/26/18 Amlodipine Besylate [Norvasc -] 5 mg PO DAILY #30 tablet 11/01/18 Clopidogrel Bisulfate [Plavix -] 75 mg PO DAILY #30 tablet 11/01/18 Lactobacillus 3/Fos/Pantethine 1 each PO DAILY #30 capsule 11/01/18 [Probiotic & Acidophilus Cap] Midodrine HCl [Proamatine -] 2.5 mg PO TID-MID #90 tablet 11/01/18 Polyethylene Glycol 3350 [Miralax 17 gm PO DAILY #1 bottle 11/01/18 119 gm Btl -] Family Disease History - Family Disease History Family History: Unremarkable Review of Systems - Review of Systems Constitutional: reports: No Symptoms Eyes: reports: No Symptoms HENT: reports: No Symptoms Neck: reports: No Symptoms Respiratory: reports: No Symptoms Genitourinary: reports: No Symptoms Neurological: reports: Dizziness Endocrine: reports: No Symptoms Hematology/Lymphatic: reports: No Symptoms Psychiatric: reports: No Symptoms - Risk Factors Known Risk Factors: Yes: Hypertension, Other (Known CAD) Vital Signs: Vital Signs Period Temp Pulse Resp BP Sys/Juarez Pulse Ox Last 24 Hr 98.2 F-98.8 F 83-99 18-20 91-188/37-89 97-100 Constitutional: Yes: No Distress, Calm Eyes: Yes: Conjunctiva Clear Respiratory: Yes: CTA Bilaterally Gastrointestinal: Yes: Soft, Abdomen, Obese Cardiovascular: Yes: Regular Rate and Rhythm JVD: No Carotid Bruit: No Heart Sounds: Yes: S1, S2 Edema: No Peripheral Pulses WNL: Yes Neurological: Yes: Alert, Oriented no jaundice diaphoresis pos dp pt - Other Data Labs, Other Data: Laboratory Last Values WBC 7.7 K/mm3 (4.0-10.0) 11/28/18 06:00 RBC 2.89 M/mm3 (3.60-5.2) L 11/28/18 06:00 Hgb 8.7 GM/dL (10.7-15.3) L 11/28/18 06:00 Hct 24.9 % (32.4-45.2) L D 11/28/18 06:00 MCV 86.3 fl (80-96) 11/28/18 06:00 MCH 30.0 pg (25.7-33.7) 11/28/18 06:00 MCHC 34.7 g/dl (32.0-36.0) 11/28/18 06:00 RDW 14.6 % (11.6-15.6) 11/28/18 06:00 Plt Count 262 K/MM3 (134-434) D 11/28/18 06:00 MPV 7.3 fl (7.5-11.1) L 11/28/18 06:00 Absolute Neuts (auto) 4.4 K/mm3 (1.5-8.0) 11/28/18 06:00 Neutrophils % 57.6 % (42.8-82.8) D 11/28/18 06:00 Lymphocytes % 31.2 % (8-40) D 11/28/18 06:00 Monocytes % 6.8 % (3.8-10.2) 11/28/18 06:00 Eosinophils % 4.0 % (0-4.5) 11/28/18 06:00 Basophils % 0.4 % (0-2.0) 11/28/18 06:00 Nucleated RBC % 0 % (0-0) 11/28/18 06:00 Sodium 141 mmol/L (136-145) 11/28/18 06:00 Potassium 4.5 mmol/L (3.5-5.1) 11/28/18 06:00 Chloride 111 mmol/L (98-107) H 11/28/18 06:00 Carbon Dioxide 25 mmol/L (21-32) 11/28/18 06:00 Anion Gap 5 MMOL/L (8-16) L 11/28/18 06:00 BUN 24.1 mg/dL (7-18) H 11/28/18 06:00 Creatinine 1.7 mg/dL (0.55-1.3) H 11/28/18 06:00 Est GFR (CKD-EPI)AfAm 35.05 11/28/18 06:00 Est GFR (CKD-EPI)NonAf 30.24 11/28/18 06:00 POC Glucometer 179 UNITS (80-120) 11/28/18 07:08 Random Glucose 57 mg/dL (74-106) L 11/28/18 06:00 Calcium 8.6 mg/dL (8.5-10.1) 11/28/18 06:00 Total Bilirubin 0.3 mg/dL (0.2-1) 11/28/18 06:00 AST 15 U/L (15-37) 11/28/18 06:00 ALT 18 U/L (13-61) 11/28/18 06:00 Alkaline Phosphatase 122 U/L (45-117) H 11/28/18 06:00 Creatine Kinase 37 U/L (26-192) 11/28/18 06:00 Troponin I 0.03 ng/ml (0.00-0.05) 11/28/18 06:00 Total Protein 4.9 g/dl (6.4-8.2) L 11/28/18 06:00 Albumin 2.0 g/dl (3.4-5.0) L 11/28/18 06:00 TSH 2.30 uIU/ml (0.358-3.74) 11/27/18 16:49 Urine Color Yellow 11/27/18 23:30 Urine Appearance Cloudy 11/27/18 23:30 Urine pH 5.5 (5.0-8.0) 11/27/18 23:30 Ur Specific [place] 1.023 (1.010-1.035) 11/27/18 23:30 Urine Protein 4+ (NEGATIVE) H 11/27/18 23:30 Urine Glucose (UA) 3+ (NEGATIVE) H 11/27/18 23:30 Urine Ketones Trace (NEGATIVE) H 11/27/18 23:30 Urine Blood 1+ (NEGATIVE) H 11/27/18 23:30 Urine Nitrite Negative (NEGATIVE) 11/27/18 23:30 Urine Bilirubin Negative (NEGATIVE) 11/27/18 23:30 Urine Urobilinogen 0.2 mg/dL (0.2-1.0) 11/27/18 23:30 Ur Leukocyte Esterase Negative (NEGATIVE) 11/27/18 23:30 Urine WBC (Auto) 57.5 /hpf (0-5) 11/27/18 23:30 Urine RBC (Auto) 4 /hpf (0-4) 11/27/18 23:30 Urine Casts (Auto) 26 /lpf (0-8) 11/27/18 23:30 U Epithel Cells (Auto) 1.5 /HPF (0-5/HPF) 11/27/18 23:30 Urine Bacteria (Auto) 5932.3 /hpf (NEGATIVE) 11/27/18 23:30 echo 10/2018: nl lv/rv, mild tr, g2dd tele: sr cxr: clear lungs ecg: sr, nl intervals, lvh, no acute changes Assessment/Plan 68 yo F w a hx of anemia, CHF, CKD with mild proteinuira, CAD s/p cardiac stent , IDDM, HTN, and vertigo presents to the [facility] with dizziness and falls. falls, dizziness, orthostatic hypotension: -symptoms seem related to orthostatic hypotension which is present on vitals here. Labs show dario, likely volume depleted worsened her baseline orthostatic sxs. Will stop lasix. -cont midodrine -pt instructed to increase water intake as well -monitor ortho vitals -monitor tele -PT eval -recent echo unremarkable chronic diastolic chf: -stable vol status -was not taking lasix at home and dry here now so will not resume cad, pci: -stable no signs acs -nl lvef -cont dapt, home cardiac meds htn: -losartan stopped due to dario -will increase norvasc from 5 to 10 and monitor
[2018-11-28] MEDS ORDERED: INSULIN (NOVOLOG) ASPART 100 UNITS/ML 10ML VIAL ONE (12:24)
[2018-11-28] MEDS ORDERED: amLODIPine BESYLATE 5 MG TABLET (FP) PO ONE (12:30)
--- NOTE | 2018-11-28 14:30 | CONSULT ---
Consult - text type - Consultation Consultation Note: Renal consult for ANG on CKD This is a 68 year old woman with hx of CKD (Cr 1.4 in July, 0.98 in April) with nephrotic range proteinuria, + IRENE, (normal DS-DNA, Negative ANCA), CAD s/ p PCI, DM, hypertension presented with dizziness and falls with orthostatic hypotension and noted to have elevated BUN/Cr. Pt was admitted in October for similar complaints and started on midodirine. Pt seen and examined at the bedside. Remains orthostatic. Denies any chest pain, shortness of breath, palpations. Deoes have fatigue and some nausea. No KAMARA. No fever or chills. PMhx: as above Allergies: azithromycin Family Hx: NC Social Hx: No T/A/D ROS: As per HPI Home Medications Medication Instructions Recorded Atorvastatin Ca [Lipitor] 80 mg PO HS 07/10/18 Ezetimibe [Zetia] 10 mg PO HS 07/10/18 Ferrous Sulfate [Feosol] 325 mg PO DAILY 07/10/18 Meclizine HCl 12.5 mg PO DAILY 07/10/18 Aspirin Coated [Ecotrin -] 81 mg PO HS #30 tablet.ec 07/16/18 Losartan Potassium [Cozaar -] 25 mg PO DAILY #30 tablet 07/16/18 Duloxetine HCl 20 mg PO DAILY 10/26/18 Insulin Lispro [Humalog] 20 unit SQ DAILY 10/26/18 Amlodipine Besylate [Norvasc -] 5 mg PO DAILY #30 tablet 11/01/18 Clopidogrel Bisulfate [Plavix -] 75 mg PO DAILY #30 tablet 11/01/18 Lactobacillus 3/Fos/Pantethine 1 each PO DAILY #30 capsule 11/01/18 [Probiotic & Acidophilus Cap] Midodrine HCl [Proamatine -] 2.5 mg PO TID-MID #90 tablet 11/01/18 Polyethylene Glycol 3350 [Miralax 17 gm PO DAILY #1 bottle 11/01/18 119 gm Btl -] Vital Signs Temperature 98.2 F 11/28/18 09:00 Pulse Rate 86 11/28/18 09:00 Respiratory Rate 20 11/28/18 09:00 Blood Pressure 172/70 H 11/28/18 09:00 O2 Sat by Pulse Oximetry (%) 99 11/28/18 09:00 Intake & Output 11/25/18 11/26/18 11/27/18 11/28/18 23:59 23:59 23:59 23:59 Intake Total 400 400 Balance 400 400 Weight 73.482 kg NAD awake and alert neck supple, no JVD MMM RRR, no M/R CTA soft NT/ND no LE edema, clubbing or cyanosis no bladder distension CBC, BMP 11/28/18 06:00 11/28/18 06:00 Current Medications Amlodipine Besylate (Norvasc -) 10 mg PO DAILY [facility] Aspirin (Ecotrin -) 81 mg PO [facility] Last Admin: 11/28/18 01:59 Dose: 81 mg Atorvastatin Calcium (Lipitor -) 80 mg PO HS [facility] Last Admin: 11/28/18 01:59 Dose: 80 mg Clopidogrel Bisulfate (Plavix -) 75 mg PO DAILY [facility] Last Admin: 11/28/18 10:42 Dose: 75 mg Duloxetine HCl (Cymbalta -) 20 mg PO DAILY [facility] Last Admin: 11/28/18 10:41 Dose: 20 mg Ezetimibe (Zetia -) 10 mg PO [facility] Last Admin: 11/28/18 01:59 Dose: 10 mg Ferrous Sulfate (Feosol -) 325 mg PO DAILY [facility] Last Admin: 11/28/18 10:42 Dose: 325 mg Heparin Sodium (Porcine) (Heparin -) 5,000 unit SQ BID [facility] Last Admin: 11/28/18 10:41 Dose: 5,000 unit Insulin Aspart (Novolog Vial Sliding Scale -) 1 vial SQ ACHS [facility]; Protocol Last Admin: 11/28/18 12:27 Dose: 4 units Meclizine HCl (Antivert -) 12.5 mg PO DAILY [facility] Last Admin: 11/28/18 10:42 Dose: 12.5 mg Midodrine (Proamatine -) 2.5 mg PO TID-MID [facility] Last Admin: 11/28/18 10:42 Dose: 2.5 mg Polyethylene Glycol (Miralax (For Daily Use) -) 17 gm PO DAILY [facility] Last Admin: 11/28/18 10:28 Dose: 17 grams 68 year old woman with hx of CKD with nephrotic range proteinuria, + IRENE, ( normal DS-DNA, Negative ANCA), CAD s/p PCI, DM, hypertension presented with dizziness and falls with orthostatic hypotension and noted to have elevated BUN/ Cr. #Orthostatic hypotension #ANG on CKD in setting of volume depletion #CKD with proteinuria #Hx of + IRENE #Anemia (acute on chronic) #CHF with diastolic dysfunction pt remains orthostatic however has supine hypertension. She does appear to be volume depleted. Agree with holding diuretics at this time. Will give gentle IV hydration. Start NS at 83cc per hour x 12 hours. Can continue midodrine but hold if SBP >150 or DBP > 100. Check iron studies, stool occult blood Monitor volume status and respiratory status Check orthostatics Q8h Thank you Clinton Manjarrez DO
--- NOTE | 2018-11-28 14:38 | EKG ---
Test Reason : Blood Pressure : / mmHG Vent. Rate : 080 BPM Atrial Rate : 080 BPM P-R Int : 160 ms QRS Dur : 106 ms QT Int : 398 ms P-R-T Axes : 049 -39 104 degrees QTc Int : 459 ms NORMAL SINUS RHYTHM LEFT AXIS DEVIATION INCOMPLETE RIGHT BUNDLE BRANCH BLOCK VOLTAGE CRITERIA FOR LEFT VENTRICULAR HYPERTROPHY T WAVE ABNORMALITY, CONSIDER LATERAL ISCHEMIA ABNORMAL ECG WHEN COMPARED WITH ECG OF 27-OCT-2018 16:42, NO SIGNIFICANT CHANGE WAS FOUND Confirmed by JAVON LOMBARDI MD ([id number]) on 11/28/2018 2:37:42 PM Referred By: Confirmed By:JAVON LOMBARDI MD
[2018-11-28] MEDS ORDERED: SODIUM CHLORIDE 1,000 ML IV SCH (15:00)
[2018-11-28] MEDS: MIDODRINE HCL 5 MG TABLET PO SCH (17:34)
[2018-11-29 01:12] LABS: CREATININE, URINE RANDOM 58.8 mg/dL (30-150)
[2018-11-29] MEDS: INSULIN SLIDING SCALE (NOVOLOG) 1 VIAL SQ SCH ×4 (06:54→22:29)
[2018-11-29] MEDS ORDERED: INSULIN (NOVOLOG) ASPART 100 UNITS/ML 10ML VIAL ONE ×3 (07:01→22:03)
[2018-11-29 08:16] LABS: BLOOD UREA NITROGEN 27.1 mg/dL (7-18); CALCIUM 7.9 mg/dL (8.5-10.1); CREATININE 1.4 mg/dL (0.55-1.3); MAGNESIUM 2.3 mg/dL (1.8-2.4); PHOSPHOROUS 3.9 mg/dL (2.5-4.9); POTASSIUM 4.6 mmol/L (3.5-5.1)
[2018-11-29 08:20] LABS: BASO % 0.4 % (0-2.0); EOS % 4.7 % (0-4.5); HEMATOCRIT 25.3 % (32.4-45.2); HEMOGLOBIN 8.6 GM/dL (10.7-15.3); MCH 29.5 pg (25.7-33.7); MCHC 33.9 g/dl (32.0-36.0); MEAN CELL VOLUME 87.2 fl (80-96); MEAN PLT VOLUME 7.5 fl (7.5-11.1); MONO % 6.3 % (3.8-10.2); NEUT % 70.6 % (42.8-82.8); PLATELET COUNT 253 K/MM3 (134-434); RDW 14.7 % (11.6-15.6); WHITE BLOOD COUNT 7.1 K/mm3 (4.0-10.0)
--- NOTE | 2018-11-29 08:22 | PN ---
Progress Note (short form) - Note Progress Note: Neurology - General Chief Complaint: Weakness History of Present Illness The patient is a 68 year old female, with a significant PMH of anemia, CHF, CKD (baseline Cr 0.9-1) with mild proteinuria, CAD (s/p recent cardiac stent), IDDM , HTN, and vertigo who presents to the ED for evaluation s/p fall. Patient reported 2 falls in the last 48 hours. She reported feeling lightheaded and dizzy (not related to her vertigo), which caused her to fall. Denied LOC, but endorses right knee pain secondary to hitting her RLE during her falls. Patient was previously admitted last month for syncope and UTI. Noncontrast head CT was completed and reviewed and did not show any acute changes. No infarcts or space-occupying mass is noted.Cane at bedside and patient seems to have limited ambulation. requires physical therapy and may benefit from short-term rehabilitation. Today sitting up in chair and without significant complaints. Well appearing. Allergies/Adverse Reactions: Allergies Allergy/AdvReac Type Severity Reaction Status Date / Time azithromycin [From Zithromax] Allergy Verified 11/27/18 14:56 Active Medications Amlodipine Besylate (Norvasc -) 10 mg PO DAILY [facility] Aspirin (Ecotrin -) 81 mg PO HS [facility] Last Admin: 11/28/18 23:30 Dose: 81 mg Atorvastatin Calcium (Lipitor -) 80 mg PO HS [facility] Last Admin: 11/28/18 23:30 Dose: 80 mg Clopidogrel Bisulfate (Plavix -) 75 mg PO DAILY [facility] Last Admin: 11/28/18 10:42 Dose: 75 mg Duloxetine HCl (Cymbalta -) 20 mg PO DAILY [facility] Last Admin: 11/28/18 10:41 Dose: 20 mg Ezetimibe (Zetia -) 10 mg PO HS [facility] Last Admin: 11/28/18 23:30 Dose: 10 mg Ferrous Sulfate (Feosol -) 325 mg PO DAILY [facility] Last Admin: 11/28/18 10:42 Dose: 325 mg Heparin Sodium (Porcine) (Heparin -) 5,000 unit SQ BID [facility] Last Admin: 11/28/18 23:30 Dose: 5,000 unit Insulin Aspart (Novolog Vial Sliding Scale -) 1 vial SQ ACHS [facility]; Protocol Last Admin: 11/29/18 06:54 Dose: 6 units Meclizine HCl (Antivert -) 12.5 mg PO DAILY [facility] Last Admin: 11/28/18 10:42 Dose: 12.5 mg Midodrine (Proamatine -) 2.5 mg PO TID-MID [facility] Last Admin: 11/28/18 17:34 Dose: 2.5 mg Polyethylene Glycol (Miralax (For Daily Use) -) 17 gm PO DAILY [facility] Last Admin: 11/28/18 10:28 Dose: 17 grams *Physical Exam Vital Signs Period Temp Pulse Resp BP Sys/Juarez Pulse Ox Last 24 Hr 98.2 F-99.2 F 69-102 20-20 105-210/59-90 98-99 Constitutional: Awake, alert, oriented. No acute distress. Head: Normocephalic. Atraumatic Eyes: PERRL. EOMI. Conjunctivae are not pale. No nystagmus. ENT: Mucous membranes are moist and intact. Posterior pharynx without exudates or erythema. Uvula midline. Neck: Supple. Full ROM. No lymphadenopathy. Cardiovascular: Regular rate. Regular rhythm. S1, S2 regular. Distal pulses are 2+ and symmetric. Pulmonary/Chest: No evidence of respiratory distress. Clear to auscultation bilaterally No wheezing, rales or rhonchi. Abdominal: Soft and non-distended. There is no tenderness. No rebound, guarding or rigidity. No organomegaly. No palpable masses. Good bowel sounds. Back: No CVA tenderness. Musculoskeletal: No edema. No cyanosis. No clubbing. Full range of motion in all extremities. Nocalf tenderness. Radial/pedal pulses are intact and 2+ bilaterally Skin: Skin is warm and dry. No petechiae. No purpura. Neurological: Alert and oriented to person, place, and time. Normal speech. Strength is grossly symmetric, Sensory intact, finger to nose normal. Psychiatric: Good eye contact. Normal interaction, affect and behavior. CBCD WBC 7.7 K/mm3 (4.0-10.0) 11/28/18 06:00 RBC 2.89 M/mm3 (3.60-5.2) L 11/28/18 06:00 Hgb 8.7 GM/dL (10.7-15.3) L 11/28/18 06:00 Hct 24.9 % (32.4-45.2) L D 11/28/18 06:00 MCV 86.3 fl (80-96) 11/28/18 06:00 MCHC 34.7 g/dl (32.0-36.0) 11/28/18 06:00 RDW 14.6 % (11.6-15.6) 11/28/18 06:00 Plt Count 262 K/MM3 (134-434) D 11/28/18 06:00 MPV 7.3 fl (7.5-11.1) L 11/28/18 06:00 CMP Sodium 138 mmol/L (136-145) 11/29/18 05:50 Potassium 4.6 mmol/L (3.5-5.1) 11/29/18 05:50 Chloride 110 mmol/L (98-107) H 11/29/18 05:50 Carbon Dioxide 24 mmol/L (21-32) 11/29/18 05:50 Anion Gap 5 MMOL/L (8-16) L 11/29/18 05:50 BUN 27.1 mg/dL (7-18) H 11/29/18 05:50 Creatinine 1.4 mg/dL (0.55-1.3) H 11/29/18 05:50 Random Glucose 278 mg/dL (74-106) H 11/29/18 05:50 Calcium 7.9 mg/dL (8.5-10.1) L 11/29/18 05:50 Total Bilirubin 0.3 mg/dL (0.2-1) 11/28/18 06:00 AST 15 U/L (15-37) 11/28/18 06:00 ALT 18 U/L (13-61) 11/28/18 06:00 Alkaline Phosphatase 122 U/L (45-117) H 11/28/18 06:00 Total Protein 4.9 g/dl (6.4-8.2) L 11/28/18 06:00 Albumin 2.0 g/dl (3.4-5.0) L 11/28/18 06:00 CARDIAC ENZYMES Creatine Kinase 37 U/L (26-192) 11/28/18 06:00 Troponin I 0.03 ng/ml (0.00-0.05) 11/28/18 06:00 Medical Decision Making The patient is a 68 year old female, with a significant PMH of anemia, CHF, CKD (baseline Cr 0.9-1) with mild proteinuria, CAD (s/p recent cardiac stent), IDDM , HTN, and vertigo who presents to the ED for evaluation s/p fall. Patient reported 2 falls in the last 48 hours. She reported feeling lightheaded and dizzy (not related to her vertigo), which caused her to fall. Denied LOC, but endorses right knee pain secondary to hitting her RLE during her falls. Patient was previously admitted last month for syncope and UTI. Noncontrast head CT was completed and reviewed and did not show any acute changes. No infarcts or space-occupying mass is noted. Cane at bedside and patient seems to have limited ambulation. Requires physical therapy and may benefit from short-term rehabilitation. Neurologically stable without events overnight.
--- NOTE | 2018-11-29 08:40 | PN ---
Progress Note, Physician Chief Complaint: Seen and examined on tele Denies CP or SOB TELE: NSR History of Present Illness: BP at times elevated above goal - Current Medication List Current Medications: Active Medications Amlodipine Besylate (Norvasc -) 10 mg PO DAILY [facility] Aspirin (Ecotrin -) 81 mg PO [facility] Last Admin: 11/28/18 23:30 Dose: 81 mg Atorvastatin Calcium (Lipitor -) 80 mg PO HS [facility] Last Admin: 11/28/18 23:30 Dose: 80 mg Clopidogrel Bisulfate (Plavix -) 75 mg PO DAILY [facility] Last Admin: 11/28/18 10:42 Dose: 75 mg Duloxetine HCl (Cymbalta -) 20 mg PO DAILY [facility] Last Admin: 11/28/18 10:41 Dose: 20 mg Ezetimibe (Zetia -) 10 mg PO HS [facility] Last Admin: 11/28/18 23:30 Dose: 10 mg Ferrous Sulfate (Feosol -) 325 mg PO DAILY [facility] Last Admin: 11/28/18 10:42 Dose: 325 mg Heparin Sodium (Porcine) (Heparin -) 5,000 unit SQ BID [facility] Last Admin: 11/28/18 23:30 Dose: 5,000 unit Insulin Aspart (Novolog Vial Sliding Scale -) 1 vial SQ [facility]; Protocol Last Admin: 11/29/18 06:54 Dose: 6 units Meclizine HCl (Antivert -) 12.5 mg PO DAILY [facility] Last Admin: 11/28/18 10:42 Dose: 12.5 mg Midodrine (Proamatine -) 2.5 mg PO TID-MID [facility] Last Admin: 11/28/18 17:34 Dose: 2.5 mg Polyethylene Glycol (Miralax (For Daily Use) -) 17 gm PO DAILY [facility] Last Admin: 11/28/18 10:28 Dose: 17 grams - Objective Vital Signs: Vital Signs Temperature 99.2 F 11/29/18 06:00 Pulse Rate 102 H 11/29/18 06:00 Respiratory Rate 20 11/29/18 06:00 Blood Pressure 184/88 H 11/29/18 06:00 O2 Sat by Pulse Oximetry (%) 98 11/28/18 21:00 Constitutional: Yes: Calm Cardiovascular: Yes: Regular Rate and Rhythm Respiratory: Yes: CTA Bilaterally Gastrointestinal: Yes: Soft, Abdomen, Obese Edema: No Peripheral Pulses WNL: No Neurological: Yes: Alert, Oriented ...Motor Strength: WNL Labs: CBC, BMP 11/29/18 05:50 - ....Imaging EKG: Image Reviewed Assessment/Plan cho 10/2018: nl lv/rv, mild tr, g2dd tele: sr cxr: clear lungs ecg: sr, nl intervals, lvh, no acute changes Assessment/Plan 68 yo F w a hx of anemia, CHF, CKD with mild proteinuira, CAD s/p cardiac stent , IDDM, HTN, and vertigo presents to the [facility] ER with dizziness and falls. Falls, dizziness, orthostatic hypotension: -symptoms seem related to orthostatic hypotension which is present on vitals here. Labs show dario, likely volume depleted worsened her baseline orthostatic sxs. Will stop lasix. -AM BP above goal, will add evening dose of Toprol -cont midodrine -monitor ortho vitals closely -monitor tele -PT eval -recent echo unremarkable Chronic diastolic chf: -stable vol status -was not taking lasix at home and dry here now so will not resume CAD, pci: -stable no signs acs -nl lvef -cont dapt, home cardiac meds HTN: -losartan stopped due to dario -Remains hypertensive in late evening and early AM despite increase in Amlodipine, add low dose Toprol evening
[2018-11-29] MEDS ORDERED: amLODIPine BESYLATE 5 MG TABLET (FP) PO SCH (10:00)
[2018-11-29] MEDS: MECLIZINE HCL 12.5 MG TABLET PO SCH (10:35)
[2018-11-29] MEDS: CLOPIDOGREL BISULFATE 75 MG TABLET (FP) PO SCH (10:35)
[2018-11-29] MEDS: FERROUS SO4 325 MG TABLET (FP) PO SCH (10:35)
[2018-11-29] MEDS: DULoxetine HCL 20 MG CAPSULE.DR PO SCH (10:35)
[2018-11-29] MEDS: MIDODRINE HCL 5 MG TABLET PO SCH ×3 (10:36→17:53)
[2018-11-29] MEDS: HEPARIN NA (PORCINE) 5,000 UNITS/ML 1ML VIAL SQ SCH ×2 (10:39→22:28)
[2018-11-29] MEDS: POLYETHYLENE GLYCOL 3350 119 GM BTL PO SCH (12:28)
[2018-11-29] MEDS ORDERED: SODIUM CHLORIDE 0.45% 1,000 ML IV SCH (14:15)
--- NOTE | 2018-11-29 14:48 | PN ---
Progress Note (short form) - Note Progress Note: Renal follow up for ANG Pt seen and examined at the bedside awake and alert continues to have dizziness with change in position no sob, cp, abd pain still orthostatic Vital Signs Temperature 99.2 F 11/29/18 06:00 Pulse Rate 87 11/29/18 08:42 Respiratory Rate 20 11/29/18 09:00 Blood Pressure 153/78 11/29/18 08:42 O2 Sat by Pulse Oximetry (%) 98 11/29/18 09:00 Intake & Output 11/26/18 11/27/18 11/28/18 11/29/18 23:59 23:59 23:59 23:59 Intake Total 400 833 913 Balance 400 833 913 Weight 73.482 kg 73.482 kg NAD MMM RRR, no M/R CTA soft NT/ND no LE edema, clubbing or cyanosis CBC, BMP 11/29/18 05:50 11/29/18 05:50 Current Medications Amlodipine Besylate (Norvasc -) 10 mg PO DAILY [facility] Last Admin: 11/29/18 10:35 Dose: 10 mg Aspirin (Ecotrin -) 81 mg PO HS [facility] Last Admin: 11/28/18 23:30 Dose: 81 mg Atorvastatin Calcium (Lipitor -) 80 mg PO HS [facility] Last Admin: 11/28/18 23:30 Dose: 80 mg Clopidogrel Bisulfate (Plavix -) 75 mg PO DAILY [facility] Last Admin: 11/29/18 10:35 Dose: 75 mg Duloxetine HCl (Cymbalta -) 20 mg PO DAILY [facility] Last Admin: 11/29/18 10:35 Dose: 20 mg Ezetimibe (Zetia -) 10 mg PO HS [facility] Last Admin: 11/28/18 23:30 Dose: 10 mg Ferrous Sulfate (Feosol -) 325 mg PO DAILY [facility] Last Admin: 11/29/18 10:35 Dose: 325 mg Heparin Sodium (Porcine) (Heparin -) 5,000 unit SQ BID [facility] Last Admin: 11/29/18 10:39 Dose: 5,000 unit Sodium Chloride (1/2 Normal Saline) 1,000 mls @ 83 mls/hr IV ASDIR [facility] Stop: 11/30/18 02:14 Insulin Aspart (Novolog Vial Sliding Scale -) 1 vial SQ ACHS [facility]; Protocol Last Admin: 11/29/18 12:28 Dose: 10 units Meclizine HCl (Antivert -) 12.5 mg PO DAILY [facility] Last Admin: 11/29/18 10:35 Dose: 12.5 mg Metoprolol Succinate (Toprol Xl -) 25 mg PO DAILY@1900 [facility] Midodrine (Proamatine -) 2.5 mg PO TID-MID [facility] Last Admin: 11/29/18 13:58 Dose: 2.5 mg Polyethylene Glycol (Miralax (For Daily Use) -) 17 gm PO DAILY [facility] Last Admin: 11/29/18 12:28 Dose: 17 grams 68 year old woman with hx of CKD with nephrotic range proteinuria, + IRENE, ( normal DS-DNA, Negative ANCA), CAD s/p PCI, DM, hypertension presented with dizziness and falls with orthostatic hypotension and noted to have elevated BUN/ Cr. #Orthostatic hypotension #ANG on CKD in setting of volume depletion #CKD with proteinuria #Hx of + IRENE #Anemia (acute on chronic) #CHF with diastolic dysfunction pt remains orthostatic but has supine hypertension started on metoprolol by cardiology Can continue midodrine but hold if SBP >150 or DBP > 100. will give additional IVF today: 1/2 NS at 83cc x 12 hours Monitor volume status and respiratory status Check orthostatics Q8h Renal function improving Thank you Clinton Manjarrez DO
[2018-11-29] MEDS ORDERED: metoPROLOL SUCCINATE 25 MG TAB.SR.24H (FP) PO SCH (19:00)
--- NOTE | 2018-11-29 21:11 | PN ---
Progress Note, Physician History of Present Illness: No new complaints - Current Medication List Current Medications: Active Medications Amlodipine Besylate (Norvasc -) 10 mg PO DAILY [facility] Last Admin: 11/29/18 10:35 Dose: 10 mg Aspirin (Ecotrin -) 81 mg PO HS [facility] Last Admin: 11/28/18 23:30 Dose: 81 mg Atorvastatin Calcium (Lipitor -) 80 mg PO HS [facility] Last Admin: 11/28/18 23:30 Dose: 80 mg Clopidogrel Bisulfate (Plavix -) 75 mg PO DAILY [facility] Last Admin: 11/29/18 10:35 Dose: 75 mg Duloxetine HCl (Cymbalta -) 20 mg PO DAILY [facility] Last Admin: 11/29/18 10:35 Dose: 20 mg Ezetimibe (Zetia -) 10 mg PO HS [facility] Last Admin: 11/28/18 23:30 Dose: 10 mg Ferrous Sulfate (Feosol -) 325 mg PO DAILY [facility] Last Admin: 11/29/18 10:35 Dose: 325 mg Heparin Sodium (Porcine) (Heparin -) 5,000 unit SQ BID [facility] Last Admin: 11/29/18 10:39 Dose: 5,000 unit Sodium Chloride (1/2 Normal Saline) 1,000 mls @ 83 mls/hr IV ASDIR [facility] Stop: 11/30/18 02:14 Last Admin: 11/29/18 15:21 Dose: 83 mls/hr Insulin Aspart (Novolog Vial Sliding Scale -) 1 vial SQ ACHS [facility]; Protocol Last Admin: 11/29/18 17:21 Dose: 8 units Meclizine HCl (Antivert -) 12.5 mg PO DAILY [facility] Last Admin: 11/29/18 10:35 Dose: 12.5 mg Metoprolol Succinate (Toprol Xl -) 25 mg PO DAILY@1900 [facility] Last Admin: 11/29/18 18:12 Dose: 25 mg Midodrine (Proamatine -) 2.5 mg PO TID-MID [facility] Last Admin: 11/29/18 17:53 Dose: Not Given Polyethylene Glycol (Miralax (For Daily Use) -) 17 gm PO DAILY [facility] Last Admin: 11/29/18 12:28 Dose: 17 grams - Objective Vital Signs: Vital Signs Temperature 98 F 11/29/18 14:05 Pulse Rate 81 11/29/18 14:05 Respiratory Rate 20 11/29/18 14:05 Blood Pressure 152/86 11/29/18 14:05 O2 Sat by Pulse Oximetry (%) 98 11/29/18 09:00 Neck: Yes: WNL, Supple Cardiovascular: Yes: WNL, Regular Rate and Rhythm Respiratory: Yes: WNL, Regular, CTA Bilaterally Gastrointestinal: Yes: WNL, Normal Bowel Sounds, Soft Extremities: Yes: WNL Edema: No Labs: CBC, BMP 11/29/18 05:50 11/29/18 05:50 Problem List - Problems (1) Unsteady gait Assessment/Plan: ?Due to orthostatic hypotension Cont midodrine Cont to monitor Will need STR Code(s): R26.81 - UNSTEADINESS ON FEET (2) Repeated falls Assessment/Plan: Will need PT eval Will STR placement Code(s): R29.6 - REPEATED FALLS (3) Anemia Assessment/Plan: ?Dilutional Repeat H/H in am Cont to monitor and transfuse as indicated Code(s): D64.9 - ANEMIA, UNSPECIFIED (4) CKD (chronic kidney disease) Code(s): N18.9 - CHRONIC KIDNEY DISEASE, UNSPECIFIED (5) Chronic diastolic heart failure Assessment/Plan: Lasix dc'ed due to euvolumic state Code(s): I50.32 - CHRONIC DIASTOLIC (CONGESTIVE) HEART FAILURE (6) Diabetes Assessment/Plan: Cont sliding scale w/ coverage Code(s): E11.9 - TYPE 2 DIABETES MELLITUS WITHOUT COMPLICATIONS (7) HLD (hyperlipidemia) Assessment/Plan: Cont zetia/lipitor Code(s): E78.5 - HYPERLIPIDEMIA, UNSPECIFIED (8) HTN (hypertension) Assessment/Plan: Norvasc dose increased/asa Code(s): I10 - ESSENTIAL (PRIMARY) HYPERTENSION (9) CAD (coronary artery disease) Assessment/Plan: Cont asa/plavix Code(s): I25.10 - ATHSCL HEART DISEASE OF [place] CORONARY ARTERY W/O ANG PCTRS (10) Depression Assessment/Plan: Cont cymbalta Code(s): F32.9 - MAJOR DEPRESSIVE DISORDER, SINGLE EPISODE, UNSPECIFIED
[2018-11-29] MEDS: ATORVASTATIN CA 80 MG TABLET (FP) PO SCH (22:29)
[2018-11-29] MEDS: EZETIMIBE 10 MG TABLET (FP) PO SCH (22:29)
[2018-11-29] MEDS: ASPIRIN COATED 81 MG TABLET.EC PO SCH (22:29)
[2018-11-30] MEDS: INSULIN SLIDING SCALE (NOVOLOG) 1 VIAL SQ SCH ×4 (06:29→21:30)
[2018-11-30 06:53] LABS: BASO % 0.6 % (0-2.0); EOS % 5.9 % (0-4.5); HEMATOCRIT 24.2 % (32.4-45.2); HEMOGLOBIN 8.3 GM/dL (10.7-15.3); LYMPH % 27.1 % (8-40); MCH 29.8 pg (25.7-33.7); MCHC 34.2 g/dl (32.0-36.0); MEAN PLT VOLUME 7.4 fl (7.5-11.1); MONO % 8.2 % (3.8-10.2); NEUT % 58.2 % (42.8-82.8); PLATELET COUNT 232 K/MM3 (134-434); RBC 2.78 M/mm3 (3.60-5.2); RDW 14.1 % (11.6-15.6); WHITE BLOOD COUNT 6.2 K/mm3 (4.0-10.0)
[2018-11-30 07:19] LABS: ALBUMIN 1.9 g/dl (3.4-5.0); BILIRUBIN,TOTAL 0.5 mg/dL (0.2-1); BLOOD UREA NITROGEN 27.6 mg/dL (7-18); CALCIUM 7.9 mg/dL (8.5-10.1); CREATININE 1.3 mg/dL (0.55-1.3); POTASSIUM 4.3 mmol/L (3.5-5.1); TOT PROT 4.9 g/dl (6.4-8.2)
--- NOTE | 2018-11-30 09:09 | PN ---
Progress Note, Physician Chief Complaint: dizziness History of Present Illness: felt LH again today when stood for orthostatic BP check no cp, sob, palpitations was taking lasix 20 QOD at home states she is not drinking a lot at home - Current Medication List Current Medications: Active Medications Amlodipine Besylate (Norvasc -) 10 mg PO DAILY [facility] Last Admin: 11/29/18 10:35 Dose: 10 mg Aspirin (Ecotrin -) 81 mg PO [facility] Last Admin: 11/29/18 22:29 Dose: 81 mg Atorvastatin Calcium (Lipitor -) 80 mg PO HS [facility] Last Admin: 11/29/18 22:29 Dose: 80 mg Clopidogrel Bisulfate (Plavix -) 75 mg PO DAILY [facility] Last Admin: 11/29/18 10:35 Dose: 75 mg Duloxetine HCl (Cymbalta -) 20 mg PO DAILY [facility] Last Admin: 11/29/18 10:35 Dose: 20 mg Ezetimibe (Zetia -) 10 mg PO [facility] Last Admin: 11/29/18 22:29 Dose: 10 mg Ferrous Sulfate (Feosol -) 325 mg PO DAILY [facility] Last Admin: 11/29/18 10:35 Dose: 325 mg Heparin Sodium (Porcine) (Heparin -) 5,000 unit SQ BID [facility] Last Admin: 11/29/18 22:28 Dose: 5,000 unit Insulin Aspart (Novolog Vial Sliding Scale -) 1 vial SQ ACHS [facility]; Protocol Last Admin: 11/30/18 06:29 Dose: 2 units Meclizine HCl (Antivert -) 12.5 mg PO DAILY [facility] Last Admin: 11/29/18 10:35 Dose: 12.5 mg Metoprolol Succinate (Toprol Xl -) 25 mg PO DAILY@1900 [facility] Last Admin: 11/29/18 18:12 Dose: 25 mg Midodrine (Proamatine -) 2.5 mg PO TID-MID [facility] Last Admin: 11/29/18 17:53 Dose: Not Given Polyethylene Glycol (Miralax (For Daily Use) -) 17 gm PO DAILY [facility] Last Admin: 11/29/18 12:28 Dose: 17 grams - Objective Vital Signs: Vital Signs Temperature 98.3 F 11/30/18 06:00 Pulse Rate 70 11/30/18 06:00 Respiratory Rate 20 11/30/18 06:00 Blood Pressure 167/79 11/30/18 06:00 O2 Sat by Pulse Oximetry (%) 97 11/29/18 21:00 Constitutional: Yes: Well Nourished, No Distress, Obese Cardiovascular: Yes: Regular Rate and Rhythm, S1, S2. No: JVD, Gallop, Murmur Respiratory: Yes: Regular, CTA Bilaterally. No: Accessory Muscle Use, Rales, Wheezes Extremities: No: Cold Edema: No Neurological: Yes: Alert, Oriented Psychiatric: No: Agitated Labs: CBC, BMP 11/30/18 05:54 11/30/18 05:54 Assessment/Plan echo 10/2018: nl lv/rv, mild tr, gr2dd tele: sr cxr: clear lungs ecg: sr, nl intervals, lvh, no acute changes Assessment/Plan 68 yo F w a hx of anemia, CHF, CKD with mild proteinuira, CAD s/p cardiac stent , IDDM, HTN, and vertigo presents to the [facility] ER with dizziness and falls. resting HTN, orthostatic hypo with dizziness/falls -symptoms seem related to orthostatic hypotension which is present on vitals here. Labs showed ang, likely volume depleted worsened her baseline orthostatic sxs. lasix held -losartan stopped for ANG -AM BP above goal, evening dose of Toprol added 11/29 -11/30: remains with 50-60 mmHg drop in standing bp vs supine. not tolerating vasodilation effect of hi dose amlodipine--will stop this -rec use of less vasodilating meds for bp control (non-diuretic): BB, diltiazem , clonidine and ARB if renal fxn stable -titrate metoprolol to 37.5 bid -cont low dose midodrine for now, holding for systolic > 150 -encourage PO hydration--d/w'd pt -continue monitoring resting and orthostatic BPs for next 24 hrs -recent echo unremarkable Chronic diastolic chf: -stable vol status, appears euvolemic -was taking lasix 20 qod at home on average--michael rhoades CAD, pci: -stable no signs acs -nl lvef -cont dapt, home cardiac meds
[2018-11-30] MEDS: POLYETHYLENE GLYCOL 3350 119 GM BTL PO SCH (09:40)
[2018-11-30] MEDS: HEPARIN NA (PORCINE) 5,000 UNITS/ML 1ML VIAL SQ SCH ×2 (09:41→21:30)
[2018-11-30] MEDS: MECLIZINE HCL 12.5 MG TABLET PO SCH (09:42)
[2018-11-30] MEDS: CLOPIDOGREL BISULFATE 75 MG TABLET (FP) PO SCH (09:42)
[2018-11-30] MEDS: MIDODRINE HCL 5 MG TABLET PO SCH ×3 (09:42→17:49)
[2018-11-30] MEDS: FERROUS SO4 325 MG TABLET (FP) PO SCH (09:42)
[2018-11-30] MEDS: DULoxetine HCL 20 MG CAPSULE.DR PO SCH (09:42)
[2018-11-30] MEDS ORDERED: metoPROLOL SUCCINATE 25 MG TAB.SR.24H (FP) PO SCH (10:00)
--- NOTE | 2018-11-30 10:58 | CONSULT ---
Consult - text type - Consultation Consultation Note: History of Present Illness: Pt is a 68 year old female, with a significant PMH of anemia, CHF, CKD, CAD (s/ p recent cardiac stent), IDDM, HTN, and vertigo who presented to the ED for evaluation with s/p multiple falls and unsteady gait. Patient and son reported 2 falls in the last 48 hours prior to admission. She reported feeling lightheaded and dizzy (not related to her vertigo), which caused her to fall. Denied LOC, but endorsed right knee pain secondary to hitting her RLE during her falls. Patient was previously admitted last month for syncope and UTI. CT scan head did not show any acute pathology. - Past Medical History [employer]: Yes: Syncope Cardiovascular: Yes: CAD, CHF, HTN Renal/: Yes: Renal Inusuff ...: No Heme/Onc: Yes: Anemia Endocrine: Yes: Diabetes Mellitus - Past Surgical History Past Surgical History: Yes: Colonoscopy - Smoking History Smoking history: Never smoked Have you smoked in the past 12 months: No - Alcohol/Substance Use Hx Alcohol Use: No - Social History History of Recent Travel: No - Family History N/A Home Medications - Allergies Allergies/Adverse Reactions: Allergies Allergy/AdvReac Type Severity Reaction Status Date / Time azithromycin [From Zithromax] Allergy Verified 11/27/18 14:56 - Home Medications Home Medications: Ambulatory Orders Atorvastatin Ca [Lipitor] 80 mg PO HS 07/10/18 Ezetimibe [Zetia] 10 mg PO HS 07/10/18 Ferrous Sulfate [Feosol] 325 mg PO DAILY 07/10/18 Meclizine HCl 12.5 mg PO DAILY 07/10/18 Aspirin Coated [Ecotrin -] 81 mg PO HS #30 tablet.ec 07/16/18 Losartan Potassium [Cozaar -] 25 mg PO DAILY #30 tablet 07/16/18 Duloxetine HCl 20 mg PO DAILY 10/26/18 Insulin Lispro [Humalog] 20 unit SQ DAILY 10/26/18 Amlodipine Besylate [Norvasc -] 5 mg PO DAILY #30 tablet 11/01/18 Clopidogrel Bisulfate [Plavix -] 75 mg PO DAILY #30 tablet 11/01/18 Lactobacillus 3/Fos/Pantethine [Probiotic & Acidophilus Cap] 1 each PO DAILY # 30 capsule 11/01/18 Midodrine HCl [Proamatine -] 2.5 mg PO TID-MID #90 tablet 11/01/18 Polyethylene Glycol 3350 [Miralax 119 gm Btl -] 17 gm PO DAILY #1 bottle Family Disease History - Family Disease History Family History: Unremarkable Review of Systems - Review of Systems Constitutional: reports: Weakness HENT: reports: No Symptoms Neck: reports: No Symptoms Cardiovascular: reports: No Symptoms Respiratory: reports: No Symptoms Gastrointestinal: reports: No Symptoms Genitourinary: reports: No Symptoms Physical Examination Vital Signs: Vital Signs Temperature 98.6 F 11/30/18 10:03 Pulse Rate 67 11/30/18 10:03 Respiratory Rate 20 11/30/18 10:03 Blood Pressure 152/59 L 11/30/18 10:03 O2 Sat by Pulse Oximetry (%) 96 11/30/18 09:00 Constitutional: Yes: No Distress Eyes: Yes: WNL HENT: Yes: WNL Neck: Yes: WNL, Supple Cardiovascular: Yes: WNL, Regular Rate and Rhythm Respiratory: Yes: WNL, Regular, CTA Bilaterally Gastrointestinal: Yes: WNL, Normal Bowel Sounds, Soft Musculoskeletal: Yes: WNL Extremities: Yes: WNL Edema: No Neurological: Yes: WNL, Alert, Oriented ...Motor Strength: WNL Labs: CBCD WBC 6.2 K/mm3 (4.0-10.0) 11/30/18 05:54 RBC 2.78 M/mm3 (3.60-5.2) L 11/30/18 05:54 Hgb 8.3 GM/dL (10.7-15.3) L 11/30/18 05:54 Hct 24.2 % (32.4-45.2) L 11/30/18 05:54 MCV 87.0 fl (80-96) 11/30/18 05:54 MCHC 34.2 g/dl (32.0-36.0) 11/30/18 05:54 RDW 14.1 % (11.6-15.6) 11/30/18 05:54 Plt Count 232 K/MM3 (134-434) 11/30/18 05:54 MPV 7.4 fl (7.5-11.1) L 11/30/18 05:54 CMP Sodium 139 mmol/L (136-145) 11/30/18 05:54 Potassium 4.3 mmol/L (3.5-5.1) 11/30/18 05:54 Chloride 109 mmol/L (98-107) H 11/30/18 05:54 Carbon Dioxide 23 mmol/L (21-32) 11/30/18 05:54 Anion Gap 7 MMOL/L (8-16) L 11/30/18 05:54 BUN 27.6 mg/dL (7-18) H 11/30/18 05:54 Creatinine 1.3 mg/dL (0.55-1.3) 11/30/18 05:54 Random Glucose 188 mg/dL (74-106) H 11/30/18 05:54 Calcium 7.9 mg/dL (8.5-10.1) L 11/30/18 05:54 Total Bilirubin 0.5 mg/dL (0.2-1) 11/30/18 05:54 AST 13 U/L (15-37) L 11/30/18 05:54 ALT 18 U/L (13-61) 11/30/18 05:54 Alkaline Phosphatase 127 U/L (45-117) H 11/30/18 05:54 Total Protein 4.9 g/dl (6.4-8.2) L 11/30/18 05:54 Albumin 1.9 g/dl (3.4-5.0) L 11/30/18 05:54 CARDIAC ENZYMES Creatine Kinase 37 U/L (26-192) 11/28/18 06:00 Troponin I 0.03 ng/ml (0.00-0.05) 11/28/18 06:[address] - no acute pathology ASSESSMENT/PLAN Pt is a 68 year old female, with a significant PMH of anemia, CHF, CKD, CAD (s/ p recent cardiac stent), IDDM, HTN, and vertigo who presented to the ED for evaluation with s/p multiple falls and unsteady gait. Patient and son reported 2 falls in the last 48 hours prior to admission. She reported feeling lightheaded and dizzy (not related to her vertigo), which caused her to fall. Denied LOC, but endorsed right knee pain secondary to hitting her RLE during her falls. Patient was previously admitted last month for syncope and UTI. CT scan head did not show any acute pathology.
--- NOTE | 2018-11-30 11:15 | PN ---
Progress Note (short form) - Note Progress Note: Neurology - General Chief Complaint: Weakness History of Present Illness The patient is a 68 year old female, with a significant PMH of anemia, CHF, CKD (baseline Cr 0.9-1) with mild proteinuria, CAD (s/p recent cardiac stent), IDDM , HTN, and vertigo who presents to the ED for evaluation s/p fall. Patient reported 2 falls in the last 48 hours. She reported feeling lightheaded and dizzy (not related to her vertigo), which caused her to fall. Denied LOC, but endorses right knee pain secondary to hitting her RLE during her falls. Patient was previously admitted last month for syncope and UTI. Noncontrast head CT was completed and reviewed and did not show any acute changes. No infarcts or space-occupying mass is noted.Cane at bedside and patient seems to have limited ambulation. requires physical therapy and may benefit from short-term rehabilitation. Today sitting up in chair and without significant complaints. Well appearing and no acute events overnight. Neurologically stable. Allergies/Adverse Reactions: Allergies Allergy/AdvReac Type Severity Reaction Status Date / Time azithromycin [From Zithromax] Allergy Verified 11/27/18 14:56 Ambulatory Orders Atorvastatin Ca [Lipitor] 80 mg PO HS 07/10/18 Ezetimibe [Zetia] 10 mg PO HS 07/10/18 Ferrous Sulfate [Feosol] 325 mg PO DAILY 07/10/18 Meclizine HCl 12.5 mg PO DAILY 07/10/18 Aspirin Coated [Ecotrin -] 81 mg PO HS #30 tablet.ec 07/16/18 Losartan Potassium [Cozaar -] 25 mg PO DAILY #30 tablet 07/16/18 Duloxetine HCl 20 mg PO DAILY 10/26/18 Insulin Lispro [Humalog] 20 unit SQ DAILY 10/26/18 Amlodipine Besylate [Norvasc -] 5 mg PO DAILY #30 tablet 11/01/18 Clopidogrel Bisulfate [Plavix -] 75 mg PO DAILY #30 tablet 11/01/18 Lactobacillus 3/Fos/Pantethine [Probiotic & Acidophilus Cap] 1 each PO DAILY # 30 capsule 11/01/18 Midodrine HCl [Proamatine -] 2.5 mg PO TID-MID #90 tablet 11/01/18 Polyethylene Glycol 3350 [Miralax 119 gm Btl -] 17 gm PO DAILY #1 bottle Active Medications Aspirin (Ecotrin -) 81 mg PO HS [facility] Last Admin: 11/29/18 22:29 Dose: 81 mg Atorvastatin Calcium (Lipitor -) 80 mg PO HS [facility] Last Admin: 11/29/18 22:29 Dose: 80 mg Clopidogrel Bisulfate (Plavix -) 75 mg PO DAILY [facility] Last Admin: 11/30/18 09:42 Dose: 75 mg Duloxetine HCl (Cymbalta -) 20 mg PO DAILY [facility] Last Admin: 11/30/18 09:42 Dose: 20 mg Ezetimibe (Zetia -) 10 mg PO HS [facility] Last Admin: 11/29/18 22:29 Dose: 10 mg Ferrous Sulfate (Feosol -) 325 mg PO DAILY [facility] Last Admin: 11/30/18 09:42 Dose: 325 mg Heparin Sodium (Porcine) (Heparin -) 5,000 unit SQ BID [facility] Last Admin: 11/30/18 09:41 Dose: 5,000 unit Insulin Aspart (Novolog Vial Sliding Scale -) 1 vial SQ [facility]; Protocol Last Admin: 11/30/18 06:29 Dose: 2 units Meclizine HCl (Antivert -) 12.5 mg PO DAILY [facility] Last Admin: 11/30/18 09:42 Dose: 12.5 mg Metoprolol Succinate (Toprol Xl -) 25 mg PO BID [facility] Last Admin: 11/30/18 09:44 Dose: 25 mg Midodrine (Proamatine -) 2.5 mg PO TID-MID [facility] Last Admin: 11/30/18 09:42 Dose: Not Given Polyethylene Glycol (Miralax (For Daily Use) -) 17 gm PO DAILY [facility] Last Admin: 11/30/18 09:40 Dose: 17 grams *Physical Exam Vital Signs Temperature 98.6 F 11/30/18 10:03 Pulse Rate 67 11/30/18 10:03 Respiratory Rate 20 11/30/18 10:03 Blood Pressure 152/59 L 11/30/18 10:03 O2 Sat by Pulse Oximetry (%) 96 11/30/18 09:00 Constitutional: Awake, alert, oriented. No acute distress. Head: Normocephalic. Atraumatic Eyes: PERRL. EOMI. Conjunctivae are not pale. No nystagmus. ENT: Mucous membranes are moist and intact. Posterior pharynx without exudates or erythema. Uvula midline. Neck: Supple. Full ROM. No lymphadenopathy. Cardiovascular: Regular rate. Regular rhythm. S1, S2 regular. Distal pulses are 2+ and symmetric. Pulmonary/Chest: No evidence of respiratory distress. Clear to auscultation bilaterally No wheezing, rales or rhonchi. Abdominal: Soft and non-distended. There is no tenderness. No rebound, guarding or rigidity. No organomegaly. No palpable masses. Good bowel sounds. Back: No CVA tenderness. Musculoskeletal: No edema. No cyanosis. No clubbing. Full range of motion in all extremities. Nocalf tenderness. Radial/pedal pulses are intact and 2+ bilaterally Skin: Skin is warm and dry. No petechiae. No purpura. Neurological: Alert and oriented to person, place, and time. Normal speech. Strength is grossly symmetric, Sensory intact, finger to nose normal. Psychiatric: Good eye contact. Normal interaction, affect and behavior. CBCD WBC 6.2 K/mm3 (4.0-10.0) 11/30/18 05:54 RBC 2.78 M/mm3 (3.60-5.2) L 11/30/18 05:54 Hgb 8.3 GM/dL (10.7-15.3) L 11/30/18 05:54 Hct 24.2 % (32.4-45.2) L 11/30/18 05:54 MCV 87.0 fl (80-96) 11/30/18 05:54 MCHC 34.2 g/dl (32.0-36.0) 11/30/18 05:54 RDW 14.1 % (11.6-15.6) 11/30/18 05:54 Plt Count 232 K/MM3 (134-434) 11/30/18 05:54 MPV 7.4 fl (7.5-11.1) L 11/30/18 05:54 CMP Sodium 139 mmol/L (136-145) 11/30/18 05:54 Potassium 4.3 mmol/L (3.5-5.1) 11/30/18 05:54 Chloride 109 mmol/L (98-107) H 11/30/18 05:54 Carbon Dioxide 23 mmol/L (21-32) 11/30/18 05:54 Anion Gap 7 MMOL/L (8-16) L 11/30/18 05:54 BUN 27.6 mg/dL (7-18) H 11/30/18 05:54 Creatinine 1.3 mg/dL (0.55-1.3) 11/30/18 05:54 Random Glucose 188 mg/dL (74-106) H 11/30/18 05:54 Calcium 7.9 mg/dL (8.5-10.1) L 11/30/18 05:54 Total Bilirubin 0.5 mg/dL (0.2-1) 11/30/18 05:54 AST 13 U/L (15-37) L 11/30/18 05:54 ALT 18 U/L (13-61) 11/30/18 05:54 Alkaline Phosphatase 127 U/L (45-117) H 11/30/18 05:54 Total Protein 4.9 g/dl (6.4-8.2) L 11/30/18 05:54 Albumin 1.9 g/dl (3.4-5.0) L 11/30/18 05:54 CARDIAC ENZYMES Creatine Kinase 37 U/L (26-192) 11/28/18 06:00 Troponin I 0.03 ng/ml (0.00-0.05) 11/28/18 06:00 Medical Decision Making The patient is a 68 year old female, with a significant PMH of anemia, CHF, CKD (baseline Cr 0.9-1) with mild proteinuria, CAD (s/p recent cardiac stent), IDDM , HTN, and vertigo who presents to the ED for evaluation s/p fall. Patient reported 2 falls in the last 48 hours. She reported feeling lightheaded and dizzy (not related to her vertigo), which caused her to fall. Denied LOC, but endorses right knee pain secondary to hitting her RLE during her falls. Patient was previously admitted last month for syncope and UTI. Noncontrast head CT was completed and reviewed and did not show any acute changes. No infarcts or space-occupying mass is noted. Cane at bedside and patient seems to have limited ambulation. Requires physical therapy and may benefit from short-term rehabilitation. Neurologically stable without events overnight. Fall precautions. Defer to primary team, case management regarding placement.
[2018-11-30] MEDS ORDERED: INSULIN (NOVOLOG) ASPART 100 UNITS/ML 10ML VIAL ONE (11:25)
--- NOTE | 2018-11-30 13:12 | PN ---
Progress Note, Physician History of Present Illness: Pt seen and examined at bedside. She is awake and alert. She denies shortness of breath or lower ext edema. - Current Medication List Current Medications: Active Medications Aspirin (Ecotrin -) 81 mg PO [facility] Last Admin: 11/29/18 22:29 Dose: 81 mg Atorvastatin Calcium (Lipitor -) 80 mg PO HS [facility] Last Admin: 11/29/18 22:29 Dose: 80 mg Clopidogrel Bisulfate (Plavix -) 75 mg PO DAILY [facility] Last Admin: 11/30/18 09:42 Dose: 75 mg Duloxetine HCl (Cymbalta -) 20 mg PO DAILY [facility] Last Admin: 11/30/18 09:42 Dose: 20 mg Ezetimibe (Zetia -) 10 mg PO [facility] Last Admin: 11/29/18 22:29 Dose: 10 mg Ferrous Sulfate (Feosol -) 325 mg PO DAILY [facility] Last Admin: 11/30/18 09:42 Dose: 325 mg Heparin Sodium (Porcine) (Heparin -) 5,000 unit SQ BID [facility] Last Admin: 11/30/18 09:41 Dose: 5,000 unit Insulin Aspart (Novolog Vial Sliding Scale -) 1 vial SQ [facility]; Protocol Last Admin: 11/30/18 11:26 Dose: 301 units Meclizine HCl (Antivert -) 12.5 mg PO DAILY [facility] Last Admin: 11/30/18 09:42 Dose: 12.5 mg Metoprolol Succinate (Toprol Xl -) 37.5 mg PO BID [facility] Midodrine (Proamatine -) 2.5 mg PO TID-MID [facility] Last Admin: 11/30/18 09:42 Dose: Not Given Polyethylene Glycol (Miralax (For Daily Use) -) 17 gm PO DAILY [facility] Last Admin: 11/30/18 09:40 Dose: 17 grams - Objective Vital Signs: Vital Signs Temperature 98.6 F 11/30/18 10:03 Pulse Rate 67 11/30/18 10:03 Respiratory Rate 20 11/30/18 10:03 Blood Pressure 152/59 L 11/30/18 10:03 O2 Sat by Pulse Oximetry (%) 96 11/30/18 09:00 Constitutional: Yes: Calm Eyes: Yes: Conjunctiva Clear HENT: Yes: Atraumatic Neck: Yes: Supple Cardiovascular: Yes: S1, S2 Respiratory: Yes: CTA Bilaterally Gastrointestinal: Yes: Soft Genitourinary: Yes: WNL Musculoskeletal: Yes: WNL Edema: No Integumentary: Yes: WNL Neurological: Yes: Oriented Psychiatric: Yes: Oriented Labs: CBC, BMP 11/30/18 05:54 11/30/18 05:54 Problem List - Problems (1) ANG (acute kidney injury) Code(s): N17.9 - ACUTE KIDNEY FAILURE, UNSPECIFIED (2) CAD (coronary artery disease) Code(s): I25.10 - ATHSCL HEART DISEASE OF [place] CORONARY ARTERY W/O ANG PCTRS (3) CKD (chronic kidney disease) Code(s): N18.9 - CHRONIC KIDNEY DISEASE, UNSPECIFIED Assessment/Plan Current Medications Generic Name Dose Route Start Last Admin Trade Name Freq PRN Reason Stop Dose Admin Aspirin 81 mg 11/28/18 02:00 11/29/18 22:29 Ecotrin - PO 81 mg HS [facility] Administration Atorvastatin Calcium 80 mg 11/28/18 02:00 11/29/18 22:29 Lipitor - PO 80 mg HS [facility] Administration Clopidogrel Bisulfate 75 mg 11/28/18 10:00 11/30/18 09:42 Plavix - PO 75 mg DAILY [facility] Administration Duloxetine HCl 20 mg 11/28/18 10:00 11/30/18 09:42 Cymbalta - PO 20 mg DAILY [facility] Administration Ezetimibe 10 mg 11/28/18 02:00 11/29/18 22:29 Zetia - PO 10 mg HS [facility] Administration Ferrous Sulfate 325 mg 11/28/18 10:00 11/30/18 09:42 Feosol - PO 325 mg DAILY [facility] Administration Heparin Sodium (Porcine) 5,000 unit 11/28/18 02:00 11/30/18 09:41 Heparin - SQ 5,000 unit BID [facility] Administration Insulin Aspart 1 vial 11/28/18 07:00 11/30/18 11:26 Novolog Vial Sliding Scale - SQ 301 units ACHS [facility] Administration Protocol Meclizine HCl 12.5 mg 11/28/18 10:00 11/30/18 09:42 Antivert - PO 12.5 mg DAILY [facility] Administration Metoprolol Succinate 37.5 mg 11/30/18 11:49 Toprol Xl - PO BID [facility] Midodrine 2.5 mg 11/28/18 14:30 11/30/18 09:42 Proamatine - PO Not Given TID-MID [facility] Polyethylene Glycol 17 gm 11/28/18 10:00 11/30/18 09:40 Miralax (For Daily Use) - PO 17 grams DAILY [facility] Administration #Orthostatic hypotension #ANG on CKD in setting of volume depletion #CKD with proteinuria #Hx of + IRENE #Anemia (acute on chronic) #CHF with diastolic dysfunction Plan - monitor bp on metoprolol - cardio follow up - cont to monitor bp on current regimen - renal function improving - Check orthostatics Q8h
--- NOTE | 2018-11-30 21:11 | PN ---
Progress Note, Physician History of Present Illness: No new complaints - Current Medication List Current Medications: Active Medications Aspirin (Ecotrin -) 81 mg PO [facility] Last Admin: 11/29/18 22:29 Dose: 81 mg Atorvastatin Calcium (Lipitor -) 80 mg PO HS [facility] Last Admin: 11/29/18 22:29 Dose: 80 mg Clopidogrel Bisulfate (Plavix -) 75 mg PO DAILY [facility] Last Admin: 11/30/18 09:42 Dose: 75 mg Duloxetine HCl (Cymbalta -) 20 mg PO DAILY [facility] Last Admin: 11/30/18 09:42 Dose: 20 mg Ezetimibe (Zetia -) 10 mg PO [facility] Last Admin: 11/29/18 22:29 Dose: 10 mg Ferrous Sulfate (Feosol -) 325 mg PO DAILY [facility] Last Admin: 11/30/18 09:42 Dose: 325 mg Heparin Sodium (Porcine) (Heparin -) 5,000 unit SQ BID [facility] Last Admin: 11/30/18 09:41 Dose: 5,000 unit Insulin Aspart (Novolog Vial Sliding Scale -) 1 vial SQ [facility]; Protocol Last Admin: 11/30/18 16:47 Dose: 8 units Meclizine HCl (Antivert -) 12.5 mg PO DAILY [facility] Last Admin: 11/30/18 09:42 Dose: 12.5 mg Metoprolol Succinate (Toprol Xl -) 37.5 mg PO BID [facility] Midodrine (Proamatine -) 2.5 mg PO TID-MID [facility] Last Admin: 11/30/18 17:49 Dose: Not Given Polyethylene Glycol (Miralax (For Daily Use) -) 17 gm PO DAILY [facility] Last Admin: 11/30/18 09:40 Dose: 17 grams - Objective Vital Signs: Vital Signs Temperature 98.4 F 11/30/18 17:00 Pulse Rate 72 11/30/18 17:00 Respiratory Rate 20 11/30/18 17:00 Blood Pressure 130/51 L 11/30/18 17:00 O2 Sat by Pulse Oximetry (%) 96 11/30/18 09:00 Neck: Yes: WNL, Supple Cardiovascular: Yes: WNL, Regular Rate and Rhythm Respiratory: Yes: WNL, Regular, CTA Bilaterally Gastrointestinal: Yes: WNL, Normal Bowel Sounds, Soft Extremities: Yes: WNL Edema: No Labs: CBC, BMP 11/30/18 05:54 11/30/18 05:54 Problem List - Problems (1) HTN (hypertension) Assessment/Plan: Norvasc dose increased/asa Code(s): I10 - ESSENTIAL (PRIMARY) HYPERTENSION (2) Unsteady gait Assessment/Plan: ?Due to orthostatic hypotension Cont midodrine Cont to monitor Will need STR Code(s): R26.81 - UNSTEADINESS ON FEET (3) Repeated falls Assessment/Plan: Will need PT eval Will STR placement Code(s): R29.6 - REPEATED FALLS (4) Anemia Assessment/Plan: ?Dilutional Repeat H/H in am Cont to monitor and transfuse as indicated Code(s): D64.9 - ANEMIA, UNSPECIFIED (5) CKD (chronic kidney disease) Code(s): N18.9 - CHRONIC KIDNEY DISEASE, UNSPECIFIED (6) Chronic diastolic heart failure Assessment/Plan: Lasix dc'ed due to euvolumic state Code(s): I50.32 - CHRONIC DIASTOLIC (CONGESTIVE) HEART FAILURE (7) Diabetes Assessment/Plan: Cont sliding scale w/ coverage Code(s): E11.9 - TYPE 2 DIABETES MELLITUS WITHOUT COMPLICATIONS (8) HLD (hyperlipidemia) Assessment/Plan: Cont zetia/lipitor Code(s): E78.5 - HYPERLIPIDEMIA, UNSPECIFIED (9) CAD (coronary artery disease) Assessment/Plan: Cont asa/plavix Code(s): I25.10 - ATHSCL HEART DISEASE OF [place] CORONARY ARTERY W/O ANG PCTRS (10) Depression Assessment/Plan: Cont cymbalta Code(s): F32.9 - MAJOR DEPRESSIVE DISORDER, SINGLE EPISODE, UNSPECIFIED
[2018-11-30] MEDS: ASPIRIN COATED 81 MG TABLET.EC PO SCH (21:30)
[2018-11-30] MEDS: ATORVASTATIN CA 80 MG TABLET (FP) PO SCH (21:30)
[2018-11-30] MEDS: metoPROLOL SUCCINATE 25 MG TAB.SR.24H (FP) PO SCH (21:31)
[2018-11-30] MEDS: EZETIMIBE 10 MG TABLET (FP) PO SCH (21:31)
[2018-12-01 07:05] LABS: BASO % 0.6 % (0-2.0); EOS % 4.5 % (0-4.5); HEMATOCRIT 24.8 % (32.4-45.2); HEMOGLOBIN 8.5 GM/dL (10.7-15.3); LYMPH % 23.5 % (8-40); MCH 29.5 pg (25.7-33.7); MCHC 34.3 g/dl (32.0-36.0); MEAN PLT VOLUME 7.4 fl (7.5-11.1); MONO % 7.7 % (3.8-10.2); NEUT % 63.7 % (42.8-82.8); PLATELET COUNT 247 K/MM3 (134-434); RBC 2.88 M/mm3 (3.60-5.2); RDW 14.4 % (11.6-15.6); WHITE BLOOD COUNT 6.8 K/mm3 (4.0-10.0)
[2018-12-01] MEDS: INSULIN SLIDING SCALE (NOVOLOG) 1 VIAL SQ SCH ×4 (07:16→22:55)
[2018-12-01 07:18] LABS: ALBUMIN 1.9 g/dl (3.4-5.0); BILIRUBIN,TOTAL 0.3 mg/dL (0.2-1); BLOOD UREA NITROGEN 30.3 mg/dL (7-18); CALCIUM 8.3 mg/dL (8.5-10.1); CREATININE 1.5 mg/dL (0.55-1.3); TOT PROT 4.8 g/dl (6.4-8.2)
[2018-12-01 07:27] LABS: POTASSIUM 4.7 mmol/L (3.5-5.1)
--- NOTE | 2018-12-01 08:50 | PN ---
Progress Note, Physician Chief Complaint: dizzy History of Present Illness: still feels dizzy when stands up this AM. lightheaded, not room spinning feeling no cp, sob, palp - Current Medication List Current Medications: Active Medications Aspirin (Ecotrin -) 81 mg PO [facility] Last Admin: 11/30/18 21:30 Dose: 81 mg Atorvastatin Calcium (Lipitor -) 80 mg PO [facility] Last Admin: 11/30/18 21:30 Dose: 80 mg Clopidogrel Bisulfate (Plavix -) 75 mg PO DAILY [facility] Last Admin: 11/30/18 09:42 Dose: 75 mg Duloxetine HCl (Cymbalta -) 20 mg PO DAILY [facility] Last Admin: 11/30/18 09:42 Dose: 20 mg Ezetimibe (Zetia -) 10 mg PO [facility] Last Admin: 11/30/18 21:31 Dose: 10 mg Ferrous Sulfate (Feosol -) 325 mg PO DAILY [facility] Last Admin: 11/30/18 09:42 Dose: 325 mg Heparin Sodium (Porcine) (Heparin -) 5,000 unit SQ BID [facility] Last Admin: 11/30/18 21:30 Dose: 5,000 unit Insulin Aspart (Novolog Vial Sliding Scale -) 1 vial SQ [facility]; Protocol Last Admin: 12/01/18 07:16 Dose: 4 units Meclizine HCl (Antivert -) 12.5 mg PO DAILY [facility] Last Admin: 11/30/18 09:42 Dose: 12.5 mg Metoprolol Succinate (Toprol Xl -) 37.5 mg PO BID [facility] Last Admin: 11/30/18 21:31 Dose: 37.5 mg Midodrine (Proamatine -) 2.5 mg PO TID-MID [facility] Last Admin: 11/30/18 17:49 Dose: Not Given Polyethylene Glycol (Miralax (For Daily Use) -) 17 gm PO DAILY [facility] Last Admin: 11/30/18 09:40 Dose: 17 grams - Objective Vital Signs: Vital Signs Temperature 98.6 F 12/01/18 05:45 Pulse Rate 62 12/01/18 05:45 Respiratory Rate 20 12/01/18 05:45 Blood Pressure 157/62 12/01/18 05:45 O2 Sat by Pulse Oximetry (%) 97 11/30/18 21:00 Constitutional: Yes: No Distress, Calm, Obese Cardiovascular: Yes: Regular Rate and Rhythm, S1, S2. No: Gallop, Murmur Respiratory: Yes: Regular, CTA Bilaterally. No: Accessory Muscle Use, Rales, Wheezes Extremities: No: Cold Edema: No Neurological: Yes: Alert, Oriented Psychiatric: No: Agitated Labs: CBC, BMP 12/01/18 05:46 12/01/18 05:46 Assessment/Plan echo 10/2018: nl lv/rv, mild tr, gr2dd cxr: clear lungs ecg: sr, nl intervals, lvh, no acute changes tele: NSR, no events Assessment/Plan 68 yo F w a hx of anemia, CHF, CKD with mild proteinuira, CAD s/p cardiac stent , IDDM, HTN, and vertigo presents to the [facility] ER with dizziness and falls. resting HTN, orthostatic hypo with dizziness/falls -symptoms seem related to orthostatic hypotension which is present on vitals here. Labs showed ang, likely volume depleted worsened her baseline orthostatic sxs. lasix held -losartan stopped for ANG -AM BP above goal, evening dose of Toprol added 11/29 -11/30: remains with 50-60 mmHg drop in standing bp vs supine. not tolerating vasodilation effect of hi dose amlodipine--will stop this. increase metoprolol to 37.5 bid -plan to use of less vasodilating meds for bp control (non-diuretic): BB, diltiazem, clonidine and ARB if renal fxn stable -12/01: resting BPs reasonable. orthostatics not yet entered however pt continues to be symptomatic. -prior h/o CHF unknown to me--defer fludrocortisone. incr midodrine 5 TID, monitor for resting BP > 160. cont metopr 37.5 bid (amlodipine off--last dose ) -check AM cortisol -encourage PO hydration--d/w'd pt -continue monitoring resting and orthostatic BPs for next 24 hrs -recent echo unremarkable Chronic diastolic chf: -stable vol status, appears euvolemic -was taking lasix 20 qod at home on average--michael rhoades CAD, pci: -stable no signs acs -nl lvef -cont dapt, home cardiac meds d/c tele
[2018-12-01] MEDS: CLOPIDOGREL BISULFATE 75 MG TABLET (FP) PO SCH (10:33)
[2018-12-01] MEDS: metoPROLOL SUCCINATE 25 MG TAB.SR.24H (FP) PO SCH ×2 (10:34→22:40)
[2018-12-01] MEDS: MIDODRINE HCL 5 MG TABLET PO SCH ×3 (10:36→18:31)
[2018-12-01] MEDS: FERROUS SO4 325 MG TABLET (FP) PO SCH (10:36)
[2018-12-01] MEDS: MECLIZINE HCL 12.5 MG TABLET PO SCH (10:36)
[2018-12-01] MEDS: POLYETHYLENE GLYCOL 3350 119 GM BTL PO SCH (10:36)
[2018-12-01] MEDS: DULoxetine HCL 20 MG CAPSULE.DR PO SCH (10:36)
[2018-12-01] MEDS: HEPARIN NA (PORCINE) 5,000 UNITS/ML 1ML VIAL SQ SCH ×2 (10:36→23:26)
--- NOTE | 2018-12-01 10:36 | PN ---
Progress Note (short form) - Note Progress Note: Neurology History of Present Illness The patient is a 68 year old female, with a significant PMH of anemia, CHF, CKD (baseline Cr 0.9-1) with mild proteinuria, CAD (s/p recent cardiac stent), IDDM , HTN, and vertigo who presents to the ED for evaluation s/p fall. Patient reported 2 falls in the last 48 hours. She reported feeling lightheaded and dizzy (not related to her vertigo), which caused her to fall. Denied LOC, but endorses right knee pain secondary to hitting her RLE during her falls. Patient was previously admitted last month for syncope and UTI. Noncontrast head CT was completed and reviewed and did not show any acute changes. No infarcts or space-occupying mass is noted.Cane at bedside and patient seems to have limited ambulation. requires physical therapy and may benefit from short-term rehabilitation. Today sitting up in chair and without significant complaints. Well appearing and no acute events overnight. Neurologically stable, call back as needed. follow up cardiology recommendations, maintain adequate hydration. Allergies/Adverse Reactions: Allergies Allergy/AdvReac Type Severity Reaction Status Date / Time azithromycin [From Zithromax] Allergy Verified 11/27/18 14:56 Active Medications Aspirin (Ecotrin -) 81 mg PO HS [facility] Last Admin: 11/30/18 21:30 Dose: 81 mg Atorvastatin Calcium (Lipitor -) 80 mg PO HS [facility] Last Admin: 11/30/18 21:30 Dose: 80 mg Clopidogrel Bisulfate (Plavix -) 75 mg PO DAILY [facility] Last Admin: 11/30/18 09:42 Dose: 75 mg Duloxetine HCl (Cymbalta -) 20 mg PO DAILY [facility] Last Admin: 11/30/18 09:42 Dose: 20 mg Ezetimibe (Zetia -) 10 mg PO HS [facility] Last Admin: 11/30/18 21:31 Dose: 10 mg Ferrous Sulfate (Feosol -) 325 mg PO DAILY [facility] Last Admin: 11/30/18 09:42 Dose: 325 mg Heparin Sodium (Porcine) (Heparin -) 5,000 unit SQ BID [facility] Last Admin: 11/30/18 21:30 Dose: 5,000 unit Insulin Aspart (Novolog Vial Sliding Scale -) 1 vial SQ ACHS [facility]; Protocol Last Admin: 12/01/18 07:16 Dose: 4 units Meclizine HCl (Antivert -) 12.5 mg PO DAILY [facility] Last Admin: 11/30/18 09:42 Dose: 12.5 mg Metoprolol Succinate (Toprol Xl -) 37.5 mg PO BID [facility] Last Admin: 11/30/18 21:31 Dose: 37.5 mg Midodrine (Proamatine -) 5 mg PO TID-MID [facility] Polyethylene Glycol (Miralax (For Daily Use) -) 17 gm PO DAILY [facility] Last Admin: 11/30/18 09:40 Dose: 17 grams *Physical Exam Vital Signs Temperature 98.4 F 12/01/18 10:32 Pulse Rate 59 L 12/01/18 10:32 Respiratory Rate 16 12/01/18 10:32 Blood Pressure 156/68 12/01/18 10:32 O2 Sat by Pulse Oximetry (%) 97 11/30/18 21:00 Constitutional: Awake, alert, oriented. No acute distress. Head: Normocephalic. Atraumatic Eyes: PERRL. EOMI. Conjunctivae are not pale. No nystagmus. ENT: Mucous membranes are moist and intact. Posterior pharynx without exudates or erythema. Uvula midline. Neck: Supple. Full ROM. No lymphadenopathy. Cardiovascular: Regular rate. Regular rhythm. S1, S2 regular. Distal pulses are 2+ and symmetric. Pulmonary/Chest: No evidence of respiratory distress. Clear to auscultation bilaterally No wheezing, rales or rhonchi. Abdominal: Soft and non-distended. There is no tenderness. No rebound, guarding or rigidity. No organomegaly. No palpable masses. Good bowel sounds. Back: No CVA tenderness. Musculoskeletal: No edema. No cyanosis. No clubbing. Full range of motion in all extremities. Nocalf tenderness. Radial/pedal pulses are intact and 2+ bilaterally Skin: Skin is warm and dry. No petechiae. No purpura. Neurological: Alert and oriented to person, place, and time. Normal speech. Strength is grossly symmetric, Sensory intact, finger to nose normal. Psychiatric: Good eye contact. Normal interaction, affect and behavior. CBCD WBC 6.8 K/mm3 (4.0-10.0) 12/01/18 05:46 RBC 2.88 M/mm3 (3.60-5.2) L 12/01/18 05:46 Hgb 8.5 GM/dL (10.7-15.3) L 12/01/18 05:46 Hct 24.8 % (32.4-45.2) L 12/01/18 05:46 MCV 86.0 fl (80-96) 12/01/18 05:46 MCHC 34.3 g/dl (32.0-36.0) 12/01/18 05:46 RDW 14.4 % (11.6-15.6) 12/01/18 05:46 Plt Count 247 K/MM3 (134-434) 12/01/18 05:46 MPV 7.4 fl (7.5-11.1) L 12/01/18 05:46 CMP Sodium 140 mmol/L (136-145) 12/01/18 05:46 Potassium 4.7 mmol/L (3.5-5.1) 12/01/18 05:46 Chloride 108 mmol/L (98-107) H 12/01/18 05:46 Carbon Dioxide 24 mmol/L (21-32) 12/01/18 05:46 Anion Gap 7 MMOL/L (8-16) L 12/01/18 05:46 BUN 30.3 mg/dL (7-18) H 12/01/18 05:46 Creatinine 1.5 mg/dL (0.55-1.3) H 12/01/18 05:46 Random Glucose 260 mg/dL (74-106) H 12/01/18 05:46 Calcium 8.3 mg/dL (8.5-10.1) L 12/01/18 05:46 Total Bilirubin 0.3 mg/dL (0.2-1) 12/01/18 05:46 AST 19 U/L (15-37) 12/01/18 05:46 ALT 22 U/L (13-61) 12/01/18 05:46 Alkaline Phosphatase 121 U/L (45-117) H 12/01/18 05:46 Total Protein 4.8 g/dl (6.4-8.2) L 12/01/18 05:46 Albumin 1.9 g/dl (3.4-5.0) L 12/01/18 05:46 CARDIAC ENZYMES Creatine Kinase 37 U/L (26-192) 11/28/18 06:00 Troponin I 0.03 ng/ml (0.00-0.05) 11/28/18 06:00 Medical Decision Making The patient is a 68 year old female, with a significant PMH of anemia, CHF, CKD (baseline Cr 0.9-1) with mild proteinuria, CAD (s/p recent cardiac stent), IDDM , HTN, and vertigo who presents to the ED for evaluation s/p fall. Patient reported 2 falls in the last 48 hours. She reported feeling lightheaded and dizzy (not related to her vertigo), which caused her to fall. Denied LOC, but endorses right knee pain secondary to hitting her RLE during her falls. Patient was previously admitted last month for syncope and UTI. Noncontrast head CT was completed and reviewed and did not show any acute changes. No infarcts or space-occupying mass is noted. Cane at bedside and patient seems to have limited ambulation. Today sitting up in chair and without significant complaints. Well appearing and no acute events overnight. Neurologically stable. Requires physical therapy and may benefit from short-term rehabilitation. Fall precautions. Defer to primary team, case management regarding placement. Neurologically stable, call back as needed. follow up cardiology recommendations, maintain adequate hydration.
--- NOTE | 2018-12-01 13:10 | PN ---
Progress Note, Physician History of Present Illness: Pt seen and examined at bedside. She is awake and alert. She says that she feels better today. She denies dizziness. - Current Medication List Current Medications: Active Medications Aspirin (Ecotrin -) 81 mg PO [facility] Last Admin: 11/30/18 21:30 Dose: 81 mg Atorvastatin Calcium (Lipitor -) 80 mg PO HS [facility] Last Admin: 11/30/18 21:30 Dose: 80 mg Clopidogrel Bisulfate (Plavix -) 75 mg PO DAILY [facility] Last Admin: 12/01/18 10:33 Dose: 75 mg Duloxetine HCl (Cymbalta -) 20 mg PO DAILY [facility] Last Admin: 12/01/18 10:36 Dose: 20 mg Ezetimibe (Zetia -) 10 mg PO [facility] Last Admin: 11/30/18 21:31 Dose: 10 mg Ferrous Sulfate (Feosol -) 325 mg PO DAILY [facility] Last Admin: 12/01/18 10:36 Dose: 325 mg Heparin Sodium (Porcine) (Heparin -) 5,000 unit SQ BID [facility] Last Admin: 12/01/18 10:36 Dose: 5,000 unit Insulin Aspart (Novolog Vial Sliding Scale -) 1 vial SQ [facility]; Protocol Last Admin: 12/01/18 11:06 Dose: 8 units Meclizine HCl (Antivert -) 12.5 mg PO DAILY [facility] Last Admin: 12/01/18 10:36 Dose: 12.5 mg Metoprolol Succinate (Toprol Xl -) 37.5 mg PO BID [facility] Last Admin: 12/01/18 10:34 Dose: 37.5 mg Midodrine (Proamatine -) 5 mg PO TID-MID [facility] Last Admin: 12/01/18 10:36 Dose: 5 mg Polyethylene Glycol (Miralax (For Daily Use) -) 17 gm PO DAILY [facility] Last Admin: 12/01/18 10:36 Dose: 17 grams - Objective Vital Signs: Vital Signs Temperature 98.4 F 12/01/18 10:32 Pulse Rate 59 L 12/01/18 10:32 Respiratory Rate 16 12/01/18 10:32 Blood Pressure 156/68 12/01/18 10:32 O2 Sat by Pulse Oximetry (%) 97 12/01/18 09:00 Constitutional: Yes: Calm Eyes: Yes: Conjunctiva Clear HENT: Yes: Atraumatic Neck: Yes: Supple Cardiovascular: Yes: S1, S2 Respiratory: Yes: CTA Bilaterally Gastrointestinal: Yes: Soft, Abdomen, Obese Genitourinary: Yes: WNL Musculoskeletal: Yes: WNL Edema: Yes Edema: LLE: 1+, RLE: 1+ Neurological: Yes: Oriented Psychiatric: Yes: Oriented Labs: CBC, BMP 12/01/18 05:46 12/01/18 05:46 Problem List - Problems (1) ANG (acute kidney injury) Code(s): N17.9 - ACUTE KIDNEY FAILURE, UNSPECIFIED (2) CAD (coronary artery disease) Code(s): I25.10 - ATHSCL HEART DISEASE OF [place] CORONARY ARTERY W/O ANG PCTRS (3) CKD (chronic kidney disease) Code(s): N18.9 - CHRONIC KIDNEY DISEASE, UNSPECIFIED Assessment/Plan Current Medications Generic Name Dose Route Start Last Admin Trade Name Freq PRN Reason Stop Dose Admin Aspirin 81 mg 11/28/18 02:00 11/30/18 21:30 Ecotrin - PO 81 mg HS [facility] Administration Atorvastatin Calcium 80 mg 11/28/18 02:00 11/30/18 21:30 Lipitor - PO 80 mg HS [facility] Administration Clopidogrel Bisulfate 75 mg 11/28/18 10:00 12/01/18 10:33 Plavix - PO 75 mg DAILY [facility] Administration Duloxetine HCl 20 mg 11/28/18 10:00 12/01/18 10:36 Cymbalta - PO 20 mg DAILY [facility] Administration Ezetimibe 10 mg 11/28/18 02:00 11/30/18 21:31 Zetia - PO 10 mg HS [facility] Administration Ferrous Sulfate 325 mg 11/28/18 10:00 12/01/18 10:36 Feosol - PO 325 mg DAILY [facility] Administration Heparin Sodium (Porcine) 5,000 unit 11/28/18 02:00 12/01/18 10:36 Heparin - SQ 5,000 unit BID [facility] Administration Insulin Aspart 1 vial 11/28/18 07:00 12/01/18 11:06 Novolog Vial Sliding Scale - SQ 8 units ACHS [facility] Administration Protocol Meclizine HCl 12.5 mg 11/28/18 10:00 12/01/18 10:36 Antivert - PO 12.5 mg DAILY [facility] Administration Metoprolol Succinate 37.5 mg 11/30/18 11:49 12/01/18 10:34 Toprol Xl - PO 37.5 mg BID [facility] Administration Midodrine 5 mg 12/01/18 09:39 12/01/18 10:36 Proamatine - PO 5 mg TID-MID [facility] Administration Polyethylene Glycol 17 gm 11/28/18 10:00 12/01/18 10:36 Miralax (For Daily Use) - PO 17 grams DAILY [facility] Administration Laboratory Tests 12/01/18 05:46 Cortisol AM Sample Pending #Orthostatic hypotension #ANG on CKD in setting of volume depletion #CKD with proteinuria #Hx of + IRENE #Anemia (acute on chronic) #CHF with diastolic dysfunction Plan - cont to monitor bp - will hold off giving fluids - follow cortisol level - cardio input appreciated - Check orthostatics Q8h
[2018-12-01] MEDS: AMOX TR/POT CLAV 875MG/125MG TABLETS (FP) PO SCH (18:31)
--- NOTE | 2018-12-01 22:34 | PN ---
Progress Note, Physician - Current Medication List Current Medications: Active Medications Amoxicillin/Clavulanate Potassium (Augmentin - 875mg Tablet) 1 tab PO BID@0800, 1730 [facility] Last Admin: 12/01/18 18:31 Dose: 1 tab Aspirin (Ecotrin -) 81 mg PO [facility] Last Admin: 11/30/18 21:30 Dose: 81 mg Atorvastatin Calcium (Lipitor -) 80 mg PO HS [facility] Last Admin: 11/30/18 21:30 Dose: 80 mg Clopidogrel Bisulfate (Plavix -) 75 mg PO DAILY [facility] Last Admin: 12/01/18 10:33 Dose: 75 mg Duloxetine HCl (Cymbalta -) 20 mg PO DAILY [facility] Last Admin: 12/01/18 10:36 Dose: 20 mg Ezetimibe (Zetia -) 10 mg PO [facility] Last Admin: 11/30/18 21:31 Dose: 10 mg Ferrous Sulfate (Feosol -) 325 mg PO DAILY [facility] Last Admin: 12/01/18 10:36 Dose: 325 mg Heparin Sodium (Porcine) (Heparin -) 5,000 unit SQ BID [facility] Last Admin: 12/01/18 10:36 Dose: 5,000 unit Insulin Aspart (Novolog Vial Sliding Scale -) 1 vial SQ [facility]; Protocol Last Admin: 12/01/18 18:34 Dose: 12 units Meclizine HCl (Antivert -) 12.5 mg PO DAILY [facility] Last Admin: 12/01/18 10:36 Dose: 12.5 mg Metoprolol Succinate (Toprol Xl -) 37.5 mg PO BID [facility] Last Admin: 12/01/18 10:34 Dose: 37.5 mg Midodrine (Proamatine -) 5 mg PO TID-MID [facility] Last Admin: 12/01/18 18:31 Dose: 5 mg Polyethylene Glycol (Miralax (For Daily Use) -) 17 gm PO DAILY [facility] Last Admin: 12/01/18 10:36 Dose: 17 grams - Objective Vital Signs: Vital Signs Temperature 98.5 F 12/01/18 20:52 Pulse Rate 50 L 12/01/18 20:52 Respiratory Rate 18 12/01/18 20:52 Blood Pressure 158/66 12/01/18 20:52 O2 Sat by Pulse Oximetry (%) 98 12/01/18 20:52 Labs: CBC, BMP 12/01/18 05:46 Problem List - Problems (1) Unsteady gait Code(s): R26.81 - UNSTEADINESS ON FEET (2) Repeated falls Code(s): R29.6 - REPEATED FALLS (3) Anemia Code(s): D64.9 - ANEMIA, UNSPECIFIED (4) CKD (chronic kidney disease) Code(s): N18.9 - CHRONIC KIDNEY DISEASE, UNSPECIFIED (5) Chronic diastolic heart failure Code(s): I50.32 - CHRONIC DIASTOLIC (CONGESTIVE) HEART FAILURE (6) Diabetes Code(s): E11.9 - TYPE 2 DIABETES MELLITUS WITHOUT COMPLICATIONS (7) HLD (hyperlipidemia) Code(s): E78.5 - HYPERLIPIDEMIA, UNSPECIFIED (8) HTN (hypertension) Code(s): I10 - ESSENTIAL (PRIMARY) HYPERTENSION (9) CAD (coronary artery disease) Code(s): I25.10 - ATHSCL HEART DISEASE OF [place] CORONARY ARTERY W/O ANG PCTRS (10) Depression Code(s): F32.9 - MAJOR DEPRESSIVE DISORDER, SINGLE EPISODE, UNSPECIFIED
[2018-12-01] MEDS: ATORVASTATIN CA 80 MG TABLET (FP) PO SCH (22:53)
[2018-12-01] MEDS: ASPIRIN COATED 81 MG TABLET.EC PO SCH (22:53)
[2018-12-01] MEDS: EZETIMIBE 10 MG TABLET (FP) PO SCH (22:58)
[2018-12-02] MEDS: INSULIN SLIDING SCALE (NOVOLOG) 1 VIAL SQ SCH ×4 (06:04→21:59)
[2018-12-02] MEDS: AMOX TR/POT CLAV 875MG/125MG TABLETS (FP) PO SCH ×3 (08:34→18:59)
[2018-12-02] MEDS: metoPROLOL SUCCINATE 25 MG TAB.SR.24H (FP) PO SCH ×2 (09:34→10:23)
[2018-12-02] MEDS: CLOPIDOGREL BISULFATE 75 MG TABLET (FP) PO SCH (09:34)
[2018-12-02] MEDS: MECLIZINE HCL 12.5 MG TABLET PO SCH (09:36)
[2018-12-02] MEDS: DULoxetine HCL 20 MG CAPSULE.DR PO SCH (09:36)
[2018-12-02] MEDS: MIDODRINE HCL 5 MG TABLET PO SCH ×3 (09:39→18:52)
[2018-12-02] MEDS: FERROUS SO4 325 MG TABLET (FP) PO SCH (09:39)
[2018-12-02 09:40] LABS: BASO % 0.6 % (0-2.0); EOS % 4.2 % (0-4.5); HEMATOCRIT 28.1 % (32.4-45.2); HEMOGLOBIN 9.7 GM/dL (10.7-15.3); LYMPH % 17.6 % (8-40); MCH 29.7 pg (25.7-33.7); MCHC 34.5 g/dl (32.0-36.0); MEAN CELL VOLUME 86.2 fl (80-96); MEAN PLT VOLUME 7.6 fl (7.5-11.1); MONO % 8.3 % (3.8-10.2); NEUT % 69.3 % (42.8-82.8); PLATELET COUNT 248 K/MM3 (134-434); RBC 3.26 M/mm3 (3.60-5.2); RDW 14.4 % (11.6-15.6); WHITE BLOOD COUNT 7.8 K/mm3 (4.0-10.0)
[2018-12-02] MEDS: HEPARIN NA (PORCINE) 5,000 UNITS/ML 1ML VIAL SQ SCH ×2 (09:40→21:56)
[2018-12-02] MEDS: POLYETHYLENE GLYCOL 3350 119 GM BTL PO SCH (09:41)
--- NOTE | 2018-12-02 09:46 | PN ---
Progress Note, Physician Chief Complaint: dizzy/falls History of Present Illness: still feels dizzy when stood up this AM but better than at home. not walking a lot yet here no cp, sob, palpit - Current Medication List Current Medications: Active Medications Amoxicillin/Clavulanate Potassium (Augmentin - 875mg Tablet) 1 tab PO BID@0800, 1730 [facility] Last Admin: 12/01/18 18:31 Dose: 1 tab Aspirin (Ecotrin -) 81 mg PO [facility] Last Admin: 12/01/18 22:53 Dose: 81 mg Atorvastatin Calcium (Lipitor -) 80 mg PO [facility] Last Admin: 12/01/18 22:53 Dose: 80 mg Clopidogrel Bisulfate (Plavix -) 75 mg PO DAILY [facility] Last Admin: 12/01/18 10:33 Dose: 75 mg Duloxetine HCl (Cymbalta -) 20 mg PO DAILY [facility] Last Admin: 12/01/18 10:36 Dose: 20 mg Ezetimibe (Zetia -) 10 mg PO [facility] Last Admin: 12/01/18 22:58 Dose: 10 mg Ferrous Sulfate (Feosol -) 325 mg PO DAILY [facility] Last Admin: 12/01/18 10:36 Dose: 325 mg Heparin Sodium (Porcine) (Heparin -) 5,000 unit SQ BID [facility] Last Admin: 12/01/18 23:26 Dose: 5,000 unit Insulin Aspart (Novolog Vial Sliding Scale -) 1 vial SQ [facility]; Protocol Last Admin: 12/02/18 06:04 Dose: 8 units Insulin Detemir (Levemir Vial) 20 units SQ [facility] Meclizine HCl (Antivert -) 12.5 mg PO DAILY [facility] Last Admin: 12/01/18 10:36 Dose: 12.5 mg Metoprolol Succinate (Toprol Xl -) 37.5 mg PO BID [facility] Last Admin: 12/01/18 22:40 Dose: 37.5 mg Midodrine (Proamatine -) 5 mg PO TID-MID [facility] Last Admin: 12/01/18 18:31 Dose: 5 mg Polyethylene Glycol (Miralax (For Daily Use) -) 17 gm PO DAILY [facility] Last Admin: 12/01/18 10:36 Dose: 17 grams - Objective Vital Signs: Vital Signs Temperature 98.4 F 12/02/18 06:00 Pulse Rate 69 12/02/18 06:00 Respiratory Rate 18 12/02/18 06:00 Blood Pressure 185/75 H 12/02/18 06:00 O2 Sat by Pulse Oximetry (%) 98 12/01/18 20:52 Constitutional: Yes: No Distress, Calm, Obese Cardiovascular: Yes: Regular Rate and Rhythm, S1, S2. No: Gallop, Murmur Respiratory: Yes: Regular, CTA Bilaterally. No: Accessory Muscle Use, Rales, Wheezes Extremities: No: Cold Edema: No Neurological: Yes: Alert, Oriented Psychiatric: No: Agitated Labs: CBC, BMP 12/01/18 21:05 Assessment/Plan echo 10/2018: nl lv/rv, mild tr, gr2dd cxr: clear lungs ecg: sr, nl intervals, lvh, no acute changes Assessment/Plan 68 yo F w a hx of anemia, CHF, CKD with mild proteinuira, CAD s/p cardiac stent , IDDM, HTN, and vertigo presents to the [facility] ER with dizziness and falls. resting HTN, orthostatic hypo with dizziness/falls -symptoms seem related to orthostatic hypotension which is present on vitals here. Labs showed ang, likely volume depleted worsened her baseline orthostatic sxs. lasix held -losartan stopped for ANG -AM BP above goal, evening dose of Toprol added 11/29 -11/30: remains with 50-60 mmHg drop in standing bp vs supine. not tolerating vasodilation effect of hi dose amlodipine--will stop this. increase metoprolol to 37.5 bid -plan to use of less vasodilating meds for bp control (non-diuretic): BB, diltiazem, clonidine and ARB if renal fxn stable -12/01: resting BPs reasonable. orthostatics not yet entered however pt continues to be symptomatic. -prior h/o CHF unknown to me--defer fludrocortisone. incr midodrine 5 TID, monitor for resting BP > 160. cont metopr 37.5 bid (amlodipine off--last dose ) -12/02: BPs reasonable, not orthostatic on today's check. continues to have early AM (6:00) high bp 160s-180s. continue holding amlodipine (vasodilatory effect). increase metoprolol to 50 mg qpm. consider 0.1 mg clonidine at bedtime if am BPs remain high (can be titrated as outpatient) -rec PT ambulation to confirm she is stable--if so, she is ok for discharge from CV point of view -rec outpatient sleep apnea eval (? causing early AM bp spikes) -check AM cortisol -encourage PO hydration--d/w'd pt -continue monitoring resting and orthostatic BPs for next 24 hrs -recent echo unremarkable Chronic diastolic chf: -stable vol status, appears euvolemic -was taking lasix 20 qod at home on average--michael rhoades CAD, pci: -stable no signs acs -nl lvef -cont dapt, home cardiac meds off tele
--- NOTE | 2018-12-02 12:43 | PN ---
Progress Note (short form) - Note Progress Note: Renal follow up for ANG Pt seen and examined at the bedside awake and alert feels better dizziness improved remains orthostatic by diastolic parameters this am Vital Signs Temperature 98.4 F 12/02/18 06:00 Pulse Rate 54 L 12/02/18 09:11 Respiratory Rate 18 12/02/18 06:00 Blood Pressure 148/107 H 12/02/18 09:11 O2 Sat by Pulse Oximetry (%) 98 12/01/18 20:52 Intake & Output 11/29/18 11/30/18 12/01/18 12/02/18 23:59 23:59 23:59 23:59 Intake Total 1463 1850 1010 1230 Balance 1463 1850 1010 1230 Weight 73.482 kg 74.208 kg 73.663 kg 74.503 kg NAD MMM RRR, no M/R CTA soft NT/ND no LE edema, clubbing or cyanosis CBC, BMP 12/02/18 09:20 12/01/18 21:05 Current Medications Amoxicillin/Clavulanate Potassium (Augmentin - 875mg Tablet) 1 tab PO BID@0800, 1730 [facility] Last Admin: 12/02/18 08:34 Dose: 1 tab Aspirin (Ecotrin -) 81 mg PO HS [facility] Last Admin: 12/01/18 22:53 Dose: 81 mg Atorvastatin Calcium (Lipitor -) 80 mg PO HS [facility] Last Admin: 12/01/18 22:53 Dose: 80 mg Clopidogrel Bisulfate (Plavix -) 75 mg PO DAILY [facility] Last Admin: 12/02/18 09:34 Dose: 75 mg Duloxetine HCl (Cymbalta -) 20 mg PO DAILY [facility] Last Admin: 12/02/18 09:36 Dose: 20 mg Ezetimibe (Zetia -) 10 mg PO HS [facility] Last Admin: 12/01/18 22:58 Dose: 10 mg Ferrous Sulfate (Feosol -) 325 mg PO DAILY [facility] Last Admin: 12/02/18 09:39 Dose: 325 mg Heparin Sodium (Porcine) (Heparin -) 5,000 unit SQ BID [facility] Last Admin: 12/02/18 09:40 Dose: 5,000 unit Insulin Aspart (Novolog Vial Sliding Scale -) 1 vial SQ [facility]; Protocol Last Admin: 12/02/18 12:22 Dose: 8 units Insulin Detemir (Levemir Vial) 30 units SQ HS [facility] Meclizine HCl (Antivert -) 12.5 mg PO DAILY [facility] Last Admin: 12/02/18 09:36 Dose: 12.5 mg Metoprolol Succinate (Toprol Xl -) 37.5 mg PO DAILY [facility] Last Admin: 12/02/18 10:23 Dose: 37.5 mg Metoprolol Succinate (Toprol Xl -) 50 mg PO DAILY@1800 [facility] Midodrine (Proamatine -) 5 mg PO TID-MID [facility] Last Admin: 12/02/18 09:39 Dose: 5 mg Polyethylene Glycol (Miralax (For Daily Use) -) 17 gm PO DAILY [facility] Last Admin: 12/02/18 09:41 Dose: 17 grams Sitagliptin Phosphate (Januvia -) 100 mg PO DAILY@0700 [facility] 68 year old woman with hx of CKD with nephrotic range proteinuria, + IRENE, ( normal DS-DNA, Negative ANCA), CAD s/p PCI, DM, hypertension presented with dizziness and falls with orthostatic hypotension and noted to have elevated BUN/ Cr. #Orthostatic hypotension #ANG on CKD in setting of volume depletion #CKD with proteinuria #Hx of + IRENE #Anemia (acute on chronic) #CHF with diastolic dysfunction Continue hypertension management as per cardiology continue midodrine off IVF, oral intake as tolerated Renal function stable Thank you Clinton Manjarrez DO
[2018-12-02] MEDS ORDERED: PT OWN MED DRAWER 7, Y5N ONE ×2 (17:55→21:51)
[2018-12-02] MEDS ORDERED: INSULIN (NOVOLOG) ASPART 100 UNITS/ML 10ML VIAL ONE (21:50)
[2018-12-02] MEDS: INSULIN (LEVEMIR) 100 UNITS/ML UNITS SQ SCH (21:57)
[2018-12-02] MEDS ORDERED: INSULIN (LEVEMIR) 100 UNITS/ML UNITS SQ SCH ×2 (22:00)
[2018-12-02] MEDS ORDERED: ASPIRIN COATED 81 MG TABLET.EC PO SCH (22:00)
[2018-12-02] MEDS ORDERED: ATORVASTATIN CA 80 MG TABLET (FP) PO SCH (22:00)
[2018-12-02] MEDS ORDERED: EZETIMIBE 10 MG TABLET (FP) PO SCH (22:00)
--- NOTE | 2018-12-02 22:03 | PN ---
Progress Note, Physician History of Present Illness: Pt complains of feeling dizzy and unsteady on her feet - Current Medication List Current Medications: Active Medications Amoxicillin/Clavulanate Potassium (Augmentin - 875mg Tablet) 1 tab PO BID@0800, 1730 [facility] Last Admin: 12/02/18 18:59 Dose: 1 tab Aspirin (Ecotrin -) 81 mg PO HS [facility] Atorvastatin Calcium (Lipitor -) 80 mg PO HS [facility] Clopidogrel Bisulfate (Plavix -) 75 mg PO DAILY [facility] Duloxetine HCl (Cymbalta -) 20 mg PO DAILY [facility] Ezetimibe (Zetia -) 10 mg PO HS [facility] Ferrous Sulfate (Feosol -) 325 mg PO DAILY [facility] Heparin Sodium (Porcine) (Heparin -) 5,000 unit SQ BID [facility] Insulin Aspart (Novolog Vial Sliding Scale -) 1 vial SQ ACHS [facility]; Protocol Insulin Detemir (Levemir Vial) 20 units SQ BID [facility] Meclizine HCl (Antivert -) 12.5 mg PO DAILY [facility] Metoprolol Succinate (Toprol Xl -) 37.5 mg PO DAILY [facility] Last Admin: 12/02/18 10:23 Dose: 37.5 mg Metoprolol Succinate (Toprol Xl -) 50 mg PO DAILY@1800 [facility] Last Admin: 12/02/18 18:04 Dose: 50 mg Midodrine (Proamatine -) 5 mg PO TID-MID [facility] Last Admin: 12/02/18 18:52 Dose: Not Given Polyethylene Glycol (Miralax (For Daily Use) -) 17 gm PO DAILY [facility] Sitagliptin Phosphate (Januvia -) 100 mg PO DAILY@0700 [facility] - Objective Vital Signs: Vital Signs Temperature 98.6 F 12/02/18 18:54 Pulse Rate 64 12/02/18 18:54 Respiratory Rate 20 12/02/18 18:54 Blood Pressure 164/77 12/02/18 17:50 O2 Sat by Pulse Oximetry (%) 98 12/02/18 09:00 HENT: Yes: WNL Neck: Yes: WNL, Supple Cardiovascular: Yes: WNL, Regular Rate and Rhythm Respiratory: Yes: WNL, Regular, CTA Bilaterally Gastrointestinal: Yes: WNL, Normal Bowel Sounds, Soft Labs: CBC, BMP 12/02/18 09:20 12/01/18 21:05 Problem List - Problems (1) Unsteady gait Assessment/Plan: ?Due to orthostatic hypotension Cont midodrine Cont to monitor BP BP meds need adjusting and pt would benefit from close monitoring at [facility] facility Pt may be ambulating but is unsteady due to dissyness Code(s): R26.81 - UNSTEADINESS ON FEET (2) HTN (hypertension) Assessment/Plan: Cont Norvasc/asa Metaprolol increased Cont to monitor and titrate meds Will need outpt monitoring due to fluctuating BP Code(s): I10 - ESSENTIAL (PRIMARY) HYPERTENSION (3) Diabetes Assessment/Plan: Cont sliding scale w/ coverage Unconbtrolled diabetes Increase levemir 20 units BID Januvia added Code(s): E11.9 - TYPE 2 DIABETES MELLITUS WITHOUT COMPLICATIONS (4) UTI (urinary tract infection) Assessment/Plan: Due to Ecoli Cont augmentin Code(s): N39.0 - URINARY TRACT INFECTION, SITE NOT SPECIFIED (5) Repeated falls Assessment/Plan: Cont PT Code(s): R29.6 - REPEATED FALLS (6) Anemia Assessment/Plan: ?Dilutional S/P transfusion 1 unit PRBC's Cont to moniotr H/H Code(s): D64.9 - ANEMIA, UNSPECIFIED (7) CKD (chronic kidney disease) Code(s): N18.9 - CHRONIC KIDNEY DISEASE, UNSPECIFIED (8) Chronic diastolic heart failure Assessment/Plan: Lasix dc'ed due to euvolumic state Code(s): I50.32 - CHRONIC DIASTOLIC (CONGESTIVE) HEART FAILURE (9) HLD (hyperlipidemia) Assessment/Plan: Cont zetia/lipitor Code(s): E78.5 - HYPERLIPIDEMIA, UNSPECIFIED (10) CAD (coronary artery disease) Assessment/Plan: Cont asa/plavix Code(s): I25.10 - ATHSCL HEART DISEASE OF [place] CORONARY ARTERY W/O ANG PCTRS (11) Depression Assessment/Plan: Cont cymbalta Code(s): F32.9 - MAJOR DEPRESSIVE DISORDER, SINGLE EPISODE, UNSPECIFIED
[2018-12-03] MEDS: INSULIN SLIDING SCALE (NOVOLOG) 1 VIAL SQ SCH ×3 (06:43→17:25)
[2018-12-03 08:42] LABS: BASO % 0.6 % (0-2.0); HEMATOCRIT 28.8 % (32.4-45.2); LYMPH % 21.2 % (8-40); MCH 29.5 pg (25.7-33.7); MCHC 34.6 g/dl (32.0-36.0); MEAN CELL VOLUME 85.2 fl (80-96); MEAN PLT VOLUME 7.7 fl (7.5-11.1); MONO % 7.3 % (3.8-10.2); NEUT % 65.9 % (42.8-82.8); PLATELET COUNT 246 K/MM3 (134-434); RBC 3.38 M/mm3 (3.60-5.2); RDW 14.4 % (11.6-15.6); WHITE BLOOD COUNT 7.9 K/mm3 (4.0-10.0)
[2018-12-03] MEDS: AMOX TR/POT CLAV 875MG/125MG TABLETS (FP) PO SCH ×2 (08:45→17:33)
[2018-12-03 09:02] LABS: BILIRUBIN,TOTAL 0.4 mg/dL (0.2-1); BLOOD UREA NITROGEN 34.2 mg/dL (7-18); CALCIUM 8.3 mg/dL (8.5-10.1); CREATININE 1.3 mg/dL (0.55-1.3); MAGNESIUM 2.3 mg/dL (1.8-2.4); PHOSPHOROUS 4.4 mg/dL (2.5-4.9); POTASSIUM 4.4 mmol/L (3.5-5.1); TOT PROT 5.2 g/dl (6.4-8.2)
[2018-12-03] MEDS ORDERED: PT OWN MED DRAWER 7, Y5N ONE (09:24)
[2018-12-03] MEDS: MIDODRINE HCL 5 MG TABLET PO SCH ×3 (09:58→13:33)
[2018-12-03] MEDS: metoPROLOL SUCCINATE 25 MG TAB.SR.24H (FP) PO SCH (09:58)
[2018-12-03] MEDS: HEPARIN NA (PORCINE) 5,000 UNITS/ML 1ML VIAL SQ SCH (09:59)
[2018-12-03] MEDS ORDERED: DULoxetine HCL 20 MG CAPSULE.DR PO SCH (10:00)
[2018-12-03] MEDS ORDERED: MECLIZINE HCL 12.5 MG TABLET PO SCH (10:00)
[2018-12-03] MEDS ORDERED: POLYETHYLENE GLYCOL 3350 119 GM BTL PO SCH (10:00)
[2018-12-03] MEDS ORDERED: FERROUS SO4 325 MG TABLET (FP) PO SCH (10:00)
[2018-12-03] MEDS ORDERED: CLOPIDOGREL BISULFATE 75 MG TABLET (FP) PO SCH (10:00)
[2018-12-03] MEDS: INSULIN (LEVEMIR) 100 UNITS/ML UNITS SQ SCH (10:54)
[2018-12-03 14:01] VITALS: BP 178/76; PULSE 94; TEMP 98.5
--- NOTE | 2018-12-03 14:08 | PN ---
Progress Note, Physician Chief Complaint: RN reports elevated BPS, Midodrine held She is ambulating and denies CP , SOB, no dizziness - Current Medication List Current Medications: Active Medications Amoxicillin/Clavulanate Potassium (Augmentin - 875mg Tablet) 1 tab PO BID@0800, 1730 [facility] Last Admin: 12/03/18 08:45 Dose: 1 tab Aspirin (Ecotrin -) 81 mg PO [facility] Last Admin: 12/02/18 21:55 Dose: 81 mg Atorvastatin Calcium (Lipitor -) 80 mg PO [facility] Last Admin: 12/02/18 21:56 Dose: 80 mg Clopidogrel Bisulfate (Plavix -) 75 mg PO DAILY [facility] Last Admin: 12/03/18 09:58 Dose: 75 mg Duloxetine HCl (Cymbalta -) 20 mg PO DAILY [facility] Last Admin: 12/03/18 09:58 Dose: 20 mg Ezetimibe (Zetia -) 10 mg PO [facility] Last Admin: 12/02/18 21:56 Dose: 10 mg Ferrous Sulfate (Feosol -) 325 mg PO DAILY [facility] Last Admin: 12/03/18 09:58 Dose: 325 mg Heparin Sodium (Porcine) (Heparin -) 5,000 unit SQ BID [facility] Last Admin: 12/03/18 09:59 Dose: 5,000 unit Insulin Aspart (Novolog Vial Sliding Scale -) 1 vial SQ [facility]; Protocol Last Admin: 12/03/18 12:00 Dose: 8 units Insulin Detemir (Levemir Vial) 20 units SQ BID [facility] Last Admin: 12/03/18 10:54 Dose: 20 units Meclizine HCl (Antivert -) 12.5 mg PO DAILY [facility] Last Admin: 12/03/18 09:57 Dose: 12.5 mg Metoprolol Succinate (Toprol Xl -) 37.5 mg PO DAILY [facility] Last Admin: 12/03/18 09:58 Dose: 37.5 mg Metoprolol Succinate (Toprol Xl -) 50 mg PO DAILY@1800 [facility] Last Admin: 12/02/18 18:04 Dose: 50 mg Midodrine (Proamatine -) 5 mg PO TID-MID [facility] Last Admin: 12/03/18 13:33 Dose: Not Given Polyethylene Glycol (Miralax (For Daily Use) -) 17 gm PO DAILY [facility] Sitagliptin Phosphate (Januvia -) 100 mg PO DAILY@0700 [facility] - Objective Vital Signs: Vital Signs Temperature 98.5 F 12/03/18 14:00 Pulse Rate 94 H 12/03/18 14:00 Respiratory Rate 20 12/03/18 14:00 Blood Pressure 178/76 H 12/03/18 14:00 O2 Sat by Pulse Oximetry (%) 99 12/03/18 09:00 Constitutional: Yes: No Distress, Calm Eyes: Yes: Conjunctiva Clear, EOM Intact Cardiovascular: Yes: Regular Rate and Rhythm Respiratory: Yes: CTA Bilaterally Gastrointestinal: Yes: Soft, Abdomen, Obese Edema: Yes Edema: LLE: 1+, RLE: 1+ Neurological: Yes: Alert, Oriented Labs: CBC, BMP 12/03/18 06:55 12/03/18 06:55 Assessment/Plan Assessment/Plan 68 yo F w a hx of anemia, CHF, CKD with mild proteinuira, CAD s/p cardiac stent , IDDM, HTN, and vertigo presents to the [facility] ER with dizziness and falls. Resting HTN, orthostatic hypo with dizziness/falls: -symptoms seem related to orthostatic hypotension -Meds adjusted, amlodipine discontinued. -Will d/c Midodrine and observe BPs. Chronic diastolic chf: -stable vol status, appears euvolemic -was taking lasix 20 qod at home on average--holding here. CAD, pci: -stable no signs acs -nl lvef -cont dapt, home cardiac meds
--- NOTE | 2018-12-03 15:34 | PN ---
Progress Note (short form) - Note Progress Note: Renal follow up for ANG Pt seen and examined at the bedside awake and alert continues to have dizziness when standing no sob, cp, abd pain, fever or chills making urine Vital Signs Temperature 98.5 F 12/03/18 14:00 Pulse Rate 94 H 12/03/18 14:00 Respiratory Rate 20 12/03/18 14:00 Blood Pressure 178/76 H 12/03/18 14:00 O2 Sat by Pulse Oximetry (%) 99 12/03/18 09:00 Intake & Output 11/30/18 12/01/18 12/02/18 12/03/18 23:59 23:59 23:59 23:59 Intake Total 1850 1010 2310 480 Balance 1850 1010 2310 480 Weight 74.208 kg 73.663 kg 74.503 kg NAD MMM RRR, no M/R CTA soft NT/ND no LE edema, clubbing or cyanosis CBC, BMP 12/03/18 06:55 12/03/18 06:55 Current Medications Amoxicillin/Clavulanate Potassium (Augmentin - 875mg Tablet) 1 tab PO BID@0800, 1730 [facility] Last Admin: 12/03/18 08:45 Dose: 1 tab Aspirin (Ecotrin -) 81 mg PO HS [facility] Last Admin: 12/02/18 21:55 Dose: 81 mg Atorvastatin Calcium (Lipitor -) 80 mg PO HS [facility] Last Admin: 12/02/18 21:56 Dose: 80 mg Clopidogrel Bisulfate (Plavix -) 75 mg PO DAILY [facility] Last Admin: 12/03/18 09:58 Dose: 75 mg Duloxetine HCl (Cymbalta -) 20 mg PO DAILY [facility] Last Admin: 12/03/18 09:58 Dose: 20 mg Ezetimibe (Zetia -) 10 mg PO HS [facility] Last Admin: 12/02/18 21:56 Dose: 10 mg Ferrous Sulfate (Feosol -) 325 mg PO DAILY [facility] Last Admin: 12/03/18 09:58 Dose: 325 mg Heparin Sodium (Porcine) (Heparin -) 5,000 unit SQ BID [facility] Last Admin: 12/03/18 09:59 Dose: 5,000 unit Insulin Aspart (Novolog Vial Sliding Scale -) 1 vial SQ [facility]; Protocol Last Admin: 12/03/18 12:00 Dose: 8 units Insulin Detemir (Levemir Vial) 20 units SQ BID [facility] Last Admin: 12/03/18 10:54 Dose: 20 units Meclizine HCl (Antivert -) 12.5 mg PO DAILY [facility] Last Admin: 12/03/18 09:57 Dose: 12.5 mg Metoprolol Succinate (Toprol Xl -) 37.5 mg PO DAILY [facility] Last Admin: 12/03/18 09:58 Dose: 37.5 mg Metoprolol Succinate (Toprol Xl -) 50 mg PO DAILY@1800 [facility] Last Admin: 12/02/18 18:04 Dose: 50 mg Midodrine (Proamatine -) 2.5 mg PO TID-MID [facility] Polyethylene Glycol (Miralax (For Daily Use) -) 17 gm PO DAILY [facility] Last Admin: 12/03/18 10:31 Dose: 17 gm Sitagliptin Phosphate (Januvia -) 100 mg PO DAILY@0700 [facility] 68 year old woman with hx of CKD with nephrotic range proteinuria, + IRENE, ( normal DS-DNA, Negative ANCA), CAD s/p PCI, DM, hypertension presented with dizziness and falls with orthostatic hypotension and noted to have elevated BUN/ Cr. #Orthostatic hypotension #ANG on CKD in setting of volume depletion #CKD with proteinuria #Hx of + IRENE #Anemia (acute on chronic) #CHF with diastolic dysfunction Renal function improved and stable currently off IVF will eventually need renal biopsy for evaluation of proteinuria continue management of hypertension as per Cardiology Thank you Clinton Manjarrez DO
[2018-12-04] MEDS ORDERED: MIDODRINE HCL 2.5 MG TABLET PO SCH (06:00)
== END 2018-12-03 18:25 | DRG 312 ==
LOC: JER 14:50 → JERBED 18:05 → J4W 20:05 → J5S 12-02 16:35
PROVIDERS: ADMIT Internal Medicine; ATTEND Internal Medicine
DX: I95.1 Orthostatic hypotension (principal); I13.0 Hypertensive heart and chronic kidney disease with heart failure and stage 1 through stage 4 chronic kidney disease, or unspecified chronic kidney disease; I50.32 Chronic diastolic (congestive) heart failure; N17.9 Acute kidney failure, unspecified; D64.9 Anemia, unspecified; N18.9 Chronic kidney disease, unspecified; E11.22 Type 2 diabetes mellitus with diabetic chronic kidney disease; Z79.4 Long term (current) use of insulin; R29.6 Repeated falls; F32.9 Major depressive disorder, single episode, unspecified; Z95.5 Presence of coronary angioplasty implant and graft; R42 Dizziness and giddiness
CPT/HCPCS: 36415; 36430; 36511; 70450-TC; 71046-TC-FY; 80048; 80053; 81003; 82533; 82550; 82565; 82728; 82947; 82962; 83036; 83540; 83550; 83735; 84100; 84156; 84443; 84484; 84540; 85025; 86850; 86900; 86901; 86922; 87086; 87186; 93005; 93010; 97116-GP; 97162-GP; 99285-25; J1644; J7030; P9038; P9058